=== PATIENT | female | born 1970 | race Caucasian/White ===

== ENCOUNTER 2020-03-03 07:01 | Emergency (ER) | payer OTHER, SELFPAY ==
[2020-03-03 07:07] VITALS: BP 102/43; PULSE 106; RESP 18; TEMP 36.2; O2SAT 99
--- NOTE | 2020-03-03 08:03 | ED.UPPEXIN ---
HPI - Extremity Injury (Upper) General Chief Complaint: Extremity Injury, Upper Stated Complaint: finger swollen Time Seen by Provider: 03/03/20 07:07 History of Present Illness HPI narrative: Patient is a 49-year-old female who presents ER with cuts to her index fingers bilaterally. Yesterday she was using scissors to cut off some zip ties when she snipped the distal tips of each finger. When she woke up this morning the tip of the left finger was more painful and seem to be slightly swollen when compared to the right. Range of motion intact. No numbness or tingling. No drainage. Tetanus shot up-to-date. She had placed the fingers and Band-Aids and use Neosporin last night. Related Data Home Medications Medication Instructions Recorded Confirmed fluoxetine mg 08/10/19 fluoxetine mg 08/10/19 montelukast mg 08/10/19 quetiapine 08/10/19 aspirin 81 mg tablet,delayed 81 mg PO DAILY 09/06/19 release docosanol 10 % topical cream 1 applic TOPICAL ONCE 09/06/19 epinephrine 0.3 mg/0.3 mL 0.3 mg IM ONCE 09/06/19 injection, auto-injector lorazepam 0.5 mg tablet 0.5 mg PO BID PRN tablet 09/06/19 cetirizine 10 mg capsule 10 mg PO DAILY 10/18/19 Allergies Allergy/AdvReac Type Severity Reaction Status Date / Time clove Allergy Severe ANAPHALACTIC Verified 10/18/19 09:36 SHOCK codeine Allergy Severe unknown Verified 10/18/19 09:36 Penicillins Allergy Severe SOB Verified 10/18/19 09:36 poison natividad extract Allergy Severe hives , Verified 10/18/19 09:36 goes in lungs adhesive tape Allergy Mild eats pts Verified 10/18/19 09:36 skin bee venom protein (honey bee) Allergy Mild unknown Verified 10/18/19 09:36 sole Allergy Mild uknown Verified 10/18/19 09:36 papaya Allergy Mild SCRATCHY Verified 10/18/19 09:36 THROAT hay fever Allergy Severe cough , Uncoded 10/18/19 09:36 throat swells [place] Allergy Intermediate itchy Uncoded 10/18/19 09:36 throat Tuna Allergy Mild hives Uncoded 10/18/19 09:36 Review of Systems Constitutional: Constitutional: Denies chills, Denies fever(s) and Denies weakness Musculoskeletal: Musculoskeletal: Denies arthralgias and Denies joint swelling Comments: left 2nd digit pain Integumentary/Breasts: Skin/Breast: Reports erythema Comments: Superficial skin laxity to bilateral index fingers. PMFSH Past Medical History Medical History (Updated 03/03/20 @ 08:09 by Aníbal Cedillo MD) Acute arthritis Anxiety Asthma Bipolar depression CAD (coronary artery disease) Chronic pain COPD (chronic obstructive pulmonary disease) Diabetes Dysmenorrhea Fibromyalgia Folliculitis GERD (gastroesophageal reflux disease) History of herpes simplex infection Hyperlipidemia Hypothyroidism Migraine Suicide SI at age 16 Ulcer Surgical History Surgical History H/O: hysterectomy Tubal ligation status Social History Social History Smoking status: Never smoker Smoking end date: 05/29/13 Alcohol intake: current Exam Narrative: Exam Narrative: GENERAL: Well-appearing, well-nourished, and in no acute distress. HEAD: Normocephalic, atraumatic. EXTREMITIES: Small superficial wax versus abrasions to bilateral index fingers over the distal phalanx palmar aspect. Range of motion and strength intact at each joint. The left second digit appears to have mild redness when compared to the right with mild warmth as well. No tenderness over the flexor tendons on the left side. SKIN: Warm, dry, no rash. NEURO: Alert and oriented x3. PSYCH: Normal mood and affect. Course Course Emergency Course: Will start on Keflex for potential early cellulitis. Vital Signs Vital signs: Vital Signs Temperature 97.2 F L 03/03/20 07:07 Pulse Rate 106 H 03/03/20 07:07 Respiratory Rate 18 03/03/20 07:07 Blood Pressure 102/43 L 03/03/20 07:07 Pulse Oximetry
== END 2020-03-03 08:31 | disposition home or self-care (01) ==
PROVIDERS: Emergency Provider Emergency Medicine; PCP Family Medicine
DX: L03.012 Cellulitis of left finger (principal); Z79.82 Long term (current) use of aspirin; M19.90 Unspecified osteoarthritis, unspecified site; J44.9 Chronic obstructive pulmonary disease, unspecified; I25.10 Atherosclerotic heart disease of native coronary artery without angina pectoris; E11.9 Type 2 diabetes mellitus without complications; M79.7 Fibromyalgia; K21.9 Gastro-esophageal reflux disease without esophagitis; E78.5 Hyperlipidemia, unspecified; E03.9 Hypothyroidism, unspecified; F41.9 Anxiety disorder, unspecified; F31.9 Bipolar disorder, unspecified; W27.2XXA Contact with scissors, initial encounter
CPT/HCPCS: 99283

== ENCOUNTER 2020-05-13 00:45 | Emergency (ER) | payer OTHER, SELFPAY ==
--- NOTE | ~2020-05-13 | CT_ITS ---
EXAMINATION: CT abdomen pelvis w con DATE: 05/13/2020 02:58 INDICATION: Abdominal pain. Diarrhea. TECHNIQUE: Computed tomography (CT) of the abdomen and pelvis was performed with 100 mL Omnipaque 350 intravenous contrast. Automated exposure control and iterative reconstruction technique were employe d. The dose-length product was 1635.61 mGy-cm. COMPARISON: CT abdomen and pelvis 07/26/2015 FINDINGS: The visualized portions of the lung bases demonstrate mild atelectasis. No pleural effusion . The heart size is normal. No pericardial effusion. The liver, gallbladder, spleen, pancreas, adrena l glands, and left kidney are normal. There is an 8 mm cyst in right kidney. There are no dilated loo ps of bowel. There is wall thickening in the descending colon, sigmoid colon, and rectum, consistent with colitis. The appendix is normal. There are no pathologically enlarged lymph nodes. There is no f ree intraperitoneal fluid. There is mild thoracolumbar spondylosis. IMPRESSION: 1. Mild wall thickening of the distal colon, consistent with colitis. Reviewed, dictated and finalized at location A.
[2020-05-13 00:42] VITALS: BP 113/86; PULSE 100; RESP 20; TEMP 37.6; O2SAT 96
--- NOTE | 2020-05-13 01:01 | ED.ABDPAIN ---
HPI - Abdominal Pain General Chief Complaint: Abdominal Pain Stated Complaint: DIARRHEA Time Seen by Provider: 05/13/20 00:47 Source: patient and EMS Mode of arrival: EMS Limitations: no limitations History of Present Illness HPI narrative: Patient is a 49-year-old female who presents for evaluation of abdominal cramping and diarrhea. Patient reports acute onset abdominal cramping overnight, pain is intermittently cramping and sharp in nature throughout her abdomen. Patient states she has had watery diarrhea without blood or mucus. EMS was called and transported the patient to our facility, she is hemodynamically stable throughout transport. Patient denies any recent travel or sick contacts. No recent food indiscretion. Related Data Home Medications Medication Instructions Recorded Confirmed fluoxetine mg 08/10/19 03/28/20 fluoxetine mg 08/10/19 03/28/20 aspirin 81 mg tablet,delayed 81 mg PO DAILY 09/06/19 03/28/20 release docosanol 10 % topical cream 1 applic TOPICAL ONCE 09/06/19 03/28/20 epinephrine 0.3 mg/0.3 mL 0.3 mg IM ONCE 09/06/19 03/28/20 injection, auto-injector lorazepam 0.5 mg tablet 0.5 mg PO BID PRN tablet 09/06/19 03/28/20 cetirizine 10 mg capsule 10 mg PO DAILY 10/18/19 03/28/20 quetiapine 200 mg tablet 200 mg PO DAILY tablet 03/07/20 03/28/20 Allergies Allergy/AdvReac Type Severity Reaction Status Date / Time clove Allergy Severe ANAPHALACTIC Verified 05/13/20 00:49 SHOCK codeine Allergy Severe unknown Verified 05/13/20 00:49 Penicillins Allergy Severe SOB Verified 05/13/20 00:49 poison natividad extract Allergy Severe hives , Verified 05/13/20 00:49 goes in lungs adhesive tape Allergy Mild eats pts Verified 05/13/20 00:49 skin bee venom protein (honey bee) Allergy Mild unknown Verified 05/13/20 00:49 sole Allergy Mild uknown Verified 05/13/20 00:49 papaya Allergy Mild SCRATCHY Verified 05/13/20 00:49 THROAT hay fever Allergy Severe cough , Uncoded 05/13/20 00:49 throat swells [place] Allergy Intermediate itchy Uncoded 05/13/20 00:49 throat Tuna Allergy Mild hives Uncoded 05/13/20 00:49 Review of Systems Review of Systems: Narrative: CONSTITUTIONAL: Denies fever CARDIOVASCULAR: Denies chest pain RESPIRATORY: Denies cough or dyspnea. GASTROINTESTINAL: Reports abdominal pain and diarrhea SKIN: Denies rash MUSCULOSKELETAL: Denies back pain NEUROLOGIC: Denies headache PMFSH Past Medical History Medical History Acute arthritis Anxiety Asthma Bipolar depression CAD (coronary artery disease) Chronic pain COPD (chronic obstructive pulmonary disease) Diabetes Dysmenorrhea Fibromyalgia Folliculitis GERD (gastroesophageal reflux disease) History of herpes simplex infection Hyperlipidemia Hypothyroidism Migraine Suicide SI at age 16 Ulcer Surgical History Surgical History H/O: hysterectomy Tubal ligation status Social History Social History Smoking status: Never smoker Smoking end date: 05/29/13 Alcohol intake: current Exam Narrative: Exam Narrative: GENERAL: Awake, alert, conversant HEAD: Normocephalic, atraumatic. EYES: PERRLA and EOMI. ENT: Nares clear, no rhinorrhea or epistaxis. Mucous membranes moist. NECK: Supple. CHEST: No respiratory distress, breathing even and non labored HEART: Regular rate, sinus rhythm ABDOMEN:Non distended, mildly tender throughout, no rebound or guarding EXTREMITIES: Normal range of motion. No edema. SKIN: Warm, dry, no rash. NEURO:No focal deficits. Alert and oriented x3 Course Vital Signs Vital signs: Vital Signs Temperature 37.6 C 05/13/20 00:42 Pulse Rate 100 05/13/20 00:42 Respiratory Rate 20 05/13/20 00:42 Blood Pressure 113/86 05/13/20 00:42 Pulse Oximetry 96 05/13/20 00:42 Temperature 37.6 C 08
[2020-05-13] MEDS: DICYCLOMINE HCL INJ 20 MG/2 ML VIAL IM (01:16)
[2020-05-13] MEDS: SODIUM CHLORIDE 0.9% IV 1,000 ML 999 ML IV CONT ×2 (01:17→02:23)
[2020-05-13 01:28] LABS: Basophils Absolute Auto 0.1 K/mm3 (0.0-0.1); Basophils Percent Auto 0.7 % (0.2-1.2); Eosinophils Absolute Auto 0.1 K/mm3 (0-0.3); Eosinophils Percent Auto 1.2 % (0-4.4); Hematocrit 46.9 % (37.0-47.0); Hemoglobin 15.4 g/dL (12.0-15.0); Immature Granulocyte Absolute 0.01 K/mm3 (0.00-0.031); Immature Granulocyte Percent A 0.1 % (0-0.5); Lymphocytes Absolute Auto 1.55 K/mm3 (0.9-3.2); Lymphocytes Percent Auto 22.7 % (18.3-44.2); Mean Corpuscular HGB Conc 32.8 g/dl (32-36); Mean Corpuscular Hemoglobin 29.6 pg (26-34); Mean Platelet Volume 11.8 fl (7.4-10.4); Monocytes Absolute Auto 0.6 K/mm3 (0.1-0.6); Monocytes Percent Auto 8.6 % (2.6-8.5); Neutrophils Absolute Auto 4.6 K/mm3 (1.3-6.7); Neutrophils Percent Auto 66.7 % (45.5-73.1); Platelet Count Result 201 k/mm3 (150-375); Red Blood Count 5.21 M/mm3 (4.2-5.4); Red Cell Distribution Width 12.7 % (11.5-14.5); White Blood Count 6.8 K/mm3 (4.5-10.0)
[2020-05-13 02:06] LABS: Alanine Aminotransferase 24 U/L (4-35); Albumin Level 3.8 g/dL (3.5-5.1); Alkaline Phosphatase 93 U/L (38-126); Anion Gap 5 mmol/L (8-16); Aspartate Amino Transferase 26 U/L (14-36); Bilirubin,Total 0.5 mg/dL (0.2-1.3); Blood Urea Nitrogen 20 mg/dL (7-17); Calcium 8.8 mg/dL (8.4-10.2); Carbon Dioxide 25 mmol/L (22-30); Chloride 109 mmol/L (98-107); Estimated CRCL calculation 90 ml/min; Estimated Glomerular Filt Rate > 60; Glucose 100 mg/dL (65-105); Lipase 72 U/L (23-300); Potassium 3.9 mmol/L (3.4-5.0); Sodium 139 mmol/L (137-145)
[2020-05-13 02:40] LABS: Add Urine Microscopic? YES; Appearance Urine Clear (Clear); Bacteria Urine Trace /hpf; Bilirubin Urine 2+ (Negative); Blood Urine Negative (Negative); Color Urine Amber (Yellow); Glucose Urine UA Negative (Negative); Hyaline Casts Urine 20-29 /lpf; Ketones Urine Trace mg/dL (Negative); Leukocyte Esterase Ur Negative LEU/UL (Negative); Mucus Urine Heavy /lpf; Nitrate Urine Negative (Negative); Protein Urine 2+ mg/dL (Negative); Squamous Epithelial Cell Urine Many /hpf (Few)
[2020-05-13 02:50] LABS: Specific Grav Ur 1.036 (1.001-1.035)
[2020-05-13 03:08] VITALS: BP 109/71; PULSE 88; RESP 20; O2SAT 100
[2020-05-13 04:45] VITALS: BP 110/80; PULSE 90; RESP 20; O2SAT 98
== END 2020-05-13 04:47 | disposition home or self-care (01) ==
PROVIDERS: Emergency Provider Emergency Medicine; PCP Family Medicine
DX: K52.9 Noninfective gastroenteritis and colitis, unspecified (principal)
CPT/HCPCS: 36415; 51701; 74177; 80053; 81001; 83690; 85025; 96360; 96361; 96372; 99284; J0500; J7030; Q9967

== ENCOUNTER 2020-05-17 08:44 | Outpatient (CLI) | payer OTHER, SELFPAY ==
[2020-05-17 09:33] LABS: Alanine Aminotransferase 29 U/L (4-35); Albumin Level 4.3 g/dL (3.5-5.1); Alkaline Phosphatase 87 U/L (38-126); Anion Gap 9 mmol/L (8-16); Aspartate Amino Transferase 31 U/L (14-36); Bilirubin,Total 0.4 mg/dL (0.2-1.3); Blood Urea Nitrogen 21 mg/dL (7-17); Calcium 9.3 mg/dL (8.4-10.2); Carbon Dioxide 27 mmol/L (22-30); Chloride 105 mmol/L (98-107); Estimated Glomerular Filt Rate > 60; Glucose 94 mg/dL (65-105); Magnesium 2.3 mg/dL (1.6-2.3); Potassium 3.9 mmol/L (3.4-5.0); Sodium 141 mmol/L (137-145)
== END 2020-05-17 08:45 | disposition home or self-care (01) ==
LOC: ANHLAB 08:46
PROVIDERS: PCP Family Medicine; Visit Provider Internal Medicine Cardiovascular Disease
DX: E78.5 Hyperlipidemia, unspecified (principal)
CPT/HCPCS: 36415; 80053; 83735

== ENCOUNTER 2020-05-21 09:16 | Emergency (ER) | payer OTHER, SELFPAY ==
--- NOTE | ~2020-05-21 | XR_ITS ---
EXAMINATION: XR abdomen/kub 1V DATE: 05/21/2020 10:11 INDICATION: Constipation. TECHNIQUE: A supine view of the abdomen on 2 radiographs was obtained. COMPARISON: Abdomen radiographs 12/30/2015, CT abdomen and pelvis 05/13/2020 FINDINGS: There are no dilated loops of bowel. There is a moderate volume of stool in the colon. Calc ifications in the pelvis are likely phleboliths. IMPRESSION: 1. Nonobstructive bowel gas pattern. Reviewed, dictated and finalized at location B.
[2020-05-21 09:20] VITALS: BP 132/72; PULSE 104; RESP 16; TEMP 35.9; O2SAT 100
--- NOTE | 2020-05-21 09:32 | ED.ABDPAIN ---
HPI - Abdominal Pain General Chief Complaint: Abdominal Pain Stated Complaint: constipated Time Seen by Provider: 05/21/20 09:30 History of Present Illness HPI narrative: She has had constipation for the past 5 days, no bowel movements in that time. Prior to that she was seen for bloody diarrhea nad started on cipro and flagy. Her current symptoms are associated with mild generalized abdominal pain and bloating. She tried miralax and prunes without relief. Related Data Home Medications Medication Instructions Recorded Confirmed fluoxetine mg 08/10/19 05/18/20 fluoxetine mg 08/10/19 05/18/20 aspirin 81 mg tablet,delayed 81 mg PO DAILY 09/06/19 05/18/20 release epinephrine 0.3 mg/0.3 mL 0.3 mg IM ONCE 09/06/19 05/18/20 injection, auto-injector lorazepam 0.5 mg tablet 0.5 mg PO BID PRN tablet 09/06/19 05/18/20 ciprofloxacin HCl [Cipro] 500 mg PO Q12H 05/21/20 quetiapine 200 mg PO HS 05/21/20 Allergies Allergy/AdvReac Type Severity Reaction Status Date / Time clove Allergy Severe ANAPHALACTIC Verified 05/13/20 00:49 SHOCK codeine Allergy Severe unknown Verified 05/13/20 00:49 Penicillins Allergy Severe SOB Verified 05/13/20 00:49 poison natividad extract Allergy Severe hives , Verified 05/13/20 00:49 goes in lungs adhesive tape Allergy Mild eats pts Verified 05/13/20 00:49 skin bee venom protein (honey bee) Allergy Mild unknown Verified 05/13/20 00:49 papaya Allergy Mild SCRATCHY Verified 05/13/20 00:49 THROAT hay fever Allergy Severe cough , Uncoded 05/13/20 00:49 throat swells [place] Allergy Intermediate itchy Uncoded 05/13/20 00:49 throat Tuna Allergy Mild hives Uncoded 05/13/20 00:49 Review of Systems Review of Systems: All systems reviewed & are unremarkable except as noted in HPI and below Constitutional: Constitutional: Denies fever(s) Cardiovascular: Cardiovascular: Denies chest pain Respiratory: Respiratory: Denies dyspnea Gastrointestinal: Gastrointestinal: Reports bloating, Reports constipation and Denies vomiting Genitourinary: Genitourinary: Denies hematuria and Denies dysuria PMFSH Past Medical History Medical History Acute arthritis Anxiety Asthma Bipolar depression CAD (coronary artery disease) Chronic pain Colitis (~04/2020) COPD (chronic obstructive pulmonary disease) Diabetes Dysmenorrhea Fibromyalgia Folliculitis GERD (gastroesophageal reflux disease) History of herpes simplex infection Hyperlipidemia Hypothyroidism Migraine Suicide SI at age 16 Ulcer Surgical History Surgical History H/O: hysterectomy Tubal ligation status Family History Family History Mother Family history of elevated blood lipids, Onset Age: 62 Patient's mother is Sibling Family history of malignant neoplasm of breast in first degree relative Family history of lupus erythematosus Grandparent Family history of bipolar disorder Family history of tremor Family history of heart disease in male family member before age 55 Other Diabetes mellitus Family history of cardiovascular disease Family history of malignant neoplasm of breast Family history of malignant neoplasm of cervix Family history of malignant neoplasm of ovary Social History Social History Smoking status: Never smoker Smoking end date: 05/29/13 Alcohol intake: current Exam Const: General: no acute distress and alert Nutritional Appearance: obese Orientation/consciousness: patient oriented x3 HENMT: Head: normal to inspection Neck: Neck: normal visual inspection and no lymphadenopathy Chest: Chest palpation & inspection: no tenderness Resp: Effort & Inspection: normal respiratory effort Auscultation: clear to auscultati
[2020-05-21 09:44] LABS: Basophils Absolute Auto 0.1 K/mm3 (0.0-0.1); Basophils Percent Auto 1.1 % (0.2-1.2); Eosinophils Absolute Auto 0.1 K/mm3 (0-0.3); Eosinophils Percent Auto 1.3 % (0-4.4); Hematocrit 45.6 % (37.0-47.0); Hemoglobin 15.1 g/dL (12.0-15.0); Immature Granulocyte Absolute 0.01 K/mm3 (0.00-0.031); Immature Granulocyte Percent A 0.2 % (0-0.5); Lymphocytes Absolute Auto 1.87 K/mm3 (0.9-3.2); Lymphocytes Percent Auto 34.6 % (18.3-44.2); Mean Corpuscular HGB Conc 33.1 g/dl (32-36); Mean Corpuscular Hemoglobin 29.7 pg (26-34); Mean Corpuscular Volume 89.6 fl (80-100); Mean Platelet Volume 11.4 fl (7.4-10.4); Monocytes Absolute Auto 0.3 K/mm3 (0.1-0.6); Monocytes Percent Auto 5.7 % (2.6-8.5); Neutrophils Absolute Auto 3.1 K/mm3 (1.3-6.7); Neutrophils Percent Auto 57.1 % (45.5-73.1); Platelet Count Result 224 k/mm3 (150-375); Red Blood Count 5.09 M/mm3 (4.2-5.4); Red Cell Distribution Width 12.9 % (11.5-14.5); White Blood Count 5.4 K/mm3 (4.5-10.0)
[2020-05-21 09:56] LABS: Alanine Aminotransferase 45 U/L (4-35); Albumin Level 4.5 g/dL (3.5-5.1); Alkaline Phosphatase 89 U/L (38-126); Anion Gap 11 mmol/L (8-16); Aspartate Amino Transferase 52 U/L (14-36); Bilirubin,Total 0.5 mg/dL (0.2-1.3); Blood Urea Nitrogen 19 mg/dL (7-17); Calcium 9.2 mg/dL (8.4-10.2); Carbon Dioxide 25 mmol/L (22-30); Chloride 102 mmol/L (98-107); Estimated CRCL calculation 96 ml/min; Estimated Glomerular Filt Rate > 60; Glucose 99 mg/dL (65-105); Lipase 71 U/L (23-300); Potassium 3.9 mmol/L (3.4-5.0); Sodium 138 mmol/L (137-145)
[2020-05-21] MEDS: MAGNESIUM CITRATE 300 ML BTL PO (10:01)
[2020-05-21 11:06] LABS: Add Urine Microscopic? YES; Appearance Urine Clear (Clear); Bacteria Urine Trace /hpf; Bilirubin Urine Negative (Negative); Blood Urine 1+ (Negative); Color Urine Straw (Yellow); Glucose Urine UA Negative (Negative); Ketones Urine Negative (Negative); Leukocyte Esterase Ur Trace LEU/UL (Negative); Nitrate Urine Negative (Negative); Protein Urine Negative (Negative); RBC Urine 0-2 /hpf (0-2); Specific Grav Ur 1.006 (1.001-1.035); Squamous Epithelial Cell Urine Moderate /hpf (Few); Urobilinogen Urine Negative mg/dL (<2.0); WBC Urine 0-3 /hpf
[2020-05-21 15:56] VITALS: BP 105/56; PULSE 73; RESP 16; O2SAT 96
== END 2020-05-21 16:01 | disposition home or self-care (01) ==
PROVIDERS: Emergency Provider Emergency Medicine; PCP Family Medicine
DX: K59.00 Constipation, unspecified (principal); M19.90 Unspecified osteoarthritis, unspecified site; I25.10 Atherosclerotic heart disease of native coronary artery without angina pectoris; J44.9 Chronic obstructive pulmonary disease, unspecified; E11.9 Type 2 diabetes mellitus without complications; M79.7 Fibromyalgia; K21.9 Gastro-esophageal reflux disease without esophagitis; E78.5 Hyperlipidemia, unspecified; E03.9 Hypothyroidism, unspecified; F41.9 Anxiety disorder, unspecified; F31.9 Bipolar disorder, unspecified; Z79.82 Long term (current) use of aspirin
CPT/HCPCS: 36415; 74018; 80053; 81001; 83690; 85025; 99283; A9270

== ENCOUNTER 2020-12-01 19:59 | Emergency (ER) | payer OTHER, SELFPAY ==
--- NOTE | ~2020-12-01 | XR_ITS ---
EXAMINATION: XR foot LT min 3V DATE: 12/01/2020 20:55 INDICATION: Left foot pain, possible foreign body TECHNIQUE: Dorsoplantar, lateral, and 2 oblique views of the left foot were obtained. COMPARISON: 05/11/2015 FINDINGS: There is soft tissue swelling of the foot near the fifth metatarsophalangeal joint. A 2 mm thin linear density projects lateral to the head of the fifth metatarsal. The joint spaces are normal . There is no fracture. Dorsal and plantar calcaneal enthesophytes are noted. IMPRESSION: 1. 2 mm linear density projecting near the head of the fifth metatarsal, possibly foreign body. 2. Soft tissue swelling of the foot near the fifth metatarsophalangeal joint. Reviewed, dictated and finalized at location A. [employer] IMPRESSION: 1. 2 mm linear density projecting near the head of the fifth metatarsal, possib ly foreign body. 2. Soft tissue swelling of the foot near the fifth metatarsophalangeal joint.
[2020-12-01 20:11] VITALS: BP 119/78; PULSE 99; RESP 18; TEMP 36.9; O2SAT 99
--- NOTE | 2020-12-01 20:38 | ED.GENADULT ---
HPI - General Adult General Chief complaint: Wound/Laceration Stated complaint: laceration to left foot Time Seen by Provider: 12/01/20 20:09 History of Present Illness HPI narrative: Patient is a 50-year-old female who presents ER for evaluation of a laceration to the bottom of the left foot. Reports she cut it on her floor while walking 3 days ago. She cleaned it and applied a Steri-Strip and bandage. She has slight increase in her pain today so she thought she come for further evaluation. She has not noticed any redness or drainage. No fevers or chills or sweats. She is able to bear weight on it. Pain improves when she takes her diclofenac or tramadol. Related Data Home Medications Medication Instructions Recorded Confirmed fluoxetine mg 08/10/19 07/10/20 fluoxetine mg 08/10/19 07/10/20 aspirin 81 mg tablet,delayed 81 mg PO DAILY 09/06/19 07/10/20 release epinephrine 0.3 mg/0.3 mL 0.3 mg IM ONCE 09/06/19 07/10/20 injection, auto-injector lorazepam 0.5 mg tablet 0.5 mg PO BID PRN tablet 09/06/19 07/10/20 quetiapine 200 mg PO HS 05/21/20 07/10/20 cetirizine 10 mg tablet 10 mg PO DAILY 07/10/20 07/10/20 Allergies Allergy/AdvReac Type Severity Reaction Status Date / Time clove Allergy Severe ANAPHALACTIC Verified 07/10/20 10:58 SHOCK codeine Allergy Severe unknown Verified 07/10/20 10:58 Penicillins Allergy Severe SOB Verified 07/10/20 10:58 poison natividad extract Allergy Severe hives , Verified 07/10/20 10:58 goes in lungs adhesive tape Allergy Mild eats pts Verified 07/10/20 10:58 skin bee venom protein (honey bee) Allergy Mild unknown Verified 07/10/20 10:58 papaya Allergy Mild SCRATCHY Verified 07/10/20 10:58 THROAT hay fever Allergy Severe cough , Uncoded 07/10/20 10:58 throat swells [place] Allergy Intermediate itchy Uncoded 07/10/20 10:58 throat Tuna Allergy Mild hives Uncoded 07/10/20 10:58 Review of Systems Constitutional: Constitutional: Denies chills, Denies fever(s) and Denies weakness Musculoskeletal: Musculoskeletal: Denies arthralgias, Denies joint swelling and Denies muscle cramps Integumentary/Breasts: Skin/Breast: Denies erythema and Denies rash Comments: Foot lack PMFSH Past Medical History Medical History (Updated 12/01/20 @ 22:29 by Aníbal Cedillo MD) Acute arthritis Anxiety Asthma Bipolar depression CAD (coronary artery disease) Chronic pain Colitis (~04/2020) COPD (chronic obstructive pulmonary disease) Diabetes Dysmenorrhea Fibromyalgia Folliculitis GERD (gastroesophageal reflux disease) History of herpes simplex infection Hyperlipidemia Hypothyroidism Migraine Suicide SI at age 16 Ulcer Surgical History Surgical History H/O: hysterectomy Tubal ligation status Family History Family History Mother Family history of elevated blood lipids, Onset Age: 62 Patient's mother is Sibling Family history of malignant neoplasm of breast in first degree relative Family history of lupus erythematosus Grandparent Family history of bipolar disorder Family history of tremor Family history of heart disease in male family member before age 55 Other Diabetes mellitus Family history of cardiovascular disease Family history of malignant neoplasm of breast Family history of malignant neoplasm of cervix Family history of malignant neoplasm of ovary Social History Social History Smoking status: Never smoker Smoking end date: 05/29/13 Alcohol intake: current Exam Narrative: Exam Narrative: GENERAL: Well-appearing, well-nourished, and in no acute distress. HEAD: Normocephalic, atraumatic. EXTREMITIES: Left lower extremity with normal strength. Normal appearance of foot without swelling or redness or cellulitis. No lymphangitic
[2020-12-01 22:55] VITALS: BP 124/76; PULSE 100; RESP 18; O2SAT 100
== END 2020-12-01 22:57 | disposition home or self-care (01) ==
PROVIDERS: Emergency Provider Emergency Medicine; PCP Family Medicine
DX: S90.852A Superficial foreign body, left foot, initial encounter (principal); M19.90 Unspecified osteoarthritis, unspecified site; F31.9 Bipolar disorder, unspecified; I25.10 Atherosclerotic heart disease of native coronary artery without angina pectoris; J44.9 Chronic obstructive pulmonary disease, unspecified; E11.9 Type 2 diabetes mellitus without complications; M79.7 Fibromyalgia; K21.9 Gastro-esophageal reflux disease without esophagitis; E78.5 Hyperlipidemia, unspecified; E03.9 Hypothyroidism, unspecified; Z79.82 Long term (current) use of aspirin; W45.8XXA Other foreign body or object entering through skin, initial encounter
CPT/HCPCS: 73630; 99283

== ENCOUNTER 2020-12-04 13:36 | Inpatient (IN) | payer OTHER, SELFPAY ==
[2020-12-04] VITALS (7 sets, daily range): BP systolic 105–132; BP diastolic 71–98; PULSE 72–102; RESP 16–20; TEMP 35.7–37; O2SAT 97–100; BMI 36.1
--- NOTE | ~2020-12-04 | MR_ITS ---
EXAMINATION: MR foot LT wo con DATE: 12/05/2020 08:22 INDICATION: Left foot pain. Foreign body with infection. TECHNIQUE: Magnetic resonance imaging (MRI) of the left foot was performed without intravenous contra st. Sequences included sagittal T1-weighted FSE and STIR FSE, long-axis PD-weighted FS FSE and PD-yelena ghted FSE, and short-axis PD-weighted FS FSE and T1-weighted FSE. COMPARISON: Left foot radiographs 12/01/2020, 05/12/2014 FINDINGS: There is mild hallux valgus. No fracture. There is bone marrow edema of head of fifth metat arsal characterized by increased T2-weighted signal intensity and mildly decreased T1-weighted signal intensity. There is mild osteoarthritis of first metatarsophalangeal joint and some of the interphal angeal joints. There is an effusion of fifth metatarsophalangeal joint. Lisfranc ligament is intact. The flexor and extensor tendons are normal. There is edema of the soft tissues in the lateral forefoo t. IMPRESSION: 1. Bone marrow edema in head of fifth metatarsal, consistent with osteomyelitis. 2. Effusion of fifth metatarsophalangeal joint. 3. Edema of the lateral forefoot soft tissues, consistent with cellulitis. Reviewed, dictated and finalized at location A. ENTARY EDUCATION TEACHER IMPRESSION: 1. Bone marrow edema in head of fifth metatarsal, consistent with osteomyelitis . 2. Effusion of fifth metatarsophalangeal joint. 3. Edema of the lateral forefoot soft tissues, consistent with cellulitis.
[2020-12-04 16:12] LABS: Basophils Absolute Auto 0.1 K/mm3 (0.0-0.1); Eosinophils Absolute Auto 0.1 K/mm3 (0-0.3); Eosinophils Percent Auto 1.1 % (0-4.4); Hematocrit 40.5 % (37.0-47.0); Hemoglobin 13.4 g/dL (12.0-15.0); Immature Granulocyte Absolute 0.01 K/mm3 (0.00-0.031); Immature Granulocyte Percent A 0.1 % (0-0.5); Immature Platelet Fraction Pct 4.6 % (0.9-11.2); Lymphocytes Absolute Auto 2.22 K/mm3 (0.9-3.2); Lymphocytes Percent Auto 31.2 % (18.3-44.2); Mean Corpuscular HGB Conc 33.1 g/dl (32-36); Mean Corpuscular Hemoglobin 30.5 pg (26-34); Mean Corpuscular Volume 92.3 fl (80-100); Mean Platelet Volume 11.5 fl (7.4-10.4); Monocytes Absolute Auto 0.5 K/mm3 (0.1-0.6); Monocytes Percent Auto 7.6 % (2.6-8.5); Neutrophils Absolute Auto 4.2 K/mm3 (1.3-6.7); Red Blood Count 4.39 M/mm3 (4.2-5.4); Red Cell Distribution Width 12.7 % (11.5-14.5); White Blood Count 7.1 K/mm3 (4.5-10.0)
--- NOTE | 2020-12-04 16:16 | ED.GENADULT ---
HPI - General Adult General Chief complaint: Extremity Injury, Lower Stated complaint: left foot swelling/redness Time Seen by Provider: 12/04/20 15:36 Source: patient History of Present Illness HPI narrative: Patient is a 50 y/o female complaining of left foot pain starting approximately 3 days ago. She describes her pain as sharp and rates it as 3/10. She has neuropathy and does not have much sensation in her foot. She stepped on something 5 days ago and the wound closed quickly, then she started to have pain 2 days ago. There is no pain radiation. She was seen here 3 days ago, had Xray which showed possible foreign body. She was given Rx for Doxycycline and referred to ortho. She saw Dr. Braden (podiatry) yesterday and was supposed to have an MRI. However, she developed fever of 102 this morning and was directed here to be re-evaluated in ED. Related Data Home Medications Medication Instructions Recorded Confirmed fluoxetine mg 08/10/19 07/10/20 fluoxetine mg 08/10/19 07/10/20 aspirin 81 mg tablet,delayed 81 mg PO DAILY 09/06/19 12/03/20 release epinephrine 0.3 mg/0.3 mL 0.3 mg IM ONCE 09/06/19 07/10/20 injection, auto-injector lorazepam 0.5 mg tablet 0.5 mg PO BID PRN tablet 09/06/19 12/03/20 quetiapine 200 mg PO HS 05/21/20 12/03/20 cetirizine 10 mg tablet 10 mg PO DAILY 07/10/20 12/03/20 Allergies Allergy/AdvReac Type Severity Reaction Status Date / Time clove Allergy Severe ANAPHALACTIC Verified 07/10/20 10:58 SHOCK codeine Allergy Severe unknown Verified 07/10/20 10:58 Penicillins Allergy Severe SOB Verified 07/10/20 10:58 poison natividad extract Allergy Severe hives , Verified 07/10/20 10:58 goes in lungs adhesive tape Allergy Mild eats pts Verified 07/10/20 10:58 skin bee venom protein (honey bee) Allergy Mild unknown Verified 07/10/20 10:58 papaya Allergy Mild SCRATCHY Verified 07/10/20 10:58 THROAT hay fever Allergy Severe cough , Uncoded 07/10/20 10:58 throat swells [place] Allergy Intermediate itchy Uncoded 07/10/20 10:58 throat Tuna Allergy Mild hives Uncoded 07/10/20 10:58 Review of Systems Constitutional: Constitutional: Denies chills, Reports fever(s), Denies headache(s) and Denies weakness Eyes: Eyes: Denies blurry vision ENT: Denies headache(s) and Denies neck pain Cardiovascular: Cardiovascular: Denies chest pain and Denies dyspnea Respiratory: Respiratory: Denies cough and Denies dyspnea Gastrointestinal: Gastrointestinal: Denies abdominal pain, Denies diarrhea, Denies nausea and Denies vomiting Genitourinary: Genitourinary: Denies hematuria and Denies dysuria Musculoskeletal: Musculoskeletal: Reports as per HPI, Denies back pain, Denies neck pain and Reports other (left foot pain) Integumentary/Breasts: Skin/Breast: Reports erythema (left foot) Neurologic: Denies headache(s) and Denies weakness PMFSH Past Medical History Medical History (Updated 12/04/20 @ 17:17 by Gia Mccloud MD) Acute arthritis Anxiety Asthma Bipolar depression CAD (coronary artery disease) Chronic pain Colitis (~04/2020) COPD (chronic obstructive pulmonary disease) Diabetes Dysmenorrhea Fibromyalgia Folliculitis GERD (gastroesophageal reflux disease) History of herpes simplex infection Hyperlipidemia Hypothyroidism Migraine Suicide SI at age 16 Ulcer Surgical History Surgical History H/O: hysterectomy Tubal ligation status Family History Family History Mother Family history of elevated blood lipids, Onset Age: 62 Patient's mother is Sibling Family history of malignant neoplasm of breast in first degree relative Family history of lupus erythematosus Grandparent Family history of bipolar disorder Family history of tremor Family history of heart disease in male family member before age 55 Other Diabetes mellitus Family h
[2020-12-04 16:37] LABS: Lactic Acid Reflex 0.8 mmol/L (0.7-2.1)
[2020-12-04 16:48] LABS: Erythrocyte Sedimentation Rate 16 mm/hr (0-20)
[2020-12-04 16:51] LABS: Anion Gap 5 mmol/L (8-16); Blood Urea Nitrogen 22 mg/dL (7-17); CRP 1.8 mg/dL (<1.0); Calcium 9.4 mg/dL (8.4-10.2); Carbon Dioxide 30 mmol/L (22-30); Chloride 105 mmol/L (98-107); Estimated CRCL calculation 110 ml/min; Estimated Glomerular Filt Rate > 60; Glucose 98 mg/dL (65-105); Potassium 4.1 mmol/L (3.4-5.0); Sodium 140 mmol/L (137-145)
[2020-12-04] MEDS: TETANUS,DIPHTHERIA,AC PERTUSSIS ADULT (0.5 ML) BOOSTRIX IM (17:08)
[2020-12-04] MEDS: levoFLOXacin 500 MG/D5W 100 ML 500 MG/100 ML BAG 100 MG IVPB (17:09)
--- NOTE | 2020-12-04 17:50 | PM.IMHP ---
H&P: HPI History of Present Illness Date/Time: 12/04/20 17:50 Chief Complaint: Left foot injury Narrative: Date of admission: 12/04/2020 Date of service: 12/04/2020 Jaci Felix is a 50 year old female with history of anxiety, bipolar disorder, COPD and asthma, diabetes mellitus, and several other comorbidities who presented to the emergency department on 12/04/2020 with complaints of left foot swelling and redness. She states that last week, on 11/28/2020 she was walking barefoot in her home when she stepped on an unknown item that cut her foot. She did not feel this as she has poor sensation, but noticed a trail of blood on the floor. She is unsure what she stepped on but states that it might have been a rock or something sharp. She had some pain with weight-bearing but was manageable and she was able to get around with heel-toe walking. Over the next couple of days, she developed increased pain in the foot which prompted her to go to the emergency department on 12/01/2020. At that time she had a foot x-ray which showed a 2 mm linear density projecting near the head of the 5th metatarsal, possibly a foreign body, as well as soft tissue swelling of the foot near the 5th MTP. She was discharged on doxycycline and referred to orthopedic surgery. Two days later she went to her PCP as she developed increased redness and swelling. She was started on Keflex at that time and later that day went to a utilities ground worker who recommended she obtain an MRI. Her erythema and edema increased and she developed a fever of 102.0, which prompted her to seek emergency care. Upon presentation to the ED, her vital signs were stable and she was afebrile, no leukocytosis, CBC and BMP unremarkable, ESR 16 and CRP 1.8. She denies nausea or vomiting. She denies lymphangitic streaking up the extremity. Her pain is controlled at this time. Denies purulence or drainage of the wound. She is being admitted to the hospitalist service for observation. Supervising physician for this history and physical is Dr. Harpreet Childs. Review of Systems Review of Systems: Narrative: All systems reviewed with pertinent positives and negatives as per HPI. Additional,she denies shortness of breath, chest pain, cough, wheezing, dizziness, lightheadedness. Her asthma is well controlled. Her mood is stable. She has a history of suicidal ideation many years ago but denies any thoughts of wanting to harm herself or others currently. She complains of chronic pain in her neck. She denies abdominal pain. She has regular bowel movements. Denies urinary symptoms. [facility] Past Medical History Medical History (Updated 12/04/20 @ 18:26 by Kelly Carr PA-C) Acute arthritis Anxiety Asthma Mild persistent Bipolar depression Chronic pain Colitis (~04/2020) COPD (chronic obstructive pulmonary disease) Diabetes mellitus with neuropathy Dysmenorrhea Fibromyalgia Folliculitis GERD (gastroesophageal reflux disease) History of herpes simplex infection Hyperlipidemia Hypothyroidism Migraine Suicide SI at age 16 Surgical History Surgical History (Updated 12/04/20 @ 18:09 by Kelly Carr PA-C) H/O: hysterectomy History of cervical spinal surgery 2006 History of delivery Tubal ligation status Family History Family History (Updated 12/04/20 @ 18:10 by Kelly Carr PA-C) Mother Family history of elevated blood lipids, Onset Age: 62 Brain aneurysm Sibling Family history of malignant neoplasm of breast in first degree relative Family history of lupus erythematosus Father Family history of tremor Son Bipolar 1 disorder Other Diabetes mellitus Family history of cardiovascular disease Family history of malignant neoplasm of breast Family history of malignant neoplasm of cervix Family history of malignant neoplasm of ovary Social History Social History (Updated 12/04/20 @ 18:12 by Kelly Carr PA-C) Social History: Ms. Wiggins
--- NOTE | 2020-12-04 19:29 | ADMGEN ---
This patient, Jaci Felix, was admitted to [facility] Surg Room 310-01. Patient/family oriented to hospital policies and general routines including ID bracelet, bed and alarms, visiting hours, pain management, procedures, bathroom and other care routines, personal items, smoking policy, room service/diet, and visiting hours. Information on how to activate the Rapid Response Team has been discussed. Patient/Family are encouraged to report perceived risks to care and to ask questions if they do not understand what they are told or what they should do.
[2020-12-04] MEDS: ENOXAPARIN 40 MG/0.4 ML SYRINGE SUB-Q (21:14)
[2020-12-04 21:26] LABS: Glucose Point of Care 131 (65-105)
[2020-12-04] MEDS: DICLOFENAC SOD 75 MG TABLET.EC PO (23:02)
[2020-12-04] MEDS: CYCLOBENZAPRINE HCL 10 MG TABLET PO (23:02)
[2020-12-04] MEDS: HYDROcodone/acetaminophen (*CRX) 5-325 MG TABLET 1 TAB PO (23:03)
[2020-12-04] MEDS: GABAPENTIN 100 MG CAPSULE 200 MG PO (23:04)
[2020-12-04] MEDS: LEVOTHYROXINE SODIUM 12.5 MCG TABLET PO (23:04)
[2020-12-04] MEDS: LEVOTHYROXINE SODIUM 25 MCG TABLET PO (23:05)
[2020-12-05 05:31] VITALS: PULSE 88; RESP 20
[2020-12-05] MEDS: ALBUTEROL SULFATE NEB 2.5 MG/3 ML INH INHALATION (05:31)
[2020-12-05 05:53] LABS: Hematocrit 42.9 % (37.0-47.0); Hemoglobin 13.8 g/dL (12.0-15.0); Mean Corpuscular HGB Conc 32.2 g/dl (32-36); Mean Corpuscular Volume 93.3 fl (80-100); Mean Platelet Volume 10.9 fl (7.4-10.4); Platelet Count Result 210 k/mm3 (150-375); Red Cell Distribution Width 12.6 % (11.5-14.5); White Blood Count 6.3 K/mm3 (4.5-10.0)
[2020-12-05 06:00] VITALS: BP 129/84; PULSE 86; RESP 20; TEMP 36.8; O2SAT 100
[2020-12-05 06:15] LABS: Anion Gap 6 mmol/L (8-16); Blood Urea Nitrogen 20 mg/dL (7-17); Calcium 8.5 mg/dL (8.4-10.2); Carbon Dioxide 30 mmol/L (22-30); Chloride 105 mmol/L (98-107); Estimated CRCL calculation 110 ml/min; Estimated Glomerular Filt Rate > 60; Glucose 89 mg/dL (65-105); Potassium 4.1 mmol/L (3.4-5.0); Sodium 141 mmol/L (137-145)
--- NOTE | 2020-12-05 07:51 | PM.CNOR ---
Assessment and Plan Assessment and plan (1) Cellulitis of left foot: Code(s): L03.116 - Cellulitis of left lower limb Status: Acute Assessment and Plan: 50-year-old woman with left foot infection. Her history is somewhat confusing given the time and the number of people she is seen for her left foot over the past week. Patient thought she stepped on something as she noted there was bleeding with weight-bearing in her house which started 1 week ago. Subsequently a radiograph was read as concerning for a foreign body. No foreign bodies visible on the MRI however, and I suspect the small calcification on the radiograph may be an accessory bone or old injury. The patient does have mixed neuropathy but not from diabetes. She does not take diabetic medication. Her last A1c was 5. She does have neuropathy from cervical spine issues and radiculopathy. There is question of osteomyelitis of the 5th metatarsal head on the MRI however she has no physical findings or laboratory findings consistent with osteomyelitis. She is nontender to palpation and has full range of motion of the MTP joint. This may be reactive edema in the met head from her cellulitis. She has responded favorably to intravenous antibiotics overnight. The MRI shows no abscess or foreign body or operative indications. MRI findings and plan discussed with the patient who verbalizes agreement. Recommend IV antibiotics until stable enough to transition to p.o. antibiotics. Follow-up for any signs of worsening. Productive weight-bearing of left foot. May use postop shoe or similar. Thank you for allowing me to participate in her care. History of Present Illness HPI Consult date: 12/05/20 Requesting physician: Maycol Childs MD Chief complaint: left foot infection Narrative: 50-year-old woman I have been asked to see in consultation with history of diabetes and foreign body left foot. Patient noted cut on the plantar surface of the left forefoot 1 week ago. Admitted yesterday for new onset fever and progressive swelling left foot. Review of Systems Constitutional: Constitutional: Denies chills, Reports fever(s), Denies headache(s) and Denies weakness Eyes: Eyes: Denies blurry vision ENT: Denies headache(s) and Denies neck pain Cardiovascular: Cardiovascular: Denies chest pain and Denies dyspnea Respiratory: Respiratory: Denies cough and Denies dyspnea Gastrointestinal: Gastrointestinal: Denies abdominal pain, Denies diarrhea, Denies nausea and Denies vomiting Genitourinary: Genitourinary: Denies hematuria and Denies dysuria Musculoskeletal: Musculoskeletal: Reports as per HPI, Denies back pain, Denies neck pain and Reports other (left foot pain) Integumentary/Breasts: Skin/Breast: Reports erythema (left foot) Neurologic: Denies headache(s), Denies weakness and Reports other ( Numbness in the feet) Psychiatric: Psychiatric: Reports anxiety Endocrine: Endocrine: Reports as per HPI Hematologic/Lymphatic: Hematologic/Lymphatic: Denies easy bleeding Allergic/Immunologic: Allergic/Immunologic: Denies throat swelling PMFSH Past Medical History Medical History Acute arthritis Anxiety Asthma Mild persistent Bipolar depression Chronic pain Colitis (~04/2020) COPD (chronic obstructive pulmonary disease) Diabetes mellitus with neuropathy Dysmenorrhea Fibromyalgia Folliculitis GERD (gastroesophageal reflux disease) History of herpes simplex infection Hyperlipidemia Hypothyroidism Migraine Suicide SI at age 16 Surgical History Surgical History H/O: hysterectomy History of cervical spinal surgery 2006 History of delivery Tubal ligation status Family History Family History Mother Family history of elevated blood lipids, Onset Age: 62 Brain aneu
[2020-12-05 08:53] LABS: Glucose Point of Care 82 (65-105)
[2020-12-05] MEDS: ALBUTEROL SULFATE (*SP) AEROSOL 1 PUFF 2 PUFF INHALATION (09:55)
[2020-12-05 09:58] VITALS: O2SAT 99
[2020-12-05 11:45] LABS: Glucose Point of Care 112 (65-105)
[2020-12-05] MEDS: HYDROcodone/acetaminophen (*CRX) 5-325 MG TABLET 1 TAB PO ×3 (12:01→22:46)
[2020-12-05] MEDS: GABAPENTIN 100 MG CAPSULE 200 MG PO ×2 (12:04→17:12)
[2020-12-05] MEDS: LORATADINE 10 MG TABLET PO (12:56)
[2020-12-05] MEDS: FLUoxetine HCL 20 MG CAPSULE PO (12:56)
[2020-12-05] MEDS: ASPIRIN 81 MG ENTERIC TABLET PO (12:56)
[2020-12-05] MEDS: FLUoxetine HCL 20 MG CAPSULE 40 MG PO (12:56)
[2020-12-05] MEDS: MONTELUKAST SODIUM 10 MG TABLET PO (12:57)
--- NOTE | 2020-12-05 13:21 | PM.IMPN ---
Progress Note: A&P Assessment and Plan (1) Osteomyelitis of left foot: Code(s): M86.9 - Osteomyelitis, unspecified Status: Acute Assessment and Plan: MRI of the left foot demonstrates bone marrow edema of the head of the fifth metatarsal. Orthopedic surgery was consulted with recommendations noted. She has significant tenderness on exam at that area. Given MRI findings, I anticipate that long-term antibiotics will be required if she is not having surgical intervention so infectious disease has been consulted. Await further input. Continue IV vancomycin and levaquin (initiated 12/04/20) (2) Cellulitis of left foot: Code(s): L03.116 - Cellulitis of left lower limb Status: Acute Assessment and Plan: She has erythema and edema of dorsum of left foot overlying 3rd-5th metatarsal area which has improved today per patient reports and lines of demarcation. Area is mildly tender to palpation. ESR 16 and CRP 1.8 on 12/04/20. She has no leukocytosis or fever. MRI findings and plan as above. Continue IV vancomycin and levaquin (initiated 12/04/20) Blood cultures demonstrate NGTD Analgesics available as needed for pain Area has been marked. Continue to monitor clinically for progression (3) Foreign body in left foot with infection: Code(s): S90.852A - Superficial foreign body, left foot, initial encounter; L08.9 - Local infection of the skin and subcutaneous tissue, unspecified Status: Ruled-out Assessment and Plan: She stepped on an unknown object barefoot. She has a closed approximately 2 mm linear laceration. Foot x-ray showed 2 mm linear density projecting near the head of the 5th metatarsal which was felt most likely to be a small calcification due to accessory bone vs old injury. MRI showed no evidence of foreign body. She received a tetanus shot on 12/04/20 Orthopedic surgery has been consulted and input is appreciated (4) Asthma with COPD: Code(s): J44.9 - Chronic obstructive pulmonary disease, unspecified Status: Acute Assessment and Plan: She has mild persistent asthma which is well-controlled and she is not in acute exacerbation at this time. She is maintaining adequate O2 saturations on room air. Continue albuterol which is available p.r.n. (5) Diabetes mellitus with neuropathy: Code(s): E11.40 - Type 2 diabetes mellitus with diabetic neuropathy, unspecified Status: Ruled-out Assessment and Plan: Ruled-out. Hemoglobin A1c was 5.0 on 12/04/20 and she does not take any hypoglycemics prior to admission. Blood sugars are well-controlled. Discontinue ACHS glucose monitoring, sliding scale insulin, and hypoglycemia protocol (6) Hypothyroidism: Code(s): E03.9 - Hypothyroidism, unspecified Status: Acute Assessment and Plan: TSH 3.720 on 12/05/20. Continue levothyroxine (7) Bipolar depression: Code(s): F31.9 - Bipolar disorder, unspecified Status: Acute Assessment and Plan: She follows with psychiatry and mood is well-controlled on her current regimen. Continue seroquel qHS and fluoxetine Subjective Date/time seen: 12/05/20 13:21 Mrs. Felix is a 50 y.o. female with PMH significant for anxiety, bipolar disorder, COPD and asthma, GERD, hyperlipidemia and several other comorbidities who is seen in follow-up for cellulitis and osteomyelitis of the left foot. She reports improvement today and feels that the erythema and swelling are much better today. She also notes pain has improved. Her appetite is good and she reports chronic constipation and coffee generally helps with her bowels. She notes chronic neck pain. She is not having any shortness of breath, chest pain, or cough. She denies nausea, vomiting, and abdominal pain. She denies subjective fever and chills since admission. Review of Systems Review of Systems: All systems reviewed & are unremarkable
[2020-12-05 14:00] VITALS: BP 108/76; PULSE 92; RESP 18; TEMP 36.8; O2SAT 100
[2020-12-05] MEDS: DICLOFENAC SOD 75 MG TABLET.EC PO (17:12)
[2020-12-05] MEDS: ENOXAPARIN 40 MG/0.4 ML SYRINGE SUB-Q (20:43)
[2020-12-05] MEDS: LEVOTHYROXINE SODIUM 25 MCG TABLET PO (20:44)
[2020-12-05] MEDS: LEVOTHYROXINE SODIUM 12.5 MCG TABLET PO (20:44)
[2020-12-05] MEDS: QUEtiapine FUMARATE XR 200 MG TAB.ER.24H PO (20:45)
[2020-12-05 22:00] VITALS: BP 129/71; PULSE 86; RESP 20; TEMP 37.2; O2SAT 93
[2020-12-06 05:41] VITALS: BP 107/51; PULSE 80; RESP 20; TEMP 36.8; O2SAT 94
[2020-12-06 06:49] LABS: Basophils Absolute Auto 0.1 K/mm3 (0.0-0.1); Basophils Percent Auto 0.9 % (0.2-1.2); Eosinophils Absolute Auto 0.1 K/mm3 (0-0.3); Hematocrit 41.2 % (37.0-47.0); Hemoglobin 13.5 g/dL (12.0-15.0); Immature Granulocyte Absolute 0.01 K/mm3 (0.00-0.031); Immature Granulocyte Percent A 0.2 % (0-0.5); Lymphocytes Absolute Auto 1.87 K/mm3 (0.9-3.2); Lymphocytes Percent Auto 34.4 % (18.3-44.2); Mean Corpuscular HGB Conc 32.8 g/dl (32-36); Mean Corpuscular Hemoglobin 30.1 pg (26-34); Mean Platelet Volume 10.2 fl (7.4-10.4); Monocytes Absolute Auto 0.5 K/mm3 (0.1-0.6); Monocytes Percent Auto 8.3 % (2.6-8.5); Neutrophils Percent Auto 54.2 % (45.5-73.1); Platelet Count Result 199 k/mm3 (150-375); Red Blood Count 4.48 M/mm3 (4.2-5.4); Red Cell Distribution Width 12.6 % (11.5-14.5); White Blood Count 5.4 K/mm3 (4.5-10.0)
[2020-12-06 07:05] LABS: Alanine Aminotransferase 21 U/L (4-35); Albumin Level 3.8 g/dL (3.5-5.1); Alkaline Phosphatase 87 U/L (38-126); Anion Gap 8 mmol/L (8-16); Aspartate Amino Transferase 24 U/L (14-36); Bilirubin,Total 0.5 mg/dL (0.2-1.3); Blood Urea Nitrogen 17 mg/dL (7-17); CRP 0.9 mg/dL (<1.0); Calcium 8.9 mg/dL (8.4-10.2); Carbon Dioxide 25 mmol/L (22-30); Chloride 106 mmol/L (98-107); Estimated CRCL calculation 110 ml/min; Estimated Glomerular Filt Rate > 60; Glucose 91 mg/dL (65-105); Potassium 3.9 mmol/L (3.4-5.0); Sodium 139 mmol/L (137-145)
[2020-12-06 07:39] LABS: Vancomycin Trough 16.7 ug/mL (10.0-20.0)
[2020-12-06] MEDS: MONTELUKAST SODIUM 10 MG TABLET PO (07:49)
[2020-12-06] MEDS: DICLOFENAC SOD 75 MG TABLET.EC PO ×2 (07:49→17:09)
[2020-12-06] MEDS: LORATADINE 10 MG TABLET PO (07:50)
[2020-12-06] MEDS: FLUoxetine HCL 20 MG CAPSULE PO (07:50)
[2020-12-06] MEDS: FLUoxetine HCL 20 MG CAPSULE 40 MG PO (07:51)
[2020-12-06] MEDS: ASPIRIN 81 MG ENTERIC TABLET PO (07:52)
[2020-12-06] MEDS: GABAPENTIN 100 MG CAPSULE 200 MG PO ×3 (07:52→17:09)
[2020-12-06] MEDS: HYDROcodone/acetaminophen (*CRX) 5-325 MG TABLET 1 TAB PO ×2 (07:53→17:12)
[2020-12-06] MEDS: CYCLOBENZAPRINE HCL 10 MG TABLET PO ×2 (07:59→17:12)
[2020-12-06 08:42] LABS: Erythrocyte Sedimentation Rate 17 mm/hr (0-20)
[2020-12-06 14:00] VITALS: BP 92/60; PULSE 87; RESP 16; TEMP 36.7; O2SAT 96
--- NOTE | 2020-12-06 14:41 | PM.IMPN ---
Progress Note: A&P Assessment and Plan (1) Cellulitis of left foot: Code(s): L03.116 - Cellulitis of left lower limb Status: Acute Assessment and Plan: She presented with erythema and edema of dorsum of left foot overlying 3rd-5th metatarsal area. ESR 16 and CRP 1.8 on 12/04/20 and CRP normalized today to 0.9 with ESR normal. She has no leukocytosis or fever. Her erythema and swelling have improved significantly. She still has some pain but she is doing much better overall. MRI reviewed and findings felt more consistent with cellulitis as opposed to osteomyelitis after evaluation by infectious disease and orthopedic surgery. Stop IV vancomycin and levaquin (initiated 12/04/20) and start clindamycin per ID recommendations which are appreciated Blood cultures demonstrate NGTD Analgesics available as needed for pain Area has been marked. Continue to monitor clinically for progression (2) Osteomyelitis of left foot: Code(s): M86.9 - Osteomyelitis, unspecified Status: Ruled-out Assessment and Plan: Ruled-out. MRI of the left foot demonstrated bone marrow edema of the head of the fifth metatarsal. Orthopedic surgery was consulted and felt this was more reflective of reactive edema from surrounding cellulitis. Orthopedic surgery recommended conservative treatment with antibiotics and protective weight-bearing of the left foot with no need for surgical intervention. ESR is normal and CRP was mildly elevated at 1.8 yesterday but has normalized to 0.9. Infectious disease was also consulted given MRI findings and feels that her clinical picture is more consistent with cellulitis as opposed to osteomyelitis and recommends oral clindamycin for 5 more days. (3) Foreign body in left foot with infection: Code(s): S90.852A - Superficial foreign body, left foot, initial encounter; L08.9 - Local infection of the skin and subcutaneous tissue, unspecified Status: Ruled-out Assessment and Plan: Ruled-out. She stepped on an unknown object barefoot. She has a closed approximately 2 mm linear laceration. Foot x-ray showed 2 mm linear density projecting near the head of the 5th metatarsal which was felt most likely to be a small calcification due to accessory bone vs old injury as opposed to a foreign body. MRI showed no evidence of foreign body. She received a tetanus shot on 12/04/20. She was seen by orthopedic surgery who advised no operative indication. (4) Asthma with COPD: Code(s): J44.9 - Chronic obstructive pulmonary disease, unspecified Status: Acute Assessment and Plan: She has mild persistent asthma which is well-controlled and she is not in acute exacerbation at this time. She is maintaining adequate O2 saturations on room air. Continue albuterol which is available p.r.n. (5) Diabetes mellitus with neuropathy: Code(s): E11.40 - Type 2 diabetes mellitus with diabetic neuropathy, unspecified Status: Ruled-out Assessment and Plan: Ruled-out. Hemoglobin A1c was 5.0 on 12/04/20 and she does not take any hypoglycemics prior to admission. Blood sugars are well-controlled. ACHS glucose monitoring, sliding scale insulin, and hypoglycemia protocol were discontinued. (6) Hypothyroidism: Code(s): E03.9 - Hypothyroidism, unspecified Status: Acute Assessment and Plan: TSH 3.720 on 12/05/20. Continue levothyroxine (7) Bipolar depression: Code(s): F31.9 - Bipolar disorder, unspecified Status: Acute Assessment and Plan: She follows with psychiatry and mood is well-controlled on her current regimen. Continue seroquel qHS and fluoxetine Subjective Date/time seen: 12/06/20 14:41 Mrs. Felix is a 50 y.o. female with PMH significant for anxiety, bipolar disorder, COPD and asthma, GERD, hyperlipidemia and several other comorbidities who is seen in follow-up for cellulitis and osteomyelitis of the left
--- NOTE | 2020-12-06 14:41 | WPDINFPN2 ---
Progress Note: A&P Assessment and Plan (1) Cellulitis of left foot: Code(s): L03.116 - Cellulitis of left lower limb Status: Acute Assessment and Plan: L foot cellulitis REC Clinda X 5 days, ok home Subjective Date/time seen: 12/06/20 14:41 Objective Data Vital Signs Vital Signs: Vital Signs - 24 hr 12/05/20 22:00 12/06/20 05:41 12/06/20 14:00 Temperature 37.2 C 36.8 C 36.7 C Pulse Rate 86 80 87 Respiratory Rate 20 20 16 Blood Pressure 129/71 107/51 L 92/60 L Pulse Oximetry 93 94 96 Intake/Output Intake/Output: Intake & Output 12/03/20 12/04/20 12/05/20 12/06/20 23:59 23:59 23:59 23:59 Intake Total 250 2065 1790 Output Total 4325 1800 Balance 250 -2260 -10 Meds/Results Medications: Active Medications Generic Name Dose Route Start Last Admin Trade Name Freq PRN Reason Stop Dose Admin Acetaminophen 650 mg 12/04/20 18:21 Acetaminophen 325 Mg Tablet PO Q4H PRN Pain 1-3 Hydrocodone Bitart/Acetaminophen 1 tab 12/05/20 13:21 12/06/20 07:53 Hydrocodone/Acetaminophen (*Crx) 5-325 Mg Tablet PO 1 tab Q6H PRN Administration Pain Rated 8-10 Albuterol 2 puff 12/04/20 21:58 12/05/20 09:55 Albuterol Sulfate (*Sp) Aerosol 1 Puff INHALATION 2 puff QIDRT PRN Administration Shortness Of Breath Albuterol 2.5 mg 12/04/20 23:24 12/05/20 05:31 Albuterol Sulfate Neb 2.5 Mg/3 Ml Inh INHALATION 2.5 mg Q6HRT PRN Administration Shortness Of Breath Aspirin 81 mg 12/05/20 09:00 12/06/20 07:52 Aspirin 81 Mg Enteric Tablet PO 81 mg DAILY SRAVANTHI Administration Budesonide/Formoterol Fumarate 2 puff 12/05/20 08:00 12/06/20 11:17 Budesonide/Form 80-4.5 Mcg (*Sp) INHALATION 2 puff Q12HRT SRAVANTHI Administration Cyclobenzaprine HCl 10 mg 12/04/20 21:58 12/06/20 07:59 Cyclobenzaprine Hcl 10 Mg Tablet PO 10 mg Q8H PRN Administration muscle spasm Diclofenac Sodium 75 mg 12/05/20 08:00 12/06/20 07:49 Diclofenac Sod 75 Mg Tablet.Ec PO 75 mg BIDWM SRAVANTHI Administration Enoxaparin Sodium 40 mg 12/04/20 21:00 12/05/20 20:43 Enoxaparin 40 Mg/0.4 Ml Syringe SUB-Q 40 mg HS SRAVANTHI Administration Fluoxetine HCl 20 mg 12/05/20 09:00 12/06/20 07:50 Fluoxetine Hcl 20 Mg Capsule PO 20 mg DAILY SRAVANTHI Administration Fluoxetine HCl 40 mg 12/05/20 09:00 12/06/20 07:51 Fluoxetine Hcl 20 Mg Capsule PO 40 mg DAILY SRAVANTHI Administration Fluticasone Propionate 2 spray 12/04/20 21:58 Fluticasone Propionate 0.05% Na Spr 16 Gm Btl (*Bkc) NASAL DAILY PRN allergy symptoms Gabapentin 200 mg 12/04/20 22:32 12/06/20 12:29 Gabapentin 100 Mg Capsule PO 200 mg TID SRAVANTHI Administration Glucagon 1 mg 12/04/20 18:30 Glucagon For Inj 1 Mg Vial IM PRN PRN Hypoglycemia Protocol Levofloxacin/Dextrose 750 mg in 150 mls @ 100 mls/hr 12/05/20 16:00 12/05/20 16:54 Levaquin 750 Mg/D5w 150 Ml IVPB Infused Q24H SRAVANTHI Infusion Vancomycin HCl 1,750 mg in 500 mls @ 250 mls/hr 12/05/20 08:00 12/06/20 12:27 Vancomycin 1,750 Mg/D5w 500 Ml IVPB Infused Q12H SRAVANTHI Infusion Levothyroxine Sodium 25 mcg 12/04/20 22:50 12/05/20 20:44 Levothyroxine Sodium 25 Mcg Tablet PO 25 mcg HS SRAVANTHI Administration Levothyroxine Sodium 12.5 mcg 12/04/20 22:50 12/05/20 20:44 Levothyroxine Sodium 12.5 Mcg Tablet PO 12.5 mcg HS SRAVANTHI Administration Loratadine 10 mg 12/05/20 09:00 12/06/20 07:50 Loratadine 10 Mg Tablet PO 10 mg QAM SRAVANTHI Administration Lorazepam 0.5 mg 12/04/20 21:58 Lorazepam (*Crx) 0.5 Mg Tablet PO BID PRN Anxiety Montelukast Sodium 10 mg 12/05/20 09:00 12/06/20 07:49 Montelukast Sodium 10 Mg Tablet PO 10 mg DAILY SRAVANTHI Administration Quetiapine Fumarate 200 mg 12/05/20 21:00 12/05/20 20:45 Quetiapine Fumarate Xr 200 Mg Tab.Er.24h PO 200 mg HS SRAVANTHI Administration Tramadol HCl 50 mg 12/05/20 13:18 T
--- NOTE | 2020-12-06 15:21 | PM.DS ---
DS: Admitting Diagnosis Admitting Diagnosis Admitting Diagnosis: Left foot cellulitis DS: Discharge Diagnosis Discharge Diagnosis (1) Cellulitis of left foot: Code(s): L03.116 - Cellulitis of left lower limb Status: Acute Assessment and Plan: Discharge Summary (Date of service 12/06/20): Mrs. Felix is a 50 y.o. female with PMH significant for anxiety, bipolar disorder, COPD and asthma, neuropathy due to degenerative disc disease, GERD, hyperlipidemia and several other comorbidities who presented to the hospital for the evaluation of left foot pain for 3 days. She reported that she stepped on a unknown foreign object, possibly a rock, on 11/28/2020 when walking barefoot in her home which cut her foot. She did not feel this due to chronic neuropathy but did notice a trail of blood on the floor. She did not feel this as she has poor sensation, but noticed a trail of blood on the floor. She subsequently developed increased pain with ambulation which prompted evaluation in the emergency department 12/01/20. Foot xray during that visit showed 2 mm linear density projecting near the head of the 5th metatarsal, possibly a foreign body, as well as soft tissue swelling of the foot near the 5th MTP. She was discharged on doxycycline and referred to orthopedic surgery. Two days later she went to her PCP as she developed increased redness and swelling. She was started on Keflex at that time and later that day went to a floor service worker spring who recommended she obtain an MRI. Her erythema and edema increased and she developed a fever of 102.0, which prompted her to seek emergency care. Upon presentation to the ED, her vital signs were stable and she was afebrile, no leukocytosis, CBC and BMP unremarkable, ESR 16 and CRP mildly elevated at 1.8. She was treated with IV vancomycin and levaquin and admitted to the hospitalist service with orthopedic surgery consult. MRI was ordered and demonstrated bone marrow edema of the head of the fifth metatarsal. Orthopedic surgery was consulted and felt this was more reflective of reactive edema from surrounding cellulitis. Orthopedic surgery recommended conservative treatment with antibiotics and protective weight-bearing of the left foot with no need for surgical intervention. ESR was normal and CRP was mildly elevated at 1.8 initially but has normalized to 0.9. Infectious disease was also consulted given MRI findings and feels that her clinical picture is more consistent with cellulitis as opposed to osteomyelitis and recommends oral clindamycin for 5 more days. Her pain was much better and swelling and erythema nearly resolved. She still had a bit of tenderness to palpation but overall significantly improved. She no longer required inpatient care. She was advised to wear a post-op shoe for protective weight bearing and advised to follow-up with her PCP, floor service worker spring, and Dr. Bender in 1 week for a hospital follow-up visit. She was advised to monitor the foot very closely for any worsening and call her doctor immediately or proceed to the emergency department immediately for re-evaluation should her symptoms worsen. She was discharged in hemodynamically stable condition on the afternoon of 12/06/20. (2) Foreign body in left foot with infection: Code(s): S90.852A - Superficial foreign body, left foot, initial encounter; L08.9 - Local infection of the skin and subcutaneous tissue, unspecified Status: Ruled-out Assessment and Plan: Ruled-out. She stepped on an unknown object barefoot. She has a closed approximately 2 mm linear laceration. Foot x-ray showed 2 mm linear density projecting near the head of the 5th metatarsal which was felt most likely to be a small calcification due to accessory bone vs old injury as opposed to a foreign body. MRI showed no evidence of foreign body. She received a tetanus shot on 12/04/20. She was seen by orthopedic surgery who advised no operative indication. (3) Asthma with COPD:
[2020-12-06] MEDS: CLINDAMYCIN HCL 150 MG CAP 300 MG PO (17:09)
--- NOTE | 2020-12-06 18:01 | CONS_ITS ---
DATE OF CONSULTATION: 12/06/2020 REASON FOR CONSULTATION: Foot cellulitis. HISTORY OF PRESENT ILLNESS: A 50-year-old female without diabetes. She thinks that she stepped on an object in her kitchen about 6 days before admission and over the next several days developed progressive redness over the foot in that the erythema was involving more and more of the dorsum of the foot. She was seen in the emergency room and a foot x-ray showed a foreign body. This has not been excised. The patient thinks that there was a small cut over the plantar lateral aspect of the distal foot, though this wound has since fully closed up. She denies any previous such injuries, known vascular compromise or previous surgeries to the left lower extremity. ALLERGIES: PENICILLIN CAUSED SHORTNESS OF BREATH. OTHERS NOT PERTINENT. PRESENT MEDICATIONS: List reviewed. No immunosuppressants. PAST MEDICAL HISTORY: BTL, cervical spine surgery, hysterectomy, bipolar disorder, asthma. Others per record. HABITS: Marijuana. No tobacco. Alcohol intake per record. REVIEW OF SYSTEMS: Skin, constitutional, endocrine, musculoskeletal, neurologic, respiratory otherwise negative. FAMILY HISTORY: Not pertinent to her present illness. SOCIAL HISTORY: She is disabled. The son lives locally. PHYSICAL EXAMINATION: GENERAL: Middle-aged female appears her actual age. No distress. VITAL SIGNS: Afebrile. 92/60, 87, 16, 96% on room air. SKIN: No rashes. Warm and dry. EENT: Conjunctivae appear clear. Oral mucosa is well hydrated. NECK: No masses. LUNGS: Clear to auscultation. CARDIAC: Regular rate and rhythm. No murmur or gallop. Pulses are 2+ and equal, 3 in dorsalis pedis, posterior tibial, popliteal. ABDOMEN: Morbidly obese, nontender. No mass. No organomegaly. EXTREMITIES: She has mild erythema over the left distal lateral foot, which appears to extend only to the shaft of the 5th metatarsal, but not involving the areas over the other metatarsals. There are no breaks in the skin. No tenderness. Minimal warmth. No purulence or crepitus elsewhere in the foot as well as the other foot, no palpable nor visual abnormalities. RADIOLOGY: X-ray of the foot showed the foreign body. MRI showed bone marrow edema, head of the 5th metatarsal, effusion of the metatarsal joint and edema of the lateral foot. LABORATORY DATA: Her white blood cell count consistently normal as is remainder of the CBC. Chemistry panel is normal. Hemoglobin A1c is 5.0%, TSH normal. ASSESSMENT: 1. Cellulitis of the foot without osteomyelitis. The MRI reading I think is due to her cellulitis and not due to bone infection. 2. Hypoglycemia, no diabetes present clinically. 3. Bipolar. 4. Penicillin allergy. RECOMMENDATIONS: 1. Stop levofloxacin, vancomycin, and begin clindamycin for 5 additional days. 2. Okay for discharge. 3. Surgical intervention, if any, per Orthopedic Surgery team. Thank you very much for asking me to see her. NENO RUST M.D. TAXICAB STARTER TAXICAB STARTER D I MT: Farhan
== END 2020-12-06 18:26 | disposition home or self-care (01) | DRG 383 ==
LOC: ANHED 17:17 → ANH3MEDSUR 17:28
PROVIDERS: Physician Assistant; Admitting Provider Family Medicine; Emergency Provider Emergency Medicine; PCP Family Medicine; Visit Provider Internal Medicine
DX: L03.116 Cellulitis of left lower limb (principal); S91.312A Laceration without foreign body, left foot, initial encounter; F31.9 Bipolar disorder, unspecified; I25.10 Atherosclerotic heart disease of native coronary artery without angina pectoris; K21.9 Gastro-esophageal reflux disease without esophagitis; M79.7 Fibromyalgia; E03.9 Hypothyroidism, unspecified; E78.5 Hyperlipidemia, unspecified; E11.42 Type 2 diabetes mellitus with diabetic polyneuropathy; J44.9 Chronic obstructive pulmonary disease, unspecified; F41.9 Anxiety disorder, unspecified; M19.90 Unspecified osteoarthritis, unspecified site; W22.8XXA Striking against or struck by other objects, initial encounter; Z90.710 Acquired absence of both cervix and uterus; Z87.891 Personal history of nicotine dependence
CPT/HCPCS: 36415; 73718; 80048; 80053; 80202; 82948; 83036; 83605; 84443; 85025; 85027; 85055; 85652; 86140; 87040; 90471; 90715; 94640; 96365; 96372; 96374; 96375; 96376; 99285; A9270; G0378; G0379; J1650; J1956; J3370

== ENCOUNTER 2020-12-10 08:21 | Observation (INO) | payer OTHER, SELFPAY ==
[2020-12-10] VITALS (8 sets, daily range): BP systolic 111–134; BP diastolic 67–90; PULSE 74–109; RESP 12–20; TEMP 36.3–37.3; O2SAT 96–99; BMI 36.1
--- NOTE | ~2020-12-10 | MR_ITS ---
EXAMINATION: MR foot LT wo/w con DATE: 12/10/2020 16:01 INDICATION: Osteomyelitis at the left fifth metatarsal. Possible abscess. TECHNIQUE: Magnetic resonance imaging (MRI) of the left fore/mid foot was performed without and with 20 mL Multihance intravenous contrast. Sequences included axial, sagittal and coronal T1-weighted FSE and T2-weighted FS FSE, and, axial T1-weighted FS FSE, and postcontrast axial T1-weighted FS FSE . COMPARISON: 12/05/2020 FINDINGS: Again seen is nonspecific reactive edema along with associated marrow enhancement at the head and nec k of the fifth metatarsal. There is no evident linear low signal intensity fracture line. There is al so no evident cortical erosion or geographic loss of T1 fat signal to specifically suggest osteomyeli tis. Synovial enhancement about the fifth metatarsophalangeal joint with thin smooth synovial enhance ment at the periphery of a small effusion along the medial aspect of the head of the metatarsal. Ther e is mild edema and nonmasslike enhancement in the surrounding soft tissues, dorsal to the head of th e fifth metatarsal. No abnormally enhancing masses or peripherally enhancing abscesses. Normal marrow signal throughout the remainder of the left fore and midfoot. Mild osteoarthritis at the first metat arsophalangeal and second and third tarsal metatarsal joints. Intrinsic musculature and flexion exten sor tendons in the visualized fore and midfoot appear normal. IMPRESSION: 1. No significant interval change in nonspecific marrow edema with marrow enhancement at the head of the fifth metatarsal without evident fracture line. No evident cortical erosion on prior radiographs or geographic loss of T1 marrow fat signal to more specifically suggest osteomyelitis. Differential w ould include stress reaction, posttraumatic bone contusion or reactive edema related to an inflammato ry arthritis at the fifth metatarsophalangeal joint which could be either septic or aseptic. Reviewed, dictated and finalized at location B. IMPRESSION: 1. No significant interval change in nonspecific marrow edema with marrow enhan cement at the head of the fifth metatarsal without evident fracture line. No ev ident cortical erosion on prior radiographs or geographic loss of T1 marrow fat signal to more specifically suggest osteomyelitis. Differential would include stress reaction, posttraumatic bone contusion or reactive edema related to an i nflammatory arthritis at the fifth metatarsophalangeal joint which could be eit her septic or aseptic.
--- NOTE | ~2020-12-10 | XR_ITS ---
EXAMINATION: XR foot LT min 3V EXAM DATE: 12/10/2020 10:16 INDICATION: Pain, laceration weeks ago, continued swelling. Linear density adjacent to the 5th metata rsal head on x-ray 12/01/2020. Suspected osteomyelitis on MR 12/05/2020. TECHNIQUE: Left foot dorsoplantar, lateral and oblique projections obtained and reviewed. Comparison is made to prior examination from 12/01/2020. FINDINGS: Left metatarsal bones unremarkable. There are no bony erosions identified. There are no acute fractures or dislocations identified. There is no subcutaneous gas. The soft tissue is unrema rkable. There are no radiopaque foreign bodies. There is mild left 1st MTP primary osteoarthritis. IMPRESSION: No acute osseous findings. Please note Osteomyelitis was suspected on recent MR, which is more sensitive for early osteomyelitis. Reviewed, dictated and finalized at location A.
[2020-12-10] MEDS: SODIUM CHLORIDE 0.9% IV 1,000 ML 999 ML IV CONT (09:44)
[2020-12-10 09:47] LABS: Basophils Absolute Auto 0.1 K/mm3 (0.0-0.1); Basophils Percent Auto 1.1 % (0.2-1.2); Eosinophils Absolute Auto 0.1 K/mm3 (0-0.3); Eosinophils Percent Auto 1.3 % (0-4.4); Hematocrit 40.6 % (37.0-47.0); Hemoglobin 13.4 g/dL (12.0-15.0); Immature Granulocyte Absolute 0.01 K/mm3 (0.00-0.031); Immature Granulocyte Percent A 0.2 % (0-0.5); Lymphocytes Absolute Auto 1.49 K/mm3 (0.9-3.2); Lymphocytes Percent Auto 28.1 % (18.3-44.2); Mean Corpuscular Hemoglobin 29.8 pg (26-34); Mean Corpuscular Volume 90.4 fl (80-100); Monocytes Absolute Auto 0.4 K/mm3 (0.1-0.6); Monocytes Percent Auto 6.8 % (2.6-8.5); Neutrophils Absolute Auto 3.3 K/mm3 (1.3-6.7); Neutrophils Percent Auto 62.5 % (45.5-73.1); Platelet Count Result 240 k/mm3 (150-375); Red Blood Count 4.49 M/mm3 (4.2-5.4); Red Cell Distribution Width 12.3 % (11.5-14.5); White Blood Count 5.3 K/mm3 (4.5-10.0)
[2020-12-10 10:04] LABS: Anion Gap 7 mmol/L (8-16); Blood Urea Nitrogen 22 mg/dL (7-17); Calcium 8.6 mg/dL (8.4-10.2); Carbon Dioxide 28 mmol/L (22-30); Chloride 105 mmol/L (98-107); Estimated CRCL calculation 97 ml/min; Estimated Glomerular Filt Rate > 60; Glucose 99 mg/dL (65-105); Potassium 3.9 mmol/L (3.4-5.0); Sodium 140 mmol/L (137-145)
[2020-12-10 10:22] LABS: CRP 0.6 mg/dL (<1.0)
--- NOTE | 2020-12-10 10:32 | ED.GENADULT ---
HPI - General Adult General Chief complaint: Extremity Injury, Lower <Florentin Vitale PA-C - Last Filed: 12/10/20 12:02> Stated complaint: left foot swelling <Florentin Vitale PA-C - Last Filed: 12/10/20 12:02> Time Seen by Provider: 12/10/20 08:22 <Florentin Vitale PA-C - Last Filed: 12/10/20 12:02> Source: patient and old records reviewed <Florentin Vitale PA-C - Last Filed: 12/10/20 12:02> Mode of arrival: ambulatory <ALBA Baltazar Last Filed: 12/10/20 12:02> Limitations: no limitations <ALBA Baltazar Last Filed: 12/10/20 12:02> History of Present Illness HPI narrative: Patient is a 50-year-old female who presents to emergency department for continued infection in the left foot patient on the 6 presented to the emergency department was found to have possible foreign body cellulitis of the left foot started on antibiotics 2 days later return to the emergency department with continued worsening condition was hospitalized to include infectious disease consult as well as orthopedic surgery. Patient was discharged home on clindamycin and a week ago saw a manager architecture for a follow-up who wanted a repeat MRI to rule out foreign body. Patient has been compliant with her clindamycin 300 mg 3 times daily. Patient on arrival notes that in the last day the redness and swelling are increasing again in the left lateral forefoot at the base of the fifth phalanx. Patient notes that initially she has sustained a wound to the left foot where there is a closed wound on the plantar surface located below the fifth metatarsal head. Patient denies any fever chills nausea vomiting injury or trauma <ALBA Baltazar Last Filed: 12/10/20 12:02> Related Data Home medications: Home Medications Medication Instructions Recorded Confirmed fluoxetine 20 mg PO DAILY 08/10/19 12/04/20 fluoxetine 40 mg PO DAILY 08/10/19 12/04/20 aspirin 81 mg tablet,delayed 81 mg PO DAILY 09/06/19 12/04/20 release epinephrine 0.3 mg/0.3 mL 0.3 mg IM ONCE 09/06/19 12/04/20 injection, auto-injector lorazepam 0.5 mg tablet 0.5 mg PO BID PRN tablet 09/06/19 12/04/20 quetiapine 200 mg PO HS 05/21/20 12/04/20 cetirizine 10 mg tablet 10 mg PO DAILY 07/10/20 12/04/20 acetaminophen 500 mg PO Q6H PRN 12/04/20 12/04/20 budesonide-formoterol [Symbicort] 2 puff INHALATION BID 12/04/20 12/04/20 diclofenac sodium 75 mg PO BID 12/04/20 12/04/20 gabapentin 200 mg PO TID 12/04/20 12/04/20 levothyroxine 37.5 mcg PO HS 12/04/20 12/04/20 montelukast 10 mg PO DAILY 12/04/20 12/04/20 <Florentin Vitale PA-C - Last Filed: 12/10/20 12:02> Allergies/adverse reactions: Allergies Allergy/AdvReac Type Severity Reaction Status Date / Time clove Allergy Severe ANAPHALACTIC Verified 12/10/20 08:33 SHOCK codeine Allergy Severe unknown Verified 12/10/20 08:33 Penicillins Allergy Severe SOB Verified 12/10/20 08:33 poison natividad extract Allergy Severe hives , Verified 12/10/20 08:33 goes in lungs adhesive tape Allergy Mild eats pts Verified 12/10/20 08:33 skin bee venom protein (honey bee) Allergy Mild unknown Verified 12/10/20 08:33 papaya Allergy Mild SCRATCHY Verified 12/10/20 08:33 THROAT hay fever Allergy Severe cough , Uncoded 12/10/20 08:33 throat swells Harvinder Allergy Intermediate itchy Uncoded 12/10/20 08:33 throat Tuna Allergy Mild hives Uncoded 12/10/20 08:33 <Florentin Vitale PA-C - Last Filed: 12/10/20 12:02> Review of Systems Review of Systems: All systems reviewed & are unremarkable except as noted in HPI and below <Florentin Vitale PA-C - Last Filed: 12/10/20 12:02> [facility] Past Medical History Medical History: Medical History Acute arthritis Anxiety Asthma Mild persistent Bipolar depression Chronic pain Colitis (~04/2020) COPD (chronic obstructive pulmonary disease) Diabetes mellitus
--- NOTE | 2020-12-10 12:52 | PM.CNOR ---
Assessment and Plan Assessment and plan (1) Cellulitis of left foot: Code(s): L03.116 - Cellulitis of left lower limb Status: Acute Assessment and Plan: 50-year-old female readmitted to [facility] with recurrent left foot swelling, redness and warmth of the lateral forefoot. Patient had an initial injury after stepping on something in her kitchen on November 28. She has been seen by her primary care physician, a motorcoach operator and emergency room physicians in the past for current complaints. She was admitted to [facility] on December 03 and treated with IV antibiotics at that time. Orthopedic consult was requested and it was determined to proceed with conservative treatment given the lack of correlation of osteomyelitis from MRI with normal white count, normal CRP and normal ESR. She responded very well to 1 day of IV antibiotics. She continued with IV antibiotics and Dr. Webster, Infectious Disease, evaluated patient and determined it was appropriate for transition to oral antibiotics. Patient was discharged home from [facility] on December 06 on 5 days of clindamycin. She reports a 1 day history of increased redness, warmth and swelling as well as pain. She has been taking her oral antibiotics as directed. On exam, marked tenderness over the lateral aspect of the 5th metatarsal head. Old healed puncture wound on the plantar aspect of the 5th metatarsal head noted. Previous MRI of the left foot during her last admission revealed questionable osteomyelitis of the 5th metatarsal head. Recommended Patient be admitted at this time with repeat MRI of the left foot to further evaluate progressing osteomyelitis. Resume IV antibiotics as previously directed. Infectious disease consult recommended. Will determine further need for surgical intervention pending MRI results. Patient may resume diet at this time. NPO at midnight. Recommend protected weight-bearing of the left foot with a postop shoe. Patient does have postop shoe at bedside. Elevate LLE on pillows. Thank you for allowing us to participate in her care. (2) Osteomyelitis of left foot: Qualifiers: Osteomyelitis type: other Qualified Code(s): M86.8X7 - Other osteomyelitis, ankle and foot Code(s): M86.9 - Osteomyelitis, unspecified Status: Suspected (3) Infection of left foot: Code(s): L08.9 - Local infection of the skin and subcutaneous tissue, unspecified Status: Acute History of Present Illness HPI Consult date: 12/10/20 Requesting physician: Florentin Vitale PA-C Consult reason: other (Left lateral foot swelling/possible abscess ) Chief complaint: left foot swelling Narrative: 50-year-old female evaluated in [facility] Emergency Room with complaints of increasing left lateral redness, warmth and swelling. She was discharged from [facility] on December 06 on oral antibiotics for 5 days. She was recently admitted on December 04 with concern for left foot osteomyelitis versus foreign body. She reports having initially stepped on something in her kitchen on November 28 which resulted in blood on the forefoot. She was seen by her primary care physician and eventually admitted [facility] for IV antibiotics. Orthopedic consult was requested at that time and was determined to continue conservative treatment as she had a normal white count, normal CRP and normal ESR. No obvious abscess or ulceration was noted at that time and she improved greatly after 1 day of IV antibiotics. Infectious Disease, Dr. Webster, evaluated patient at that time and she was transitioned to oral antibiotics and discharged on 12/06/2020 with 5 days of clindamycin. Patient reports an increase in redness, warmth and swelling over the last 1 day which prompted her arrival to the emergency room. Orthopedic consult requested by emergency room physicians. Review of Systems Constitutional: Constitutional: Reports no additional constitu
--- NOTE | 2020-12-10 13:55 | PC.NURSE ---
This patient, Jaci Rivera, was admitted to [facility] Surg Room 319-01. Patient/family oriented to hospital policies and general routines including ID bracelet, bed and alarms, visiting hours, pain management, procedures, bathroom and other care routines, personal items, smoking policy, room service/diet, and visiting hours. Information on how to activate the Rapid Response Team has been discussed. Patient/Family are encouraged to report perceived risks to care and to ask questions if they do not understand what they are told or what they should do.
--- NOTE | 2020-12-10 17:23 | PM.IMHP ---
H&P: HPI History of Present Illness Date/Time: 12/10/20 17:23 who has a history of cellulitis to the left foot. The patient was discharged from here on 12/06/2020. The patient reportedly stepped on an unknown foreign object possibly a rock on 11/28/2020 when walking barefoot in her home and cut her foot. She currently does not have any open areas. She does have chronic neuropathy to her hands and her feet. She noticed that there was a trilogy blood on the floor this is how she decided that she had cut her foot. She has poor sensation. The patient had increased pain with ambulation and was seen in the emergency room on 12/01/2020. Her foot x-ray during the visit showed 2 mm linear density projecting near the head of the 5th metatarsal, possibly of foreign body or as well as soft tissue swelling of the foot near the 5th MTP. The patient was discharged on doxycycline and refer to Orthopedic surgery. Two days later she went to her PCP and she developed increased redness and swelling. She started on Keflex at that time and went to the assistant professor of geography who recommended she obtain an MRI. Her urine edema edema increased she developed a fever of 102. The patient was discharged with her home medications and clindamycin. She has had 5 days of oral clindamycin. The patient stated that her foot was clearing up while she was in the hospital. The patient states that she was compliant with her medications. There is no open wound noted. The wound is closed on the plantar surface located below the 5th metatarsal head. The patient has a trace pink streak to the left small toe. Orthopedic has been consulted. It was noted that osteomyelitis is suspected of the left foot. Patient was started on IV fluids, Rocephin, Zofran and Levaquin. That showed nose significant interval change in nonspecific marrow edema with marrow enhancement of the head of the 5th metatarsal without evidence fracture line. No evident cortical erosion on prior radiographs or geographic loss of T1 fat signal to more specifically suggest osteomyelitis. Patient is being admitted to observation status on the date of service of 12/10/2020. Chief Complaint: cellulitis Review of Systems Review of Systems: All systems reviewed & are unremarkable except as noted in HPI and below Constitutional: Constitutional: Reports as per HPI and Reports no additional constitutional complaints Eyes: Eyes: Reports as per HPI and Reports no additional eye complaints ENT: Reports system reviewed and no additional complaints, except as documented and Reports Normal hearing present Cardiovascular: Cardiovascular: Reports no additional cardiovascular complaints Respiratory: Respiratory: Reports no additional respiratory complaints and Reports no additional respiratory complaints Gastrointestinal: Gastrointestinal: Reports as per HPI and Reports no additional gastrointestinal complaints Musculoskeletal: Musculoskeletal: Reports no additional musculoskeletal complaints Integumentary/Breasts: Skin/Breast: Reports system reviewed and no additional complaints, except as docu and Reports as per HPI Neurologic: Reports system reviewed and no additional complaints, except as documented, Reports as per HPI and Reports Normal hearing present Psychiatric: Psychiatric: Reports no additional psychiatric complaints and Reports as per HPI Endocrine: Endocrine: Reports no additional endocrine complaints Hematologic/Lymphatic: Hematologic/Lymphatic: Reports no additional hematologic/lymphatic complaints Allergic/Immunologic: Allergic/Immunologic: Reports no additional allergic/immunologic complaints [facility] Past Medical History Medical History Acute arthritis Anxiety Asthma Mild persistent Bipolar depression Chronic pain Colitis (~04/2020) COPD (chronic obstructive pulmonary disease) Diabetes mellitus with neuropathy Dysmenorrhea Fibromyalgia Folliculitis GERD (gastr
[2020-12-10] MEDS: traMADol HCL (*CRX) 50 MG TABLET 100 MG PO (22:10)
[2020-12-10] MEDS: QUEtiapine FUMARATE XR 200 MG TAB.ER.24H PO (22:10)
[2020-12-10] MEDS: FAMOTIDINE 20 MG/2 ML VIAL IV PUSH (22:11)
[2020-12-10] MEDS: LEVOTHYROXINE SODIUM 12.5 MCG TABLET PO (22:11)
[2020-12-10] MEDS: LEVOTHYROXINE SODIUM 25 MCG TABLET PO (22:11)
[2020-12-10] MEDS: CYCLOBENZAPRINE HCL 10 MG TABLET PO (22:20)
[2020-12-11 06:00] VITALS: BP 126/77; PULSE 61; RESP 16; TEMP 36.9; O2SAT 98
[2020-12-11 06:23] LABS: Basophils Absolute Auto 0.1 K/mm3 (0.0-0.1); Basophils Percent Auto 0.8 % (0.2-1.2); Eosinophils Absolute Auto 0.1 K/mm3 (0-0.3); Eosinophils Percent Auto 1.8 % (0-4.4); Hematocrit 38.9 % (37.0-47.0); Hemoglobin 12.5 g/dL (12.0-15.0); Immature Granulocyte Absolute 0.01 K/mm3 (0.00-0.031); Immature Granulocyte Percent A 0.2 % (0-0.5); Lymphocytes Absolute Auto 2.26 K/mm3 (0.9-3.2); Lymphocytes Percent Auto 37.9 % (18.3-44.2); Mean Corpuscular HGB Conc 32.1 g/dl (32-36); Mean Corpuscular Hemoglobin 29.3 pg (26-34); Mean Corpuscular Volume 91.1 fl (80-100); Mean Platelet Volume 10.2 fl (7.4-10.4); Monocytes Absolute Auto 0.4 K/mm3 (0.1-0.6); Neutrophils Absolute Auto 3.2 K/mm3 (1.3-6.7); Neutrophils Percent Auto 53.3 % (45.5-73.1); Platelet Count Result 223 k/mm3 (150-375); Red Blood Count 4.27 M/mm3 (4.2-5.4); Red Cell Distribution Width 12.4 % (11.5-14.5)
[2020-12-11 06:32] LABS: Magnesium 1.9 mg/dL (1.6-2.3)
[2020-12-11 08:23] VITALS: PULSE 72; RESP 18; O2SAT 98
[2020-12-11] MEDS: DICLOFENAC SOD 75 MG TABLET.EC PO ×2 (10:15→17:21)
[2020-12-11] MEDS: GABAPENTIN 100 MG CAPSULE 200 MG PO ×3 (10:15→17:21)
[2020-12-11] MEDS: FAMOTIDINE 20 MG/2 ML VIAL IV PUSH ×2 (10:15→21:24)
[2020-12-11] MEDS: ASPIRIN 81 MG ENTERIC TABLET PO (10:15)
[2020-12-11] MEDS: MONTELUKAST SODIUM 10 MG TABLET PO (10:16)
[2020-12-11] MEDS: LORATADINE 10 MG TABLET PO (10:16)
[2020-12-11] MEDS: traMADol HCL (*CRX) 50 MG TABLET 100 MG PO ×2 (10:17→21:23)
--- NOTE | 2020-12-11 11:37 | PM.PNORT ---
Progress Note: A&P Assessment and Plan (1) Cellulitis of foot, left: Code(s): L03.116 - Cellulitis of left lower limb Status: Acute Assessment and Plan: MRI reviewed with the patient. Signal change noted within the 5th metatarsal head however no other signs of abscess or ongoing infection. 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 Also has questionable history of inflammatory arthritis in her family. Once again, at this time I do not see any surgical indications for the left foot. She does seem to respond very well to intravenous antibiotics. We will see what Dr. Webster, Infectious Disease has to add to possible etiology and treatment. In the interim continue with IV antibiotics. Plan fracture boot for protected weight-bearing of the foot. Subjective Subjective Date/Time Seen: 12/11/20 11:37 Patient seen and examined. Mild complaints of pain lateral aspect of the 5th metatarsal head left foot. No fever or chills. No other complaints. Exam Const: General: comfortable and no acute distress HENMT: Mouth: Yes moist mucous membranes Eyes: General: appearance normal, both eyes and all related structures Sclera: sclerae normal Pupils: Equal, round and reactive pupils present Neck: Neck: supple and no JVD Resp: Effort & Inspection: normal respiratory effort Cardio: Jugular venous distension: no JVD Rate: regular rate Rhythm: regular rhythm Peripheral pulses: Peripheral pulses 2+ throughout GI: Inspection: non-distended GI Palp: Yes Soft to palpation and No Tenderness to palpation present (GI) Skin: General skin exam: erythema ( left lateral forefoot) Wounds: wounds noted ( Small healed laceration on the plantar aspect of the 5th metatarsal head) Neuro: General: gait normal Cognition (Neuro): normal cognition Speech: normal speech Extrem: Right lower extremity: foot Details: normal capillary refill and toes with normal ROM; normal to inspection, no tenderness, ROM of toes normal and no unusual warmth Left lower extremity: foot Details: normal capillary refill, tenderness Location: of the lateral foot Location: distally and other ( lateral aspect of the 5th metatarsal head) and of the base of the 5th metatarsal, abnormal ROM of toe Details: pain with active ROM Location: of the 5th digit; not of the great toe, not of the 2nd digit, not of the 3rd digit and not of the 4th digit and pain with passive ROM of the 5th digit; not of the great toe, not of the 2nd digit, not of the 3rd digit and not of the 4th digit, warmth and other ( erythema); no ecchymosis Other: erythema much improved. Minimal erythema lateral 5th metatarsal head and dorsum of lateral forefoot. Small callus on the plantar aspect 5th metatarsal head without surrounding swelling, erythema or drainage. Able to move toes. Passive motion of 5th MTP joint without pain. Good capillary refill in toes. Good active ankle dorsiflexion and plantar flexion without pain. Eversion of the foot with 5/5 strength and no pain. Psych: Mental Status: mental status grossly normal Affect: normal affect Objective Data Vital Signs Vital Signs: Vital Signs - 24 hr 12/10/20 12:49 12/10/20 13:47 12/10/20 14:00 Temperature 98.8 F Pulse Rate 86 84 85 Respiratory Rate 15 15 20 Blood Pressure 131/76 120/77 121/90 Pulse Oximetry 97 97 99 12/10/20 21:54 12/11/20 06:00 12/11/20 08:23 Temperature 99.2 F 98.4 F Pulse Rate 78 61 72 Respiratory Rate 16 16 18 Blood Pressure 120/67 126/77 Pulse Oximetry 97 98 98 Intake/Output Intake/Output: Intake & Output 12/08/20 12/09/20 12/10/20 12/11/20 22:59 23:59 23:59 23:59 Intake Total 2540 1100 Output Total 475 1900 Balance 2064 -800 Meds/Results Medications: Active Medications Generic Name Dose Route Start Last Admin Trade Name Freq PRN Reason Stop Dose Admin Acetaminophe
--- NOTE | 2020-12-11 13:46 | WPDINFPN2 ---
Progress Note: A&P Assessment and Plan (1) Cellulitis of foot, left: Code(s): L03.116 - Cellulitis of left lower limb Status: Acute Assessment and Plan: relapsed cellulitis L foot, no + micro REC Vanc and levofloxacin through AM 12/24, discharge ok once set up Subjective Date/time seen: 12/11/20 13:46 Objective Data Vital Signs Vital Signs: Vital Signs - 24 hr 12/10/20 13:47 12/10/20 14:00 12/10/20 21:54 Temperature 37.1 C 37.3 C Pulse Rate 84 85 78 Respiratory Rate 15 20 16 Blood Pressure 120/77 121/90 120/67 Pulse Oximetry 97 99 97 12/11/20 06:00 12/11/20 08:23 Temperature 36.9 C Pulse Rate 61 72 Respiratory Rate 16 18 Blood Pressure 126/77 Pulse Oximetry 98 98 Intake/Output Intake/Output: Intake & Output 12/08/20 12/09/20 12/10/20 12/11/20 22:59 23:59 23:59 23:59 Intake Total 2540 2200 Output Total 475 1900 Balance 2065 300 Meds/Results Medications: Active Medications Generic Name Dose Route Start Last Admin Trade Name Freq PRN Reason Stop Dose Admin Acetaminophen 500 mg 12/10/20 17:47 Acetaminophen 500 Mg Tablet PO Q6H PRN Fever Or Pain rated 1-3 Albuterol 2.5 mg 12/10/20 17:47 Albuterol Sulfate Neb 2.5 Mg/3 Ml Inh INHALATION Q6H PRN Shortness Of Breath Albuterol 2 puff 12/10/20 17:50 Albuterol Sulfate (*Sp) Aerosol 1 Puff INHALATION QID PRN SHORTNESS OF BREATH/WHEEZING Aspirin 81 mg 12/11/20 09:00 12/11/20 10:15 Aspirin 81 Mg Enteric Tablet PO 81 mg DAILY SRAVANTHI Administration Budesonide/Formoterol Fumarate 2 puff 12/11/20 08:00 12/11/20 08:21 Budesonide/Form 80-4.5 Mcg (*Sp) INHALATION 2 puff Q12HRT SRAVANTHI Administration Cyclobenzaprine HCl 10 mg 12/10/20 17:47 12/10/20 22:20 Cyclobenzaprine Hcl 10 Mg Tablet PO 10 mg Q8H PRN Administration muscle spasm Dextrose 12.5 gm 12/10/20 12:09 Dextrose 50% 25 Gm/50 Ml Syringe IV PUSH PRN PRN Hypoglycemia Protocol Diclofenac Sodium 75 mg 12/10/20 18:00 12/11/20 10:15 Diclofenac Sod 75 Mg Tablet.Ec PO 75 mg BID SRAVANTHI Administration Famotidine 20 mg 12/10/20 21:00 12/11/20 10:15 Famotidine 20 Mg/2 Ml Vial IV PUSH 20 mg Q12HR SRAVANTHI Administration Fluoxetine HCl 20 mg 12/11/20 09:00 Fluoxetine Hcl 20 Mg Capsule PO DAILY SRAVANTHI Fluoxetine HCl 40 mg 12/11/20 09:00 Fluoxetine Hcl 20 Mg Capsule PO DAILY SRAVANTHI Fluticasone Propionate 2 spray 12/10/20 17:47 Fluticasone Propionate 0.05% Na Spr 16 Gm Btl (*Bkc) NASAL DAILY PRN allergy symptoms Gabapentin 200 mg 12/10/20 18:00 12/11/20 12:29 Gabapentin 100 Mg Capsule PO 200 mg TID SRAVANTHI Administration Vancomycin HCl 1,750 mg in 500 mls @ 250 mls/hr 12/10/20 16:00 12/11/20 07:06 Vancomycin 1,750 Mg/D5w 500 Ml IVPB 12/24/20 11:59 Infused Q12H SRAVANTHI Infusion Levothyroxine Sodium 25 mcg 12/10/20 21:00 12/10/20 22:11 Levothyroxine Sodium 25 Mcg Tablet PO 25 mcg HS SRAVANTHI Administration Levothyroxine Sodium 12.5 mcg 12/10/20 21:00 12/10/20 22:11 Levothyroxine Sodium 12.5 Mcg Tablet PO 12.5 mcg HS SRAVANTHI Administration Loratadine 10 mg 12/11/20 09:00 12/11/20 10:16 Loratadine 10 Mg Tablet PO 10 mg DAILY SRAVANTHI Administration Lorazepam 0.5 mg 12/10/20 17:47 Lorazepam (*Crx) 0.5 Mg Tablet PO BID PRN Anxiety Montelukast Sodium 10 mg 12/11/20 09:00 12/11/20 10:16 Montelukast Sodium 10 Mg Tablet PO 10 mg DAILY SRAVANTHI Administration Quetiapine Fumarate 200 mg 12/10/20 21:00 12/10/20 22:10 Quetiapine Fumarate Xr 200 Mg Tab.Er.24h PO 200 mg HS SRAVANTHI Administration Tramadol HCl 100 mg 12/10/20 21:00 12/11/20 10:17 Tramadol Hcl (*Crx) 50 Mg Tablet PO 100 mg Q12HR SRAVANTHI Administration Tramadol HCl 50 mg 12/11/20 15:00 Tramadol Hcl (*Crx) 50 Mg Tablet PO DAILY@1500 SRAVANTHI Radiology Results: ITS Impressions Foot X-Ray 12/10/20
[2020-12-11 14:00] VITALS: BP 132/84; PULSE 85; RESP 16; TEMP 36.9; O2SAT 98
--- NOTE | 2020-12-11 14:39 | PM.IMPN ---
Progress Note: A&P Assessment and Plan (1) Cellulitis of foot, left: Code(s): L03.116 - Cellulitis of left lower limb Status: Acute Assessment and Plan: MRI of the patient's foot due to increased cellulitis and symptoms showed no significant interval change. Dr. Bender Ortho Surgery was consulted and at this point in time does not feel the patient requires any form surgery. Dr. Webster Infectious Disease evaluated the patient and recommended her being on oral Levaquin 500 mg daily until 12/24/2020, and IV vancomycin q.12 hours, with troughs checked once a week until 12/24/2020. Care coordination have been consulted for IV antibiotics at discharge and for her to hopefully be discharged home once this is completed. At this point in time, blood cultures were not recheck on arrival Will continue IV antibiotics pending care coordination setting up antibiotics at discharge Continue pain control and monitoring wound (2) Asthma with COPD: Code(s): J44.9 - Chronic obstructive pulmonary disease, unspecified Status: Acute Assessment and Plan: Continue with her home inhalers. Albuterol inhaler 4 times a day and neb treatments p.r.n.. She also takes Symbicort. (3) Bipolar depression: Code(s): F31.9 - Bipolar disorder, unspecified Status: Acute Assessment and Plan: Continue with Prozac and Seroquel (4) Hypothyroidism: Code(s): E03.9 - Hypothyroidism, unspecified Status: Acute Assessment and Plan: Continue with levothyroxine. TSH normal. (5) Neuropathy: Code(s): G62.9 - Polyneuropathy, unspecified Status: Chronic Assessment and Plan: Continue with gabapentin. Time Spent With Patient Time with patient: 25 - 35 minutes Subjective Date/time seen: 12/11/20 14:39 Interval history: Date of service 12/11/2020: Patient reports feeling better today with improvement of foot swelling, erythema and pain. She denies any fevers, chills, chest pain, shortness of breath, diaphoresis, nausea, vomiting, abdominal pain, constipation, calf pain or any other symptoms at this time. Review of Systems Review of Systems: All systems reviewed & are unremarkable except as noted in HPI and below Exam Narrative: Exam Narrative: General: 50-year-old woman sitting up in bed on her laptop. Appears comfortable. In no acute distress. Skin: No jaundice or cyanosis. Good skin turgor. Neck: Full range of motion. Supple. Respiratory: Lungs are clear to auscultation bilaterally. No bony chest wall tenderness. Cardiovascular: The heart has a regular rate and rhythm without murmur. Lower extremities: Some erythema noted to left lateral 5th metatarsal and at the base of her toes, 2 through 5. No noted edema. No lower extremity edema. Distal pulses are easily palpated. No calf tenderness to palpation. Gastrointestinal: The abdomen is soft, nontender and nondistended with active bowel sounds. Psychiatric: Lucid and oriented. Memory intact. Neurologic: No focal deficits. Speech is clear. No facial drooping. Objective Data Vital Signs Vital Signs: Vital Signs - 24 hr 12/10/20 21:54 12/11/20 06:00 12/11/20 08:23 Temperature 99.2 F 98.4 F Pulse Rate 78 61 72 Respiratory Rate 16 16 18 Blood Pressure 120/67 126/77 Pulse Oximetry 97 98 98 Intake/Output Intake/Output: Intake & Output 12/08/20 12/09/20 12/10/20 12/11/20 22:59 23:59 23:59 23:59 Intake Total 2540 2350 Output Total 475 1900 Balance 2065 450 Meds/Results Medications: Active Medications Generic Name Dose Route Start Last Admin Trade Name Freq PRN Reason Stop Dose Admin Acetaminophen 500 mg 12/10/20 17:47 Acetaminophen 500 Mg Table
[2020-12-11] MEDS: FLUoxetine HCL 20 MG CAPSULE 40 MG PO (15:26)
[2020-12-11] MEDS: FLUoxetine HCL 20 MG CAPSULE PO (15:26)
[2020-12-11] MEDS: traMADol HCL (*CRX) 50 MG TABLET PO (15:27)
--- NOTE | 2020-12-11 18:51 | CONS_ITS ---
DATE OF CONSULTATION: 12/11/2020 REASON FOR CONSULTATION: Cellulitis, left foot. HISTORY OF PRESENT ILLNESS: A 50-year-old female without diabetes, who was admitted to the hospital last week with cellulitis. MRI at that time revealed no periostitis, nor osteomyelitis. She was discharged on clindamycin and was improving until 1 day before admission when she developed recurrent edema and redness of the left first toe. She presented back to the emergency room yesterday and was admitted. She has been given vancomycin, levofloxacin. After her 1st dose yesterday, she has noted marked improvement in her presenting symptoms. She has no fever, chills, or sweats. She was adherent with the clindamycin. No diarrhea and has not required any surgical intervention nor is any in the offing. PAST MEDICAL HISTORY: As detailed in her chart. No updates reviewed today. As listed. PRESENT MEDICATIONS: List reviewed. No immunosuppressants. HABITS: Social drinker and smoker. Also marijuana. ALLERGIES: PENICILLIN CAUSED SHORTNESS OF BREATH, OTHERS NOT PERTINENT. REVIEW OF SYSTEMS: Musculoskeletal, skin, constitutional, GI, respiratory otherwise negative. FAMILY HISTORY: Not pertinent to present illness. SOCIAL HISTORY: She is disabled and lives locally. PHYSICAL EXAMINATION: GENERAL: This is a female, who appears her actual age. No acute distress, afebrile since arrival. VITAL SIGNS: 72, 18, 126/77, 98% on room air. SKIN: No generalized rash. EENT: The conjunctivae are normal. NECK: No masses, thyromegaly, meningismus. LUNGS: Clear to auscultation. CARDIAC: Regular rate and rhythm. No murmur or gallop. Pulses are 2+. ABDOMEN: Morbidly obese, nontender. No masses. EXTREMITIES: On exam today, she has no erythema, no edema, no tenderness, no warmth. Range of motion of the toe is excellent. LABORATORY DATA: Previous blood cultures, no growth. White count is consistently normal including today. Remainder CBC is normal. Chemistry panel is normal. RADIOLOGY: Repeat MRI compared to previous. No change with marrow and edema and enhancement of the 5th metatarsal. ASSESSMENT: 1. Cellulitis of the foot, resolved after relapsed symptomatic findings while on clindamycin. She may have drug-resistant gram-positive organisms from the skin. There is no osteomyelitis nor other deep space infection. 2. Penicillin allergy with dyspnea, I would avoid cephalosporins. RECOMMENDATIONS: Continue vancomycin, levofloxacin, change the latter to oral, and continue therapy for 14 days total. Okay with me for discharge planning. Thank you very much for asking me see her. NENO URST M.D. FRENCH TEACHER FRENCH TEACHER D I MT: Farhan
[2020-12-11] MEDS: CYCLOBENZAPRINE HCL 10 MG TABLET PO (21:23)
[2020-12-11] MEDS: LEVOTHYROXINE SODIUM 12.5 MCG TABLET PO (21:23)
[2020-12-11] MEDS: LEVOTHYROXINE SODIUM 25 MCG TABLET PO (21:24)
[2020-12-11] MEDS: QUEtiapine FUMARATE XR 200 MG TAB.ER.24H PO (21:24)
[2020-12-11 21:34] VITALS: BP 133/90; PULSE 84; RESP 18; TEMP 36.6; O2SAT 99
[2020-12-12 05:59] VITALS: BP 103/64; PULSE 70; RESP 16; TEMP 37.1; O2SAT 99
[2020-12-12 08:00] VITALS: PULSE 70; RESP 16; O2SAT 99
--- NOTE | 2020-12-12 08:20 | PM.PNORT ---
Progress Note: A&P Assessment and Plan (1) Cellulitis of foot, left: Code(s): L03.116 - Cellulitis of left lower limb Status: Acute Assessment and Plan: appreciate Infectious Disease consultation. No surgical indication at this time. Plan fracture boot for protected weight-bearing of the foot. Follow-up orthopedic office in 1 to 2 weeks. Subjective Subjective Date/Time Seen: 12/12/20 08:20 No interim complaints. Denies fever or chills. No problems with eating or voiding. Exam Const: General: comfortable and no acute distress HENMT: Mouth: Yes moist mucous membranes Eyes: General: appearance normal, both eyes and all related structures Sclera: sclerae normal Pupils: Equal, round and reactive pupils present Neck: Neck: supple and no JVD Resp: Effort & Inspection: normal respiratory effort Cardio: Jugular venous distension: no JVD Rate: regular rate Rhythm: regular rhythm Peripheral pulses: Peripheral pulses 2+ throughout GI: Inspection: non-distended GI Palp: Yes Soft to palpation and No Tenderness to palpation present (GI) Skin: General skin exam: erythema ( left lateral forefoot) Wounds: wounds noted ( Small healed laceration on the plantar aspect of the 5th metatarsal head) Neuro: General: gait normal Cognition (Neuro): normal cognition Speech: normal speech Extrem: Right lower extremity: foot Details: normal capillary refill and toes with normal ROM; normal to inspection, no tenderness, ROM of toes normal and no unusual warmth Left lower extremity: foot Details: normal capillary refill, tenderness Location: of the lateral foot Location: distally and other ( lateral aspect of the 5th metatarsal head) and of the base of the 5th metatarsal, abnormal ROM of toe Details: pain with active ROM Location: of the 5th digit; not of the great toe, not of the 2nd digit, not of the 3rd digit and not of the 4th digit and pain with passive ROM of the 5th digit; not of the great toe, not of the 2nd digit, not of the 3rd digit and not of the 4th digit, warmth and other ( erythema); no ecchymosis Other: Left foot erythema improved. Small callus on the plantar aspect 5th metatarsal head without surrounding swelling, erythema or drainage. Able to move toes. Passive motion of 5th MTP joint without pain. Good capillary refill in toes. Good active ankle dorsiflexion and plantar flexion without pain. Eversion of the foot with 5/5 strength and no pain. Psych: Mental Status: mental status grossly normal Affect: normal affect Objective Data Vital Signs Vital Signs: Vital Signs - 24 hr 12/11/20 08:23 12/11/20 14:00 12/11/20 21:34 Temperature 98.4 F 97.9 F Pulse Rate 72 85 84 Respiratory Rate 18 16 18 Blood Pressure 132/84 133/90 Pulse Oximetry 98 98 99 12/12/20 05:59 Temperature 98.7 F Pulse Rate 70 Respiratory Rate 16 Blood Pressure 103/64 Pulse Oximetry 99 Intake/Output Intake/Output: Intake & Output 12/09/20 12/10/20 12/11/20 12/12/20 23:59 23:59 23:59 23:59 Intake Total 2540 3660 1300 Output Total 475 3500 2650 Balance 2065 160 -1350 Meds/Results Medications: Active Medications Generic Name Dose Route Start Last Admin Trade Name Freq PRN Reason Stop Dose Admin Acetaminophen 500 mg 12/10/20 17:47 Acetaminophen 500 Mg Tablet PO Q6H PRN Fever Or Pain rated 1-3 Albuterol 2.5 mg 12/10/20 17:47 Albuterol Sulfate Neb 2.5 Mg/3 Ml Inh INHALATION Q6H PRN Shortness Of Breath Albuterol 2 puff 12/10/20 17:50 Albuterol Sulfate (*Sp) Aerosol 1 Puff INHALATION QID PRN SHORTNESS OF BREATH/WHEEZING Aspirin 81 mg 12/11/20 09:00 12/11/20 10:15 Aspirin 81 Mg Enteric Tablet PO 81 mg DAILY SRAVANTHI Administration Budesonide/Formoterol Fumarate 2 puff 12/11/20 08:00 12/11/20 21:25 Budesonide/Form 80-4.5 Mcg (*Sp) INHALATION 2 puff Q12HRT SRAVANTHI Administration Cyclobenzaprine HCl 10 mg 12/10/20 17:47 12/11/20 21:23 C
[2020-12-12] MEDS: LORATADINE 10 MG TABLET PO (09:22)
[2020-12-12] MEDS: DICLOFENAC SOD 75 MG TABLET.EC PO ×2 (09:22→17:44)
[2020-12-12] MEDS: GABAPENTIN 100 MG CAPSULE 200 MG PO ×3 (09:22→17:54)
[2020-12-12] MEDS: FLUoxetine HCL 20 MG CAPSULE 40 MG PO (09:23)
[2020-12-12] MEDS: ASPIRIN 81 MG ENTERIC TABLET PO (09:23)
[2020-12-12] MEDS: FLUoxetine HCL 20 MG CAPSULE PO (09:23)
[2020-12-12] MEDS: FAMOTIDINE 20 MG/2 ML VIAL IV PUSH (09:24)
[2020-12-12] MEDS: MONTELUKAST SODIUM 10 MG TABLET PO (09:25)
[2020-12-12] MEDS: traMADol HCL (*CRX) 50 MG TABLET 100 MG PO (09:25)
[2020-12-12] MEDS: LIDOCAINE HCL 1% PF INJ 5 ML VIAL INFILTRATE (13:45)
[2020-12-12 14:00] VITALS: BP 123/78; PULSE 85; RESP 16; TEMP 36.3; O2SAT 97
[2020-12-12] MEDS: traMADol HCL (*CRX) 50 MG TABLET PO (15:06)
--- NOTE | 2020-12-12 16:27 | PM.DS ---
DS: Admitting Diagnosis Admitting Diagnosis Admitting Diagnosis: Foot redness, swelling, pain DS: Discharge Diagnosis Discharge Diagnosis (1) Cellulitis of foot, left: Code(s): L03.116 - Cellulitis of left lower limb Status: Acute Assessment and Plan: MRI of the patient's foot due to increased cellulitis and symptoms showed no significant interval change. Dr. Bender Ortho Surgery was consulted and at this point in time does not feel the patient requires any form surgery. Dr. Webster Infectious Disease evaluated the patient and recommended her being on oral Levaquin 500 mg daily until 12/24/2020, and IV vancomycin q.12 hours, with troughs checked once a week until 12/24/2020. Care coordination have been consulted for IV antibiotics at discharge and for her to hopefully be discharged home once this is completed. At this point in time, blood cultures from prior hospitalization were negative. No repeat blood cultures were obtained. She will continue antibiotics until 12/24/2020. Check vancomycin trough once a week. Continue her on this Vanc 1750 mg/ml Q12hrs. PICC line in place. Patient has been set up with giving herself IV antibiotics home. Patient understands and agrees the plan all questions answered. Given return emergency room warnings. (2) Asthma with COPD: Code(s): J44.9 - Chronic obstructive pulmonary disease, unspecified Status: Acute Assessment and Plan: Continue with her home inhalers. (3) Bipolar depression: Code(s): F31.9 - Bipolar disorder, unspecified Status: Acute Assessment and Plan: Continue with Prozac and Seroquel (4) Hypothyroidism: Code(s): E03.9 - Hypothyroidism, unspecified Status: Acute Assessment and Plan: Continue with levothyroxine. TSH normal. (5) Neuropathy: Code(s): G62.9 - Polyneuropathy, unspecified Status: Chronic Assessment and Plan: Continue with gabapentin. DS: Summary Hospital Course Reason for hospitalization: Patient is a 50-year-old woman with a history of COPD, diabetes with neuropathy, fibromyalgia, who presented to the emergency room with increased swelling, redness to her left foot. Patient was just discharged from our facility on 12/06/2020 after reportedly stepping on a foreign object on 11/28/2020 when walking barefoot in her home. X-ray foot at that time showed 2 mm linear density projecting near the head of the 5th metatarsal and possible foreign body vs soft tissue swelling. Ortho evaluated the patient marrow edema in head of 5th metatarsal, consistent with osteomyelitis and edema of the lateral forefoot soft tissues consistent with cellulitis. Infectious Disease evaluated the patient and recommended her starting oral clindamycin for 5 days. She began developing with worsening redness, pain and swelling and came back into the hospital for further evaluation. Initial labs showed she was afebrile, tachycardic at 1:09 a.m., normal blood pressure 134/85. Normal oxygenation respiratory rate on room air. Initial labs showed normal CBC with differential and normal BMP. She was started on IV antibiotics with IV vancomycin and Levaquin. Orthopedic surgery evaluated the patient and repeated an MRI showing No significant interval change in nonspecific marrow edema with marrow enhancement at the head of the fifth metatarsal without evident fracture line. No evident cortical erosion on prior radiographs or geographic loss of T1 marrow fat signal to more specifically suggest osteomyelitis. Differential would include stress reaction, posttraumatic bone contusion or reactive edema related to an inflammatory arthritis at the fifth metatarsophalangeal joint which could be
== END 2020-12-12 20:04 | disposition home or self-care (01) ==
LOC: ANHED 12:13 → ANH3MEDSUR 13:02
PROVIDERS: Emergency Medicine Emergency Medical Services; Nurse Practitioner; Admitting Provider Family Medicine; Emergency Provider Emergency Medicine; PCP Family Medicine; Visit Provider Internal Medicine
DX: L03.116 Cellulitis of left lower limb (principal); L08.9 Local infection of the skin and subcutaneous tissue, unspecified; G62.9 Polyneuropathy, unspecified; E66.01 Morbid (severe) obesity due to excess calories; E78.5 Hyperlipidemia, unspecified; E03.9 Hypothyroidism, unspecified; F17.210 Nicotine dependence, cigarettes, uncomplicated; F12.90 Cannabis use, unspecified, uncomplicated; F31.9 Bipolar disorder, unspecified; J44.9 Chronic obstructive pulmonary disease, unspecified; Z68.36 Body mass index [BMI] 36.0-36.9, adult
CPT/HCPCS: 36415; 36569; 73630; 73720; 80048; 80202; 83735; 84443; 85025; 86140; 94640; 96361; 96365; 96366; 96367; 96375; 96376; 99285; A9270; A9577; C1751; G0378; G0379; J0696; J1956; J3370; J7030

== ENCOUNTER 2020-12-16 11:18 | Emergency (ER) | payer OTHER, SELFPAY ==
--- NOTE | 2020-12-16 11:33 | ED.GENADULT ---
HPI - General Adult General Chief complaint: Skin/Abscess/Foreign Body Stated complaint: rash/rebandaged Time Seen by Provider: 12/16/20 11:33 Source: patient and RN notes reviewed Mode of arrival: ambulatory Limitations: no limitations History of Present Illness HPI narrative: 50-year-old female presents with complaints of wound to left arm under PICC line dressing with tenderness and erythema for 1 day. Jaci reports PICC line was inserted on December 12, 2020, dressing changed on December 14, 2020, she believes the material used for dressing change caused irritation to skin, noted increasing symptoms today. Denies swelling to area. Denies drainage. No streaking. No care until today for wound. Denies fever or chills. Denies nausea, vomiting, and abdominal pain. Tolerating po intake well. LMP hysterectomy. Remains active. The patient reports she have not been diagnosed with COVID-19. The patient reports she is not waiting for the results of a COVID-19 lab test. The patient reports she do not have weakness or fatigue. The patient reports she do not have a new or worsening cough or shortness of breath. Denies chest pain. The patient reports she do not have any rhinorrhea, congestion, sore throat, loss of taste or smell, and diarrhea. Denies recent traveling. Denies concerns for COVID-19 or exposures been home with limited outdoor exposure except for essential household needs and return home. At this time, patient is not suspected of having COVID-19. Some parts of this dictation were generated by voice recognition software and may contain typographical and/or grammatical inaccuracies. Related Data Home Medications Medication Instructions Recorded Confirmed fluoxetine 40 mg PO DAILY 08/10/19 12/19/20 aspirin 81 mg tablet,delayed 81 mg PO DAILY 09/06/19 12/19/20 release lorazepam 0.5 mg tablet 0.5 mg PO BID PRN tablet 09/06/19 12/19/20 quetiapine 200 mg PO HS 05/21/20 12/19/20 cetirizine 10 mg tablet 10 mg PO DAILY 07/10/20 12/19/20 acetaminophen 500 mg PO Q6H PRN 12/04/20 12/19/20 budesonide-formoterol [Symbicort] 2 puff INHALATION BID 12/04/20 12/19/20 diclofenac sodium 75 mg PO BID 12/04/20 12/19/20 levothyroxine 37.5 mcg PO HS 12/04/20 12/19/20 montelukast 10 mg PO DAILY 12/04/20 12/19/20 albuterol sulfate 2.5 mg INHALATION Q6H PRN 12/10/20 12/19/20 tramadol 50 mg PO Q4-6H 12/10/20 12/19/20 Allergies Allergy/AdvReac Type Severity Reaction Status Date / Time clove Allergy Severe ANAPHALACTIC Verified 12/19/20 10:55 SHOCK codeine Allergy Severe unknown Verified 12/19/20 10:55 Penicillins Allergy Severe SOB Verified 12/19/20 10:55 poison natividad extract Allergy Severe hives , Verified 12/19/20 10:55 goes in lungs adhesive tape Allergy Mild eats pts Verified 12/19/20 10:55 skin bee venom protein (honey bee) Allergy Mild unknown Verified 12/19/20 10:55 papaya Allergy Mild SCRATCHY Verified 12/19/20 10:55 THROAT cinnamon Allergy Swelling Verified 12/19/20 10:55 of Lip/Tongue/Throat hay fever Allergy Severe cough , Uncoded 12/19/20 10:55 throat swells Harvinder Allergy Intermediate itchy Uncoded 12/19/20 10:55 throat Tuna Allergy Mild hives Uncoded 12/19/20 10:55 Review of Systems Review of Systems: Narrative: CONSTITUTIONAL: Denies fever, chills, sweats. EYES: Denies visual changes, redness, discharge. ENT: Denies rhinorrhea, congestion, sore throat, otalgia. CARDIOVASCULAR: Denies chest pain, palpitations, edema. RESPIRATORY: Denies dyspnea, wheezing, cough GASTROINTESTINAL: Denies abdominal pain, nausea, vomiting, diarrhea. SKIN: Complains of wound to left arm under PICC line dressing with tenderness and erythema. Denies drainage. MUSCULOSKELETAL: Denies acute back pain, joint pain, or myalgia. NEUROLOGIC: Denies numbness or focal weakness. PSYCHIATRIC: Denies anxiety or depression. All other systems reviewed are negative, except as documented in HPI and below.
[2020-12-16 11:38] VITALS: BP 147/94; PULSE 108; RESP 16; TEMP 36.1; O2SAT 99
--- NOTE | 2020-12-16 12:27 | PC.NURSE ---
Patient has a pic line in arm. on the proximal end of the dressing she has notes rash and blisters under the dressing. We do not have PIC line dressing kits in this facility to enable me to change the dressing following policy. Inoculator Harish Nye contacted at [phone] and recommends I call Brea Sparks at [facility]. At [phone] flight radio operator at [facility] was contacted to page Brea.
--- NOTE | 2020-12-16 12:40 | PC.NURSE ---
Spoke with house mover Tim who will try to contact Brea. I continue to update patient about delays.
--- NOTE | 2020-12-16 13:17 | PC.NURSE ---
At 1245 I spoke with Brea Sparks Infusion nurse at [facility]. She instructed me not to change the PIC line dressing. To leave it in place and to instruct the patient not to put any guaze or sanitary pads under the dressing as she had been doing in the past. Brea will meet the patient at the hospital tomorrow am at 1030. Patient aware of this and in agreeable
== END 2020-12-16 12:51 | disposition home or self-care (01) ==
PROVIDERS: Emergency Provider Nurse Practitioner Family; PCP Family Medicine
DX: T81.9XXA Unspecified complication of procedure, initial encounter (principal); L53.9 Erythematous condition, unspecified; M19.90 Unspecified osteoarthritis, unspecified site; J45.909 Unspecified asthma, uncomplicated; F41.9 Anxiety disorder, unspecified; F31.9 Bipolar disorder, unspecified; J44.9 Chronic obstructive pulmonary disease, unspecified; E11.42 Type 2 diabetes mellitus with diabetic polyneuropathy; M79.7 Fibromyalgia; K21.9 Gastro-esophageal reflux disease without esophagitis; E03.9 Hypothyroidism, unspecified; E78.5 Hyperlipidemia, unspecified; M86.9 Osteomyelitis, unspecified; Z87.891 Personal history of nicotine dependence
CPT/HCPCS: 99211; G0463

== ENCOUNTER 2020-12-17 10:46 | Outpatient (RCR) | payer OTHER, SELFPAY ==
[2020-12-14 12:31] LABS: Vancomycin Trough 39.5 ug/mL (10.0-20.0)
== END 2021-03-14 23:59 | disposition home or self-care (01) ==
LOC: ANHVASCINF 10:46
PROVIDERS: PCP Family Medicine; Visit Provider Physician Assistant
DX: Z45.2 Encounter for adjustment and management of vascular access device (principal); L03.116 Cellulitis of left lower limb
CPT/HCPCS: 36415; 36592; 80202; 99211; G0463

== ENCOUNTER 2020-12-20 18:19 | Inpatient (IN) | payer OTHER, SELFPAY ==
--- NOTE | ~2020-12-20 | XR_ITS ---
EXAMINATION: XR chest 2V EXAM DATE: 12/20/2020 19:49 INDICATION: Fatigue, dizziness. TECHNIQUE: Frontal and lateral projections of the chest obtained and reviewed. Comparison is made to prior examination from 11/25/2018. FINDINGS: There is a left-sided PICC line, tip at the cavoatrial junction, expected position. Lower cervical interbody device. The lungs are clear. There are no pleural effusions. The cardiomediastin al silhouette is within normal limits. There is no pneumothorax suspected. The bones and soft tissu es are unremarkable. IMPRESSION: No acute cardiopulmonary findings. Reviewed, dictated and finalized at location A.
--- NOTE | ~2020-12-20 | US_ITS ---
EXAMINATION: US renal BI DATE: 12/23/2020 10:56 INDICATION: Acute kidney injury TECHNIQUE: Multiple grayscale and Doppler ultrasound images of the kidneys were obtained. COMPARISON: CT, 05/13/2020 FINDINGS: The right kidney measures 11.7 x 5.8 x 4.6 cm and contains a 7 mm cyst. The left kidney julián sures 11.8 x 4.1 x 5.9 cm. The kidneys demonstrate normal parenchymal echogenicity. There is no hydro nephrosis. The bladder is normal. IMPRESSION: 1. Normal kidneys without hydronephrosis. Reviewed, dictated and finalized at location A.
[2020-12-20 18:27] VITALS: BP 113/58; PULSE 93; RESP 18; TEMP 36.9; O2SAT 96
[2020-12-20 18:45] LABS: Basophils Percent Auto 0.5 % (0.2-1.2); Eosinophils Absolute Auto 0.1 K/mm3 (0-0.3); Eosinophils Percent Auto 1.8 % (0-4.4); Hematocrit 37.7 % (37.0-47.0); Hemoglobin 12.4 g/dL (12.0-15.0); Immature Granulocyte Absolute 0.02 K/mm3 (0.00-0.031); Immature Granulocyte Percent A 0.3 % (0-0.5); Lymphocytes Absolute Auto 1.34 K/mm3 (0.9-3.2); Lymphocytes Percent Auto 18.2 % (18.3-44.2); Mean Corpuscular HGB Conc 32.9 g/dl (32-36); Mean Corpuscular Hemoglobin 30.1 pg (26-34); Mean Corpuscular Volume 91.5 fl (80-100); Mean Platelet Volume 10.2 fl (7.4-10.4); Monocytes Absolute Auto 0.7 K/mm3 (0.1-0.6); Monocytes Percent Auto 9.1 % (2.6-8.5); Neutrophils Absolute Auto 5.2 K/mm3 (1.3-6.7); Neutrophils Percent Auto 70.1 % (45.5-73.1); Platelet Count Result 196 k/mm3 (150-375); Red Blood Count 4.12 M/mm3 (4.2-5.4); Red Cell Distribution Width 12.6 % (11.5-14.5); White Blood Count 7.4 K/mm3 (4.5-10.0)
[2020-12-20 18:58] LABS: Alanine Aminotransferase 21 U/L (4-35); Albumin Level 3.7 g/dL (3.5-5.1); Alkaline Phosphatase 81 U/L (38-126); Anion Gap 6 mmol/L (8-16); Aspartate Amino Transferase 29 U/L (14-36); Bilirubin,Total 0.8 mg/dL (0.2-1.3); Blood Urea Nitrogen 23 mg/dL (7-17); Calcium 8.5 mg/dL (8.4-10.2); Carbon Dioxide 28 mmol/L (22-30); Chloride 105 mmol/L (98-107); Estimated CRCL calculation 39 ml/min; Estimated Glomerular Filt Rate 25; Glucose 109 mg/dL (65-105); Sodium 139 mmol/L (137-145)
[2020-12-20 19:22] LABS: Vancomycin Random 48.7 ug/mL (10-20)
--- NOTE | 2020-12-20 19:37 | ECG_ITS ---
Measurements Intervals Moran Rate: 82 P: 44 ME: 160 QRS: 48 QRSD: 102 T: 54 QT: 383 QTc: 447 Interpretive Statements SINUS RHYTHM DELAYED PRECORDIAL R/S TRANSITION LOW QRS VOLTAGE IN PRECORDIAL LEADS BORDERLINE ECG Electronically Signed On 12-21-2020 6:36:17 CDT by Mauro Sotelo D.O.
--- NOTE | 2020-12-20 19:39 | ED.GENADULT ---
HPI - General Adult General Chief complaint: Dizziness Stated complaint: Dizzy, tired, ringing in my ear, Time Seen by Provider: 12/20/20 19:27 Source: patient, RN notes reviewed and old records reviewed History of Present Illness HPI narrative: 50-year-old female presents to emergency department for elevated vancomycin levels. Patient is on IV antibiotics for a foot infection. She states she started the IV antibiotics through a PICC line on December 01. She had vancomycin levels checked yesterday, and was told to come to the emergency department today due to elevated levels. She also reports feeling tired for the past 3 days. No chest pain or shortness of breath. No abdominal pain. No nausea or vomiting. No fever or chills. Related Data Home Medications Medication Instructions Recorded Confirmed fluoxetine 40 mg PO DAILY 08/10/19 12/19/20 aspirin 81 mg tablet,delayed 81 mg PO DAILY 09/06/19 12/19/20 release lorazepam 0.5 mg tablet 0.5 mg PO BID PRN tablet 09/06/19 12/19/20 quetiapine 200 mg PO HS 05/21/20 12/19/20 cetirizine 10 mg tablet 10 mg PO DAILY 07/10/20 12/19/20 acetaminophen 500 mg PO Q6H PRN 12/04/20 12/19/20 budesonide-formoterol [Symbicort] 2 puff INHALATION BID 12/04/20 12/19/20 diclofenac sodium 75 mg PO BID 12/04/20 12/19/20 levothyroxine 37.5 mcg PO HS 12/04/20 12/19/20 montelukast 10 mg PO DAILY 12/04/20 12/19/20 albuterol sulfate 2.5 mg INHALATION Q6H PRN 12/10/20 12/19/20 tramadol 50 mg PO Q4-6H 12/10/20 12/19/20 Allergies Allergy/AdvReac Type Severity Reaction Status Date / Time clove Allergy Severe ANAPHALACTIC Verified 12/19/20 10:55 SHOCK codeine Allergy Severe unknown Verified 12/19/20 10:55 Penicillins Allergy Severe SOB Verified 12/19/20 10:55 poison natividad extract Allergy Severe hives , Verified 12/19/20 10:55 goes in lungs adhesive tape Allergy Mild eats pts Verified 12/19/20 10:55 skin bee venom protein (honey bee) Allergy Mild unknown Verified 12/19/20 10:55 papaya Allergy Mild SCRATCHY Verified 12/19/20 10:55 THROAT cinnamon Allergy Swelling Verified 12/19/20 10:55 of Lip/Tongue/Throat hay fever Allergy Severe cough , Uncoded 12/19/20 10:55 throat swells Harvinder Allergy Intermediate itchy Uncoded 12/19/20 10:55 throat Tuna Allergy Mild hives Uncoded 12/19/20 10:55 Review of Systems Review of Systems: Narrative: CONSTITUTIONAL: Denies fever, chills, or sweats. EYES: Denies visual changes, redness, or discharge. ENT: Denies rhinorrhea, congestion, sore throat, or otalgia. CARDIOVASCULAR: Denies chest pain, palpitations, or edema. RESPIRATORY: Denies cough or dyspnea. GASTROINTESTINAL: Denies abdominal pain, nausea, vomiting, or diarrhea. GENITOURINARY: Denies dysuria or hematuria. SKIN: Denies rash or itching. MUSCULOSKELETAL: Denies back pain, joint pain, or myalgia. NEUROLOGIC: Denies headache, numbness, dizziness, or weakness. PSYCHIATRIC: Denies anxiety or depression. All systems reviewed & are unremarkable except as noted in HPI and below (ROS) PMFSH Past Medical History Medical History Abdominal pain Acute arthritis Anxiety Arthritis Asthma Mild persistent Bipolar depression Cellulitis of foot, left Chest tightness Chills Chronic pain Colitis (~04/2020) Congestion of nasal sinus COPD (chronic obstructive pulmonary disease) Coughing Depression Diabetes mellitus with neuropathy Diarrhea Dizziness Dysmenorrhea Fever Fibromyalgia Folliculitis GERD (gastroesophageal reflux disease) Hearing loss High cholesterol History of herpes simplex infection Hyperlipidemia Hypothyroidism Intertrigo Light headedness Memory loss Migraine Neuropathy SG (obstructive sleep apnea) Osteomyelitis of left foot currently being treated at home with IV antibiotic 11/2020 Suicide SI at age 16 Wears glasses Weight gain Wheezing Withdrawal syndrome Surgical History Surgical Hi
[2020-12-20] MEDS: SODIUM CHLORIDE 0.9% IV 1,000 ML 999 ML IV CONT (19:59)
[2020-12-20 20:41] LABS: Magnesium 2.1 mg/dL (1.6-2.3)
[2020-12-20 21:32] LABS: Add Urine Microscopic? YES; Appearance Urine Cloudy (Clear); Bacteria Urine Trace /hpf; Bilirubin Urine Negative (Negative); Blood Urine Negative (Negative); Color Urine Yellow (Yellow); Glucose Urine UA Negative (Negative); Ketones Urine Negative (Negative); Leukocyte Esterase Ur 3+ LEU/UL (Negative); Mucus Urine Rare /lpf; Nitrate Urine Negative (Negative); Protein Urine 1+ mg/dL (Negative); Specific Grav Ur 1.015 (1.001-1.035); Squamous Epithelial Cell Urine Many /hpf (Few); Urobilinogen Urine Negative mg/dL (<2.0); WBC Urine 51-75 /hpf
[2020-12-20 21:54] VITALS: BP 126/90; PULSE 80; RESP 18; O2SAT 99
[2020-12-20 22:31] VITALS: BP 118/81; PULSE 84; RESP 18; O2SAT 99
[2020-12-21] VITALS: BP 118/67; PULSE 79; RESP 18; TEMP 36.1; O2SAT 96; BMI 39.0
[2020-12-21 00:11] VITALS: BMI 38.7
--- NOTE | 2020-12-21 00:18 | ADMGEN ---
This patient, Jaci Rivera, was admitted to 3 [facility] Surg Room 327-01. Patient/family oriented to hospital policies and general routines including ID bracelet, bed and alarms, visiting hours, pain management, procedures, bathroom and other care routines, personal items, smoking policy, room service/diet, and visiting hours. Information on how to activate the Rapid Response Team has been discussed. Patient/Family are encouraged to report perceived risks to care and to ask questions if they do not understand what they are told or what they should do.
[2020-12-21 00:53] VITALS: BP 118/67; PULSE 79; TEMP 36.1; O2SAT 96
[2020-12-21] MEDS: SODIUM CHLORIDE 0.9% IV 1,000 ML 125 ML IV CONT ×3 (01:25→20:28)
--- NOTE | 2020-12-21 02:59 | PM.IMHP ---
H&P: HPI History of Present Illness Date/Time: 12/21/20 02:59 Chief Complaint: High vancomycin trough Narrative: 50-year-old female with past medical history of peripheral neuropathy, bipolar disorder, COPD, and recent diagnosis of left 5th metatarsal osteomyelitis who presented to the ER due to a high vanc trough. The patient had been hospitalized 12/04/2020-12/06/2020 due to cellulitis for foot. She had an MRI of her left foot at that time and orthopedic surgery was consulted. Orthopedic surgeon felt that the patient's clinical picture is more consistent with cellulitis as opposed to osteomyelitis. Patient was discharged home on clindamycin for a total of 7 days. On 12/10/2020 through 12/12/2020 at which time infectious disease with consulted. The patient was started on Levaquin 500 mg daily through 12/25/2019 and IV vancomycin q.12 hours through 12/24/2020. The patient had a PICC line placed in her left upper arm and was discharged on vancomycin 1.75 g Q 12 hours. She received a routine vancomycin trough draw on the morning of the . She continued to get her IV vancomycin therapy throughout the and on the morning of the . Her vancomycin trough came back critical after she had received her morning dose of vancomycin. Her vanc trough from the was 30. Her repeat vancomycin trough when she came to the ER was 48.7. The patient had noticed that she had been feeling tired and fatigued for the last 3 days. She had also noticed ringing in her ears and feeling slightly lightheaded. She denies any nausea or vomiting. She has not had any fevers or chills. She denies any chest pain or shortness of breath. She reports that her foot is reaming machine tender if she walks without the postop a boot. The erythema and swelling in her foot has improved significantly. Hearing loss. She reports that she has peripheral neuropathy due to cervical spine surgery. She adamantly denies ever having history of diabetes or prediabetes. Her hemoglobin A1c is never been above 5.5. She reports that she has borderline hyperlipidemia but does not tolerate statin therapy as it causes muscle aches in her legs. Her UA did demonstrate 3+ leukocyte esterase and 51-75 WBCs but she denies any urinary symptoms. Her urine specimen was poor sample with many squamous cells. Review of Systems Review of Systems: Narrative: 12 systems were reviewed with pertinent positives and negatives per HPI. Except as documented in the HPI, all other systems were reviewed and are negative. [facility] Past Medical History Medical History (Updated 12/21/20 @ 07:25 by Suzi Goodwin DO) Anxiety Arthritis Asthma Mild persistent Bipolar depression Chronic pain Colitis (~04/2020) Congestion of nasal sinus COPD (chronic obstructive pulmonary disease) Depression Fibromyalgia GERD (gastroesophageal reflux disease) Herpes zoster The patient reports that she has had up to 20 herpes zoster outbreaks on her left arm Hyperlipidemia With total cholesterol level ranging between 234 and 173 in 2019 Hypertriglyceridemia Levels ranging between 140 and 207 in 2019 Hypothyroidism Migraine Neuropathy Obesity (BMI 30-39.9) SG (obstructive sleep apnea) Osteomyelitis of left foot currently being treated at home with IV antibiotic 11/2020 Peripheral neuropathy Due to cervical disc disease Suicide SI at age 16 Wears glasses Surgical History Surgical History (Updated 12/21/20 @ 07:05 by Suzi Goodwin DO) H/O: hysterectomy History of cervical spinal surgery Cervical disc replacement 2005 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
[2020-12-21 06:00] VITALS: BP 114/73; PULSE 77; RESP 16; TEMP 36.4; O2SAT 95
[2020-12-21] MEDS: FLUoxetine HCL 20 MG CAPSULE 60 MG PO (08:02)
[2020-12-21] MEDS: GABAPENTIN 100 MG CAPSULE 200 MG BY MOUTH ×3 (08:02→17:22)
[2020-12-21] MEDS: LORATADINE 10 MG TABLET PO (08:02)
[2020-12-21] MEDS: ASPIRIN 81 MG ENTERIC TABLET PO (08:02)
[2020-12-21] MEDS: MONTELUKAST SODIUM 10 MG TABLET PO (08:03)
[2020-12-21] MEDS: traMADol HCL (*CRX) 50 MG TABLET 100 MG PO ×2 (08:03→20:30)
[2020-12-21] MEDS: CYCLOBENZAPRINE HCL 10 MG TABLET PO ×2 (08:06→16:33)
[2020-12-21] MEDS: ENOXAPARIN 40 MG/0.4 ML SYRINGE SUB-Q (08:44)
[2020-12-21 08:51] LABS: Anion Gap 5 mmol/L (8-16); Blood Urea Nitrogen 21 mg/dL (7-17); Calcium 7.9 mg/dL (8.4-10.2); Carbon Dioxide 28 mmol/L (22-30); Chloride 108 mmol/L (98-107); Estimated CRCL calculation 40 ml/min; Estimated Glomerular Filt Rate 25; Glucose 87 mg/dL (65-105); Potassium 3.9 mmol/L (3.4-5.0); Sodium 141 mmol/L (137-145)
[2020-12-21] MEDS: ALTEPLASE 2 MG VIAL (CATHFLO) IV PUSH ×2 (10:03→10:04)
[2020-12-21] MEDS: traMADol HCL (*CRX) 50 MG TABLET PO (12:19)
[2020-12-21] MEDS: CENTRAL LINE FLUSH 10 ML IV PUSH ×2 (12:19→20:31)
--- NOTE | 2020-12-21 13:31 | PM.IMPN ---
Progress Note: A&P Assessment and Plan (1) Vancomycin-induced nephrotoxicity: Code(s): N14.1 - Nephropathy induced by other drugs, medicaments and biological substances; T36.8X5A - Adverse effect of other systemic antibiotics, initial encounter Status: Acute Assessment and Plan: Baseline Cr is 0.6-0.8. Cr on admission was 2.1 and remains 2.1 today. Urine output is adequate. Vancomycin level elevated. Eosinophils normal. Vancomycin discontinued Continue IV fluids Follow renal function and will consult nephrology if renal function does not improve (2) FORREST (acute kidney injury): Code(s): N17.9 - Acute kidney failure, unspecified Status: Acute Assessment and Plan: Secondary to vancomycin-induced nephrotoxicity. Plan as above. (3) Infection of left foot: Code(s): L08.9 - Local infection of the skin and subcutaneous tissue, unspecified Status: Acute Assessment and Plan: She stepped on a foreign object 11/28/20 when walking barefoot and cut her foot resulting in cellulitis at the area of the head of the left 5th metatarsal head. MRI from both 12/05 and 12/10 showed nonspecific marrow edema with marrow enhancement at the head of the fifth metatarsal. She has seen podiatry, orthopedic surgery, and infectious disease for the left foot infection. She was initially treated with clindamycin as this was not felt to be osteomyelitis. She subsequently came back with increased swelling and pain and was treated with IV vancomycin given possible drug-resistant gram-positive organisms. She notes overall improvement in her left foot and notes only mild pain at this time. Stop vancomycin due to toxicity Continue renally dosed levaquin through 12/24 Infectious disease consulted for further input regarding whether or not further IV antibiotics are needed, input is appreciated She needs to follow-up with podiatry as planned at discharge (4) Asthma: Code(s): J45.909 - Unspecified asthma, uncomplicated Status: Acute Assessment and Plan: Stable with no acute respiratory issues. Continue albuterol PRN Continue symbicort Continue montelukast (5) Hypothyroidism: Code(s): E03.9 - Hypothyroidism, unspecified Status: Acute Assessment and Plan: TSH 12/20/20 is 1.51. Continue levothyroxine (6) Bipolar depression: Code(s): F31.9 - Bipolar disorder, unspecified Status: Acute Assessment and Plan: Mood is stable. Continue fluoxetine and quetiapine Continue lorazepam as needed (7) Chronic pain: Code(s): G89.29 - Other chronic pain Status: Acute Assessment and Plan: Well-controlled at this time. Continue prior to admission regimen of acetaminophen, cyclobenzaprine, gabapentin, and tramadol Diclofenac held to reduce risk of nephrotoxicity Add lidocaine patch as needed Subjective Date/time seen: 12/21/20 13:31 Mrs. Felix is a 50 y.o. female with PMH significant for anxiety, bipolar disorder, asthma, GERD, hyperlipidemia and several other comorbidities who is seen in follow-up for vancomycin-induced nephrotoxicity. She is doing okay today. Tinnitus has resolved. She has no hearing change or loss. She notes fatigue and occasional dizziness. She is otherwise doing well. She denies chest pain and dyspnea. She denies nausea, vomiting, and abdominal pain. Her appetite is good and she is eating well. She has no other concerns. Review of Systems Review of Systems: All systems reviewed & are unremarkable except as noted in HPI and below Exam Narrative: Exam Narrative: General: Very pleasant, well-developed, and well-nourished 50 y.o. female lying semi-recumbent in bed eating lunch in no acute distress. HEENMT: Normocephalic and atraumatic. Sclerae anicteric. EOMI. Oral mucosa moist. Neck: Supple. Cardiac: Regular rate and rhythm. S1 and S2 normal. Lungs: Lungs are clear to ausculta
[2020-12-21 14:00] VITALS: BP 118/65; PULSE 98; RESP 16; TEMP 36.3; O2SAT 99
--- NOTE | 2020-12-21 14:47 | WPDINFPN2 ---
Progress Note: A&P Assessment and Plan (1) Cellulitis of left foot: Code(s): L03.116 - Cellulitis of left lower limb Status: Acute Assessment and Plan: 1. Cellulitis of L foot, resolved on exam 2. Renal insufficiency from Vanc REC No further Vanc. Complete levofloxacin 12/24, agree with dosing. Call if other Qs Subjective Date/time seen: 12/21/20 14:47 Objective Data Vital Signs Vital Signs: Vital Signs - 24 hr 12/20/20 18:27 12/20/20 21:54 12/20/20 22:31 Temperature 36.9 C Pulse Rate 93 80 84 Respiratory Rate 18 18 18 Blood Pressure 113/58 L 126/90 118/81 Pulse Oximetry 96 99 99 12/21/20 00:00 12/21/20 00:53 12/21/20 06:00 Temperature 36.1 C L 36.1 C L 36.4 C L Pulse Rate 79 79 77 Respiratory Rate 18 16 Blood Pressure 118/67 118/67 114/73 Pulse Oximetry 96 96 95 Intake/Output Intake/Output: Intake & Output 12/18/20 12/19/20 12/20/20 12/21/20 23:59 23:59 23:59 23:59 Intake Total 1000 1780 Output Total 600 Balance 1000 1180 Meds/Results Medications: Active Medications Generic Name Dose Route Start Last Admin Trade Name Freq PRN Reason Stop Dose Admin Acetaminophen 500 mg 12/21/20 02:56 Acetaminophen 500 Mg Tablet PO Q6H PRN Fever Or Pain Albuterol 2.5 mg 12/21/20 02:00 Albuterol Sulfate Neb 2.5 Mg/3 Ml Inh INHALATION Q6HRT PRN Shortness Of Breath Alteplase, Recombinant 2 mg 12/21/20 08:51 12/21/20 10:03 Alteplase 2 Mg Vial (Cathflo) IV PUSH 2 mg ONCE PRN Administration Line Occlusion Alteplase, Recombinant 2 mg 12/21/20 08:52 12/21/20 10:04 Alteplase 2 Mg Vial (Cathflo) IV PUSH 2 mg ONCE PRN Administration Line Occlusion Aspirin 81 mg 12/21/20 09:00 12/21/20 08:02 Aspirin 81 Mg Enteric Tablet PO 81 mg DAILY SRAVANTHI Administration Budesonide/Formoterol Fumarate 2 puff 12/21/20 08:00 12/21/20 07:48 Budesonide/Form 80-4.5 Mcg (*Sp) INHALATION 2 puff Q12HRT SRAVANTHI Administration Cyclobenzaprine HCl 10 mg 12/21/20 02:56 12/21/20 08:06 Cyclobenzaprine Hcl 10 Mg Tablet PO 10 mg Q8H PRN Administration muscle spasm Fluoxetine HCl 60 mg 12/21/20 09:00 12/21/20 08:02 Fluoxetine Hcl 20 Mg Capsule PO 60 mg DAILY SRAVANTHI Administration Fluticasone Propionate 2 spray 12/21/20 02:56 Fluticasone Propionate 0.05% Na Spr 16 Gm Btl (*Bkc) NASAL DAILY PRN allergy symptoms Gabapentin 200 mg 12/21/20 09:00 12/21/20 12:19 Gabapentin 100 Mg Capsule BY MOUTH 200 mg TID SRAVANTHI Administration Heparin Sodium (Porcine) 5,000 units 12/21/20 21:00 Heparin Sodium 5,000 Units/Ml Vial SUB-Q Q12HR SRAVANTHI Sodium Chloride 1,000 mls @ 125 mls/hr 12/20/20 22:10 12/21/20 12:27 Normal Saline Iv IV CONT 125 mls/hr .Q8H SRAVANTHI Administration Levofloxacin 250 mg 12/21/20 09:00 12/21/20 08:44 Levofloxacin Tab 250 Mg Tablet PO 12/24/20 09:00 250 mg DAILY SRAVANTHI Administration Levothyroxine Sodium 37.5 mcg 12/21/20 21:00 Levothyroxine Sodium 12.5 Mcg Tablet PO HS [facility] Lidocaine 1 patch 12/22/20 09:00 Lidocaine 5% Patch TRANSDERM DAILY SRAVANTHI Loratadine 10 mg 12/21/20 09:00 12/21/20 08:02 Loratadine 10 Mg Tablet PO 01/20/21 09:01 10 mg DAILY SRAVANTHI Administration Lorazepam 0.5 mg 12/21/20 02:56 Lorazepam (*Crx) 0.5 Mg Tablet PO BID PRN Anxiety Montelukast Sodium 10 mg 12/21/20 09:00 12/21/20 08:03 Montelukast Sodium 10 Mg Tablet PO 10 mg DAILY SRAVANTHI Administration Quetiapine Fumarate 200 mg 12/21/20 21:00 Quetiapine Fumarate Xr 200 Mg Tab.Er.24h PO HS [facility] Sodium Chloride 10 ml 12/21/20 03:00 Saline Lock Flush IV PUSH .COMPLEX SRAVANTHI Sodium Chloride 10 ml 12/21/20 14:00 12/21/20 12:19 Central Line Flush IV PUSH 10 ml Q8HR SRAVANTHI Administration Sodium Chloride 10 ml 12/21/20 08:37 Central Line Flush IV PUSH PRN PRN with TPN bag changes Sodium Chl
[2020-12-21] MEDS: LORazepam (*CRX) 0.5 MG TABLET PO (16:33)
[2020-12-21] MEDS: HEPARIN SODIUM 5,000 UNITS/ML VIAL 5000 UNITS SUB-Q (20:29)
[2020-12-21] MEDS: QUEtiapine FUMARATE XR 200 MG TAB.ER.24H PO (20:30)
[2020-12-21] MEDS: LEVOTHYROXINE SODIUM 12.5 MCG TABLET 37.5 MCG PO (20:30)
[2020-12-21 22:00] VITALS: BP 132/64; PULSE 87; RESP 16; TEMP 36.2; O2SAT 97
[2020-12-22] MEDS: SODIUM CHLORIDE 0.9% IV 1,000 ML 125 ML IV CONT ×2 (05:10→12:22)
[2020-12-22] MEDS: CENTRAL LINE FLUSH 10 ML IV PUSH ×3 (05:10→20:11)
[2020-12-22 05:35] LABS: Anion Gap 2 mmol/L (8-16); Blood Urea Nitrogen 16 mg/dL (7-17); Calcium 7.2 mg/dL (8.4-10.2); Carbon Dioxide 26 mmol/L (22-30); Chloride 114 mmol/L (98-107); Estimated CRCL calculation 44 ml/min; Estimated Glomerular Filt Rate 28; Glucose 80 mg/dL (65-105); Potassium 3.4 mmol/L (3.4-5.0); Sodium 142 mmol/L (137-145)
[2020-12-22 06:00] VITALS: BP 129/69; PULSE 81; RESP 16; TEMP 36.3; O2SAT 92
[2020-12-22] MEDS: CYCLOBENZAPRINE HCL 10 MG TABLET PO ×2 (06:06→20:15)
[2020-12-22] MEDS: FLUoxetine HCL 20 MG CAPSULE 60 MG PO (09:01)
[2020-12-22] MEDS: LIDOCAINE 5% PATCH 1 PATCH TRANSDERM (09:01)
[2020-12-22] MEDS: GABAPENTIN 100 MG CAPSULE 200 MG BY MOUTH ×3 (09:02→16:02)
[2020-12-22] MEDS: ASPIRIN 81 MG ENTERIC TABLET PO (09:02)
[2020-12-22] MEDS: LORATADINE 10 MG TABLET PO (09:02)
[2020-12-22] MEDS: MONTELUKAST SODIUM 10 MG TABLET PO (09:02)
[2020-12-22] MEDS: traMADol HCL (*CRX) 50 MG TABLET 100 MG PO ×2 (09:03→20:10)
[2020-12-22] MEDS: HEPARIN SODIUM 5,000 UNITS/ML VIAL 5000 UNITS SUB-Q ×2 (09:03→20:11)
[2020-12-22] MEDS: traMADol HCL (*CRX) 50 MG TABLET PO (13:00)
[2020-12-22 14:00] VITALS: BP 128/77; PULSE 74; RESP 16; TEMP 36.6; O2SAT 93
--- NOTE | 2020-12-22 14:28 | PM.IMPN ---
Progress Note: A&P Assessment and Plan (1) Vancomycin-induced nephrotoxicity: Code(s): N14.1 - Nephropathy induced by other drugs, medicaments and biological substances; T36.8X5A - Adverse effect of other systemic antibiotics, initial encounter Status: Acute Assessment and Plan: Baseline Cr is 0.6-0.8. Cr on admission was 2.1. Urine output is adequate. Vancomycin level elevated. Eosinophils normal. Cr has improved to 1.9 today. Vancomycin discontinued Continue IV fluids, decrease rate to 100cc/hr Follow renal function and will consult nephrology if renal function does not improve (2) FORREST (acute kidney injury): Code(s): N17.9 - Acute kidney failure, unspecified Status: Acute Assessment and Plan: Secondary to vancomycin-induced nephrotoxicity. Plan as above. (3) Infection of left foot: Code(s): L08.9 - Local infection of the skin and subcutaneous tissue, unspecified Status: Acute Assessment and Plan: She stepped on a foreign object 11/28/20 when walking barefoot and cut her foot resulting in cellulitis at the area of the head of the left 5th metatarsal head. MRI from both 12/05 and 12/10 showed nonspecific marrow edema with marrow enhancement at the head of the fifth metatarsal. She has seen podiatry, orthopedic surgery, and infectious disease for the left foot infection. She was initially treated with clindamycin as this was not felt to be osteomyelitis. She subsequently came back with increased swelling and pain and was treated with IV vancomycin given possible drug-resistant gram-positive organisms. She notes overall improvement in her left foot and notes only mild pain at this time. Vancomycin discontinued due to toxicity Continue renally dosed levaquin through 12/24 Infectious disease consulted for further input regarding whether or not further IV antibiotics are needed and advises no further IV antibiotics and to continue levaquin through 12/24 She needs to follow-up with podiatry as planned at discharge (4) Asthma: Code(s): J45.909 - Unspecified asthma, uncomplicated Status: Acute Assessment and Plan: Stable with no acute respiratory issues. Continue albuterol PRN Continue symbicort Continue montelukast (5) Hypothyroidism: Code(s): E03.9 - Hypothyroidism, unspecified Status: Acute Assessment and Plan: TSH 12/20/20 is 1.51. Continue levothyroxine (6) Bipolar depression: Code(s): F31.9 - Bipolar disorder, unspecified Status: Acute Assessment and Plan: Mood is stable. Continue fluoxetine and quetiapine Continue lorazepam as needed (7) Chronic pain: Code(s): G89.29 - Other chronic pain Status: Acute Assessment and Plan: Well-controlled at this time. Continue prior to admission regimen of acetaminophen, cyclobenzaprine, gabapentin, and tramadol Diclofenac held to reduce risk of nephrotoxicity Lidocaine patch added as needed (8) Nausea: Code(s): R11.0 - Nausea Status: Acute Assessment and Plan: She notes mild nausea 1 hr after eating today. Add promethazine as needed Subjective Date/time seen: 12/22/20 14:28 Mrs. Felix is a 50 y.o. female with PMH significant for anxiety, bipolar disorder, asthma, GERD, hyperlipidemia and several other comorbidities who is seen in follow-up for vancomycin-induced nephrotoxicity. She is doing okay today. She has a bit of nausea which started 1 hour after she ate and she feels tired today. She has no abdominal pain or vomiting. She is passing gas and bowels are regular. She has no fever or chills. She has no chest pain or dyspnea. She reports no significant pain. She denies headache. She notes some dizziness but notes she did not have any significant lightheadedness or dizziness with standing. She denies palpitations. Review of Systems Review of Systems: All systems reviewed & a
[2020-12-22] MEDS: ACYCLOVIR 400 MG TABLET PO (16:02)
[2020-12-22] MEDS: LEVOTHYROXINE SODIUM 12.5 MCG TABLET 37.5 MCG PO (20:10)
[2020-12-22] MEDS: QUEtiapine FUMARATE XR 200 MG TAB.ER.24H PO (20:10)
[2020-12-22 21:55] VITALS: BP 151/83; PULSE 76; RESP 18; TEMP 37.2; O2SAT 97
[2020-12-23 05:44] VITALS: BP 140/84; PULSE 73; RESP 18; TEMP 37.1; O2SAT 93
[2020-12-23] MEDS: SODIUM CHLORIDE 0.9% IV 1,000 ML 125 ML IV CONT ×2 (05:49→18:57)
[2020-12-23 06:05] LABS: Anion Gap 5 mmol/L (8-16); Blood Urea Nitrogen 17 mg/dL (7-17); Calcium 8.5 mg/dL (8.4-10.2); Carbon Dioxide 30 mmol/L (22-30); Chloride 107 mmol/L (98-107); Estimated CRCL calculation 44 ml/min; Estimated Glomerular Filt Rate 28; Glucose 84 mg/dL (65-105); Magnesium 1.9 mg/dL (1.6-2.3); Sodium 142 mmol/L (137-145)
[2020-12-23] MEDS: CENTRAL LINE FLUSH 10 ML IV PUSH ×3 (06:22→23:24)
[2020-12-23] MEDS: ACYCLOVIR 400 MG TABLET PO ×3 (08:59→17:36)
[2020-12-23] MEDS: traMADol HCL (*CRX) 50 MG TABLET 100 MG PO ×2 (08:59→21:40)
[2020-12-23] MEDS: MONTELUKAST SODIUM 10 MG TABLET PO (08:59)
[2020-12-23] MEDS: FLUoxetine HCL 20 MG CAPSULE 60 MG PO (08:59)
[2020-12-23] MEDS: HEPARIN SODIUM 5,000 UNITS/ML VIAL 5000 UNITS SUB-Q ×2 (08:59→21:37)
[2020-12-23] MEDS: ASPIRIN 81 MG ENTERIC TABLET PO (08:59)
[2020-12-23] MEDS: GABAPENTIN 100 MG CAPSULE 200 MG BY MOUTH ×3 (08:59→17:36)
[2020-12-23] MEDS: LIDOCAINE 5% PATCH 1 PATCH TRANSDERM (08:59)
[2020-12-23] MEDS: CYCLOBENZAPRINE HCL 10 MG TABLET PO ×2 (09:00→17:36)
[2020-12-23] MEDS: LORATADINE 10 MG TABLET PO (09:05)
[2020-12-23] MEDS: FLUTICASONE PROPIONATE 0.05% NA SPR 16 GM BTL (*BKC) 2 SPRAY NASAL (09:06)
--- NOTE | 2020-12-23 12:56 | PM.CNNEP ---
Assessment and Plan Assessment and plan (1) FORREST (acute kidney injury): Code(s): N17.9 - Acute kidney failure, unspecified Status: Acute Assessment and Plan: presumed to due to vancomycin toxicity slow improvement noted (has not worsened) non-oliguric no critical electrolytes and volume status stable check urine electrolytes and renal ultrasound urinalysis with protein and WBC, urine eosinophils negative -- recheck UA may take a while to recovery given how high vancomycin level was on admission should we consider a trial of steroids??? -- would probably need to clarify if Infectious Disease okay with this given #2 (2) Infection of left foot: Code(s): L08.9 - Local infection of the skin and subcutaneous tissue, unspecified Status: Acute Assessment and Plan: clinical improvement noted on antibiotics as outlined Infectious Disease following (3) Chronic pain: Code(s): G89.29 - Other chronic pain Status: Acute Assessment and Plan: agree with holding NSAID therapy at this time given # 1 on other medications to keep this stable Will continue to follow. History of Present Illness Reason for Consult Consult date: 12/23/20 Reason for consult: acute renal failure Chief Complaint Chief complaint: forrest History of Present Illness Narrative: The patient is a 50-year-old female with past medical history as outlined below who presented to the [facility] ER due to elevate vancomycin levels. The patient has been hospital hospitalized on two separate occasions here at [facility] with regard to her left foot wound/infection. She was initially being treated with clindamycin but then returned back to the hospital as the wound had failed to improved. At that time, Infectious Disease was consulted and she was started on a combination of Levaquin and vancomycin with a PICC line placement for continued IV vancomycin on discharge. Apparently, on a routine vancomycin trough draw, her level was quite elevated and she was informed to come to the ER for further evaluation. Workup and evaluation emergency room demonstrated the patient to be hemodynamically stable and in no acute distress and a repeat vancomycin level was drawn which demonstrated value of 48.7. Routine blood test also demonstrated elevated BUN and creatinine in comparison to her normal kidney function on by labs done during her last hospital stay. Her only other complaint was that of feeling weak and tired with concern that her renal dysfunction may be the cause of this issue. Given laboratory abnormalities as mentioned, she was admitted the hospital for further evaluation and therapy. Since her admission, her kidney function has improved slightly but still not back to baseline. Obviously, her IV vancomycin has been discontinued and she has been maintained on Levaquin therapy as her left foot wound infection clinically appears to be doing quite well if not resolving. Renal consultation was requested due to her acute kidney injury/acute renal failure. The presumption is that her kidney dysfunction is secondary to vancomycin toxicity. As she has no other significant risk factors for kidney disease as well as the fact that earlier this month her kidney function was well within normal limits, this is a very strong possibility. The only recent medications changes are with regard to her antibiotics as well. Furthermore, her urine sediment does not appear nephritic and is more consistent with generalized inflammation. In spite of IV fluid resuscitation, her creatinine has only come down to 1.9 mg/dL from an admission value of 2.1 mg/dL. Nonetheless, she has no critical electrolyte abnormalities, acid-base disorders, evidence of volume overload or uremia. Currently, at the time my visit, she does not appear to be in acute distress. Review of Systems Review of Systems: Narrative: As per HPI. PMFSH P
--- NOTE | 2020-12-23 13:35 | PM.IMPN ---
Progress Note: A&P Assessment and Plan (1) Vancomycin-induced nephrotoxicity: Code(s): N14.1 - Nephropathy induced by other drugs, medicaments and biological substances; T36.8X5A - Adverse effect of other systemic antibiotics, initial encounter Status: Acute Assessment and Plan: Baseline Cr is 0.6-0.8. Cr on admission was 2.1. Urine output is adequate. Vancomycin level elevated. Eosinophils normal. Cr remains 1.9 today. Vancomycin discontinued Continue IV fluids at 75 cc/hr Nephrology consulted, appreciate input. Renal function is very slowly improving and she may require nephrology follow-up after discharge. (2) FORREST (acute kidney injury): Code(s): N17.9 - Acute kidney failure, unspecified Status: Acute Assessment and Plan: Secondary to vancomycin-induced nephrotoxicity. Plan as above. 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 She generally takes acyclovir for this. Acyclovir initiated 12/22/20 for 5 days Continue to monitor (4) Infection of left foot: Code(s): L08.9 - Local infection of the skin and subcutaneous tissue, unspecified Status: Acute Assessment and Plan: She stepped on a foreign object 11/28/20 when walking barefoot and cut her foot resulting in cellulitis at the area of the head of the left 5th metatarsal head. MRI from both 12/05 and 12/10 showed nonspecific marrow edema with marrow enhancement at the head of the fifth metatarsal. She has seen podiatry, orthopedic surgery, and infectious disease for the left foot infection. She was initially treated with clindamycin as this was not felt to be osteomyelitis. She subsequently came back with increased swelling and pain and was treated with IV vancomycin given possible drug-resistant gram-positive organisms. She notes significant improvement overall. Vancomycin discontinued due to toxicity Continue renally dosed levaquin through 12/24 Infectious disease consulted for further input regarding whether or not further IV antibiotics are needed and advises no further IV antibiotics and to continue levaquin through 12/24 She needs to follow-up with podiatry as planned at discharge (5) Asthma: Code(s): J45.909 - Unspecified asthma, uncomplicated Status: Acute Assessment and Plan: Stable with no acute respiratory issues. Continue albuterol PRN Continue symbicort Continue montelukast (6) Hypothyroidism: Code(s): E03.9 - Hypothyroidism, unspecified Status: Acute Assessment and Plan: TSH 12/20/20 is 1.51. Continue levothyroxine (7) Bipolar depression: Code(s): F31.9 - Bipolar disorder, unspecified Status: Acute Assessment and Plan: Mood is stable. Continue fluoxetine and quetiapine Continue lorazepam as needed (8) Chronic pain: Code(s): G89.29 - Other chronic pain Status: Acute Assessment and Plan: Well-controlled at this time. Continue prior to admission regimen of acetaminophen, cyclobenzaprine, gabapentin, and tramadol Diclofenac held to reduce risk of nephrotoxicity Lidocaine patch added as needed (9) Nausea: Code(s): R11.0 - Nausea Status: Resolved Assessment and Plan: Resolved. Subjective Date/time seen: 12/23/20 13:35 Mrs. Felix is a 50 y.o. female with PMH significant for anxiety, bipolar disorder, asthma, GERD, hyperlipidemia and several other comorbidities who is seen in follow-up for vancomycin-induced nephrotoxicity. She is doing well. She noticed a cold sore developing yesterday afternoon so we started acyclovir which she takes intermittently at home for herpes labialis. She notes improvement with acyclovir. Appe
[2020-12-23] MEDS: traMADol HCL (*CRX) 50 MG TABLET PO (13:59)
[2020-12-23 14:00] VITALS: BP 132/69; PULSE 83; RESP 16; TEMP 36.2; O2SAT 96
[2020-12-23 14:18] LABS: Creatinine Urine 15.8 mg/dL; Total Protein Urine Random 14 mg/dL; Ur Ttl Prot Creatinine Ratio 0.89 mg/mg (0-0.20); Urea Random Urine 75 MG/DL
[2020-12-23 14:20] LABS: Sodium Urine Random 90 meq/L
[2020-12-23] MEDS: LEVOTHYROXINE SODIUM 12.5 MCG TABLET 37.5 MCG PO (21:38)
[2020-12-23] MEDS: QUEtiapine FUMARATE XR 200 MG TAB.ER.24H PO (21:39)
[2020-12-23 22:00] VITALS: BP 148/89; PULSE 71; RESP 18; TEMP 37.3; O2SAT 97
[2020-12-24 06:00] VITALS: BP 144/83; PULSE 92; RESP 18; TEMP 37.3; O2SAT 97
[2020-12-24 06:23] LABS: Albumin Level 4.1 g/dL (3.5-5.1); Anion Gap 8 mmol/L (8-16); Blood Urea Nitrogen 20 mg/dL (7-17); Calcium 9.2 mg/dL (8.4-10.2); Carbon Dioxide 29 mmol/L (22-30); Chloride 104 mmol/L (98-107); Estimated CRCL calculation 47 ml/min; Estimated Glomerular Filt Rate 30; Glucose 89 mg/dL (65-105); Magnesium 1.8 mg/dL (1.6-2.3); Potassium 3.8 mmol/L (3.4-5.0); Sodium 141 mmol/L (137-145)
[2020-12-24 06:30] LABS: Complement C3 134 mg/dL (88-165)
--- NOTE | 2020-12-24 06:52 | CONS_ITS ---
DATE OF CONSULTATION: 12/21/2020 REASON FOR CONSULTATION: Cellulitis of the left foot. HISTORY OF PRESENT ILLNESS: A 50-year-old female, who was here in the hospital approximately 2 weeks ago with pain in the left foot. There had been a concern over foreign body, but never proven. She had been given clindamycin prior to admission without relief. Here, she was changed to vancomycin, levofloxacin with clinical improvement within the first dose. This is continued and she is discharged on December 12 with plans to continue IV therapy through December 24. Earlier this week, she had a vancomycin peak level done, which was in the upper 30s range. I asked for a proper trough to be done and this is done on the morning of admission. She was also high and her IV company instructed the patient apparently to call me directly. I never received a message until after 11:00 a.m. this morning. The patient had some degree in finding proper words when speaking with her son, also fatigue and she presented to the hospital. Vancomycin is on hold. Levofloxacin continues. She does have discomfort in the lateral aspect of the foot when she appears awake, but no symptoms over the medial foot. CURRENT MEDICATION: List reviewed. No immunosuppressants. HABITS: Quit smoking, largely daily marijuana. PRESENT MEDICATIONS: No immunosuppressants. PAST MEDICAL HISTORY: Cervical spine surgery, BTL, hysterectomy. No diabetes, peripheral neuropathy, bipolar, and our remainder as per record and reviewed. SOCIAL HISTORY: She is single, disabled, lives locally. REVIEW OF SYSTEMS: Endocrine, skin, musculoskeletal, constitutional, GI otherwise negative. FAMILY HISTORY: Not pertinent to present illness. PHYSICAL EXAMINATION: GENERAL: Middle-age female, who appears younger than her actual age. No acute distress. VITAL SIGNS: Afebrile, 114/73, 77, 16, 95% room air. SKIN: Warm and dry. EENT: The conjunctivae are normal. Oropharynx, oral mucosa normal. LUNGS: Clear to auscultation and percussion. CARDIAC: Regular rate and rhythm. No murmur, gallop, or rub. ABDOMEN: Soft, nontender. EXTREMITIES: She has a callus over the lateral 5th metatarsal head area. No erythema, tenderness, warmth or sinus tracts medially as well as elsewhere in the foot. No erythema, tenderness, breaks in the skin. LABORATORY DATA: Previous blood cultures, no growth. White count 7.4, hemoglobin 12.4, platelets 196, BUN 23, creatinine 2.1 similar findings today. Liver function tests normal. Urinalysis 1+ protein, 3+ leukocyte esterase, many squamous cells are vancomycin level random on admission 30, now 49 without further vancomycin. ASSESSMENT: 1. Cellulitis of the left foot, resolved by exam and symptomatically marked improvement. 2. Renal insufficiency. Suspect vancomycin side effect. 3. Peripheral neuropathy without diabetes. RECOMMENDATIONS: 1. No further vancomycin. 2. Continue levofloxacin, adjusted for renal insufficiency, through December 24. 3. Okay with me for discharge once renal function improves. Thank you very much for asking me to see her. NENO RUST M.D. WELLNESS SPA MANAGER WELLNESS SPA MANAGER D I MT: Farhan
[2020-12-24 07:05] LABS: Vancomycin Random 6.2 ug/mL (10-20)
[2020-12-24] MEDS: SODIUM CHLORIDE 0.9% IV 1,000 ML 125 ML IV CONT (07:25)
[2020-12-24] MEDS: ACYCLOVIR 400 MG TABLET PO ×3 (08:11→17:04)
[2020-12-24] MEDS: GABAPENTIN 100 MG CAPSULE 200 MG BY MOUTH ×3 (08:12→17:04)
[2020-12-24] MEDS: FLUoxetine HCL 20 MG CAPSULE 60 MG PO (08:12)
[2020-12-24] MEDS: ASPIRIN 81 MG ENTERIC TABLET PO (08:12)
[2020-12-24] MEDS: LIDOCAINE 5% PATCH 1 PATCH TRANSDERM (08:13)
[2020-12-24] MEDS: MONTELUKAST SODIUM 10 MG TABLET PO (08:14)
[2020-12-24] MEDS: CYCLOBENZAPRINE HCL 10 MG TABLET PO ×2 (08:14→17:03)
[2020-12-24] MEDS: LORATADINE 10 MG TABLET PO (08:14)
[2020-12-24] MEDS: traMADol HCL (*CRX) 50 MG TABLET 100 MG PO ×2 (08:14→21:54)
[2020-12-24] MEDS: HEPARIN SODIUM 5,000 UNITS/ML VIAL 5000 UNITS SUB-Q ×2 (08:19→21:54)
[2020-12-24 10:31] VITALS: O2SAT 92
--- NOTE | 2020-12-24 11:49 | PM.IMPN ---
Progress Note: A&P Assessment and Plan (1) Vancomycin-induced nephrotoxicity: Code(s): N14.1 - Nephropathy induced by other drugs, medicaments and biological substances; T36.8X5A - Adverse effect of other systemic antibiotics, initial encounter Status: Acute Assessment and Plan: Baseline Cr is 0.6-0.8. Cr on admission was 2.1. Urine output is adequate. Vancomycin level elevated at 48.7 on 12/20 but is now low at 6.2 on labs from today. Eosinophils normal. Cr has improved to 1.8 today with evidence of slow improvement. Renal US demonstrated right 7mm cyst with no other abnormalities. C3 and C4 normal. Vancomycin discontinued IV fluids discontinued. She is tolerating oral intake well. Nephrology consulted, appreciate input. Renal function is very slowly improving and she will require nephrology follow-up after discharge. Nephrology considering steroid trial. Will await further recommendations. She will need close outpatient follow-up at discharge. If renal function continues to improve, discharge is anticipated for tomorrow. (2) FORREST (acute kidney injury): Code(s): N17.9 - Acute kidney failure, unspecified Status: Acute Assessment and Plan: Secondary to vancomycin-induced nephrotoxicity. Plan as above. 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 She generally takes acyclovir for this. Acyclovir initiated 12/22/20 for 5 days Continue to monitor (4) Infection of left foot: Code(s): L08.9 - Local infection of the skin and subcutaneous tissue, unspecified Status: Acute Assessment and Plan: She stepped on a foreign object 11/28/20 when walking barefoot and cut her foot resulting in cellulitis at the area of the head of the left 5th metatarsal head. MRI from both 12/05 and 12/10 showed nonspecific marrow edema with marrow enhancement at the head of the fifth metatarsal. She has seen podiatry, orthopedic surgery, and infectious disease for the left foot infection. She was initially treated with clindamycin as this was felt to be cellulitis as opposed to osteomyelitis. She subsequently came back with increased swelling and pain and was treated with IV vancomycin given possible drug-resistant gram-positive organisms. She notes significant improvement overall. Cellulitis has resolved. Vancomycin discontinued due to toxicity Continue renally dosed levaquin through 12/24 Infectious disease consulted for further input regarding whether or not further IV antibiotics are needed and advises no further IV antibiotics and to continue levaquin through 12/24 Infectious disease following. She needs to follow-up with podiatry as planned at discharge and will need to monitor very closely for any worsening. (5) Asthma: Code(s): J45.909 - Unspecified asthma, uncomplicated Status: Acute Assessment and Plan: Stable with no acute respiratory issues. Continue albuterol PRN Continue symbicort Continue montelukast (6) Hypothyroidism: Code(s): E03.9 - Hypothyroidism, unspecified Status: Acute Assessment and Plan: TSH 12/20/20 is 1.51. Continue levothyroxine (7) Bipolar depression: Code(s): F31.9 - Bipolar disorder, unspecified Status: Acute Assessment and Plan: Mood is stable. Continue fluoxetine and quetiapine Continue lorazepam as needed (8) Chronic pain: Code(s): G89.29 - Other chronic pain Status: Acute Assessment and Plan: Well-controlled at this time. Continue prior to admission regimen of acetaminophen, cyclobenzaprine, gabapentin, and tramadol Diclofenac held to reduce risk of nephrotoxicity Lidocaine patch added as needed (9) Nausea:
[2020-12-24] MEDS: traMADol HCL (*CRX) 50 MG TABLET PO (12:07)
[2020-12-24] MEDS: CENTRAL LINE FLUSH 10 ML IV PUSH ×3 (12:09→21:56)
[2020-12-24 14:00] VITALS: BP 111/66; PULSE 94; RESP 16; TEMP 36.6; O2SAT 97
--- NOTE | 2020-12-24 14:14 | PM.PNNEP ---
Progress Note: A&P Assessment and Plan (1) FORREST (acute kidney injury): Code(s): N17.9 - Acute kidney failure, unspecified Status: Acute Assessment and Plan: presumed to due to vancomycin toxicity slow improvement noted (has not worsened) non-oliguric no critical electrolytes and volume status stable renal ultrasound urinalysis with protein and WBC, urine eosinophils negative -- recheck UA may take a while to recovery given how high vancomycin level was on admission could consider trial of steroids but creatinine improving with supportive therapy -- would follow trend of labs for now (2) Infection of left foot: Code(s): L08.9 - Local infection of the skin and subcutaneous tissue, unspecified Status: Acute Assessment and Plan: clinical improvement noted on antibiotics as outlined Infectious Disease following (3) Chronic pain: Code(s): G89.29 - Other chronic pain Status: Acute Assessment and Plan: agree with holding NSAID therapy at this time given # 1 on other medications to keep this stable Will continue to follow - would not be opposed to discharge tomorrow if creatinine stable if not better. Subjective Date/time seen: 12/24/20 14:14 Overall, she appears to be doing quite well; no apparent distress voiced at the time of my visit; no events/issues overnight or earlier this AM; eating and drinking well; making good urine output since admission. Exam Narrative: Exam Narrative: General: WD/WN female in NAD Heart: normal S1 and S2; no rub Lungs: clear to auscultation Abdomen: soft, nontender, nondistended, positive bowel sounds Extremities: no cyanosis or clubbing; no edema Skin: warm and dry Objective Data Vital Signs Vital Signs: Vital Signs Temp Pulse Resp BP Pulse Ox 12/24/20 14:00 36.6 C 94 16 111/66 97 12/24/20 10:31 92 12/24/20 06:00 37.3 C 92 18 144/83 H 97 12/23/20 22:00 37.3 C 71 18 148/89 H 97 Intake/Output Intake/Output: Intake & Output 12/21/20 12/22/20 12/23/20 12/24/20 23:59 23:59 23:59 23:59 Intake Total 4360 6080 3880 2220 Output Total 4900 2300 1800 2000 Balance -540 3780 2080 220 Meds/Results Medications: Active Medications Generic Name Dose Route Start Last Admin Trade Name Freq PRN Reason Stop Dose Admin Acetaminophen 500 mg 12/21/20 02:56 Acetaminophen 500 Mg Tablet PO Q6H PRN Fever Or Pain Acyclovir 400 mg 12/22/20 15:40 12/24/20 12:07 Acyclovir 400 Mg Tablet PO 12/27/20 15:41 400 mg TID SRAVANTHI Administration Albuterol 2.5 mg 12/21/20 02:00 Albuterol Sulfate Neb 2.5 Mg/3 Ml Inh INHALATION Q6HRT PRN Shortness Of Breath Alteplase, Recombinant 2 mg 12/21/20 08:51 12/21/20 10:03 Alteplase 2 Mg Vial (Cathflo) IV PUSH 2 mg ONCE PRN Administration Line Occlusion Alteplase, Recombinant 2 mg 12/21/20 08:52 12/21/20 10:04 Alteplase 2 Mg Vial (Cathflo) IV PUSH 2 mg ONCE PRN Administration Line Occlusion Aspirin 81 mg 12/21/20 09:00 12/24/20 08:12 Aspirin 81 Mg Enteric Tablet PO 81 mg DAILY SRAVANTHI Administration Budesonide/Formoterol Fumarate 2 puff 12/21/20 08:00 12/24/20 08:00 Budesonide/Form 80-4.5 Mcg (*Sp) INHALATION 2 puff Q12HRT SRAVANTHI Administration Cyclobenzaprine HCl 10 mg 12/21/20 02:56 12/24/20 08:14 Cyclobenzaprine Hcl 10 Mg Tablet PO 10 mg Q8H PRN Administration muscle spasm Fluoxetine HCl 60 mg 12/21/20 09:00 12/24/20 08:12 Fluoxetine Hcl 20 Mg Capsule PO 60 mg DAILY SRAVANTHI Administration Fluticasone Propionate 2 spray 12/21/20 02:56 12/23/20 09:06 Fluticasone Propionate 0.05% Na Spr 16 Gm Btl (*Bkc) NASAL 2 spray DAILY PRN Administration allergy symptoms Gabapentin 200 mg 12/21/20 09:00 12/24/20 12:07 Gabapentin 100 Mg Capsule BY MOUTH 200 mg TID SRAVANTHI Administration Heparin Sodium (Porcine) 5,000 units 12/21/20 21:00
[2020-12-24] MEDS: QUEtiapine FUMARATE XR 200 MG TAB.ER.24H PO (21:55)
[2020-12-24] MEDS: LEVOTHYROXINE SODIUM 12.5 MCG TABLET 37.5 MCG PO (21:55)
[2020-12-24 22:00] VITALS: BP 145/69; PULSE 85; RESP 18; TEMP 37.1; O2SAT 98
[2020-12-25 06:00] VITALS: BP 126/71; PULSE 77; RESP 18; TEMP 37.3; O2SAT 94
[2020-12-25 06:08] LABS: Hematocrit 36.5 % (37.0-47.0); Mean Corpuscular HGB Conc 32.9 g/dl (32-36); Mean Corpuscular Hemoglobin 29.3 pg (26-34); Mean Corpuscular Volume 89.2 fl (80-100); Mean Platelet Volume 10.5 fl (7.4-10.4); Platelet Count Result 237 k/mm3 (150-375); Red Blood Count 4.09 M/mm3 (4.2-5.4); White Blood Count 6.2 K/mm3 (4.5-10.0)
[2020-12-25 06:20] LABS: Albumin Level 3.9 g/dL (3.5-5.1); Anion Gap 8 mmol/L (8-16); Blood Urea Nitrogen 25 mg/dL (7-17); CRP 1.7 mg/dL (<1.0); Carbon Dioxide 30 mmol/L (22-30); Chloride 103 mmol/L (98-107); Estimated CRCL calculation 49 ml/min; Estimated Glomerular Filt Rate 32; Glucose 92 mg/dL (65-105); Phosphorus 5.2 mg/dL (2.5-4.5); Potassium 3.6 mmol/L (3.4-5.0); Sodium 141 mmol/L (137-145)
[2020-12-25] MEDS: CENTRAL LINE FLUSH 10 ML IV PUSH ×2 (06:20→13:27)
[2020-12-25] MEDS: MONTELUKAST SODIUM 10 MG TABLET PO (09:01)
[2020-12-25] MEDS: ASPIRIN 81 MG ENTERIC TABLET PO (09:01)
[2020-12-25] MEDS: GABAPENTIN 100 MG CAPSULE 200 MG BY MOUTH ×3 (09:01→17:05)
[2020-12-25] MEDS: FLUoxetine HCL 20 MG CAPSULE 60 MG PO (09:01)
[2020-12-25] MEDS: ACYCLOVIR 400 MG TABLET PO ×3 (09:01→17:05)
[2020-12-25] MEDS: LORATADINE 10 MG TABLET PO (09:02)
[2020-12-25] MEDS: LIDOCAINE 5% PATCH 1 PATCH TRANSDERM (09:03)
[2020-12-25] MEDS: traMADol HCL (*CRX) 50 MG TABLET 100 MG PO (09:10)
[2020-12-25] MEDS: CYCLOBENZAPRINE HCL 10 MG TABLET PO (09:10)
[2020-12-25] MEDS: HEPARIN SODIUM 5,000 UNITS/ML VIAL 5000 UNITS SUB-Q (09:10)
--- NOTE | 2020-12-25 11:34 | PM.PNNEP ---
Progress Note: A&P Assessment and Plan (1) FORREST (acute kidney injury): Code(s): N17.9 - Acute kidney failure, unspecified Status: Acute Assessment and Plan: presumed to be due to vancomycin toxicity slow improvement noted (has not worsened) non-oliguric no critical electrolytes and volume status stable renal ultrasound noted urinalysis with protein and WBC, urine eosinophils negative may take a while to recovery given how high vancomycin level was on admission could consider trial of steroids but creatinine improving with supportive therapy -- would follow trend of labs for now (2) Infection of left foot: Code(s): L08.9 - Local infection of the skin and subcutaneous tissue, unspecified Status: Acute Assessment and Plan: clinical improvement noted completed antibiotic course Infectious Disease following (3) Chronic pain: Code(s): G89.29 - Other chronic pain Status: Acute Assessment and Plan: agree with holding NSAID therapy at this time given # 1 on other medications to keep this stable Will continue to follow - would not be opposed to discharge if otherwise medically stable; will need repeat labs in about a week to ensure creatinine improving if not back to baseline. Subjective Date/time seen: 12/25/20 11:34 Appears to be doing quite well; excellent urine output in the last 24 - 48 hours; no other acute issues or complaints voiced; kidney function continues to slowly improve. Exam Narrative: Exam Narrative: General: WD/WN female in NAD Heart: normal S1 and S2; no rub Lungs: clear to auscultation Abdomen: soft, nontender, nondistended, positive bowel sounds Extremities: no cyanosis or clubbing; no edema Skin: warm and intact Objective Data Vital Signs Vital Signs: Vital Signs - 24 hr 12/24/20 14:00 12/24/20 22:00 12/25/20 06:00 Temperature 36.6 C 37.1 C 37.3 C Pulse Rate 94 85 77 Respiratory Rate 16 18 18 Blood Pressure 111/66 145/69 H 126/71 Pulse Oximetry 97 98 94 Intake/Output Intake/Output: Intake & Output 12/22/20 12/23/20 12/24/20 12/25/20 23:59 23:59 23:59 23:59 Intake Total 6080 3880 3320 660 Output Total 2300 1800 4500 3400 Balance 3780 1370 1184 -3706 Meds/Results Medications: Active Medications Generic Name Dose Route Start Last Admin Trade Name Freq PRN Reason Stop Dose Admin Acetaminophen 500 mg 12/21/20 02:56 Acetaminophen 500 Mg Tablet PO Q6H PRN Fever Or Pain Acyclovir 400 mg 12/22/20 15:40 12/25/20 09:01 Acyclovir 400 Mg Tablet PO 12/27/20 15:41 400 mg TID SRAVANTHI Administration Albuterol 2.5 mg 12/21/20 02:00 Albuterol Sulfate Neb 2.5 Mg/3 Ml Inh INHALATION Q6HRT PRN Shortness Of Breath Alteplase, Recombinant 2 mg 12/21/20 08:51 12/21/20 10:03 Alteplase 2 Mg Vial (Cathflo) IV PUSH 2 mg ONCE PRN Administration Line Occlusion Alteplase, Recombinant 2 mg 12/21/20 08:52 12/21/20 10:04 Alteplase 2 Mg Vial (Cathflo) IV PUSH 2 mg ONCE PRN Administration Line Occlusion Aspirin 81 mg 12/21/20 09:00 12/25/20 09:01 Aspirin 81 Mg Enteric Tablet PO 81 mg DAILY SRAVANTHI Administration Budesonide/Formoterol Fumarate 2 puff 12/21/20 08:00 12/24/20 21:55 Budesonide/Form 80-4.5 Mcg (*Sp) INHALATION 2 puff Q12HRT SRAVANTHI Administration Cyclobenzaprine HCl 10 mg 12/21/20 02:56 12/25/20 09:10 Cyclobenzaprine Hcl 10 Mg Tablet PO 10 mg Q8H PRN Administration muscle spasm Fluoxetine HCl 60 mg 12/21/20 09:00 12/25/20 09:01 Fluoxetine Hcl 20 Mg Capsule PO 60 mg DAILY SRAVANTHI Administration Fluticasone Propionate 2 spray 12/21/20 02:56 12/23/20 09:06 Fluticasone Propionate 0.05% Na Spr 16 Gm Btl (*Bkc) NASAL 2 spray DAILY PRN Administration allergy symptoms Gabapentin 200 mg 12/21/20 09:00 12/25/20 09:01 Gabapentin 100 Mg Capsule BY MOUTH 200 mg TID SRAVANTHI Administration Heparin Sod
[2020-12-25 13:07] LABS: Myoglobin, Urine <27 mcg/L (<28)
[2020-12-25] MEDS: traMADol HCL (*CRX) 50 MG TABLET PO (13:26)
[2020-12-25 14:00] VITALS: BP 113/71; PULSE 84; RESP 18; TEMP 37.6; O2SAT 96
--- NOTE | 2020-12-25 14:31 | PM.IMPN ---
Progress Note: A&P Assessment and Plan (1) Vancomycin-induced nephrotoxicity: Code(s): N14.1 - Nephropathy induced by other drugs, medicaments and biological substances; T36.8X5A - Adverse effect of other systemic antibiotics, initial encounter Status: Acute Assessment and Plan: Baseline Cr is 0.6-0.8. Cr on admission was 2.1. Urine output is adequate. Vancomycin level elevated at 48.7 on 12/20. Declined to 6.2 on 12/24. Eosinophils normal. Cr has improved to 1.7 today with evidence of slow improvement. Renal US demonstrated right 7mm cyst with no other abnormalities. C3 and C4 normal. Vancomycin discontinued per Infectious Disease recommendations Nephrology consulted, appreciate input. Renal function is very slowly improving and she will require nephrology follow-up after discharge. Nephrology considering steroid trial, however at this time renal function is demonstrating improvement. Will await further recommendations. (2) FORREST (acute kidney injury): Code(s): N17.9 - Acute kidney failure, unspecified Status: Acute Assessment and Plan: Secondary to vancomycin-induced nephrotoxicity. Plan as above. (3) Infection of left foot: Code(s): L08.9 - Local infection of the skin and subcutaneous tissue, unspecified Status: Acute Assessment and Plan: She stepped on a foreign object 11/28/20 when walking barefoot and cut her foot resulting in cellulitis at the area of the left 5th metatarsal head. MRI from both 12/05 and 12/10 showed nonspecific marrow edema with marrow enhancement at the head of the fifth metatarsal. She has seen podiatry, orthopedic surgery, and infectious disease for the left foot infection. She was initially treated with clindamycin as this was felt to be cellulitis as opposed to osteomyelitis. She subsequently came back with increased swelling and pain and was treated with IV vancomycin given possible drug-resistant gram-positive organisms. She notes significant improvement overall. Cellulitis has resolved. Vancomycin discontinued due to toxicity Completed 14 days Levaquin on 12/24 Infectious disease consulted for further input. No need for further antibiotic therapy at this time. She needs to follow-up with podiatry as planned at discharge and will need to monitor very closely for any worsening. (4) Herpes labialis: Code(s): B00.1 - Herpesviral vesicular dermatitis Status: Acute Assessment and Plan: She has a hx of herpes labialis at the perioral area and noticed a recurrent lesion just at the [place]ern[place] border the left upper lip on 12/22. She generally takes acyclovir for this. Lesion has improved. Acyclovir initiated 12/22/20 for 5 days. (5) Asthma: Code(s): J45.909 - Unspecified asthma, uncomplicated Status: Acute Assessment and Plan: Stable with no acute respiratory issues. Continue albuterol PRN Continue symbicort and montelukast (6) Hypothyroidism: Code(s): E03.9 - Hypothyroidism, unspecified Status: Acute Assessment and Plan: TSH 12/20/20 is 1.51. Continue levothyroxine (7) Bipolar depression: Code(s): F31.9 - Bipolar disorder, unspecified Status: Acute Assessment and Plan: Mood is stable. Continue fluoxetine and quetiapine Lorazepam as needed (8) Chronic pain: Code(s): G89.29 - Other chronic pain Status: Acute Assessment and Plan: Neck and back. Well-controlled at this time. Continue prior to admission regimen of acetaminophen, cyclobenzaprine, gabapentin, and tramadol Diclofenac held to reduce risk of nephrotoxicity Lidocaine patch added as needed Subjective Date/time seen: 12/25/20 14:31 Interval history: Date of service: 12/25/2020 Jaci Rivera is a 50-year-old female with a history of anxiety, bipolar disorder, asthma, GERD, hyperlipidemia and several other comorbidities with recent hospita
--- NOTE | 2020-12-25 16:10 | PM.DS ---
DS: Admitting Diagnosis Admitting Diagnosis Admitting Diagnosis: Vancomycin induced nephrotoxicity DS: Discharge Diagnosis Discharge Diagnosis (1) Vancomycin-induced nephrotoxicity: Code(s): N14.1 - Nephropathy induced by other drugs, medicaments and biological substances; T36.8X5A - Adverse effect of other systemic antibiotics, initial encounter Status: Acute Assessment and Plan: Baseline Cr is 0.6-0.8. Cr on admission was 2.1. Urine output is adequate. Vancomycin level elevated at 48.7 on 12/20. Declined to 6.2 on 12/24. Eosinophils normal. Cr slowly improved down to 1.7 at time of discharge with evidence of slow, continued improvement. Renal US demonstrated right 7mm cyst with no other abnormalities. C3 and C4 normal. Vancomycin was discontinued per ID recommendations. She was seen in consultation by Nephrology. She will repeat BMP in 1 week to monitor kidney function and follow-up with PCP. (2) FORREST (acute kidney injury): Code(s): N17.9 - Acute kidney failure, unspecified Status: Acute Assessment and Plan: Secondary to vancomycin-induced nephrotoxicity. Improved. (3) Infection of left foot: Code(s): L08.9 - Local infection of the skin and subcutaneous tissue, unspecified Status: Acute Assessment and Plan: She stepped on a foreign object 11/28/20 when walking barefoot and cut her foot resulting in cellulitis at the area of the left 5th metatarsal head. MRI from both 12/05 and 12/10 showed nonspecific marrow edema with marrow enhancement at the head of the fifth metatarsal. She has seen podiatry, orthopedic surgery, and infectious disease for the left foot infection. She was initially treated with clindamycin as this was felt to be cellulitis as opposed to osteomyelitis. She subsequently came back with increased swelling and pain and was treated with IV vancomycin given possible drug-resistant gram-positive organisms. She noted significant improvement overall and cellulitis was resolved. She completed 14 days of Levaquin on 12/24. Vancomycin was discontinued due to toxicity as above. She was seen in consultation by Infectious Disease and there was no need for further antibiotic therapy. She will need to follow-up with podiatry upon discharge. (4) Herpes labialis: Code(s): B00.1 - Herpesviral vesicular dermatitis Status: Acute Assessment and Plan: She has a hx of herpes labialis at the perioral area and noticed a recurrent lesion just at the [place]ern[place] border the left upper lip on 12/22. She generally takes acyclovir for this. She had improvement with acyclovir, which she will continue as an outpatient to complete 5 days of therapy. (5) Asthma: Code(s): J45.909 - Unspecified asthma, uncomplicated Status: Acute Assessment and Plan: Stable with no acute respiratory issues. Continue albuterol, Symbicort, and montelukast. (6) Hypothyroidism: Code(s): E03.9 - Hypothyroidism, unspecified Status: Acute Assessment and Plan: TSH 12/20/20 is 1.51. Continue levothyroxine (7) Bipolar depression: Code(s): F31.9 - Bipolar disorder, unspecified Status: Acute Assessment and Plan: Mood remained stable. Continue fluoxetine and quetiapine and lorazepam as needed (8) Chronic pain: Code(s): G89.29 - Other chronic pain Status: Acute Assessment and Plan: Neck and back. Well-controlled at this time. Continue home regimen of acetaminophen, cyclobenzaprine, gabapentin, and tramadol. Diclofenac held due to risk of nephrotoxicity. Continue to hold until repeat labs in 1 week. DS: Summary Hospital Course Reason for hospitalization: Vancomycin induced nephrotoxicity Hospital Course: Date of admission: 12/20/2020 Date of discharge: 12/25/2020 Jaci Rivera is a 50-year-old female with a history of anxiety, bipolar disorder, asthma, GERD, hyperlipidemia and several other comor
[2020-12-25 17:26] VITALS: TEMP 37.2
== END 2020-12-25 19:30 | disposition home or self-care (01) | DRG 462 ==
LOC: ANHED 22:09 → ANH3MEDSUR 23:15
PROVIDERS: Emergency Medicine; Internal Medicine Nephrology; Physician Assistant; Admitting Provider Internal Medicine; Emergency Provider Emergency Medicine; PCP Family Medicine; Visit Provider Physician Assistant
DX: N14.1 Nephropathy induced by other drugs, medicaments and biological substances (principal); N17.9 Acute kidney failure, unspecified; T36.8X5A Adverse effect of other systemic antibiotics, initial encounter; L03.116 Cellulitis of left lower limb; M86.8X7 Other osteomyelitis, ankle and foot; B00.1 Herpesviral vesicular dermatitis; J45.909 Unspecified asthma, uncomplicated; G62.9 Polyneuropathy, unspecified; G89.29 Other chronic pain; E78.5 Hyperlipidemia, unspecified; E03.9 Hypothyroidism, unspecified; G47.33 Obstructive sleep apnea (adult) (pediatric); K21.9 Gastro-esophageal reflux disease without esophagitis; M79.7 Fibromyalgia; F31.9 Bipolar disorder, unspecified; F41.9 Anxiety disorder, unspecified; Z79.82 Long term (current) use of aspirin; Z79.899 Other long term (current) drug therapy; Z87.891 Personal history of nicotine dependence
CPT/HCPCS: 36415; 71046; 76775; 80048; 80053; 80069; 80202; 81001; 81050; 82570; 83735; 83874; 84156; 84300; 84443; 84540; 85025; 85027; 86140; 86160; 87086; 93005; 94640; 96360; 96361; 96372; 96374; 99285; A9270; G0378; G0379; J1644; J1650; J2997; J7030

== ENCOUNTER 2021-01-01 08:05 | Outpatient (RCR) | payer OTHER, SELFPAY ==
[2020-12-19 08:36] LABS: Vancomycin Trough 30.2 ug/mL (10.0-20.0)
[2021-01-01 09:15] LABS: Vancomycin Trough < 5.0 ug/mL (10.0-20.0)
== END 2021-03-19 23:59 | disposition home or self-care (01) ==
LOC: ANHLAB 08:05
PROVIDERS: Physician Assistant; PCP Family Medicine; Visit Provider Internal Medicine Infectious Disease
DX: M86.9 Osteomyelitis, unspecified (principal)
CPT/HCPCS: 36415; 80202

== ENCOUNTER 2021-01-01 08:12 | Outpatient (CLI) | payer OTHER, SELFPAY ==
[2021-01-01 08:58] LABS: Anion Gap 7 mmol/L (8-16); Blood Urea Nitrogen 19 mg/dL (7-17); Calcium 8.9 mg/dL (8.4-10.2); Carbon Dioxide 30 mmol/L (22-30); Chloride 105 mmol/L (98-107); Cholesterol 225 mg/dL (0-200); Estimated Glomerular Filt Rate 48; Glucose 94 mg/dL (65-105); HDL Direct 43 mg/dL; Potassium 3.9 mmol/L (3.4-5.0); Sodium 142 mmol/L (137-145); Triglycerides 121 mg/dL (<150)
[2021-01-01 09:09] LABS: LDL Cholesterol Direct 144 mg/dL
== END 2021-01-01 08:13 | disposition home or self-care (01) ==
PROVIDERS: PCP Family Medicine; Referring Provider Physician Assistant; Visit Provider Internal Medicine Cardiovascular Disease
DX: E78.5 Hyperlipidemia, unspecified (principal); N14.1 Nephropathy induced by other drugs, medicaments and biological substances
CPT/HCPCS: 36415; 80048; 80061; 80202

== ENCOUNTER 2021-01-22 08:18 | Outpatient (CLI) | payer OTHER, SELFPAY ==
[2021-01-22 08:50] LABS: Anion Gap 6 mmol/L (8-16); Blood Urea Nitrogen 24 mg/dL (7-17); Carbon Dioxide 30 mmol/L (22-30); Chloride 106 mmol/L (98-107); Estimated Glomerular Filt Rate > 60; Glucose 98 mg/dL (65-105); Sodium 142 mmol/L (137-145)
== END 2021-01-22 08:19 | disposition home or self-care (01) ==
LOC: ANHLAB 08:19
PROVIDERS: PCP Family Medicine; Visit Provider Nurse Practitioner Family
DX: N14.1 Nephropathy induced by other drugs, medicaments and biological substances (principal); T36.8X5A Adverse effect of other systemic antibiotics, initial encounter
CPT/HCPCS: 36415; 80048

== ENCOUNTER 2021-01-29 14:33 | Emergency (ER) | payer OTHER, SELFPAY ==
[2021-01-29 14:44] VITALS: BP 142/76; PULSE 107; RESP 18; TEMP 36.1; O2SAT 99
--- NOTE | 2021-01-29 16:45 | ED.GENADULT ---
HPI - General Adult General Chief complaint: Unspecified Stated complaint: lip swelling Time Seen by Provider: 01/29/21 14:46 History of Present Illness HPI narrative: Patient is a 50-year-old female who presents ER with tingling of her lips and cheek. Symptoms began early this morning. She reports her left cheek has a tingling sensation and goes down into her lips and over to the right side of her lip. It does not involve the cheek on that side. No rashes. She reports that the tingling increases when she purses her lips together. No difficulty breathing or swallowing. No swelling of the face. She has not started any new medications. Has not had similar symptoms previously. No alleviating factors. Related Data Home Medications Medication Instructions Recorded Confirmed fluoxetine 60 mg PO DAILY 08/10/19 01/16/21 aspirin 81 mg tablet,delayed 81 mg PO DAILY 09/06/19 01/16/21 release lorazepam 0.5 mg tablet 0.5 mg PO BID PRN tablet 09/06/19 01/16/21 quetiapine 200 mg PO HS 05/21/20 01/16/21 cetirizine 10 mg tablet 10 mg PO DAILY 07/10/20 01/16/21 acetaminophen 500 mg PO Q6H PRN 12/04/20 01/16/21 budesonide-formoterol [Symbicort] 2 puff INHALATION BID 12/04/20 01/16/21 albuterol sulfate 2.5 mg INHALATION Q6H PRN 12/10/20 01/16/21 Allergies Allergy/AdvReac Type Severity Reaction Status Date / Time clove Allergy Severe ANAPHALACTIC Verified 01/29/21 14:49 SHOCK codeine Allergy Severe unknown Verified 01/29/21 14:49 Penicillins Allergy Severe SOB Verified 01/29/21 14:49 poison natividad extract Allergy Severe hives , Verified 01/29/21 14:49 goes in lungs adhesive tape Allergy Mild eats pts Verified 01/29/21 14:49 skin bee venom protein (honey bee) Allergy Mild unknown Verified 01/29/21 14:49 papaya Allergy Mild SCRATCHY Verified 01/29/21 14:49 THROAT cinnamon Allergy Swelling Verified 01/29/21 14:49 of Lip/Tongue/Throat hay fever Allergy Severe cough , Uncoded 01/16/21 08:39 throat swells [place] Allergy Intermediate itchy Uncoded 01/16/21 08:39 throat Tuna Allergy Mild hives Uncoded 01/16/21 08:39 Review of Systems Review of Systems: All systems reviewed & are unremarkable except as noted in HPI and below Constitutional: Constitutional: Denies chills and Denies fever(s) ENT: Denies facial pain and Denies lip swelling Integumentary/Breasts: Skin/Breast: Denies rash Neurologic: Denies Abnormal speech present, Denies focal weakness, Denies numbness and Reports paresthesias [facility] Past Medical History Medical History Anxiety Arthritis Asthma Mild persistent Bipolar depression Chronic pain Colitis (~04/2020) Congestion of nasal sinus COPD (chronic obstructive pulmonary disease) Depression Fibromyalgia GERD (gastroesophageal reflux disease) Herpes zoster The patient reports that she has had up to 20 herpes zoster outbreaks on her left arm Hyperlipidemia With total cholesterol level ranging between 234 and 173 in 2019 Hypertriglyceridemia Levels ranging between 140 and 207 in 2019 Hypothyroidism Migraine Neuropathy Obesity (BMI 30-39.9) SG (obstructive sleep apnea) Osteomyelitis of left foot currently being treated at home with IV antibiotic 11/2020 Peripheral neuropathy Due to cervical disc disease Suicide SI at age 16 Wears glasses Surgical History Surgical History H/O: hysterectomy History of cervical spinal surgery Cervical disc replacement 2005 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
[2021-01-29 16:47] LABS: Anion Gap 11 mmol/L (8-16); Blood Urea Nitrogen 22 mg/dL (7-17); Calcium 9.6 mg/dL (8.4-10.2); Carbon Dioxide 18 mmol/L (22-30); Chloride 108 mmol/L (98-107); Estimated CRCL calculation 110 ml/min; Estimated Glomerular Filt Rate > 60; Glucose 105 mg/dL (65-105); Potassium 4.5 mmol/L (3.4-5.0); Sodium 137 mmol/L (137-145)
[2021-01-29 17:27] VITALS: BP 138/95; PULSE 82; RESP 16; O2SAT 98
== END 2021-01-29 17:28 | disposition home or self-care (01) ==
PROVIDERS: Emergency Provider Emergency Medicine; PCP Family Medicine
DX: R20.2 Paresthesia of skin (principal); Z87.891 Personal history of nicotine dependence; F41.9 Anxiety disorder, unspecified; M19.90 Unspecified osteoarthritis, unspecified site; J45.909 Unspecified asthma, uncomplicated; F31.9 Bipolar disorder, unspecified; G89.29 Other chronic pain; K21.9 Gastro-esophageal reflux disease without esophagitis; E78.5 Hyperlipidemia, unspecified; E03.9 Hypothyroidism, unspecified; G47.30 Sleep apnea, unspecified
CPT/HCPCS: 36415; 80048; 83735; 84443; 99283

== ENCOUNTER 2021-03-26 06:20 | Outpatient (CLI) | payer OTHER, SELFPAY ==
[2021-03-26 14:38] LABS: Hepatitis B Surface Antigen Negative (Negative)
[2021-03-26 14:39] LABS: HAV RESULT Negative (Negative); Hepatitis B Core IgM Result Negative (Negative)
[2021-03-26 14:51] LABS: Hepatitis C Virus Antibody Negative (Negative)
[2021-03-27 08:34] LABS: Rapid Plasma Reagin Non-Reactive (NonReactive)
[2021-03-27 11:26] LABS: Free T4 Free Thyroxine 0.86 ng/mL (0.78-2.19)
[2021-03-29 23:37] LABS: HIV DNA PCR (Qual) Not Detected (Not Detected)
== END 2021-03-26 13:35 ==
PROVIDERS: PCP Family Medicine; Visit Provider Nurse Practitioner Family
DX: E03.9 Hypothyroidism, unspecified (principal); Z11.3 Encounter for screening for infections with a predominantly sexual mode of transmission; Z20.2 Contact with and (suspected) exposure to infections with a predominantly sexual mode of transmission
CPT/HCPCS: 36415; 80074; 84439; 86592; 87491; 87535; 87591

== ENCOUNTER → 2021-04-12 01:54 | Outpatient (CLI) | payer OTHER, SELFPAY ==
[2021-04-12 19:10] LABS: SARS-CoV-2 RNA PCR Negative
== END ==
PROVIDERS: PCP Family Medicine; Visit Provider Surgery
DX: Z01.812 Encounter for preprocedural laboratory examination (principal); Z20.822 Contact with and (suspected) exposure to COVID-19
CPT/HCPCS: C9803; U0003; U0005

== ENCOUNTER 2021-04-15 02:35 | Day surgery (SDC) | payer OTHER, SELFPAY ==
[2021-04-10 10:05] VITALS: BMI 39.0
--- NOTE | 2021-04-15 07:30 | WPDANESEPPF ---
Anes - Initial Pre Proc Eval Procedure: Operation Date: 04/15/21 10:00 Proposed Procedures p Excision Large Epidermal Cyst Right Upper Back - Jarrett Gomez MD Date/Time: 04/15/21 07:30 Surgeon: Jarrett Gomez MD Pre Op Diagnosis: 5x3.8 large epidermal cyst of back Patient Data Age: 50 Gender: F Height: 1.75 m Weight: 120 kg Allergies Allergy/AdvReac Type Severity Reaction Status Date / Time bee venom protein (honey bee) Allergy Severe Anaphylaxis Verified 04/15/21 08:25 cinnamon Allergy Severe Swelling Verified 04/15/21 08:25 of Lip/Tongue/Throat clove Allergy Severe ANAPHALACTIC Verified 04/10/21 10:02 SHOCK codeine Allergy Severe unknown Verified 04/10/21 10:02 Penicillins Allergy Severe Anaphylaxis Verified 04/10/21 10:02 poison natividad extract Allergy Severe hives , Verified 04/10/21 10:02 goes in lungs adhesive tape Allergy Intermediate eats pts Verified 04/15/21 08:25 skin papaya Allergy Mild SCRATCHY Verified 04/10/21 10:02 THROAT hay fever Allergy Severe cough , Uncoded 04/10/21 10:02 throat swells [place] Allergy Intermediate itchy Uncoded 04/10/21 10:02 throat Tuna Allergy Intermediate hives Uncoded 04/15/21 08:25 Home Medications Medication Instructions Recorded Confirmed Type fluoxetine 60 mg PO DAILY 08/10/19 04/15/21 History aspirin 81 mg tablet,delayed 81 mg PO DAILY 09/06/19 04/15/21 History release lorazepam 0.5 mg tablet 0.5 mg PO BID PRN tablet 09/06/19 04/15/21 History quetiapine 200 mg PO HS 05/21/20 04/15/21 History cetirizine 10 mg tablet 10 mg PO DAILY 07/10/20 04/15/21 History budesonide-formoterol [Symbicort] 2 puff INHALATION BID 12/04/20 04/15/21 History albuterol sulfate 2.5 mg INHALATION Q6H PRN 12/10/20 04/15/21 History gabapentin 100 mg capsule See Rx Instructions .ROUTE 12/12/20 04/15/21 Rx .COMPLEX #180 capsule levothyroxine 25 mcg tablet See Rx Instructions .ROUTE 01/07/21 04/15/21 Rx .COMPLEX #45 tablet montelukast 10 mg tablet See Rx Instructions .ROUTE 01/07/21 04/15/21 Rx .COMPLEX #30 tablet tramadol 50 mg tablet See Rx Instructions PO .COMPLEX 03/01/21 04/15/21 Rx #150 tablet cyclobenzaprine 10 mg tablet 10 mg PO Q8H #90 tablet 03/11/21 04/15/21 Rx nystatin 100,000 unit/gram topical See Rx Instructions .ROUTE 03/15/21 04/15/21 Rx cream .COMPLEX #30 g oxybutynin chloride 5 mg 5 mg PO DAILY #90 tablet 03/22/21 04/15/21 Rx tablet,extended release 24 hr epinephrine 0.3 mg/0.3 mL 0.3 mg IM ONCE PRN #2 ea 04/02/21 04/15/21 Rx injection, auto-injector fluticasone propionate 50 2 spray NASAL DAILY PRN #54.6 ml 04/02/21 04/15/21 Rx mcg/actuation nasal spray,suspension albuterol sulfate 90 mcg/actuation See Rx Instructions .ROUTE 04/09/21 04/15/21 Rx aerosol inhaler .COMPLEX #18 inhaler triamcinolone acetonide 0.1 % 1 applic TOPICAL DAILY PRN #30 gm 04/09/21 04/15/21 Rx topical cream ascorbic acid (vitamin C) [Natural 500 mg PO BID 04/10/21 04/15/21 History Vitamin C-Magi Hips] calcium carbonate-vitamin D3 1 tablet PO DAILY 04/10/21 04/15/21 History [calcium-vitamin D3] glucos sul [id number] 1 cap PO DAILY 04/10/21 04/15/21 History [Glucosamine Chondroitin] [id number] 1 cap PO DAILY 04/10/21 04/15/21 History [MegaRed [place]-3 Krill Oil] lysine [L-Lysine Complex] 1,000 mg PO DAILY 04/10/21 04/15/21 History multivitamin [Daily Multivitamin] 1 tablet PO DAILY 04/10/21 04/15/21 History vitamin B complex [Super B Complex] 1 cap PO DAILY 04/10/21 04/15/21 History diclofenac sodium 75 mg PO TID 04/15/21 04/15/21 History Patient hx anesthesia problems: none Family hx anesthesia problems: none [facility] Past Medical History Medical History (Updated 04/08/21 @ 11:30 by Karyna Talamantes) Anxiety Arthritis Asthma Mild persistent Cummings's palsy (~01/2021) Bipolar depression Chronic pain Colitis (~04/2020) Congestion of nasal sinus COPD (supervisor blood
[2021-04-15 08:38] VITALS: BP 107/70; PULSE 88; RESP 16; TEMP 36.3; O2SAT 98
[2021-04-15] MEDS: LACTATED RINGERS 1,000 ML 30 ML IV CONT (09:08)
--- NOTE | 2021-04-15 09:17 | WPDHPUPDATE1 ---
History and Physical Update Update Date/Time: 04/15/21 09:17 History and Physical has been reviewed, including an updated exam of the patient. There are NO changes in the patient's condition. Risks, benefits, and alternatives have been discussed and questions answered. Patient agrees to proceed with procedure.
[2021-04-15] MEDS: ceFAZolin 2 GM/D5W 50 ML 2 GM/50 ML BAG IVPB (09:34)
[2021-04-15] MEDS: BUPIVACAINE/EPINEPHRINE 0.5% 30 ML VIAL INFILTRATE (09:54)
[2021-04-15 10:41] VITALS: BP 88/45; PULSE 81; RESP 14; O2SAT 93
--- NOTE | 2021-04-15 10:56 | W.PM.PROC2 ---
Procedure Note - Detailed Date of Procedure 04/15/21 Pre-op Diagnosis 5 x 3.8 cm (large) epidermal cyst of back (Right posterior shoulder). Post-op Diagnosis same Procedure Performed Excision of skin lesion Right posterior shoulder ( suspected large epidermal cyst). Surgeon Jarrett Gomez MD Geoscience Professor Jalil OREILLY. OR wire drawing machine operator Anesthesia local ( 0.5% Marcaine with epinephrine) and other ( G IV S) Indications patient has enlarging epidermal cyst on her right posterior shoulder right where her bra strap comes across. This is periodically getting irritated and infected. Findings Large epidermal cyst to cyst extending into the subcu tissues and in 1 area down to fascia. No drainage during excision. Description of Procedure The patient was placed in the left lateral decubitus position. After a surgical time out confirming patient and procedure the patient was prepped and draped in the usual sterile fashion. Local anesthetic was administered subcutaneously. The lesion measured 5.0 by 3.8 cm and the planned ellipse for Excision measured 7.0 X 4.3 X 2.5 cm. An elliptical incision was made around the lesion taking a thin margin circumferentially. I dissected down to the deep subcutaneous tissues and then completely excised the lesion. Bovie cautery with needle-tip was used for the most of the excision. Hemostasis was achieved using Bovie cautery. I placed local anesthetic under the lesion also. In 1 area the lesion did extend right down to fascial overlying some of her shoulder musculature. At no time during the excision did we have any leakage from the cyst that I could tell. Upon removal the cyst on the back table measured 6.8 cm in length x 4.3 cm in width x 2.5 cm in depth. Bleeding was controlled with electrocautery. The wound was closed in three layers. An un-dyed 2-0 vicryl deep subcutaneous followed by deep dermal sutures and then a 4-0 undyed Vicryl running subcuticular closure was completed on the skin. Surgical glue applied as dressing. Patient tolerated this well. Implants none Estimated Blood Loss 5 Drains No Packing No Pathology yes ( skin ellipse containing the suspected epidermal cyst (6.8 x 4.3 x 2.5 cm)) Complications No immediate complications Condition stable Disposition same day
[2021-04-15 11:11] VITALS: BP 100/43; PULSE 82; RESP 14
[2021-04-15 11:40] VITALS: BP 109/80; PULSE 75; RESP 14
== END 2021-04-15 11:50 | disposition home or self-care (01) ==
PROVIDERS: PCP Family Medicine; Visit Provider Surgery
PROC: (CPT 11406; principal; 2021-04-15 10:00)
DX: L72.0 Epidermal cyst (principal); J44.9 Chronic obstructive pulmonary disease, unspecified; E66.9 Obesity, unspecified; Z68.38 Body mass index [BMI] 38.0-38.9, adult
CPT/HCPCS: 11406; 12032; 88305; J0690; J2250; J2704; J3010; J7120

== ENCOUNTER 2021-04-22 10:40 | Outpatient (CLI) | payer OTHER, SELFPAY | END 2021-04-22 10:41 | disposition home or self-care (01) | LOC: ANHAUDASC 10:41 | PROVIDERS: PCP Family Medicine; Visit Provider Nurse Practitioner Family | DX: H90.3 Sensorineural hearing loss, bilateral (principal) | CPT/HCPCS: 92557; 92567 ==

== ENCOUNTER 2021-04-26 00:09 | Emergency (ER) | payer OTHER, SELFPAY ==
[2021-04-26 00:13] VITALS: BP 114/72; PULSE 113; RESP 18; TEMP 36.8; O2SAT 98
--- NOTE | 2021-04-26 01:26 | ED.NAVMDI ---
HPI - Nausea/Vomiting/Diarrhea General Chief complaint: Nausea/Vomiting/Diarrhea Stated complaint: diarrhea Time Seen by Provider: 04/26/21 01:03 History of Present Illness HPI Narrative: 50 yo female presents to the ED c/o diarrhea. She has had multiple loose stools since late last night. Stools are watery and light in color. Associated with abdominal cramping and subjective fever. No nausea, vomiting, cough, congestion, SOB, CP. She has not had the COVID vaccine. Related Data Home Medications Medication Instructions Recorded Confirmed fluoxetine 60 mg PO DAILY 08/10/19 05/05/21 aspirin 81 mg tablet,delayed 81 mg PO DAILY 09/06/19 05/05/21 release lorazepam 0.5 mg tablet 0.5 mg PO BID PRN tablet 09/06/19 05/05/21 quetiapine 200 mg PO HS 05/21/20 05/05/21 cetirizine 10 mg tablet 10 mg PO DAILY 07/10/20 05/05/21 albuterol sulfate 2.5 mg INHALATION Q6H PRN 12/10/20 05/05/21 Glucosamine Chondroitin 1 cap PO DAILY 04/10/21 05/05/21 MegaRed [place]-3 Krill Oil 1 cap PO DAILY 04/10/21 05/05/21 ascorbic acid (vitamin C) 500 mg PO BID 04/10/21 05/05/21 calcium carbonate-vitamin D3 1 tablet PO DAILY 04/10/21 05/05/21 lysine 1,000 mg PO DAILY 04/10/21 05/05/21 multivitamin 1 tablet PO DAILY 04/10/21 05/05/21 vitamin B complex 1 cap PO DAILY 04/10/21 05/05/21 diclofenac sodium 75 mg PO TID 04/15/21 05/05/21 Allergies Allergy/AdvReac Type Severity Reaction Status Date / Time bee venom protein (honey bee) Allergy Severe Anaphylaxis Verified 05/01/21 09:22 cinnamon Allergy Severe Swelling Verified 05/01/21 09:22 of Lip/Tongue/Throat clove Allergy Severe ANAPHALACTIC Verified 05/01/21 09:22 SHOCK codeine Allergy Severe unknown Verified 05/01/21 09:22 Penicillins Allergy Severe Anaphylaxis Verified 05/01/21 09:22 poison natividad extract Allergy Severe hives , Verified 05/01/21 09:22 goes in lungs adhesive tape Allergy Intermediate eats pts Verified 05/01/21 09:22 skin papaya Allergy Mild SCRATCHY Verified 05/01/21 09:22 THROAT hay fever Allergy Severe cough , Uncoded 05/01/21 09:22 throat swells [place] Allergy Intermediate itchy Uncoded 05/01/21 09:22 throat Tuna Allergy Intermediate hives Uncoded 05/01/21 09:22 Review of Systems Review of Systems: All systems reviewed & are unremarkable except as noted in HPI and below Neurologic: Denies confusion, Reports dizziness and Denies weakness PMFSH Past Medical History Medical History Anxiety Arthritis Asthma Mild persistent Cummings's palsy (~01/2021) Bipolar depression Chronic pain Colitis (~04/2020) Congestion of nasal sinus COPD (chronic obstructive pulmonary disease) Depression Fibromyalgia GERD (gastroesophageal reflux disease) Herpes zoster The patient reports that she has had up to 20 herpes zoster outbreaks on her left arm Hyperlipidemia With total cholesterol level ranging between 234 and 173 in 2018 Hypertriglyceridemia Levels ranging between 140 and 207 in 2019 Hypothyroidism Migraine Neuropathy Obesity (BMI 30-39.9) SG (obstructive sleep apnea) Osteomyelitis of left foot currently being treated at home with IV antibiotic 11/2020 Peripheral neuropathy Due to cervical disc disease Suicide SI at age 16 Thyroid condition Wears glasses Surgical History Surgical History H/O: hysterectomy History of cervical spinal surgery Cervical disc replacement 2005 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
[2021-04-26 02:01] VITALS: BP 109/73; PULSE 96; RESP 16; O2SAT 97
[2021-04-26 02:19] LABS: Basophils Absolute Auto 0.1 K/mm3 (0.0-0.1); Basophils Percent Auto 0.4 % (0.2-1.2); Eosinophils Percent Auto 0.2 % (0-4.4); Hemoglobin 14.2 g/dL (12.0-15.0); Immature Granulocyte Absolute 0.06 K/mm3 (0.00-0.031); Immature Granulocyte Percent A 0.5 % (0-0.5); Lymphocytes Absolute Auto 0.72 K/mm3 (0.9-3.2); Lymphocytes Percent Auto 5.7 % (18.3-44.2); Mean Corpuscular HGB Conc 32.3 g/dl (32-36); Mean Corpuscular Hemoglobin 28.9 pg (26-34); Mean Corpuscular Volume 89.6 fl (80-100); Mean Platelet Volume 10.9 fl (7.4-10.4); Monocytes Absolute Auto 0.5 K/mm3 (0.1-0.6); Neutrophils Absolute Auto 11.3 K/mm3 (1.3-6.7); Neutrophils Percent Auto 89.2 % (45.5-73.1); Platelet Count Result 201 k/mm3 (150-375); Red Blood Count 4.91 M/mm3 (4.2-5.4); Red Cell Distribution Width 12.7 % (11.5-14.5); White Blood Count 12.7 K/mm3 (4.5-10.0)
[2021-04-26 02:36] LABS: Alanine Aminotransferase 31 U/L (4-35); Albumin Level 4.3 g/dL (3.5-5.1); Alkaline Phosphatase 77 U/L (38-126); Anion Gap 13 mmol/L (8-16); Aspartate Amino Transferase 36 U/L (14-36); Bilirubin,Total 0.6 mg/dL (0.2-1.3); Blood Urea Nitrogen 23 mg/dL (7-17); Calcium 9.7 mg/dL (8.4-10.2); Carbon Dioxide 20 mmol/L (22-30); Chloride 106 mmol/L (98-107); Estimated CRCL calculation 115 ml/min; Estimated Glomerular Filt Rate > 60; Glucose 113 mg/dL (65-110); Lipase 91 U/L (23-300); Potassium 4.1 mmol/L (3.4-5.0); Sodium 139 mmol/L (137-145)
[2021-04-26] MEDS: SODIUM CHLORIDE 0.9% IV 1,000 ML 999 ML IV CONT (02:44)
[2021-04-26 02:46] LABS: Add Urine Microscopic? YES; Appearance Urine Clear (Clear); Bilirubin Urine Negative (Negative); Blood Urine Negative (Negative); Color Urine Yellow (Yellow); Glucose Urine UA Negative (Negative); Ketones Urine Negative (Negative); Leukocyte Esterase Ur 1+ LEU/UL (Negative); Mucus Urine Few /lpf; Nitrate Urine Negative (Negative); Protein Urine 1+ mg/dL (Negative); RBC Urine 0-2 /hpf (0-2); Squamous Epithelial Cell Urine Many /hpf (Few); Urobilinogen Urine Negative mg/dL (<2.0)
--- NOTE | 2021-04-26 02:48 | PC.NURSE ---
Urine was sent around 0215 in appropriate tubes. Lab states it was not received via tube system at 0249
[2021-04-26 03:33] LABS: Specific Grav Ur 1.031 (1.001-1.035)
[2021-04-26 04:09] VITALS: BP 98/60; PULSE 90; RESP 16; O2SAT 96
--- NOTE | 2021-04-26 04:09 | PC.NURSE ---
2nd urine sample sent to lab at this time.
[2021-04-26] MEDS: metroNIDAZOLE 250 MG TABLET 500 MG PO (04:42)
[2021-04-26 04:46] VITALS: BP 99/58; PULSE 92; RESP 18; O2SAT 96
== END 2021-04-26 04:48 | disposition home or self-care (01) ==
PROVIDERS: Emergency Provider Emergency Medicine; PCP Family Medicine
DX: R19.7 Diarrhea, unspecified (principal); J44.9 Chronic obstructive pulmonary disease, unspecified; J45.30 Mild persistent asthma, uncomplicated; E78.5 Hyperlipidemia, unspecified; E78.1 Pure hyperglyceridemia; E03.9 Hypothyroidism, unspecified; G62.9 Polyneuropathy, unspecified; M19.90 Unspecified osteoarthritis, unspecified site; M79.7 Fibromyalgia; G47.33 Obstructive sleep apnea (adult) (pediatric); E66.9 Obesity, unspecified; Z68.39 Body mass index [BMI] 39.0-39.9, adult; F31.9 Bipolar disorder, unspecified; F41.9 Anxiety disorder, unspecified; Z79.82 Long term (current) use of aspirin
CPT/HCPCS: 36415; 80053; 81001; 83690; 85025; 96360; 99283; A9270; J7030

== ENCOUNTER 2021-07-20 08:11 | Emergency (ER) | payer OTHER, SELFPAY ==
[2021-07-20 08:19] VITALS: BP 143/94; PULSE 86; RESP 20; TEMP 36.7; O2SAT 100
--- NOTE | 2021-07-20 08:38 | ED.URI ---
HPI - URI/Sore Throat General Chief Complaint: Upper Respiratory Infection Stated Complaint: sore throat Time Seen by Provider: 07/20/21 08:17 Source: patient and RN notes reviewed Mode of arrival: ambulatory Limitations: no limitations History of Present Illness HPI Narrative: This is a 50 year old female who presents for evaluation of sore throat. Patient reports having frequent issues with sinus drainage causing her to have sore throat in the morning. She reports this morning she woke up with sore throat that was worse. She had pain with swallowing her pills. She was able to take all her morning medications. She did not try any treatment for her throat now. She denies fever, chills, nausea, vomiting, cough, loss of taste or smell. Related Data Home Medications Medication Instructions Recorded Confirmed fluoxetine 60 mg PO DAILY 08/10/19 07/05/21 aspirin 81 mg tablet,delayed 81 mg PO DAILY 09/06/19 07/05/21 release lorazepam 0.5 mg tablet 0.5 mg PO BID PRN tablet 09/06/19 07/05/21 quetiapine 200 mg PO HS 05/21/20 07/05/21 cetirizine 10 mg tablet 10 mg PO DAILY 07/10/20 07/05/21 albuterol sulfate 2.5 mg INHALATION Q6H PRN 12/10/20 07/05/21 Glucosamine Chondroitin 1 cap PO DAILY 04/10/21 07/05/21 MegaRed [place]-3 Krill Oil 1 cap PO DAILY 04/10/21 07/05/21 ascorbic acid (vitamin C) 500 mg PO BID 04/10/21 07/05/21 calcium carbonate-vitamin D3 1 tablet PO DAILY 04/10/21 07/05/21 multivitamin 1 tablet PO DAILY 04/10/21 07/05/21 vitamin B complex 1 cap PO DAILY 04/10/21 07/05/21 lysine 1,000 mg tablet 1,000 mg PO BID tablet 07/05/21 07/05/21 Allergies Allergy/AdvReac Type Severity Reaction Status Date / Time bee venom protein (honey bee) Allergy Severe Anaphylaxis Verified 07/05/21 10:44 cinnamon Allergy Severe Swelling Verified 07/05/21 10:44 of Lip/Tongue/Throat clove Allergy Severe ANAPHALACTIC Verified 07/05/21 10:44 SHOCK codeine Allergy Severe unknown Verified 07/05/21 10:44 Penicillins Allergy Severe Anaphylaxis Verified 07/05/21 10:44 poison natividad extract Allergy Severe hives , Verified 07/05/21 10:44 goes in lungs adhesive tape Allergy Intermediate eats pts Verified 07/05/21 10:44 skin papaya Allergy Mild SCRATCHY Verified 07/05/21 10:44 THROAT hay fever Allergy Severe cough , Uncoded 07/05/21 10:44 throat swells [place] Allergy Intermediate itchy Uncoded 07/05/21 10:44 throat Tuna Allergy Intermediate hives Uncoded 07/05/21 10:44 Review of Systems Review of Systems: All systems reviewed & are unremarkable except as noted in HPI and below PMFSH Past Medical History Medical History Anxiety Arthritis Asthma Mild persistent Cummings's palsy (~01/2021) Bipolar depression Chronic pain Colitis (~04/2020) Congestion of nasal sinus COPD (chronic obstructive pulmonary disease) Depression Fibromyalgia GERD (gastroesophageal reflux disease) Herpes zoster The patient reports that she has had up to 20 herpes zoster outbreaks on her left arm Hyperlipidemia With total cholesterol level ranging between 234 and 173 in 2019 Hypertriglyceridemia Levels ranging between 140 and 207 in 2019 Hypothyroidism Migraine Neuropathy Obesity (BMI 30-39.9) SG (obstructive sleep apnea) Osteomyelitis of left foot currently being treated at home with IV antibiotic 11/2020 Peripheral neuropathy Due to cervical disc disease Suicide SI at age 16 Thyroid condition Wears glasses Surgical History Surgical History H/O: hysterectomy History of cervical spinal surgery Cervical disc replacement 2005 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
[2021-07-20] MEDS: KETOROLAC (*BKC) 60 MG/2 ML VIAL IM (09:00)
== END 2021-07-20 10:08 | disposition home or self-care (01) ==
PROVIDERS: Emergency Provider General Practice; PCP Family Medicine
DX: R13.10 Dysphagia, unspecified (principal); J44.9 Chronic obstructive pulmonary disease, unspecified; E78.5 Hyperlipidemia, unspecified; M19.90 Unspecified osteoarthritis, unspecified site; M79.7 Fibromyalgia; K21.9 Gastro-esophageal reflux disease without esophagitis; E03.9 Hypothyroidism, unspecified; G47.33 Obstructive sleep apnea (adult) (pediatric); G62.9 Polyneuropathy, unspecified; M50.90 Cervical disc disorder, unspecified, unspecified cervical region; F32.A Depression, unspecified; Z79.82 Long term (current) use of aspirin; F41.9 Anxiety disorder, unspecified; Z87.891 Personal history of nicotine dependence
CPT/HCPCS: 87070; 87880; 96372; 99283; J1885

== ENCOUNTER 2021-07-22 10:20 | Emergency (ER) | payer OTHER, SELFPAY ==
--- NOTE | 2021-07-22 10:26 | ED.URI ---
HPI - URI/Sore Throat General Chief Complaint: Upper Respiratory Infection Stated Complaint: throat lott Time Seen by Provider: 07/22/21 10:26 Source: patient and RN notes reviewed History of Present Illness HPI Narrative: Patient is a 15-year-old female who presents the urgent care with a sore. Patient went to the ER on Thursday and her culture is still pending for strep. Patient was on a Z-Jose C on July 05 as well as a steroid. Patient states that they did not prescribe her anything from the emergency room and gave her a Toradol shot, telling her to follow-up with her PCP. Patient states that she called her PCP this morning and they would not see her because she has Covid symptoms . Patient denies of any fever, nausea, vomiting, sinus congestion or cough. Patient has been taking her normal Zyrtec and Flonase for her chronic allergies. No other acute complaints. No acute distress noted. Patient read the plan of care. Some parts of this dictation were generated by voice recognition software and may contain typographical and/or grammatical inaccuracies. Related Data Home Medications Medication Instructions Recorded Confirmed fluoxetine 60 mg PO DAILY 08/10/19 07/05/21 aspirin 81 mg tablet,delayed 81 mg PO DAILY 09/06/19 07/05/21 release lorazepam 0.5 mg tablet 0.5 mg PO BID PRN tablet 09/06/19 07/05/21 quetiapine 200 mg PO HS 05/21/20 07/05/21 cetirizine 10 mg tablet 10 mg PO DAILY 07/10/20 07/05/21 albuterol sulfate 2.5 mg INHALATION Q6H PRN 12/10/20 07/05/21 Glucosamine Chondroitin 1 cap PO DAILY 04/10/21 07/05/21 MegaRed [place]-3 Krill Oil 1 cap PO DAILY 04/10/21 07/05/21 ascorbic acid (vitamin C) 500 mg PO BID 04/10/21 07/05/21 calcium carbonate-vitamin D3 1 tablet PO DAILY 04/10/21 07/05/21 multivitamin 1 tablet PO DAILY 04/10/21 07/05/21 vitamin B complex 1 cap PO DAILY 04/10/21 07/05/21 lysine 1,000 mg tablet 1,000 mg PO BID tablet 07/05/21 07/05/21 Allergies Allergy/AdvReac Type Severity Reaction Status Date / Time bee venom protein (honey bee) Allergy Severe Anaphylaxis Verified 07/22/21 10:26 cinnamon Allergy Severe Swelling Verified 07/22/21 10:26 of Lip/Tongue/Throat clove Allergy Severe ANAPHALACTIC Verified 07/22/21 10:26 SHOCK codeine Allergy Severe unknown Verified 07/22/21 10:26 Penicillins Allergy Severe Anaphylaxis Verified 07/22/21 10:26 poison natividad extract Allergy Severe hives , Verified 07/22/21 10:26 goes in lungs adhesive tape Allergy Intermediate eats pts Verified 07/22/21 10:26 skin papaya Allergy Mild SCRATCHY Verified 07/22/21 10:26 THROAT hay fever Allergy Severe cough , Uncoded 07/22/21 10:26 throat swells [place] Allergy Intermediate itchy Uncoded 07/22/21 10:26 throat Tuna Allergy Intermediate hives Uncoded 07/05/21 10:44 Review of Systems Review of Systems: CONSTITUTIONAL: Denies fever, chills, or sweats. EYES: Denies visual changes, redness, or discharge. ENT: Denies rhinorrhea, congestion, otalgia. Reports of sore throat CARDIOVASCULAR: Denies chest pain, palpitations, or edema. RESPIRATORY: Denies cough or dyspnea. GASTROINTESTINAL: Denies abdominal pain, nausea, vomiting, or diarrhea. GENITOURINARY: Denies dysuria or hematuria. SKIN: Denies rash or itching. MUSCULOSKELETAL: Denies back pain, joint pain, or myalgia. NEUROLOGIC: Denies headache, numbness, or weakness. All other systems reviewed are negative, except as documented in HPI. [facility] Past Medical History Medical History Anxiety Arthritis Asthma Mild persistent Cummings's palsy (~01/2021) Bipolar depression Chronic pain Colitis (~04/2020) Congestion of nasal sinus COPD (chronic obstructive pulmonary disease) Depression Fibromyalgia GERD (gastroesophageal reflux disease) Herpes zoster The patient reports that she has had up to 20 herpes zoster outbreaks on her left arm Hyperlipidemia With total cholesterol level ranging b
[2021-07-22 10:29] VITALS: BP 123/69; PULSE 104; RESP 16; TEMP 35.8; O2SAT 100
[2021-07-22 10:33] VITALS: BP 123/69; PULSE 104; RESP 16; TEMP 35.8; O2SAT 100
== END 2021-07-22 10:38 | disposition home or self-care (01) ==
PROVIDERS: Emergency Provider Nurse Practitioner Family; PCP Family Medicine
DX: J02.9 Acute pharyngitis, unspecified (principal); Z79.82 Long term (current) use of aspirin; F41.9 Anxiety disorder, unspecified; F31.9 Bipolar disorder, unspecified; J44.9 Chronic obstructive pulmonary disease, unspecified; M79.7 Fibromyalgia; K21.9 Gastro-esophageal reflux disease without esophagitis; E78.5 Hyperlipidemia, unspecified; E03.9 Hypothyroidism, unspecified; G62.9 Polyneuropathy, unspecified; E66.9 Obesity, unspecified; Z68.38 Body mass index [BMI] 38.0-38.9, adult; G47.33 Obstructive sleep apnea (adult) (pediatric)
CPT/HCPCS: 99211; G0463

== ENCOUNTER 2021-08-17 07:16 | Emergency (ER) | payer OTHER, SELFPAY ==
[2021-08-17] VITALS (25 sets, daily range): BP systolic 90–127; BP diastolic 55–98; PULSE 87–116; RESP 12–17; TEMP 37.9; O2SAT 94–100
--- NOTE | ~2021-08-17 | XR_ITS ---
EXAMINATION: XR chest 1V portable EXAM DATE: 08/17/2021 08:21 INDICATION: Chest Pain Hx COPD/Asthma, COVID Neg. TECHNIQUE: Portable AP frontal chest x-ray was obtained. Comparison is made to prior examination from 12/20/2020. FINDINGS: The lungs are clear. There are no pleural effusions. The cardiomediastinal silhouette is within normal limits. There is no pneumothorax suspected. The bones and soft tissues are unremarkab le. Previously seen PICC line has been removed. IMPRESSION: No acute cardiopulmonary findings. Reviewed, dictated and finalized at location [facility] [facility]
--- NOTE | 2021-08-17 07:16 | ECG_ITS ---
Measurements Intervals [place] Rate: 113 P: 32 ND: 175 QRS: 55 QRSD: 87 T: 26 QT: 321 QTc: 441 Interpretive Statements SINUS TACHYCARDIA DELAYED PRECORDIAL R/S TRANSITION BASELINE ARTIFACT- I, III, AVR, AVL, AVF, V1-V2, V5-V6 ABNORMAL ECG Electronically Signed On 08-19-2021 8:55:21 [employer] by Mauro Sotelo D.O.
--- NOTE | 2021-08-17 07:35 | ED.FEVER ---
HPI - Fever General Chief Complaint: Fever Stated Complaint: SOB,body aches,diarrhea,low grade fever Time Seen by Provider: 08/17/21 07:25 Source: patient Mode of arrival: ambulatory Limitations: no limitations History of Present Illness HPI Narrative: Patient is a 50-year-old female complaining of fever, body aches, diarrhea and shortness of breath that started today. Patient denies any chest pain, abdominal pain, nausea, vomiting or rash. Patient states that she has vaccinated from Covid. Related Data Home Medications Medication Instructions Recorded Confirmed fluoxetine 60 mg PO DAILY 08/10/19 07/25/21 aspirin 81 mg tablet,delayed 81 mg PO DAILY 09/06/19 07/25/21 release lorazepam 0.5 mg tablet 0.5 mg PO BID PRN tablet 09/06/19 07/25/21 quetiapine 200 mg PO HS 05/21/20 07/25/21 cetirizine 10 mg tablet 10 mg PO DAILY 07/10/20 07/25/21 albuterol sulfate 2.5 mg INHALATION Q6H PRN 12/10/20 07/25/21 Glucosamine Chondroitin 1 cap PO DAILY 04/10/21 07/25/21 MegaRed [place]-3 Krill Oil 1 cap PO DAILY 04/10/21 07/25/21 ascorbic acid (vitamin C) 500 mg PO BID 04/10/21 07/25/21 calcium carbonate-vitamin D3 1 tablet PO DAILY 04/10/21 07/25/21 multivitamin 1 tablet PO DAILY 04/10/21 07/25/21 vitamin B complex 1 cap PO DAILY 04/10/21 07/25/21 lysine 1,000 mg tablet 1,000 mg PO BID tablet 07/05/21 07/25/21 Allergies Allergy/AdvReac Type Severity Reaction Status Date / Time bee venom protein (honey bee) Allergy Severe Anaphylaxis Verified 08/17/21 07:27 cinnamon Allergy Severe Swelling Verified 08/17/21 07:27 of Lip/Tongue/Throat clove Allergy Severe ANAPHALACTIC Verified 08/17/21 07:27 SHOCK codeine Allergy Severe unknown Verified 08/17/21 07:27 Penicillins Allergy Severe Anaphylaxis Verified 08/17/21 07:27 poison natividad extract Allergy Severe hives , Verified 08/17/21 07:27 goes in lungs adhesive tape Allergy Intermediate eats pts Verified 08/17/21 07:27 skin papaya Allergy Mild SCRATCHY Verified 08/17/21 07:27 THROAT Tpfrfhk-[id number]-VhG Reductase Allergy Unknown Verified 08/17/21 07:27 Inhibitor hay fever Allergy Severe cough , Uncoded 08/17/21 07:27 throat swells [place] Allergy Intermediate itchy Uncoded 08/17/21 07:27 throat Tuna Allergy Intermediate hives Uncoded 07/23/21 09:39 Review of Systems Review of Systems: All systems reviewed & are unremarkable except as noted in HPI and below Constitutional: Constitutional: Denies excessive sweating, Denies fatigue, Denies headache(s), Denies lethargy, Denies malaise, Denies weakness and Denies weight loss Eyes: Eyes: Denies blurry vision, Denies change in vision and Denies loss of vision ENT: Denies dizziness, Denies ear discharge, Denies headache(s), Denies lip swelling, Denies epistaxis, Denies nasal congestion, Denies neck pain, Denies throat swelling and Denies tongue swelling Cardiovascular: Cardiovascular: Denies chest pain, Denies chest pain at rest, Denies chest pain with activity, Denies diaphoresis, Denies rapid heart rate, Denies edema, Denies irregular heart rhythm, Denies lightheadedness, Denies palpitations and Denies dyspnea on exertion Respiratory: Respiratory: Denies chest congestion, Denies hemoptysis and Denies dyspnea on exertion Gastrointestinal: Gastrointestinal: Denies abdominal pain, Denies melena, Denies hematochezia, Denies nausea, Denies vomiting and Denies hematemesis Musculoskeletal: Musculoskeletal: Denies abnormal gait, Denies deformity, Denies joint swelling, Denies limited range of motion, Denies neck pain and Denies numbness Neurologic: Denies Abnormal speech present, Denies abnormal gait, Denies confusion, Denies dizziness, Denies headache(s), Denies focal weakness, Denies loss of vision, Denies numbness, Denies Other visual disturbances, Denies Sensory deficit (Neuro) and Denies weakness Psychiatric: Psychiatric: Denies confusion, Denies depression, Denies auditory hallucinations, Denies homicida
[2021-08-17] MEDS: SODIUM CHLORIDE 0.9% IV 1,000 ML 999 ML IV CONT (08:23)
[2021-08-17 08:52] LABS: Basophils Absolute Auto 0.1 K/mm3 (0.0-0.1); Basophils Percent Auto 0.4 % (0.2-1.2); Eosinophils Percent Auto 0.2 % (0-4.4); Hematocrit 43.5 % (37.0-47.0); Hemoglobin 14.5 g/dL (12.0-15.0); Immature Granulocyte Absolute 0.05 K/mm3 (0.00-0.031); Immature Granulocyte Percent A 0.4 % (0-0.5); Lymphocytes Absolute Auto 0.73 K/mm3 (0.9-3.2); Lymphocytes Percent Auto 5.5 % (18.3-44.2); Mean Corpuscular HGB Conc 33.3 g/dl (32-36); Mean Corpuscular Hemoglobin 29.8 pg (26-34); Mean Corpuscular Volume 89.3 fl (80-100); Mean Platelet Volume 11.1 fl (7.4-10.4); Monocytes Absolute Auto 0.7 K/mm3 (0.1-0.6); Monocytes Percent Auto 5.3 % (2.6-8.5); Neutrophils Absolute Auto 11.7 K/mm3 (1.3-6.7); Neutrophils Percent Auto 88.2 % (45.5-73.1); Platelet Count Result 189 k/mm3 (150-375); Red Blood Count 4.87 M/mm3 (4.2-5.4); Red Cell Distribution Width 13.3 % (11.5-14.5); White Blood Count 13.3 K/mm3 (4.5-10.0)
[2021-08-17 09:08] LABS: Alanine Aminotransferase 44 U/L (4-35); Albumin Level 4.6 g/dL (3.5-5.1); Alkaline Phosphatase 84 U/L (38-126); Anion Gap 12 mmol/L (8-16); Aspartate Amino Transferase 43 U/L (14-36); Bilirubin,Total 0.6 mg/dL (0.2-1.3); Blood Urea Nitrogen 25 mg/dL (7-17); Calcium 9.5 mg/dL (8.4-10.2); Carbon Dioxide 20 mmol/L (22-30); Chloride 103 mmol/L (98-107); Estimated CRCL calculation 110 ml/min; Estimated Glomerular Filt Rate > 60; Glucose 114 mg/dL (65-110); Potassium 4.1 mmol/L (3.4-5.0); Sodium 135 mmol/L (137-145)
[2021-08-17 09:09] LABS: Lactic Acid Reflex 1.5 mmol/L (0.7-2.1)
[2021-08-17 09:22] LABS: Add Urine Microscopic? YES; Appearance Urine Clear (Clear); Bilirubin Urine Negative (Negative); Blood Urine Negative (Negative); Color Urine Yellow (Yellow); Glucose Urine UA Negative (Negative); Ketones Urine Negative (Negative); Leukocyte Esterase Ur Trace LEU/UL (Negative); Mucus Urine Rare /lpf; Nitrate Urine Negative (Negative); Protein Urine Negative (Negative); Specific Grav Ur 1.021 (1.001-1.035); Squamous Epithelial Cell Urine Occasional /hpf (Few); WBC Urine 0-3 /hpf
== END 2021-08-17 10:44 | disposition home or self-care (01) ==
PROVIDERS: Emergency Provider Emergency Medicine; PCP Family Medicine
DX: B34.9 Viral infection, unspecified (principal); J45.30 Mild persistent asthma, uncomplicated; J44.9 Chronic obstructive pulmonary disease, unspecified; K21.9 Gastro-esophageal reflux disease without esophagitis; E78.5 Hyperlipidemia, unspecified; E03.9 Hypothyroidism, unspecified; G47.33 Obstructive sleep apnea (adult) (pediatric); M19.90 Unspecified osteoarthritis, unspecified site; M79.7 Fibromyalgia; G62.9 Polyneuropathy, unspecified; F31.9 Bipolar disorder, unspecified; F41.9 Anxiety disorder, unspecified; Z79.82 Long term (current) use of aspirin; Z87.891 Personal history of nicotine dependence; R00.0 Tachycardia, unspecified
CPT/HCPCS: 36415; 71045; 80053; 81001; 83605; 85025; 87040; 87804; 93005; 96365; 99284; J0696; J7030

== ENCOUNTER 2021-12-02 08:00 | Outpatient (CLI) | payer OTHER, SELFPAY ==
[2021-12-02 08:57] LABS: Hemoglobin A1C 5.3 % (<5.7)
[2021-12-02 09:06] LABS: Alanine Aminotransferase 43 U/L (4-35); Albumin Level 4.3 g/dL (3.5-5.1); Alkaline Phosphatase 99 U/L (38-126); Anion Gap 9 mmol/L (8-16); Aspartate Amino Transferase 40 U/L (14-36); Bilirubin,Total 0.6 mg/dL (0.2-1.3); Blood Urea Nitrogen 23 mg/dL (7-17); Calcium 8.8 mg/dL (8.4-10.2); Carbon Dioxide 21 mmol/L (22-30); Chloride 108 mmol/L (98-107); Cholesterol 207 mg/dL (0-200); Estimated Glomerular Filt Rate > 60; Glucose 113 mg/dL (65-110); HDL Direct 39 mg/dL; Potassium 4.2 mmol/L (3.4-5.0); Sodium 138 mmol/L (137-145); Triglycerides 148 mg/dL (<150)
[2021-12-02 09:16] LABS: LDL Cholesterol Direct 137 mg/dL
== END 2021-12-02 08:01 | disposition home or self-care (01) ==
LOC: ANHLAB 08:05
PROVIDERS: PCP Family Medicine; Visit Provider Nurse Practitioner Family
DX: R73.01 Impaired fasting glucose (principal); E78.5 Hyperlipidemia, unspecified; E03.9 Hypothyroidism, unspecified
CPT/HCPCS: 36415; 80053; 80061; 83036; 84443

== ENCOUNTER 2022-01-23 01:09 | Day surgery (SDC) | payer OTHER, SELFPAY ==
[2022-01-10 12:46] VITALS: BMI 37.4
[2022-01-23 11:07] VITALS: BP 116/65; PULSE 81; RESP 16; TEMP 36.5; O2SAT 99; BMI 37.1
--- NOTE | 2022-01-23 11:20 | WPDGICN ---
Assessment and Plan Assessment and plan (1) Encounter for screening colonoscopy: Code(s): Z12.11 - Encounter for screening for malignant neoplasm of colon Status: Acute Assessment and Plan: Patient presents for screening colonoscopy. She appears to be at average risk for colon polyps. Further recommendations will be given after endoscopy. GI Consult Note Consult date/time: 01/23/22 11:20 HPI: Jaci Rivera is a 51 year old female Presents for screening colonoscopy. Patient's current weight appetite and bowel movements are normal. She denies abdominal pain. She has had no bleeding. Family history is noncontributory. She presents today for neoplasia screening colonoscopy. Patient reports last year she had osteomyelitis requiring surgery on a bone in her foot. She she also experienced some renal insufficiency associated with use of vancomycin. She states this is now recovered and wishes to proceed with screening colonoscopy. Review of Systems Review of Systems: All systems reviewed & are unremarkable except as noted in HPI and below PMFSH Past Medical History Medical History (Updated 01/23/22 @ 11:22 by Jalil Cisneros MD) Anxiety Arthritis Asthma Mild persistent Cummings's palsy (~01/2021) Bipolar depression Chronic neck pain Chronic pain Colitis (~04/2020) COPD (chronic obstructive pulmonary disease) Depression Fibromyalgia GERD (gastroesophageal reflux disease) Herpes zoster The patient reports that she has had up to 20 herpes zoster outbreaks on her left arm Hyperlipidemia Hypertriglyceridemia Levels ranging between 140 and 207 in 2019 Hypothyroidism Migraine Neuropathy SG (obstructive sleep apnea) Osteomyelitis of left foot currently being treated at home with IV antibiotic 11/2020 Peripheral neuropathy Due to cervical disc disease Stress incontinence Suicide SI at age 16 Thyroid condition Wears glasses Surgical History Surgical History (Updated 12/30/21 @ 14:37 by Faye Kemp NP) H/O: hysterectomy (~2003) History of cervical spinal surgery Cervical disc replacement 2005 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is Asthma Family history of cardiovascular disease Family history of malignant neoplasm of cervix Family history of malignant neoplasm of ovary Follicular thyroid cancer Heart disease Lymphoma Neuropathy Social History Social History (Updated 12/30/21 @ 18:56 by Faye Kemp NP) Social History: Ms. Rivera lives in an apartment with her son. Her son, who is 30, lives downstairs. She is on disability due to chronic neck pain and psychiatric illness. She designates her son, Carroll as her surrogate decision maker. She would like to be a full code. Smoking packs per day: 0.5 Smoking cigarettes per day: 10.0 Years smoked: 15 Smoking pack-years: 7.50 Smoking status: Former smoker Tobacco type: cigarettes Smoking end date: 09/28/05 Additional smoking assessment comments: smokes marijuana 2-3 times a month Alcohol intake: former Alcohol use details: 17 per year Substance use: current Substance use type: marijuana Other substance usage details: marijuana from dispensary and her psych MD is aware Last use: 12/03/2020 Living arrangements: with family Gender identity (if verbalized by the patient): Female Sexual Orientation (if Verbalized by the Patient): Straight or Heterosexual Spiritual care concern
[2022-01-23] MEDS: LACTATED RINGERS 1,000 ML 150 ML IV CONT (11:24)
--- NOTE | 2022-01-23 12:07 | WPDANESEPPF ---
Anes - Initial Pre Proc Eval Procedure: Operation Date: 01/23/22 12:30 Proposed Procedures p Screening Colonoscopy - Jalil Cisneros MD Date/Time: 01/23/22 12:07 Surgeon: Jalil Cisneros MD Pre Op Diagnosis: neoplasm screening Patient Data Age: 51 Gender: F Height: 1.75 m Weight: 114.2 kg Last Vital Signs Temp 36.5 C 01/23/22 11:07 Pulse 81 01/23/22 11:07 Resp 16 01/23/22 11:07 BP 116/65 01/23/22 11:07 Pulse Ox 99 01/23/22 11:07 Allergies Allergy/AdvReac Type Severity Reaction Status Date / Time bee venom protein (honey bee) Allergy Severe Anaphylaxis Verified 01/23/22 11:04 cinnamon Allergy Severe Swelling Verified 01/23/22 11:04 of Lip/Tongue/Throat clove Allergy Severe ANAPHALACTIC Verified 01/23/22 11:04 SHOCK codeine Allergy Severe unknown Verified 01/23/22 11:04 Penicillins Allergy Severe Anaphylaxis Verified 01/23/22 11:04 poison natividad extract Allergy Severe hives , Verified 01/23/22 11:04 goes in lungs adhesive tape Allergy Intermediate eats pts Verified 01/23/22 11:04 skin papaya Allergy Mild SCRATCHY Verified 01/23/22 11:04 THROAT Coaldwh-XKN-PfS Reductase Allergy Unknown Verified 01/23/22 11:04 Inhibitor hay fever Allergy Severe cough , Uncoded 01/10/22 12:36 throat swells [place] Allergy Intermediate itchy Uncoded 01/10/22 12:36 throat [place] Allergy Intermediate hives Uncoded 01/10/22 12:36 Home Medications Medication Instructions Recorded Confirmed Type fluoxetine 60 mg PO DAILY 08/10/19 01/23/22 History aspirin 81 mg tablet,delayed 81 mg PO DAILY 09/06/19 01/23/22 History release lorazepam 0.5 mg tablet 0.5 mg PO BID PRN tablet 09/06/19 01/23/22 History quetiapine 200 mg PO HS 05/21/20 01/23/22 History cetirizine 10 mg tablet 10 mg PO DAILY 07/10/20 01/23/22 History albuterol sulfate 2.5 mg INHALATION Q6H PRN 12/10/20 01/23/22 History epinephrine 0.3 mg/0.3 mL 0.3 mg IM ONCE PRN #2 ea 04/02/21 01/23/22 Rx injection, auto-injector fluticasone propionate 50 2 spray NASAL DAILY PRN #54.6 ml 04/02/21 01/23/22 Rx mcg/actuation nasal spray,suspension ascorbic acid (vitamin C) 500 mg PO ONCE 04/10/21 01/23/22 History calcium carbonate-vitamin D3 1 tablet PO DAILY 04/10/21 01/23/22 History hkasd-ia-0-tom-cjl-pyjjpuq-ast 1 cap PO DAILY 04/10/21 01/23/22 History [MegaRed [place]-3 Krill Oil] multivitamin 1 tablet PO DAILY 04/10/21 01/23/22 History vitamin B complex 1 cap PO DAILY 04/10/21 01/23/22 History nystatin 100,000 unit/gram topical 1 applic TOPICAL DAILY #30 g 06/12/21 01/23/22 Rx cream lysine 1,000 mg tablet 1,000 mg PO BID tablet 07/05/21 01/23/22 History budesonide-formoterol HFA 80 2 puff INHALATION BID #10.2 g 11/11/21 01/23/22 Rx mcg-4.5 mcg/actuation aerosol inhaler gabapentin 100 mg capsule 200 mg PO TID #180 cap 12/16/21 01/23/22 Rx phentermine 37.5 mg capsule 37.5 mg PO DAILY #30 cap 12/30/21 01/23/22 Rx ezetimibe 10 mg tablet See Rx Instructions .ROUTE 01/01/22 01/23/22 Rx .COMPLEX #30 tablet triamcinolone acetonide 0.1 % 1 applic TOPICAL DAILY PRN #30 gm 01/01/22 01/23/22 Rx topical cream cyclobenzaprine 10 mg tablet 10 mg PO Q8H #90 tablet 01/02/22 01/23/22 Rx levothyroxine 25 mcg tablet 25 mcg PO DAILY #45 tablet 01/02/22 01/23/22 Rx oxybutynin chloride 5 mg 5 mg PO DAILY #90 tablet 01/02/22 01/23/22 Rx tablet,extended release 24 hr acyclovir 400 mg PO TID PRN 01/10/22 01/23/22 History albuterol sulfate 2 puff INHALATION QID PRN 01/10/22 01/23/22 History diclofenac sodium 75 mg PO BID 01/10/22 01/23/22 History montelukast See Rx Instructions .ROUTE 01/10/22 01/23/22 History .COMPLEX PRN tramadol 50 mg tablet See Rx Instructions PO .COMPLEX 01/20/22 01/23/22 Rx #150 tablet Patient hx anesthesia problems: none Family hx anesthesia problems: none Results Review: All pre-operative results and documents have been reviewed as part of the pre-operative evaluation.
[2022-01-23 13:08] VITALS: BP 111/74; PULSE 71; RESP 19; O2SAT 98
[2022-01-23 13:18] VITALS: BP 125/75; PULSE 72; RESP 18; O2SAT 97
[2022-01-23 13:28] VITALS: BP 112/73; PULSE 70; RESP 17; O2SAT 100
== END 2022-01-23 13:36 | disposition home or self-care (01) ==
PROVIDERS: PCP Family Medicine; Visit Provider Internal Medicine Gastroenterology
PROC: 0DJD8ZZ Inspection of Lower Intestinal Tract, Via Natural or Artificial Opening Endoscopic (ICD-10-PCS; CPT 45378; principal; 2022-01-23 12:30)
DX: Z12.11 Encounter for screening for malignant neoplasm of colon (principal); E78.1 Pure hyperglyceridemia; E78.5 Hyperlipidemia, unspecified; E03.9 Hypothyroidism, unspecified; G47.33 Obstructive sleep apnea (adult) (pediatric); M79.7 Fibromyalgia; J45.30 Mild persistent asthma, uncomplicated; F41.9 Anxiety disorder, unspecified; J44.9 Chronic obstructive pulmonary disease, unspecified; K21.9 Gastro-esophageal reflux disease without esophagitis; M86.8X7 Other osteomyelitis, ankle and foot; G89.29 Other chronic pain; M54.2 Cervicalgia; N39.3 Stress incontinence (female) (male); F12.90 Cannabis use, unspecified, uncomplicated; Z87.891 Personal history of nicotine dependence; E66.9 Obesity, unspecified; Z68.37 Body mass index [BMI] 37.0-37.9, adult; Z79.82 Long term (current) use of aspirin; Z79.51 Long term (current) use of inhaled steroids
CPT/HCPCS: 45378; J2704; J7120

== ENCOUNTER 2022-04-14 08:37 | Emergency (ER) | payer OTHER, SELFPAY ==
--- NOTE | ~2022-04-14 | CT_ITS ---
EXAMINATION: CT abdomen pelvis w con DATE: 04/14/2022 11:21 INDICATION: Abdominal pain, low back pain, urinary retention, abnormal urine culture. Decreased urine output. TECHNIQUE: Computed tomography (CT) of the abdomen and pelvis was performed with 100 CC Omnipaque 300 intravenous contrast. Automated exposure control and iterative reconstruction technique were employe d. Exam dose: 1529.45 mGy-cm total exam DLP. COMPARISON: 12/23/2020 bilateral renal ultrasound 05/13/2020 CT abdomen pelvis FINDINGS: There is mild atelectasis involving the right lower lobe and left lower lobe minimally. The lung bases are otherwise clear. Normal heart size. No pericardial or pleural effusion. Diffuse hepatic steatosis. 6 mm hepatic cyst. The liver, spleen, pancreas, bile ducts and pancreatic duct are otherwise unremark able. No splenomegaly. Normal morphology of the adrenal glands. No renal mass lesion or urinary tract calculus or hydroureteronephrosis. The urinary bladder is unrem arkable. Status post hysterectomy. Normal caliber of the abdominal aorta. No intraperitoneal or retroperitoneal or pelvic mass lesion or adenopathy or ascites. Normal appendix. No bowel obstruction, bowel wall thickening, pneumatosis or intraperitoneal free air . Included skeletal structures are unremarkable. No suspicious osteolytic or osteoblastic lesions are n oted. IMPRESSION: Hepatic steatosis and 6 mm hepatic cyst No urinary tract mass lesion, calculus, hydroureteronephrosis Reviewed, dictated and finalized at [facility]. Reviewed, dictated and finalized at [facility].
[2022-04-14 08:47] VITALS: BP 119/93; PULSE 102; RESP 18; TEMP 36.6; O2SAT 99
[2022-04-14 09:36] LABS: Appearance Urine Clear (Clear); Bilirubin Urine 1+ (Negative); Blood Urine Negative (Negative); Glucose Urine UA Negative (Negative); Ketones Urine Trace mg/dL (Negative); Leukocyte Esterase Ur 1+ LEU/UL (Negative); Nitrate Urine Negative (Negative); Protein Urine Trace mg/dL (Negative); Specific Grav Ur >= 1.030 (1.001-1.035); Urobilinogen Urine 0.2 mg/dL (<2.0); pH Urine 5.5 (5.0-9.0)
[2022-04-14 09:40] LABS: Add Urine Microscopic? YES; Color Urine Dark Yellow (Yellow)
[2022-04-14 09:53] LABS: Mucus Urine Few /lpf; Squamous Epithelial Cell Urine Few /hpf (Few)
--- NOTE | 2022-04-14 10:07 | ED.FEMALEGU ---
HPI - Female Genitourinary General Chief complaint: Urogenital-Female <Emeli Redmond PA-C - Last Filed: 04/14/22 18:52> Stated complaint: Decreased urine output <ALBA Reilly Last Filed: 04/14/22 18:52> Time Seen by Provider: 04/14/22 08:59 <ALBA Reilly Last Filed: 04/14/22 18:52> Source: patient <ALBA Reilly Last Filed: 04/14/22 18:52> Mode of arrival: ambulatory <ALBA Reilly Last Filed: 04/14/22 18:52> Limitations: no limitations <ALBA Reilly Last Filed: 04/14/22 18:52> History of Present Illness HPI Narrative: Patient is a 51 y/o female who presents to the ED with c/o decreased urine output. Patient reports she has been having issues with intermittent urinary incontinence for the past 1 month. She saw a urologist at [facility] last week and was told she was retaining her urine via bladder scan. She was given a urine hat and advised to monitor her intake and output. She states she has been drinking plenty of water daily, but over the last 2 days has only had about 450 mL of urine output then 150mL of urine yesterday. She called her doctor about this and was referred to the ED for further evaluation. She also reports having worsening pain in her lower back and lower abdomen. She takes several different pain management therapies at home for her chronic neck pain but has not taken anything additional for this new pain. She is scheduled to see the urologist again on . Patient denies any dysuria, hematuria, nausea, vomiting, fever, chills, diarrhea, constipation. <ALBA Reilly Last Filed: 04/14/22 18:52> Related Data Home medications: Home Medications Medication Instructions Recorded Confirmed fluoxetine 40 mg capsule 60 mg PO DAILY 08/10/19 03/27/22 aspirin 81 mg tablet,delayed 81 mg PO DAILY 09/06/19 03/27/22 release lorazepam 0.5 mg tablet 0.5 mg PO BID PRN Anxiety 09/06/19 03/27/22 quetiapine 200 mg tablet,extended 200 mg PO HS 05/21/20 03/27/22 release 24 hr cetirizine 10 mg tablet (Zyrtec) 10 mg PO DAILY 07/10/20 03/27/22 albuterol sulfate 2.5 mg/3 mL 2.5 mg inhalation Q6H PRN 12/10/20 03/27/22 (0.083 %) solution for nebulization Shortness Of Breath ascorbic acid (vitamin C) 500 mg 500 mg PO ONCE 04/10/21 03/27/22 tablet calcium carbonate 600 mg-vitamin 1 tablet PO DAILY 04/10/21 03/27/22 D3 5 mcg (200 unit) tablet krill 500 mg-omega 3 115 mg-dha 30 1 cap PO DAILY 04/10/21 03/27/22 mg-epa 64 [id number]-fanxd capsule (MegaRed [place]-3 Krill Oil) multivitamin 1 tablet PO DAILY 04/10/21 03/27/22 vitamin B complex 1 cap PO DAILY 04/10/21 03/27/22 lysine 1,000 mg tablet 1,000 mg PO BID 07/05/21 03/27/22 diclofenac sodium 75 mg 75 mg PO BID 01/10/22 03/27/22 tablet,delayed release <Emeli Redmond PA-C - Last Filed: 04/14/22 18:52> Allergies/Adverse reactions: Allergies Allergy/AdvReac Type Severity Reaction Status Date / Time bee venom protein (honey bee) Allergy Severe Anaphylaxis Verified 03/27/22 10:09 cinnamon Allergy Severe Swelling Verified 03/27/22 10:09 of Lip/Tongue/Throat clove Allergy Severe ANAPHALACTIC Verified 03/27/22 10:09 SHOCK codeine Allergy Severe unknown Verified 03/27/22 10:09 Penicillins Allergy Severe Anaphylaxis Verified 03/27/22 10:09 poison natividad extract Allergy Severe hives , Verified 03/27/22 10:09 goes in lungs adhesive tape Allergy Intermediate eats pts Verified 03/27/22 10:09 skin papaya Allergy Mild SCRATCHY Verified 03/27/22 10:09 THROAT Kcwwyra-HHX-SzU Reductase Allergy Unknown Verified 03/27/22 10:09 Inhibitor hay fever Allergy Severe cough , Uncoded 03/27/22 10:09 throat swells Harvinder Allergy Intermediate itchy Uncoded 03/27/22 10:09 throat Tuna Allergy Intermediate hives Uncoded 03/27/22 10:09 <Emeli Redmond PA-C - Last Filed: 04/14/22 18:52> Review of Syst
[2022-04-14 10:22] LABS: Basophils Percent Auto 0.8 % (0.2-1.2); Eosinophils Absolute Auto 0.1 K/mm3 (0-0.3); Eosinophils Percent Auto 2.2 % (0-4.4); Hematocrit 44.1 % (37.0-47.0); Immature Granulocyte Absolute 0.01 K/mm3 (0.00-0.031); Immature Granulocyte Percent A 0.2 % (0-0.5); Lymphocytes Absolute Auto 1.65 K/mm3 (0.9-3.2); Lymphocytes Percent Auto 33.6 % (18.3-44.2); Mean Corpuscular HGB Conc 31.7 g/dl (32-36); Mean Corpuscular Hemoglobin 29.3 pg (26-34); Mean Corpuscular Volume 92.3 fl (80-100); Mean Platelet Volume 12.6 fl (7.4-10.4); Monocytes Absolute Auto 0.3 K/mm3 (0.1-0.6); Monocytes Percent Auto 5.3 % (2.6-8.5); Neutrophils Absolute Auto 2.8 K/mm3 (1.3-6.7); Neutrophils Percent Auto 57.9 % (45.5-73.1); Platelet Count Result 182 k/mm3 (150-375); Red Blood Count 4.78 M/mm3 (4.2-5.4); White Blood Count 4.9 K/mm3 (4.5-10.0)
[2022-04-14 10:49] LABS: Alanine Aminotransferase 39 U/L (6-35); Albumin Level 4.2 g/dL (3.5-5.1); Alkaline Phosphatase 85 U/L (38-126); Anion Gap 5 mmol/L (8-16); Aspartate Amino Transferase 36 U/L (14-36); Bilirubin,Total 0.4 mg/dL (0.2-1.3); Blood Urea Nitrogen 25 mg/dL (7-17); Calcium 8.6 mg/dL (8.4-10.2); Carbon Dioxide 28 mmol/L (22-30); Chloride 109 mmol/L (98-107); Estimated Glomerular Filt Rate > 60; Glucose 95 mg/dL (65-110); Potassium 4.2 mmol/L (3.4-5.0); Sodium 142 mmol/L (137-145)
[2022-04-14] MEDS: SODIUM CHLORIDE 0.9% IV 1,000 ML 999 ML IV CONT (10:53)
== END 2022-04-14 14:21 | disposition home or self-care (01) ==
PROVIDERS: Physician Assistant; Emergency Provider Emergency Medicine; PCP Family Medicine
DX: N30.01 Acute cystitis with hematuria (principal); J44.9 Chronic obstructive pulmonary disease, unspecified; E78.5 Hyperlipidemia, unspecified; E03.9 Hypothyroidism, unspecified; E78.1 Pure hyperglyceridemia; G47.33 Obstructive sleep apnea (adult) (pediatric); G62.9 Polyneuropathy, unspecified; K21.9 Gastro-esophageal reflux disease without esophagitis; M79.7 Fibromyalgia; M19.90 Unspecified osteoarthritis, unspecified site; Z79.82 Long term (current) use of aspirin; Z87.891 Personal history of nicotine dependence; K76.0 Fatty (change of) liver, not elsewhere classified; K76.89 Other specified diseases of liver; R39.12 Poor urinary stream
CPT/HCPCS: 36415; 74177; 80053; 81001; 85025; 87077; 87086; 87186; 96365; 99284; J0131; J7030; Q9967

== ENCOUNTER 2022-06-09 14:51 | Emergency (ER) | payer OTHER, SELFPAY ==
--- NOTE | 2022-06-09 14:55 | ED.FEMALEGU ---
HPI - Female Genitourinary General Chief complaint: Urogenital-Female Stated complaint: PAINFUL URINATION/DARK URINE Time Seen by Provider: 06/09/22 15:10 Source: patient Mode of arrival: ambulatory Limitations: no limitations History of Present Illness HPI Narrative: Ms. Rivera is a 51-year-old female patient presenting to the clinic today with complaints of dysuria, flank pain, and malodorous urine. She reports that this started on Thursday. She contacted her PCP today and they were unable to get her into the office today. Recommend she be seen in the urgent care. She denies any fever or chills. She denies any abdominal pain, vaginal discharge, or new sexual partners. Related Data Home Medications Medication Instructions Recorded Confirmed fluoxetine 40 mg capsule 60 mg PO DAILY 08/10/19 06/09/22 aspirin 81 mg tablet,delayed 81 mg PO DAILY 09/06/19 06/09/22 release lorazepam 0.5 mg tablet 0.5 mg PO BID PRN Anxiety 09/06/19 06/09/22 quetiapine 200 mg tablet,extended 200 mg PO HS 05/21/20 06/09/22 release 24 hr cetirizine 10 mg tablet (Zyrtec) 10 mg PO DAILY 07/10/20 06/09/22 albuterol sulfate 2.5 mg/3 mL 2.5 mg inhalation Q6H PRN 12/10/20 06/09/22 (0.083 %) solution for nebulization Shortness Of Breath ascorbic acid (vitamin C) 500 mg 500 mg PO ONCE 04/10/21 06/09/22 tablet calcium carbonate 600 mg-vitamin 1 tablet PO DAILY 04/10/21 06/09/22 D3 5 mcg (200 unit) tablet krill 500 mg-omega 3 115 mg-dha 30 1 cap PO DAILY 04/10/21 06/09/22 mg-epa 64 ry-akgriau-heexo capsule (MegaRed [place]-3 Krill Oil) multivitamin 1 tablet PO DAILY 04/10/21 06/09/22 vitamin B complex 1 cap PO DAILY 04/10/21 06/09/22 lysine 1,000 mg tablet 1,000 mg PO BID 07/05/21 06/09/22 diclofenac sodium 75 mg 75 mg PO BID 01/10/22 06/09/22 tablet,delayed release Allergies Allergy/AdvReac Type Severity Reaction Status Date / Time bee venom protein (honey bee) Allergy Severe Anaphylaxis Verified 06/09/22 15:03 cinnamon Allergy Severe Swelling Verified 06/09/22 15:03 of Lip/Tongue/Throat clove Allergy Severe ANAPHALACTIC Verified 06/09/22 15:03 SHOCK codeine Allergy Severe unknown Verified 06/09/22 15:03 Penicillins Allergy Severe Anaphylaxis Verified 06/09/22 15:03 poison natividad extract Allergy Severe hives , Verified 06/09/22 15:03 goes in lungs adhesive tape Allergy Intermediate eats pts Verified 06/09/22 15:03 skin papaya Allergy Mild SCRATCHY Verified 06/09/22 15:03 THROAT Lrhueep-BPW-RbV Reductase Allergy Unknown Verified 06/09/22 15:03 Inhibitor hay fever Allergy Severe cough , Uncoded 06/09/22 15:03 throat swells Harvinder Allergy Intermediate itchy Uncoded 06/09/22 15:03 throat Tuna Allergy Intermediate hives Uncoded 06/09/22 15:03 Review of Systems Review of Systems: Pertinent positives per HPI. Patient denies any fever, chills, rash, headache, visual changes, dizziness, cough, runny nose, sore throat, shortness of breath, chest pain, palpitations, nausea, vomiting, diarrhea, constipation, abdominal pain. PMFSH Past Medical History Medical History Anxiety Arthritis Asthma Mild persistent Cummings's palsy (~01/2021) Bipolar depression Chronic neck pain Chronic pain Colitis (~04/2020) COPD (chronic obstructive pulmonary disease) Depression Fibromyalgia GERD (gastroesophageal reflux disease) Herpes zoster The patient reports that she has had up to 20 herpes zoster outbreaks on her left arm Hyperlipidemia Hypertriglyceridemia Levels ranging between 140 and 207 in 2019 Hypothyroidism Migraine Neuropathy SG (obstructive sleep apnea) Osteomyelitis of left foot Peripheral neuropathy Due to cervical disc disease Stress incontinence Suicide SI at age 16 Thyroid condition Wears glasses Surgical History Surgical History H/O: hysterectomy (~2
[2022-06-09 15:01] VITALS: BP 107/67; PULSE 82; RESP 16; TEMP 36.7; O2SAT 100
[2022-06-09 15:05] VITALS: BP 107/67; PULSE 82; RESP 16; TEMP 36.7; O2SAT 100
== END 2022-06-09 16:14 | disposition home or self-care (01) ==
PROVIDERS: Emergency Provider Nurse Practitioner Family; PCP Nurse Practitioner Family
DX: N12 Tubulo-interstitial nephritis, not specified as acute or chronic (principal); Z87.891 Personal history of nicotine dependence; F12.90 Cannabis use, unspecified, uncomplicated; M19.90 Unspecified osteoarthritis, unspecified site; J44.9 Chronic obstructive pulmonary disease, unspecified; M79.7 Fibromyalgia; K21.9 Gastro-esophageal reflux disease without esophagitis; E03.9 Hypothyroidism, unspecified; G47.33 Obstructive sleep apnea (adult) (pediatric); G62.9 Polyneuropathy, unspecified; E78.1 Pure hyperglyceridemia; M50.90 Cervical disc disorder, unspecified, unspecified cervical region; F41.9 Anxiety disorder, unspecified; F31.9 Bipolar disorder, unspecified
CPT/HCPCS: 81003; 87086; 87088; 99213; G0463

== ENCOUNTER 2022-06-16 15:30 | Emergency (ER) | payer OTHER, SELFPAY ==
--- NOTE | ~2022-06-16 | CT_ITS ---
EXAMINATION: CT abdomen pelvis w con DATE: 06/16/2022 17:19 INDICATION: abd pain TECHNIQUE: Computed tomography (CT) of the abdomen and pelvis was performed with 100 mL Omnipaque-350 intravenous contrast. Automated exposure control and iterative reconstruction technique were employe d. The dose-length product was 1425.99 mGy-cm. COMPARISON: 04/14/2022. FINDINGS: Lower thorax: Unremarkable Liver: Left lobe hypodensity, too small to characterize Biliary/Gallbladder: Gallbladder is normal. No bile duct dilation. Pancreas: No mass or duct dilation. Spleen: Normal. Adrenals:No mass. Kidneys: No mass, stone, or hydronephrosis. GI tract: No small or large bowel dilation. Normal appendix. Mesentery/Peritoneum: No ascites, mass, or free air. Retroperitoneum: No mass. Atherosclerotic abdominal aortic and/or arterial calcifications. Pelvis: The uterus is absent. The urinary bladder is decompressed. Soft Tissues: Soft tissues and body wall unremarkable. Bones: No acute osseous finding. IMPRESSION: No acute abdominopelvic process detected. Reviewed, dictated and finalized at [facility].
[2022-06-16 15:35] VITALS: BP 121/93; PULSE 103; RESP 16; TEMP 36.3; O2SAT 99
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
[2022-06-16 16:00] LABS: Basophils Absolute Auto 0.1 K/mm3 (0.0-0.1); Eosinophils Percent Auto 0.7 % (0-4.4); Hematocrit 46.8 % (37.0-47.0); Hemoglobin 15.2 g/dL (12.0-15.0); Immature Granulocyte Absolute 0.02 K/mm3 (0.00-0.031); Immature Granulocyte Percent A 0.3 % (0-0.5); Lymphocytes Absolute Auto 2.11 K/mm3 (0.9-3.2); Lymphocytes Percent Auto 35.6 % (18.3-44.2); Mean Corpuscular HGB Conc 32.5 g/dl (32-36); Mean Corpuscular Hemoglobin 29.7 pg (26-34); Mean Corpuscular Volume 91.4 fl (80-100); Mean Platelet Volume 11.7 fl (7.4-10.4); Monocytes Absolute Auto 0.4 K/mm3 (0.1-0.6); Monocytes Percent Auto 6.9 % (2.6-8.5); Neutrophils Absolute Auto 3.3 K/mm3 (1.3-6.7); Neutrophils Percent Auto 55.5 % (45.5-73.1); Platelet Count Result 205 k/mm3 (150-375); Red Blood Count 5.12 M/mm3 (4.2-5.4); Red Cell Distribution Width 12.7 % (11.5-14.5); White Blood Count 5.9 K/mm3 (4.5-10.0)
[2022-06-16 16:01] LABS: Appearance Urine Clear (Clear); Bilirubin Urine Negative (Negative); Blood Urine Trace-lysed (Negative); Color Urine Yellow (Yellow); Glucose Urine UA Negative (Negative); Ketones Urine Negative (Negative); Leukocyte Esterase Ur 3+ LEU/UL (Negative); Nitrate Urine Negative (Negative); Protein Urine Negative (Negative); Specific Grav Ur >= 1.030 (1.001-1.035); Urobilinogen Urine 0.2 mg/dL (<2.0)
[2022-06-16 16:15] LABS: Alanine Aminotransferase 36 U/L (6-35); Alkaline Phosphatase 93 U/L (38-126); Anion Gap 16 mmol/L (8-16); Aspartate Amino Transferase 42 U/L (14-36); Bilirubin,Total 0.5 mg/dL (0.2-1.3); Blood Urea Nitrogen 11 mg/dL (7-17); Calcium 9.5 mg/dL (8.4-10.2); Carbon Dioxide 20 mmol/L (22-30); Chloride 104 mmol/L (98-107); Estimated CRCL calculation 69 ml/min; Estimated Glomerular Filt Rate 52; Glucose 107 mg/dL (65-110); Lipase 65 U/L (23-300); Potassium 3.7 mmol/L (3.4-5.0); Sodium 140 mmol/L (137-145)
[2022-06-16 16:34] LABS: Bacteria Urine Trace /hpf; Mucus Urine Rare /lpf; Squamous Epithelial Cell Urine Occasional /hpf (Few); WBC Urine 16-20 /hpf
[2022-06-16 16:40] LABS: Add Urine Microscopic? YES
[2022-06-16] MEDS: ONDANSETRON INJ 4 MG/2 ML VIAL IV PUSH (16:56)
[2022-06-16] MEDS: SODIUM CHLORIDE 0.9% IV 1,000 ML 999 ML IV CONT (16:57)
[2022-06-16 18:52] VITALS: BP 112/64; PULSE 80; RESP 16; O2SAT 100
--- NOTE | 2022-06-16 18:56 | ED.GENADULT ---
HPI - General Adult General Chief complaint: Urogenital-Female Stated complaint: kidney infection Time Seen by Provider: 06/16/22 16:09 Source: RN notes reviewed History of Present Illness HPI narrative: Patient presents emergency room from home for abdominal flank pain. Patient states that symptoms been ongoing for the past week and worsened over the past several days states she has pain located the bilateral lower abdomen goes around the bilateral flank is associated with dysuria states she was diagnosed with a UTI approximately a week ago and was put on Bactrim which she took with minimal relief. She denies any fevers or chills chest pain shortness of breath or any other symptoms Related Data Home Medications Medication Instructions Recorded Confirmed fluoxetine 40 mg capsule 60 mg PO DAILY 08/10/19 06/09/22 aspirin 81 mg tablet,delayed 81 mg PO DAILY 09/06/19 06/09/22 release lorazepam 0.5 mg tablet 0.5 mg PO BID PRN Anxiety 09/06/19 06/09/22 quetiapine 200 mg tablet,extended 200 mg PO HS 05/21/20 06/09/22 release 24 hr cetirizine 10 mg tablet (Zyrtec) 10 mg PO DAILY 07/10/20 06/09/22 albuterol sulfate 2.5 mg/3 mL 2.5 mg inhalation Q6H PRN 12/10/20 06/09/22 (0.083 %) solution for nebulization Shortness Of Breath ascorbic acid (vitamin C) 500 mg 500 mg PO ONCE 04/10/21 06/09/22 tablet calcium carbonate 600 mg-vitamin 1 tablet PO DAILY 04/10/21 06/09/22 D3 5 mcg (200 unit) tablet krill 500 mg-omega 3 115 mg-dha 30 1 cap PO DAILY 04/10/21 06/09/22 mg-epa 64 mu-uvowxhg-lzdvj capsule (MegaRed [place]-3 Krill Oil) multivitamin 1 tablet PO DAILY 04/10/21 06/09/22 vitamin B complex 1 cap PO DAILY 04/10/21 06/09/22 lysine 1,000 mg tablet 1,000 mg PO BID 07/05/21 06/09/22 diclofenac sodium 75 mg 75 mg PO BID 01/10/22 06/09/22 tablet,delayed release Allergies Allergy/AdvReac Type Severity Reaction Status Date / Time bee venom protein (honey bee) Allergy Severe Anaphylaxis Verified 06/09/22 15:03 cinnamon Allergy Severe Swelling Verified 06/09/22 15:03 of Lip/Tongue/Throat clove Allergy Severe ANAPHALACTIC Verified 06/09/22 15:03 SHOCK codeine Allergy Severe unknown Verified 06/09/22 15:03 Penicillins Allergy Severe Anaphylaxis Verified 06/09/22 15:03 poison natividad extract Allergy Severe hives , Verified 06/09/22 15:03 goes in lungs adhesive tape Allergy Intermediate eats pts Verified 06/09/22 15:03 skin papaya Allergy Mild SCRATCHY Verified 06/09/22 15:03 THROAT Szkjidh-XIQ-YcE Reductase Allergy Unknown Verified 06/09/22 15:03 Inhibitor hay fever Allergy Severe cough , Uncoded 06/09/22 15:03 throat swells Harvinder Allergy Intermediate itchy Uncoded 06/09/22 15:03 throat Tuna Allergy Intermediate hives Uncoded 06/09/22 15:03 Review of Systems Review of Systems: Gen.: Denies fevers or chills ENT: Denies congestion Respiratory: Denies shortness of breath or cough CV: Denies chest pain or palpitations GI: See HPI reports dysuria Musculoskeletal: Denies back pain or muscle pain Neuro: Denies numbness, tingling, weakness or focal weakness Skin: Denies rash Except as documented, all other systems reviewed and negative PMFSH Past Medical History Medical History Anxiety Arthritis Asthma Mild persistent Cummings's palsy (~01/2021) Bipolar depression Chronic neck pain Chronic pain Colitis (~04/2020) COPD (chronic obstructive pulmonary disease) Depression Fibromyalgia GERD (gastroesophageal reflux disease) Herpes zoster The patient reports that she has had up to 20 herpes zoster outbreaks on her left arm Hyperlipidemia Hypertriglyceridemia Levels ranging between 140 and 207 in 2019 Hypothyroidism Migraine Neuropathy SG (obstructive sleep apnea) Osteomyelitis of left foot Peripheral neuropathy Due to cervical disc disease Stress incontinence Suicide SI at age 16 Thyroid condition Wears g
== END 2022-06-16 19:29 | disposition home or self-care (01) ==
PROVIDERS: Emergency Provider Emergency Medicine; PCP Nurse Practitioner Family
DX: N39.0 Urinary tract infection, site not specified (principal); E78.5 Hyperlipidemia, unspecified; E03.9 Hypothyroidism, unspecified; E78.1 Pure hyperglyceridemia; J45.20 Mild intermittent asthma, uncomplicated; J44.9 Chronic obstructive pulmonary disease, unspecified; N39.3 Stress incontinence (female) (male); G47.33 Obstructive sleep apnea (adult) (pediatric); G62.9 Polyneuropathy, unspecified; M79.7 Fibromyalgia; M19.90 Unspecified osteoarthritis, unspecified site; F41.9 Anxiety disorder, unspecified; F31.9 Bipolar disorder, unspecified; Z90.710 Acquired absence of both cervix and uterus; Z87.891 Personal history of nicotine dependence; Z79.82 Long term (current) use of aspirin
CPT/HCPCS: 36415; 74177; 80053; 81001; 81025; 83605; 83690; 85025; 87086; 96361; 96365; 96367; 96375; 99284; J0131; J1956; J2405; J7030; Q9967

== ENCOUNTER 2022-06-24 09:45 | Outpatient (CLI) | payer OTHER, SELFPAY ==
--- NOTE | ~2022-06-24 | MM_ITS ---
EXAMINATION: MM screening amari BI w anny HISTORY: Screening mammogram TECHNIQUE: Craniocaudal and mediolateral oblique 3-D tomosynthesis images were obtained and synthetic 2-D images were generated. CAD analysis was submitted and interpreted. COMPARISON: 12/25/2016 bilateral screening mammogram BREAST PARENCHYMAL COMPOSITION: 07/09/2015 bilateral screening mammogram FINDINGS: Stable benign circumscribed lymph node in the posterior outer mid to upper right breast. Th ere is no evidence of suspicious mass, calcification, or architectural distortion to suggest malignan cy in either breast. There has been no suspicious interval change. IMPRESSION: 1. No mammographic evidence of malignancy. 2. Recommend routine screening mammography in one year. BI-RADS Category 1: Negative Reviewed, dictated and finalized at location [facility].
== END 2022-06-24 09:46 | disposition home or self-care (01) ==
PROVIDERS: PCP Nurse Practitioner Family; Visit Provider Family Medicine
DX: Z12.31 Encounter for screening mammogram for malignant neoplasm of breast (principal)
CPT/HCPCS: 77063; 77067

== ENCOUNTER 2022-06-29 20:57 | Emergency (ER) | payer OTHER, SELFPAY ==
[2022-06-29 21:09] VITALS: BP 112/75; PULSE 85; RESP 16; TEMP 36.6; O2SAT 99
[2022-06-29 21:45] LABS: Appearance Urine Slightly Cloudy (Clear); Bilirubin Urine Negative (Negative); Blood Urine Trace-intact (Negative); Color Urine Yellow (Yellow); Glucose Urine UA Negative (Negative); Ketones Urine Negative (Negative); Leukocyte Esterase Ur 3+ LEU/UL (Negative); Nitrate Urine Negative (Negative); Protein Urine Negative (Negative); Urobilinogen Urine 0.2 mg/dL (<2.0)
[2022-06-29 21:46] LABS: Basophils Absolute Auto 0.1 K/mm3 (0.0-0.1); Basophils Percent Auto 0.8 % (0.2-1.2); Eosinophils Absolute Auto 0.1 K/mm3 (0-0.3); Eosinophils Percent Auto 1.4 % (0-4.4); Hematocrit 42.4 % (37.0-47.0); Hemoglobin 13.9 g/dL (12.0-15.0); Immature Granulocyte Absolute 0.02 K/mm3 (0.00-0.031); Immature Granulocyte Percent A 0.3 % (0-0.5); Lymphocytes Absolute Auto 2.35 K/mm3 (0.9-3.2); Lymphocytes Percent Auto 36.3 % (18.3-44.2); Mean Corpuscular HGB Conc 32.8 g/dl (32-36); Mean Corpuscular Hemoglobin 29.6 pg (26-34); Mean Corpuscular Volume 90.2 fl (80-100); Mean Platelet Volume 11.3 fl (7.4-10.4); Monocytes Absolute Auto 0.6 K/mm3 (0.1-0.6); Neutrophils Absolute Auto 3.4 K/mm3 (1.3-6.7); Neutrophils Percent Auto 52.2 % (45.5-73.1); Platelet Count Result 188 k/mm3 (150-375); Red Cell Distribution Width 12.9 % (11.5-14.5); White Blood Count 6.5 K/mm3 (4.5-10.0)
[2022-06-29 21:51] LABS: Add Urine Microscopic? YES; Amorphous Sediment Urine Moderate; Bacteria Urine Trace /hpf; Squamous Epithelial Cell Urine Rare /hpf (Few); WBC Urine 31-50 /hpf
[2022-06-29 21:59] LABS: Alanine Aminotransferase 41 U/L (6-35); Albumin Level 4.3 g/dL (3.5-5.1); Alkaline Phosphatase 80 U/L (38-126); Anion Gap 7 mmol/L (8-16); Aspartate Amino Transferase 47 U/L (14-36); Bilirubin,Total 0.3 mg/dL (0.2-1.3); Blood Urea Nitrogen 22 mg/dL (7-17); Calcium 9.4 mg/dL (8.4-10.2); Carbon Dioxide 28 mmol/L (22-30); Chloride 108 mmol/L (98-107); Estimated CRCL calculation 84 ml/min; Estimated Glomerular Filt Rate > 60; Glucose 120 mg/dL (65-110); Lipase 107 U/L (23-300); Potassium 4.2 mmol/L (3.4-5.0); Sodium 143 mmol/L (137-145)
--- NOTE | 2022-06-29 22:44 | ED.GENADULT ---
HPI - General Adult General Chief complaint: Abdominal Pain Stated complaint: flank pain, vomiting Time Seen by Provider: 06/29/22 21:51 History of Present Illness HPI narrative: This is a 51-year-old female with recurrent UTIs presenting to ED with flank pain and suprapubic pain. Patient has been treated multiple times for UTIs since June 07. Patient said that today she stayed at noon she started experiencing left-sided flank pain that feels like being kicked in the side. Pain is nonradiating. It is 8/10 in intensity. It is constant. Patient says she has experienced this before when she has had urinary and kidney infections. Patient has taken Excedrin with some relief. Patient has had multiple episodes of nausea and vomiting. She has also experienced chills. She denies fever, chest pain, shortness of breath or diarrhea. patient admits to increased urinary urgency and frequency. Patient says that she has seen a urologist and has incomplete voiding. Related Data Home Medications Medication Instructions Recorded Confirmed fluoxetine 40 mg capsule 60 mg PO DAILY 08/10/19 06/09/22 aspirin 81 mg tablet,delayed 81 mg PO DAILY 09/06/19 06/09/22 release lorazepam 0.5 mg tablet 0.5 mg PO BID PRN Anxiety 09/06/19 06/09/22 quetiapine 200 mg tablet,extended 200 mg PO HS 05/21/20 06/09/22 release 24 hr cetirizine 10 mg tablet (Zyrtec) 10 mg PO DAILY 07/10/20 06/09/22 albuterol sulfate 2.5 mg/3 mL 2.5 mg inhalation Q6H PRN 12/10/20 06/09/22 (0.083 %) solution for nebulization Shortness Of Breath ascorbic acid (vitamin C) 500 mg 500 mg PO ONCE 04/10/21 06/09/22 tablet calcium carbonate 600 mg-vitamin 1 tablet PO DAILY 04/10/21 06/09/22 D3 5 mcg (200 unit) tablet krill 500 mg-omega 3 115 mg-dha 30 1 cap PO DAILY 04/10/21 06/09/22 mg-epa 64 qb-witljrf-dykis capsule (MegaRed [place]-3 Krill Oil) multivitamin 1 tablet PO DAILY 04/10/21 06/09/22 vitamin B complex 1 cap PO DAILY 04/10/21 06/09/22 lysine 1,000 mg tablet 1,000 mg PO BID 07/05/21 06/09/22 diclofenac sodium 75 mg 75 mg PO BID 01/10/22 06/09/22 tablet,delayed release Allergies Allergy/AdvReac Type Severity Reaction Status Date / Time bee venom protein (honey bee) Allergy Severe Anaphylaxis Verified 06/29/22 21:25 cinnamon Allergy Severe Swelling Verified 06/29/22 21:25 of Lip/Tongue/Throat clove Allergy Severe ANAPHALACTIC Verified 06/29/22 21:25 SHOCK codeine Allergy Severe unknown Verified 06/29/22 21:25 Penicillins Allergy Severe Anaphylaxis Verified 06/29/22 21:25 poison natividad extract Allergy Severe hives , Verified 06/29/22 21:25 goes in lungs adhesive tape Allergy Intermediate eats pts Verified 06/29/22 21:25 skin papaya Allergy Mild SCRATCHY Verified 06/29/22 21:25 THROAT Ussjvsb-VBO-SrH Reductase Allergy Unknown Verified 06/29/22 21:25 Inhibitor hay fever Allergy Severe cough , Uncoded 06/19/22 10:06 throat swells Harvinder Allergy Intermediate itchy Uncoded 06/19/22 10:06 throat Tuna Allergy Intermediate hives Uncoded 06/19/22 10:06 Review of Systems Review of Systems: CONSTITUTIONAL: Denies night sweats. EYES: No eye pain ENT: Denies rhinorrhea CARDIOVASCULAR: Denies palpitations RESPIRATORY: Denies hemoptysis GASTROINTESTINAL: Denies hematemesis GENITOURINARY: Denies hematuria. SKIN: Denies rash MUSCULOSKELETAL: Denies myalgia. NEUROLOGIC: Denies weakness. PSYCHIATRIC: Denies delusions PMFSH Past Medical History Medical History Anxiety Arthritis Asthma Mild persistent Cummings's palsy (~01/2021) Bipolar depression Chronic neck pain Chronic pain Colitis (~04/2020) COPD (chronic obstructive pulmonary disease) Depression Fibromyalgia GERD (gastroesophageal reflux disease) Herpes zoster The patient reports that she has had up to 20 herpes zoster outbreaks on her left arm Hyperlipidemia Hypertriglyceridemia Level
[2022-06-29 23:05] VITALS: BP 111/81; PULSE 77; RESP 17; O2SAT 99
[2022-06-29] MEDS: CIPROFLOXACIN 500 MG TAB PO (23:05)
== END 2022-06-29 23:17 | disposition home or self-care (01) ==
PROVIDERS: Emergency Medicine; Emergency Provider Emergency Medicine; PCP Nurse Practitioner Family
DX: N39.0 Urinary tract infection, site not specified (principal); J44.9 Chronic obstructive pulmonary disease, unspecified; J45.30 Mild persistent asthma, uncomplicated; E78.5 Hyperlipidemia, unspecified; E03.9 Hypothyroidism, unspecified; K21.9 Gastro-esophageal reflux disease without esophagitis; M19.90 Unspecified osteoarthritis, unspecified site; M79.7 Fibromyalgia; G47.33 Obstructive sleep apnea (adult) (pediatric); G62.9 Polyneuropathy, unspecified; F41.9 Anxiety disorder, unspecified; F31.9 Bipolar disorder, unspecified; Z90.710 Acquired absence of both cervix and uterus; Z87.891 Personal history of nicotine dependence
CPT/HCPCS: 36415; 80053; 81001; 81025; 83690; 85025; 87086; 87088; 99283; A9270

== ENCOUNTER 2022-10-03 11:18 | Outpatient (CLI) | payer OTHER, SELFPAY ==
[2022-10-03 20:40] LABS: Hepatitis B Surface Antigen Negative (Negative)
[2022-10-03 20:58] LABS: Hepatitis C Virus Antibody Negative (Negative)
[2022-10-06 09:21] LABS: Rapid Plasma Reagin Non-Reactive (NonReactive)
[2022-10-07 09:28] LABS: HIV 1 2 Ag Ab 4th Gen w Rflxs Non-reactive (Non-reactive)
== END 2022-10-03 11:19 | disposition home or self-care (01) ==
LOC: ANHGOSHLAB 11:21
PROVIDERS: PCP Family Medicine; Visit Provider Nurse Practitioner Family
DX: Z20.2 Contact with and (suspected) exposure to infections with a predominantly sexual mode of transmission (principal)
CPT/HCPCS: 36415; 86592; 86803; 87340; 87389; 87491; 87591

== ENCOUNTER 2022-10-17 12:33 | Outpatient (CLI) | payer OTHER, SELFPAY | END 2022-10-17 12:34 | disposition home or self-care (01) | LOC: ANHGOSHLAB 12:35 | PROVIDERS: PCP Family Medicine; Visit Provider Nurse Practitioner Family | DX: Z20.2 Contact with and (suspected) exposure to infections with a predominantly sexual mode of transmission (principal) | CPT/HCPCS: 87491; 87591 ==

== ENCOUNTER 2022-10-27 20:17 | Outpatient (NON) | payer OTHER, SELFPAY | END 2022-10-27 20:18 | disposition home or self-care (01) | LOC: ANHLAB 20:18 | PROVIDERS: PCP Family Medicine; Visit Provider Nurse Practitioner Family | DX: R39.9 Unspecified symptoms and signs involving the genitourinary system (principal) | CPT/HCPCS: 87077; 87086; 87088; 87186 ==

== ENCOUNTER 2022-12-18 09:32 | Outpatient (RCR) | payer OTHER, SELFPAY ==
[2022-12-18 09:33] VITALS: BMI 35.4
[2022-12-18 10:40] VITALS: BMI 35.4
== END 2023-03-09 09:04 | disposition home or self-care (01) ==
LOC: ANHDMC 09:32
PROVIDERS: PCP Family Medicine; Visit Provider Nurse Practitioner Family
DX: E66.9 Obesity, unspecified (principal); Z68.35 Body mass index [BMI] 35.0-35.9, adult; Z71.3 Dietary counseling and surveillance
CPT/HCPCS: 97802

== ENCOUNTER 2023-01-11 12:41 | Emergency (ER) | payer OTHER, SELFPAY ==
[2023-01-11 12:57] VITALS: BP 118/81; PULSE 89; RESP 16; TEMP 36.6; O2SAT 98
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
== END 2023-01-11 13:42 | disposition home or self-care (01) ==
PROVIDERS: Emergency Provider Nurse Practitioner Family; PCP Family Medicine
DX: L25.5 Unspecified contact dermatitis due to plants, except food (principal); Z87.891 Personal history of nicotine dependence; F12.90 Cannabis use, unspecified, uncomplicated; M19.90 Unspecified osteoarthritis, unspecified site; J45.909 Unspecified asthma, uncomplicated; J44.9 Chronic obstructive pulmonary disease, unspecified; M79.7 Fibromyalgia; K21.9 Gastro-esophageal reflux disease without esophagitis; E78.5 Hyperlipidemia, unspecified; E03.9 Hypothyroidism, unspecified; G62.9 Polyneuropathy, unspecified; Z79.82 Long term (current) use of aspirin; F41.9 Anxiety disorder, unspecified; F31.9 Bipolar disorder, unspecified
CPT/HCPCS: 99213; G0463

== ENCOUNTER 2023-01-15 08:57 | Outpatient (CLI) | payer OTHER, SELFPAY ==
[2023-01-15 13:14] LABS: Alanine Aminotransferase 58 U/L (6-35); Albumin Level 4.6 g/dL (3.5-5.1); Alkaline Phosphatase 81 U/L (38-126); Anion Gap 7 mmol/L (8-16); Aspartate Amino Transferase 54 U/L (14-36); Bilirubin,Total 0.8 mg/dL (0.2-1.3); Blood Urea Nitrogen 26 mg/dL (7-17); Calcium 9.2 mg/dL (8.4-10.2); Carbon Dioxide 28 mmol/L (22-30); Chloride 106 mmol/L (98-107); Cholesterol 179 mg/dL (0-200); Estimated Glomerular Filt Rate > 60; Glucose 91 mg/dL (65-110); HDL Direct 46 mg/dL; Potassium 4.6 mmol/L (3.4-5.0); Sodium 141 mmol/L (137-145); Triglycerides 121 mg/dL (<150)
[2023-01-15 13:25] LABS: LDL Cholesterol Direct 111 mg/dL
== END 2023-01-15 08:58 | disposition home or self-care (01) ==
LOC: ANHGOSHLAB 08:59
PROVIDERS: PCP Family Medicine; Visit Provider Internal Medicine Cardiovascular Disease
DX: E78.5 Hyperlipidemia, unspecified (principal)
CPT/HCPCS: 36415; 80053; 80061

== ENCOUNTER 2023-03-06 12:50 | Outpatient (CLI) | payer OTHER, SELFPAY ==
--- NOTE | ~2023-03-06 | CT_ITS ---
EXAMINATION: CT cervical spine w con DATE: 03/06/2023 13:13 INDICATION: Neck pain. TECHNIQUE: Computed tomography (CT) of the cervical spine was performed with 100 mL Omnipaque 350 int ravenous contrast. Automated exposure control and iterative reconstruction technique were employed. T he dose-length product was 433.68 mGy-cm. COMPARISON: CT cervical spine 11/02/2017 FINDINGS: There is kyphosis of cervical spine. Vertebral body heights are normal. Intervertebral disc heights are normal. There are changes of disc replacement at C6-C7. The following disc levels are sp ecifically discussed: C2-C3: There is mild left uncovertebral joint osteoarthritis. There is moderate right and severe left facet joint osteoarthritis. There is mild left neural foraminal stenosis. There is no central canal stenosis. C3-C4: There is mild bilateral uncovertebral joint osteoarthritis. There is mild right and severe lef t facet joint osteoarthritis. There is mild left neural foraminal stenosis. There is no central canal stenosis. C4-C5: There is mild bilateral uncovertebral joint osteoarthritis. There is mild right and severe lef t facet joint osteoarthritis. There is no neural foraminal stenosis. There is no central canal stenos is. C5-C6: There is mild bilateral uncovertebral joint osteoarthritis. There is moderate right and severe left facet joint osteoarthritis. There is mild left neural foraminal stenosis. There is mild central canal stenosis. C6-C7: There is mild lateral uncovertebral joint hypertrophy. There is moderate bilateral facet joint osteoarthritis. There is mild bilateral neural foraminal stenosis. There is mild central canal steno sis. C7-T1: There is no uncovertebral joint osteoarthritis. There is severe bilateral facet joint osteoart hritis. There is mild left neural foraminal stenosis. There is no central canal stenosis. IMPRESSION: 1. Mild cervical spondylosis. 2. Disc replacement at C6-C7. Reviewed, dictated and finalized at location A.
== END 2023-03-06 12:51 | disposition home or self-care (01) ==
LOC: ANHIMG 12:51
PROVIDERS: PCP Family Medicine; Visit Provider Nurse Practitioner Family
DX: M47.892 Other spondylosis, cervical region (principal)
CPT/HCPCS: 72126; Q9967

== ENCOUNTER 2023-04-27 08:28 | Emergency (ER) | payer OTHER, SELFPAY ==
--- NOTE | 2023-04-27 08:49 | ED.FEMALEGU ---
HPI - Female Genitourinary General Chief complaint: Urogenital-Female Stated complaint: Can't urinate; pain in abdomen Time Seen by Provider: 04/27/23 08:54 Source: patient, RN notes reviewed and old records reviewed Mode of arrival: ambulatory Limitations: no limitations History of Present Illness HPI Narrative: 52 year old female who resents to express care with complaints of not being able to urinate well and pressure and cramping in her lower suprapubic abdominal area since Thursday evening around 2030. Patient reports that she has had urinary tract infections in the past that she has been told that she holds about 40% of her urine in her bladder. Patient reports that she has seen urology in past and they want to do a test on her bladder but every time they get ready to she has something else going on in her body and they want to reschedule the test. Patient reports that she urinated Thursday evening at 2030 but then didn't urinate till this morning early at 0500 and didn't feel she emptied her bladder well, admits she didn't drink fluids much yesterday. Patient questioned why she didn't go to ED she reported she didn't have anyone to take her. Patient denies any fevers, chills or sweats, denies any nausea or vomiting, no constipation reports she had a normal bowel movement this morning.Patient denies any vaginal discharge or any itching, denies any concern for STD exposure. MD elicited complaint: UTI Pertinent past history: other (previous UTI's) Onset (ago): day(s) (2 days) Location of symptoms: suprapubic and urethra Severity scale (1-10): 5 Vaginal discharge: none Vaginal bleeding: none Related Data Home Medications Medication Instructions Recorded Confirmed fluoxetine 40 mg capsule 60 mg PO DAILY 08/10/19 04/27/23 aspirin 81 mg tablet,delayed 81 mg PO DAILY 09/06/19 04/27/23 release lorazepam 0.5 mg tablet 0.5 mg PO BID PRN Anxiety 09/06/19 04/27/23 cetirizine 10 mg tablet (Zyrtec) 10 mg PO DAILY 07/10/20 04/27/23 quetiapine 200 mg tablet,extended 300 mg PO HS 08/29/22 04/27/23 release 24 hr nystatin 100,000 unit/gram topical 1 applic topical TID 09/26/22 04/27/23 powder diclofenac sodium 75 mg 75 mg PO BID 01/08/23 04/27/23 tablet,delayed release montelukast 10 mg tablet 10 mg PO DAILY 01/08/23 04/27/23 ezetimibe 10 mg tablet 10 mg PO DAILY 01/27/23 04/27/23 Allergies Allergy/AdvReac Type Severity Reaction Status Date / Time bee venom protein (honey bee) Allergy Severe Anaphylaxis Verified 04/27/23 08:43 cinnamon Allergy Severe Swelling Verified 04/27/23 08:43 of Lip/Tongue/Throat clove Allergy Severe ANAPHALACTIC Verified 04/27/23 08:43 SHOCK codeine Allergy Severe unknown Verified 04/27/23 08:43 Penicillins Allergy Severe Anaphylaxis Verified 04/27/23 08:43 poison natividad extract Allergy Severe hives , Verified 04/27/23 08:43 goes in lungs adhesive tape Allergy Intermediate eats pts Verified 04/27/23 08:43 skin papaya Allergy Mild SCRATCHY Verified 04/27/23 08:43 THROAT mold Allergy Anaphylaxis Verified 04/27/23 08:44 Ugcoohx-ETP-NeV Reductase Allergy Unknown Verified 04/27/23 08:43 Inhibitor hay fever Allergy Severe cough , Uncoded 04/27/23 08:43 throat swells [place] Allergy Intermediate itchy Uncoded 04/27/23 08:43 throat Tuna Allergy Intermediate hives Uncoded 04/27/23 08:43 Review of Systems Review of Systems: CONSTITUTIONAL: Denies fever, chills, or sweats. CARDIOVASCULAR: Denies chest pain, palpitations, or edema. RESPIRATORY: Denies cough or dyspnea. GASTROINTESTINAL: Reports suprapubic abdominal pressure and cramping,no nausea, vomiting, or diarrhea. GENITOURINARY: Reports no burning with urination states is painful though, denies any frequency, urgency. Denies flank pain or visible hematuria, difficulty urinating reported SKIN: Denies rash or itching. MUSCULOSKELETAL: Denies back pain, has chronic neck pain or myalgia. Denies CVA tenderness
[2023-04-27 08:55] VITALS: BP 104/62; PULSE 89; RESP 16; TEMP 36.6; O2SAT 100
== END 2023-04-27 09:23 | disposition home or self-care (01) ==
PROVIDERS: Emergency Provider Registered Nurse; PCP Family Medicine
DX: R39.198 Other difficulties with micturition (principal); R30.9 Painful micturition, unspecified; Z87.891 Personal history of nicotine dependence; F12.90 Cannabis use, unspecified, uncomplicated; M19.90 Unspecified osteoarthritis, unspecified site; J44.9 Chronic obstructive pulmonary disease, unspecified; M79.7 Fibromyalgia; K21.9 Gastro-esophageal reflux disease without esophagitis; E78.5 Hyperlipidemia, unspecified; E03.9 Hypothyroidism, unspecified; G62.9 Polyneuropathy, unspecified; M50.30 Other cervical disc degeneration, unspecified cervical region; Z79.82 Long term (current) use of aspirin; F41.9 Anxiety disorder, unspecified; F31.9 Bipolar disorder, unspecified
CPT/HCPCS: 81003; 87086; 87088; 99213; G0463

== ENCOUNTER 2023-07-01 10:13 | Emergency (ER) | payer OTHER, SELFPAY ==
--- NOTE | ~2023-07-01 | XR_ITS ---
XR chest 2V DATE: 07/01/2023 10:47 INDICATION: Productive cough, shortness of breath. Crackles. History of COPD. TECHNIQUE: 2 views COMPARISON: 08/17/2021 portable AP chest FINDINGS: Normal heart size. No hilar or mediastinal enlargement. Chronic mild elevation right diaphragm, stable since 08/17/2021. No pulmonary infiltrate or consolidation, pleural effusion or pulmonary vascular congestion or pneumo thorax. Status post interbody spinal fusion at C6-7. No suspicious osteolytic or osteoblastic lesions. IMPRESSION: No active cardiopulmonary disease Reviewed, dictated and finalized at location B.
[2023-07-01 10:24] VITALS: BP 145/90; PULSE 75; RESP 16; TEMP 35.8; O2SAT 100
--- NOTE | 2023-07-01 10:28 | ED.URI ---
HPI - URI/Sore Throat General Chief Complaint: Upper Respiratory Infection Stated Complaint: Allergies;Copd Time Seen by Provider: 07/01/23 10:15 Source: patient and RN notes reviewed History of Present Illness HPI Narrative: Patient is a 52-year-old female presents to urgent care with complaints of allergy flare up and cough. Patient states she does have a history of COPD and has been taking her Singulair, using her albuterol inhaler and nebulizer. Patient states after her shower this morning and 2 nebulizer treatments, she felt better. Patient states she called her primary who suggested she go to the emergency room. Patient is not complaining of any chest pain or shortness of breath at this time. States that she cannot lay flat oral she has coughing fits. Patient states symptoms started with itchy eyes on Thursday and a mild sore throat yesterday. Patient denies any fever, nausea or vomiting. States that she has also been taking allergy/mucus relief [id number]. No other acute complaints. No acute distress noted. Patient aware of the plan care. Some parts of this dictation were generated by voice recognition software and may contain typographical and/or grammatical inaccuracies. Related Data Home Medications Medication Instructions Recorded Confirmed fluoxetine 40 mg capsule 60 mg PO DAILY 08/10/19 06/24/23 aspirin 81 mg tablet,delayed 81 mg PO DAILY 09/06/19 06/24/23 release lorazepam 0.5 mg tablet 0.5 mg PO BID PRN Anxiety 09/06/19 06/24/23 cetirizine 10 mg tablet (Zyrtec) 10 mg PO DAILY 07/10/20 06/24/23 quetiapine 200 mg tablet,extended 300 mg PO HS 08/29/22 06/24/23 release 24 hr ezetimibe 10 mg tablet 10 mg PO DAILY 01/27/23 06/24/23 Allergies Allergy/AdvReac Type Severity Reaction Status Date / Time bee venom protein (honey bee) Allergy Severe Anaphylaxis Verified 07/01/23 10:45 cinnamon Allergy Severe Swelling Verified 07/01/23 10:45 of Lip/Tongue/Throat clove Allergy Severe ANAPHALACTIC Verified 07/01/23 10:45 SHOCK codeine Allergy Severe unknown Verified 07/01/23 10:45 Penicillins Allergy Severe Anaphylaxis Verified 07/01/23 10:45 poison natividad extract Allergy Severe hives , Verified 07/01/23 10:45 goes in lungs adhesive tape Allergy Intermediate eats pts Verified 07/01/23 10:45 skin papaya Allergy Mild SCRATCHY Verified 07/01/23 10:45 THROAT mold Allergy Anaphylaxis Verified 07/01/23 10:45 [place]-NKL-RdO Reductase Allergy Unknown Verified 07/01/23 10:45 Inhibitor hay fever Allergy Severe cough , Uncoded 07/01/23 10:45 throat swells [place] Allergy Intermediate itchy Uncoded 07/01/23 10:45 throat Tuna Allergy Intermediate hives Uncoded 07/01/23 10:45 Review of Systems Review of Systems: CONSTITUTIONAL: Denies fever, chills, or sweats. EYES: Reports itchy/watery eyes ENT: Reports postnasal drainage, mild sore throat and congestion CARDIOVASCULAR: Denies chest pain, palpitations, or edema. RESPIRATORY: Reports of productive cough with intermittent dyspnea GASTROINTESTINAL: Denies abdominal pain, nausea, vomiting, or diarrhea. GENITOURINARY: Denies dysuria or hematuria. SKIN: Denies rash or itching. MUSCULOSKELETAL: Denies back pain, joint pain, or myalgia. NEUROLOGIC: Denies headache, numbness, or weakness. All other systems reviewed are negative, except as documented in HPI. [facility] Past Medical History Medical History Anxiety Arthritis Asthma Mild persistent Cummings's palsy (~01/2021) Bipolar depression Chronic neck pain Chronic pain Colitis (~04/2020) COPD (chronic obstructive pulmonary disease) Depression Fibromyalgia GERD (gastroesophageal reflux disease) Herpes zoster The patient reports that she has had up to 20 herpes zoster outbreaks on her left arm Hyperlipidemia Hypertriglyceridemia Levels ranging between 140 and 207 in 2019 Hypothyroidism Migraine Neuropathy
== END 2023-07-01 11:25 | disposition home or self-care (01) ==
PROVIDERS: Emergency Provider Nurse Practitioner Family; PCP Family Medicine
DX: J06.9 Acute upper respiratory infection, unspecified (principal); R05.3 Chronic cough; E78.5 Hyperlipidemia, unspecified; E03.9 Hypothyroidism, unspecified; Z87.891 Personal history of nicotine dependence
CPT/HCPCS: 71046; 99213; G0463

== ENCOUNTER 2023-07-11 18:46 | Emergency (ER) | payer OTHER, SELFPAY ==
--- NOTE | 2023-07-11 18:50 | ED.WOUNDLAC ---
HPI - Wound/Laceration General Chief Complaint: Wound/Laceration Stated Complaint: Cut finger Time Seen by Provider: 07/11/23 18:50 Source: patient, RN notes reviewed and old records reviewed Mode of arrival: ambulatory Limitations: no limitations History of Present Illness HPI narrative: 52-year-old female presents to the [facility] with an amputation to the tip of 4th finger left hand with nail removed. Bleeding is not controlled. Last Tdap was November of 2020. states that she was using a circular saw when it jumped and took the tip of her finger off Occurred approximately 18:15 this evening Onset (ago): minute(s) Patient tetanus UTD: Yes Related Data Home Medications Medication Instructions Recorded Confirmed fluoxetine 40 mg capsule 60 mg PO DAILY 08/10/19 06/24/23 aspirin 81 mg tablet,delayed 81 mg PO DAILY 09/06/19 06/24/23 release lorazepam 0.5 mg tablet 0.5 mg PO BID PRN Anxiety 09/06/19 06/24/23 cetirizine 10 mg tablet (Zyrtec) 10 mg PO DAILY 07/10/20 06/24/23 quetiapine 200 mg tablet,extended 300 mg PO HS 08/29/22 06/24/23 release 24 hr ezetimibe 10 mg tablet 10 mg PO DAILY 01/27/23 06/24/23 Allergies Allergy/AdvReac Type Severity Reaction Status Date / Time bee venom protein (honey bee) Allergy Severe Anaphylaxis Verified 07/01/23 10:45 cinnamon Allergy Severe Swelling Verified 07/01/23 10:45 of Lip/Tongue/Throat clove Allergy Severe ANAPHALACTIC Verified 07/01/23 10:45 SHOCK codeine Allergy Severe unknown Verified 07/01/23 10:45 Penicillins Allergy Severe Anaphylaxis Verified 07/01/23 10:45 poison natividad extract Allergy Severe hives , Verified 07/01/23 10:45 goes in lungs adhesive tape Allergy Intermediate eats pts Verified 07/01/23 10:45 skin papaya Allergy Mild SCRATCHY Verified 07/01/23 10:45 THROAT mold Allergy Anaphylaxis Verified 07/01/23 10:45 Svjoukz-LLU-FdX Reductase Allergy Unknown Verified 07/01/23 10:45 Inhibitor hay fever Allergy Severe cough , Uncoded 07/01/23 10:45 throat swells [place] Allergy Intermediate itchy Uncoded 07/01/23 10:45 throat Tuna Allergy Intermediate hives Uncoded 07/01/23 10:45 Review of Systems Review of Systems: All systems reviewed & are unremarkable except as noted in HPI and below Constitutional: Constitutional: Reports no additional constitutional complaints Eyes: Eyes: Reports no additional eye complaints ENT: Reports system reviewed and no additional complaints, except as documented Cardiovascular: Cardiovascular: Reports no additional cardiovascular complaints, Denies chest pain and Denies dyspnea Respiratory: Respiratory: Reports no additional respiratory complaints, Denies chest congestion, Denies cough and Denies dyspnea Gastrointestinal: Gastrointestinal: Reports no additional gastrointestinal complaints, Denies abdominal pain, Denies nausea and Denies vomiting Musculoskeletal: Musculoskeletal: Reports as per HPI Integumentary/Breasts: Skin/Breast: Reports as per HPI and Reports wounds Neurologic: Reports system reviewed and no additional complaints, except as documented Psychiatric: Psychiatric: Reports no additional psychiatric complaints Allergic/Immunologic: Allergic/Immunologic: Reports no additional allergic/immunologic complaints PMFSH Past Medical History Medical History Anxiety Arthritis Asthma Mild persistent Cummings's palsy (~01/2021) Bipolar depression Chronic neck pain Chronic pain Colitis (~04/2020) COPD (chronic obstructive pulmonary disease) Depression Fibromyalgia GERD (gastroesophageal reflux disease) Herpes zoster The patient reports that she has had up to 20 herpes zoster outbreaks on her left arm Hyperlipidemia Hypertriglyceridemia Levels ranging between 140 and 207 in 2019 Hypothyroidism Migraine Neuropathy SG (obstructive sleep apnea) Osteomyelitis of left foot Peripheral neuropathy Due to cervi
[2023-07-11 18:52] VITALS: BP 165/97; PULSE 80; RESP 16; TEMP 36.1; O2SAT 100
== END 2023-07-11 19:20 | disposition left against medical advice (07) ==
PROVIDERS: Emergency Provider Nurse Practitioner; PCP Family Medicine
DX: S68.125A Partial traumatic metacarpophalangeal amputation of left ring finger, initial encounter (principal); W27.0XXA Contact with workbench tool, initial encounter; J44.9 Chronic obstructive pulmonary disease, unspecified; M79.7 Fibromyalgia; K21.9 Gastro-esophageal reflux disease without esophagitis; E78.5 Hyperlipidemia, unspecified; E78.1 Pure hyperglyceridemia; E03.9 Hypothyroidism, unspecified; G62.9 Polyneuropathy, unspecified; M50.30 Other cervical disc degeneration, unspecified cervical region; F41.9 Anxiety disorder, unspecified; F31.9 Bipolar disorder, unspecified; Z79.82 Long term (current) use of aspirin
CPT/HCPCS: 99212; G0463

== ENCOUNTER 2023-08-11 15:21 | Emergency (ER) | payer OTHER, SELFPAY ==
--- NOTE | 2023-08-11 15:24 | ED.URI ---
HPI - URI/Sore Throat General Chief Complaint: Upper Respiratory Infection Stated Complaint: FEVER/HEADACHE/BODY ACHES/COUGH Time Seen by Provider: 08/11/23 15:40 Source: patient and RN notes reviewed Mode of arrival: ambulatory Limitations: no limitations History of Present Illness HPI Narrative: 52-year-old female presents concern for fever, body aches, headache, cough. Reports symptoms started yesterday. Reports she has been taking [id number]-[id number] medication without relief. She denies known sick contacts MD elicited complaint: cough and sore throat Related Data Home Medications Medication Instructions Recorded Confirmed fluoxetine 40 mg capsule 60 mg PO DAILY 08/10/19 07/20/23 aspirin 81 mg tablet,delayed 81 mg PO DAILY 09/06/19 07/20/23 release lorazepam 0.5 mg tablet 0.5 mg PO BID PRN Anxiety 09/06/19 07/20/23 cetirizine 10 mg tablet (Zyrtec) 10 mg PO DAILY 07/10/20 07/20/23 quetiapine 200 mg tablet,extended 300 mg PO HS 08/29/22 07/20/23 release 24 hr ezetimibe 10 mg tablet 10 mg PO DAILY 01/27/23 07/20/23 sulfamethoxazole 400 1 tablet PO DAILY 07/16/23 07/20/23 mg-trimethoprim 80 mg tablet (Bactrim) Allergies Allergy/AdvReac Type Severity Reaction Status Date / Time bee venom protein (honey bee) Allergy Severe Anaphylaxis Verified 07/20/23 11:02 cinnamon Allergy Severe Swelling Verified 07/20/23 11:02 of Lip/Tongue/Throat clove Allergy Severe ANAPHALACTIC Verified 07/20/23 11:02 SHOCK codeine Allergy Severe unknown Verified 07/20/23 11:02 Penicillins Allergy Severe Anaphylaxis Verified 07/20/23 11:02 poison natividad extract Allergy Severe hives , Verified 07/20/23 11:02 goes in lungs adhesive tape Allergy Intermediate eats pts Verified 07/20/23 11:02 skin papaya Allergy Mild SCRATCHY Verified 07/20/23 11:02 THROAT mold Allergy Anaphylaxis Verified 07/20/23 11:02 Zcapitn-JTD-JoP Reductase Allergy Unknown Verified 07/20/23 11:02 Inhibitor hay fever Allergy Severe cough , Uncoded 07/20/23 11:02 throat swells [place] Allergy Intermediate itchy Uncoded 07/20/23 11:02 throat Tuna Allergy Intermediate hives Uncoded 07/20/23 11:02 Review of Systems Review of Systems: CONSTITUTIONAL: Reports malaise, fever. EYES: Denies visual changes, redness, or discharge. ENT: Reports rhinorrhea, congestion. Denies sinus pain, otalgia and sore throat. CARDIOVASCULAR: Denies chest pain, palpitations, or edema. RESPIRATORY: Reports cough. Denies dyspnea. GASTROINTESTINAL: Denies abdominal pain, nausea, vomiting, diarrhea SKIN: Denies rash or itching. MUSCULOSKELETAL: Denies myalgia. NEUROLOGIC: Reports headache. All systems reviewed & are unremarkable except as noted in HPI and below PMFSH Past Medical History Medical History (Updated 08/11/23 @ 15:51 by Nasrin Ramesh NP) Anxiety Arthritis Asthma Mild persistent Cummings's palsy (~01/2021) Bipolar depression Chronic neck pain Chronic pain Colitis (~04/2020) COPD (chronic obstructive pulmonary disease) Depression Fibromyalgia Finger injury GERD (gastroesophageal reflux disease) Herpes zoster The patient reports that she has had up to 20 herpes zoster outbreaks on her left arm Hyperlipidemia Hypertriglyceridemia Levels ranging between 140 and 207 in 2019 Hypothyroidism Migraine Neuropathy SG (obstructive sleep apnea) Osteomyelitis of left foot Peripheral neuropathy Due to cervical disc disease Poison natividad dermatitis Skin infection Stress incontinence Suicide SI at age 16 Thyroid condition Wears glasses Surgical History Surgical History H/O: hysterectomy (~2003) History of cervical spinal surgery Cervical disc replacement 2005 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
[2023-08-11 15:39] VITALS: BP 125/97; PULSE 82; RESP 16; TEMP 36.6; O2SAT 100
== END 2023-08-11 15:55 | disposition home or self-care (01) ==
PROVIDERS: Emergency Provider Nurse Practitioner; PCP Family Medicine
DX: J10.1 Influenza due to other identified influenza virus with other respiratory manifestations (principal); Z20.822 Contact with and (suspected) exposure to COVID-19; Z87.891 Personal history of nicotine dependence; F12.90 Cannabis use, unspecified, uncomplicated; J44.9 Chronic obstructive pulmonary disease, unspecified; M79.7 Fibromyalgia; K21.9 Gastro-esophageal reflux disease without esophagitis; E78.5 Hyperlipidemia, unspecified; E78.1 Pure hyperglyceridemia; E03.9 Hypothyroidism, unspecified; G62.9 Polyneuropathy, unspecified; F41.9 Anxiety disorder, unspecified; F31.9 Bipolar disorder, unspecified; Z79.82 Long term (current) use of aspirin
CPT/HCPCS: 87426; 87804; 99213; C9803; G0463

== ENCOUNTER 2024-04-04 08:08 | Outpatient (CLI) | payer OTHER, SELFPAY ==
[2024-04-04 18:47] LABS: Hematocrit 45.6 % (37.0-47.0); Mean Corpuscular HGB Conc 30.7 g/dl (32-36); Mean Corpuscular Hemoglobin 28.9 pg (26-34); Mean Corpuscular Volume 94.2 fl (80-100); Mean Platelet Volume 12.4 fl (7.4-10.4); Platelet Count Result 197 k/mm3 (150-375); Red Blood Count 4.84 M/mm3 (4.2-5.4); Red Cell Distribution Width 13.7 % (11.5-14.5); White Blood Count 4.9 K/mm3 (4.5-10.0)
[2024-04-04 19:33] LABS: Alanine Aminotransferase 28 U/L (6-35); Albumin Level 4.3 g/dL (3.5-5.1); Alkaline Phosphatase 86 U/L (38-126); Anion Gap 12 mmol/L (4-12); Aspartate Amino Transferase 49 U/L (14-36); Bilirubin,Total 0.4 mg/dL (0.2-1.3); Blood Urea Nitrogen 30 mg/dL (7-17); Calcium 9.1 mg/dL (8.4-10.2); Carbon Dioxide 26 mmol/L (22-30); Chloride 105 mmol/L (98-107); Cholesterol 157 mg/dL (0-200); Estimated Glomerular Filt Rate > 60; Glucose 76 mg/dL (65-110); HDL Direct 44 mg/dL; Potassium 4.4 mmol/L (3.4-5.0); Sodium 143 mmol/L (137-145); Triglycerides 105 mg/dL (<150)
[2024-04-04 19:35] LABS: Vitamin D 25 Hydroxy 40.1 ng/mL
[2024-04-04 19:43] LABS: LDL Cholesterol Direct 97 mg/dL
== END 2024-04-04 08:09 | disposition home or self-care (01) ==
LOC: ANHGOSHLAB 08:09
PROVIDERS: PCP Family Medicine; Visit Provider Nurse Practitioner
DX: Z00.00 Encounter for general adult medical examination without abnormal findings (principal); E55.9 Vitamin D deficiency, unspecified
CPT/HCPCS: 36415; 80053; 80061; 82306; 84443; 85027

== ENCOUNTER 2024-05-06 08:11 | Emergency (ER) | payer OTHER, SELFPAY ==
--- NOTE | ~2024-05-06 | XR_ITS ---
EXAMINATION: XR chest 1V portable DATE: 05/06/2024 09:18 INDICATION: Left upper extremity pain. TECHNIQUE: A single frontal view of the chest was obtained. COMPARISON: Chest 2 views 07/01/2023. FINDINGS: There is chronic mild elevation of right hemidiaphragm. There is mild atelectasis in left l ower lung zone. No pleural effusion or pneumothorax. The heart size is normal. There are changes of d isc replacement in cervical spine. IMPRESSION: 1. Mild atelectasis in left lower lung zone. Reviewed, dictated and finalized at location A.
[2024-05-06 08:15] VITALS: BP 137/93; PULSE 106; RESP 18; TEMP 36.6; O2SAT 98
--- NOTE | 2024-05-06 08:30 | ED.UPPEXIN ---
HPI - Extremity Injury (Upper) General Chief Complaint: Extremity Injury, Upper Stated Complaint: left shoulder pain, numbness and tingling Time Seen by Provider: 05/06/24 08:29 Source: patient Mode of arrival: ambulatory Limitations: no limitations History of Present Illness HPI narrative: 53 years old white female drove herself to the emergency room complaining of left upper extremity and shoulder aches and pain worse with certain movement and position, better at rest, wake her up from sleep at 2:00 a.m. after working at her backyard the day before. Patient also had a new puppy 45 lb been lifting the puppy most of the time using her left upper extremity. She denies any chest pain or shortness of breath or recent trauma Related Data Home Medications Medication Instructions Recorded Confirmed aspirin 81 mg tablet,delayed 81 mg PO DAILY 09/06/19 01/15/24 release cetirizine 10 mg tablet (Zyrtec) 10 mg PO DAILY 07/10/20 01/15/24 quetiapine 200 mg tablet,extended 300 mg PO HS 08/29/22 01/15/24 release 24 hr sulfamethoxazole 400 1 tablet PO DAILY 07/16/23 01/15/24 mg-trimethoprim 80 mg tablet (Bactrim) fluoxetine 20 mg capsule 20 mg PO DAILY 01/15/24 01/15/24 fluoxetine 40 mg capsule 40 mg PO DAILY 01/15/24 01/15/24 Allergies Allergy/AdvReac Type Severity Reaction Status Date / Time bee venom protein (honey bee) Allergy Severe Anaphylaxis Verified 05/06/24 08:20 cinnamon Allergy Severe Swelling Verified 05/06/24 08:20 of Lip/Tongue/Throat clove Allergy Severe ANAPHALACTIC Verified 05/06/24 08:20 SHOCK codeine Allergy Severe unknown Verified 05/06/24 08:20 Penicillins Allergy Severe Anaphylaxis Verified 05/06/24 08:20 poison natividad extract Allergy Severe hives , Verified 05/06/24 08:20 goes in lungs adhesive tape Allergy Intermediate eats pts Verified 05/06/24 08:20 skin papaya Allergy Mild SCRATCHY Verified 05/06/24 08:20 THROAT mold Allergy Anaphylaxis Verified 05/06/24 08:20 Lxvsqjk-HNZ-XrT Reductase Allergy Unknown Verified 05/06/24 08:20 Inhibitor hay fever Allergy Severe cough , Uncoded 05/06/24 08:20 throat swells [place] Allergy Intermediate itchy Uncoded 05/06/24 08:20 throat Tuna Allergy Intermediate hives Uncoded 05/06/24 08:20 Review of Systems Review of Systems: All systems reviewed & are unremarkable except as noted in HPI and below PMFSH Past Medical History Medical History Anxiety Arthritis Asthma Mild persistent Cummings's palsy (~01/2021) Bipolar depression Chronic neck pain Chronic pain Colitis (~04/2020) COPD (chronic obstructive pulmonary disease) Depression Fibromyalgia Finger injury GERD (gastroesophageal reflux disease) Herpes zoster The patient reports that she has had up to 20 herpes zoster outbreaks on her left arm Hyperlipidemia Hypertriglyceridemia Levels ranging between 140 and 207 in 2019 Hypothyroidism Migraine Neuropathy SG (obstructive sleep apnea) Osteomyelitis of left foot Peripheral neuropathy Due to cervical disc disease Poison natividad dermatitis Skin infection Stress incontinence Suicide SI at age 16 Thyroid condition Wears glasses Surgical History Surgical History H/O: hysterectomy (~2003) History of cervical spinal surgery Cervical disc replacement 2005 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
--- NOTE | 2024-05-06 08:44 | ECG_ITS ---
Test Date: 2024-05-06 09:02:24 Measurements Intervals [place] Rate: 86 P: 36 MN: 161 QRS: 38 QRSD: 94 T: 40 QT: 377 QTc: 453 Interpretive Statements SINUS RHYTHM WITHIN NORMAL LIMITS No previous ECG available for comparison Electronically Signed On 05-06-2024 15:00:19 CDT by Ike Angulo M.D.
== END 2024-05-06 10:15 | disposition home or self-care (01) ==
PROVIDERS: Emergency Provider Emergency Medicine; PCP Family Medicine
DX: M25.512 Pain in left shoulder (principal); J45.30 Mild persistent asthma, uncomplicated; J44.9 Chronic obstructive pulmonary disease, unspecified; E78.5 Hyperlipidemia, unspecified; E78.1 Pure hyperglyceridemia; E03.9 Hypothyroidism, unspecified; M19.90 Unspecified osteoarthritis, unspecified site; M79.7 Fibromyalgia; K21.9 Gastro-esophageal reflux disease without esophagitis; G62.9 Polyneuropathy, unspecified; G47.33 Obstructive sleep apnea (adult) (pediatric); F31.9 Bipolar disorder, unspecified; F41.9 Anxiety disorder, unspecified; Z90.710 Acquired absence of both cervix and uterus; Z79.82 Long term (current) use of aspirin; Z79.899 Other long term (current) drug therapy
CPT/HCPCS: 71045; 93005; 99283

== ENCOUNTER 2024-06-21 08:56 | Outpatient (CLI) | payer OTHER, SELFPAY ==
--- NOTE | 2024-06-21 09:20 | NEURO_ITS ---
Impression: # Complains of left upper extremity tingling. Non-Diabetic. History of previous neck surgery # No Carpal Tunnel Syndrome # No Ulnar Neuropathy # Needle/EMG exam mildly neurogenic in biceps. Could be related to old surgery. Nerve Conduction Studies Anti Sensory Summary Table Stim Site NR Peak (ms) P-T Amp (?V) Site1 Site2 Delta-P (ms) Dist (cm) Adi (m/s) Left Median Anti Sensory (2-3nd Digit) Wrist 3.0 37.6 Wrist 2-3nd Digit 3.0 14.0 47 Wrist 3.2 38.9 Wrist 2-3nd Digit 3.0 14.0 47 Left Radial Anti Sensory (Base 1st Digit) Wrist 1.8 29.8 Wrist Base 1st Digit 1.8 0.0 Left Ulnar Anti Sensory (5th Digit) Wrist 2.6 27.9 Wrist 5th Digit 2.6 14.0 54 Motor Summary Table Stim Site NR Onset (ms) O-P Amp (mV) Site1 Site2 Delta-0 (ms) Dist (cm) Adi (m/s) Left Median Motor (Abd Poll Brev) Wrist 3.3 2.5 Elbow Wrist 5.0 29.0 58 Elbow 8.3 2.3 Left Ulnar Motor (Abd Dig Minimi) Wrist 2.7 5.4 A Elbow Wrist 4.8 28.0 58 A Elbow 7.5 4.2 F Wave Studies NR F-Lat (ms) L-R F-Lat (ms) Left Median (Mrkrs) (Abd Poll Brev) 26.71 Left Ulnar (Mrkrs) (Abd Dig Min) 27.31 EMG Side Muscle Nerve Root Ins Act Fibs Amp Dur Recrt Comment Left 1stDorInt Ulnar C8-T1 Nml Nml Nml Nml Nml Left Ext Indicis Radial (Post Int) C7-8 Nml Nml Nml Nml Nml Left Ext Digitorum Radial (Post Int) C7-8 Nml Nml Nml Nml Nml Left BrachioRad Radial C5-6 Nml Nml Nml Nml Nml Left PronatorTeres Median C6-7 Nml Nml Nml Nml Nml Left Abd Poll Brev Median C8-T1 Nml Nml Nml Nml Nml Left ABD Dig Min Ulnar C8-T1 Nml Nml Nml Nml Nml Left Biceps Musculocut C5-6 Nml Nml Nml >12ms +1 Left Triceps Radial C6-7-8 Nml Nml Nml Nml Nml Left Deltoid Axillary C5-6 Nml Nml Nml Nml Nml MTDD
== END 2024-06-21 08:57 | disposition home or self-care (01) ==
LOC: ANHNEURO 08:56
PROVIDERS: PCP Family Medicine; Visit Provider Nurse Practitioner Family
DX: R20.0 Anesthesia of skin (principal); R20.2 Paresthesia of skin; Z98.1 Arthrodesis status
CPT/HCPCS: 95885; 95886; 95909

== ENCOUNTER 2024-07-26 18:14 | Emergency (ER) | payer OTHER, SELFPAY ==
[2024-07-26 18:33] VITALS: BP 133/80; PULSE 90; RESP 18; TEMP 36.4; O2SAT 97
--- NOTE | 2024-07-26 22:42 | PC.NURSE ---
Pt called x1 @2240; no response.
== END 2024-07-26 22:40 | disposition left against medical advice (07) ==
PROVIDERS: PCP Family Medicine
DX: R51.9 Headache, unspecified (principal)
CPT/HCPCS: 99199

== ENCOUNTER 2024-08-19 13:17 | Outpatient (RCR) | payer OTHER, SELFPAY ==
--- NOTE | 2024-08-19 14:26 | OPREHPOC ---
Outpatient Therapy Plan of Care This is a Multidisciplinary Plan of Care that may contain components documented by all disciplines (PT, OT, and ST.) PT Problem 1 PT Problem #1 Knowledge Deficit PT Goal 1 Goal / Goal Update *indep with HEP Target Visit 8 PT Problem 2 PT Problem #2 Pain PT Goal 1 Goal / Goal Update 1* pt report pain rating of 6/10 at worst 2* self assessment Oswestry rating of 50% limitation in activity level 3* pt report no awakening from sleep due to pain Target Visit 8 PT Problem 3 PT Problem #3 Impaired Strength PT Goal 1 Goal / Goal Update increase scapular/thoracic strength to improve position of spine and posture 1* in standing, pt able to maintain shoulders with minimal forward rotation. 2* pt perform 20 reps of prone, thoracic strengthening exercises Target Visit 10
--- NOTE | 2024-08-19 14:27 | PTOPEVAL1 ---
Assessment and note entered by Clover Rosenthal, PT Evaluation Information Assessment Status Evaluation ICD-10 Condition Codes (PT) M54.6 Other ICD-10 Condition Codes ( M96.1 post laminectomy syndrome PT) Subjective Information most pain is in her neck, thoracic, but also have back pain; pain management dr wants her to have MRI of her neck and then determine pain treatment plan, but have to have PT before insurance will approve MRI. Have had PT in the past at another facility, continues to do the exercises: stretching neck and shoulders. do [employer] aquatic exercises 1x/week with the classes Activity: not working; have home helper for home tasks; some days have to have help with dressing; indep bathing; drives short distances, cannot do longer distances due to neck pain; Reported Pain Level Pain Score Self Report Additional Pain Score Comments pain range in the past week 2-10;cork screw in the middle of my back and it is twisting; increase pain: bending forward, picking things up off floor, walking, sleeping wrong decrease pain: meds, lie down with sleeping, awaken 1x/night due to pain Assessment PT Clinical Summary Jaci has the diagnosis of post-laminectomy syndrome. She reports metal cervical disc was implanted in 2005. 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 Self assessment with Oswestry is 62% limitation in activity level. She requires home assistance for home tasks and sometimes need assist with dressing. With the evaluation: cervical active ROM is decreased slightly with rotation; active, bilateral shoulder motions of flexion and abduction cause increase thoracic pain, but when performed single motion, has only slight pain; with palpation, she has thoracic spinal flexion with muscle spasms on R and L with slight motion of spine; posture with rounded shoulders and L elevated and more forward. Skilled PT services are indicated for modalities to decrease pain and spasms, therapeutic exercises to increase flexibility of thoracic spine and education for HEP and posture correction. Plan of Care Interventions Electrical Stimulation,Hot Pack/Cold Pack,Manual Therapy,Neuro Re-education,Patient Education,Therapeutic Activities,Therapeutic Exercise,Ultrasound,Other Other Interventions taping PT Services Indicated Yes Treatment Frequency and 1-2x/wk for 8 visits Duration These treatments will address the objective and functional deficits as defined above. The patient will be advanced safely and appropriately in order for the patient to progress towards his/her prior level of function. Additional exercises will be introduced and as well as a comprehensive home exercise program upon discharge, if needed, ?to ensure carryover of functional gains achieved in the clinic. This treatment plan has been reviewed and agreement upon by the patient.
--- NOTE | 2024-09-02 12:38 | PCPTNOTE ---
Called and canceled, she has Shingles. AKS
--- NOTE | 2024-09-12 13:03 | PCPTNOTE ---
No call No show, reason unknown. AKFior
--- NOTE | 2024-09-20 08:29 | PTOPDC ---
Assessment and note entered by Clover Rosenthal, PT Assessment Status Discharge - Pt Not Present ICD-10 Condition Codes (PT) Pain in Thoracic Spine M54.6 Other ICD-10 Condition Codes ( M96.1 post laminectomy syndrome PT) Subjective Information pt called on 09-16-24 and canceled her remaining appointments due to having shingles. Assessment PT Clinical Summary Jaci received the PT evaluation on 08-19-24. She then called and canceled 3 appointments and did not show for 1 appointment. Then on 09-16-24, called and canceled all remaining appointments due to having shingles. Discharge PT per pt request. The goals were not addressed. Plan of Care PT Services Indicated No
== END 2024-09-20 12:38 | disposition home or self-care (01) ==
LOC: ANHPT 13:17
PROVIDERS: PCP Nurse Practitioner Family; Visit Provider Anesthesiology Pain Medicine
DX: M96.1 Postlaminectomy syndrome, not elsewhere classified (principal); M54.6 Pain in thoracic spine
CPT/HCPCS: 97110; 97161; 97530

== ENCOUNTER 2025-05-22 10:54 | Outpatient (CLI) | payer OTHER, SELFPAY ==
--- OUTSIDE RECORDS SUMMARY | 2025-05-22 11:43 | XMS_ITS | Encounter Summary ---
Author Organization [facility] Address [address] [place] [address] Phone Care Team Providers Care Signal Timer Name Role Phone Unavailable Primary Care Provider Unavailabl e Reason for Visit * Reason Comments Medication Refill Encounter Details Date Type Department Care Team (Late st Contact Info) Description 12/31/2023 Refill [facility] - Primary Care - James [address] [place] [address] Elisa Pandey, FIRE CLAIMS ADJUSTER, MEDICAL OR SURGICAL INSTRUMENT MAKER [address] [place] [address] Medication Refill Social History Tobacco Use Types Packs/Day Years Used Date Smoking Tobacco: Never Assessed Comments Unknown Sex and Gender Information Value Date Recorded Sex Assigned at Not on file Legal Sex Female 10:40 PM CDT Gender Identity Not on file Sexual Orientation Not on file documented as of this encounter Miscellaneous Notes * Telephone Encounter - Teddy Oropeza RN - 12/31/2023 8:57 AM CDT Patient no longer under provider care documented in this encounter Plan of Treatment Not on file documented as of this encounter Visit Diagnoses Not on filedocumented in this encounter
--- OUTSIDE RECORDS SUMMARY | 2025-05-22 11:43 | XMS_ITS | Clinical Summary ---
Author Organization [facility] Address [address] [address] Care Team Providers Care Brush Worker Name Role Phone Monika Kitchen MD Primary Care Provider Source Comments [facility],non-owned Affiliates and Associated Physician Practices is amultiple site organization consisting of ambulatory clinics and hospital sitesin [place], [place], [place] and [place]. This disclosure is being madepursuant to the Care Everywhere program and may not contain all information available regarding this patient. Last updated 18.[facility] Allergies Active Allergy Reactions Criticality Noted Date Comments Irvingia Gabonensis Anaphylaxis High 11/29/2015 Codeine Rash Medium 09/13/2015 Sue Caryophyllata Anaphylaxis High 12/30/2015 Fish Oil Anaphylaxis High 12/30/2015 Penicillins Rash Medium 09/13/2015 Medications * This document contains information received from the source organization and may not represent a complete record from that organization. * Be aware that medications may not be up to date on this document. Alwaysverify current medications with the patient. acyclovir (Zovirax) 400 MG tablet TAKE 2 TABLETS BY MOUTH 3 TIMES A DAY NEEDED FOR RASH 10/06/19 23 Active acyclovir (Zovirax) 800 MG tablet TAKE 1 TABLET BY MOUTH 4 TIMES A DAY FOR 7 DAYS 07/07/20 22 Active albuterol HFA (Proventil; Ventolin; Proair) 108 (90 Base) MCG/ACT inhaler INHALE 2 PUFFS 4 TIMES A DAY NEEDED FOR SHORTNESS OF BREATH OR FOR WHEEZE 12/09/19 23 Active albuterol (Proventil;Vent yuri) (2.5 MG/3ML) 0.083% nebulizer solution INHALE THE CONTENTS OF 1 VIAL EVERY 6 HOURS NEEDED FOR SHORTNESS OF BREATH 12/07/19 23 Active aspirin EC (Ecotrin) 81 MG tablet Take 1 (one) tablet by mouth once daily Activ e budesonide-form oterol (Symbicort) 160-4.5 MCG/ACT inhaler Inhale 2 (two) puffs by mouth 2 times daily Active cetirizine (ZyrTEC) 10 MG tablet Take 1 (one) tablet by mouth once daily Activ e cyclobenzaprine (Flexeril) 10 MG tablet Take 1 (one) tablet by mouth every 8 hours 12/09/19 23 Active diclofenac sodium EC (Voltaren) 75 MG tablet Take 1 (one) tablet by mouth 3 times daily 11/11/19 23 Active EPINEPHrine (Epipen) 0.3 MG/0.3ML auto-injector pen INJECT 0.3 MG (0.3 ML) INTRAMUSCULARLY ONCE NEEDED FOR ANAPHYLAXIS 12/05/19 23 Active ezetimibe (Zetia) 10 MG tablet Take 1 (one) tablet by mouth once daily 12/10/19 23 Active fluconazole (Diflucan) 150 MG tablet TAKE 1 TABLET BY MOUTH EVERY 72 HOURS 06/07/20 22 Active FLUoxetine (PROzac) 60 MG tablet Take 1 (one) tablet by mouth once daily Activ e gabapentin (Neurontin) 300 MG capsule Take 1 (one) capsule by mouth 10/05/19 23 Active levothyroxine (Synthroid) 25 MCG tablet TAKE 1 AND 1/2 TABLET BY MOUTH EVERY DAY 12/10/19 23 Active LORazepam (Ativan) 0.5 MG tablet Take 1 (one) tablet by mouth 2 times daily as needed for anxiety 06/06/20 22 Active montelukast (Singulair) 10 MG tablet TAKE 1 TABLET BY MOUTH EVERY DAY NEEDED FOR ALLERGY 11/10/19 23 Active nystatin (Mycostatin) 674695 UNIT/GM cream 1 APPLIC TOPICALLY DAILY APPLY TO LOWER ABDOMEN 12/07/19 23 Active nystatin (Mycostatin) 666990 UNIT/ML suspension SWISH AND SWALLOW 4ML BY MOUTH 4 TIMES A DAY 11/11/19 23 Active phentermine (Adipex-P) 37.5 MG capsule TAKE 1 CAPSULE ORALLY DAILY MUST ADMINISTER 30 MINUTES BEFORE OR 1-2 HOURS AFTER BREAKFAST 12/11/19 23 Active predniSONE (Deltasone) 20 MG tablet Take 1 (one) tablet by mouth 09/26/20 22 Active QUEtiapine (SEROquel) 300 MG tablet TAKE 1 TABLET BY MOUTH EVERYDAY AT BEDTIME ORALLY ONCE A DAY 30 DAYS 12/11/19 23 Active traMADol (Ultram) 50 MG tablet TAKE 2 TABS IN AM, 1 TAB IN AFTERNOON, 2 TABS AT BEDTIME 12/12/19 23 Active ibuprofen (Motrin) 600 MG tablet Take 1 (one) tablet by mouth every 6 hours as needed for Pain 30 tablet 07/12/20 23 Active oxyCODONE-aceta minophen (Percocet) 5-325 MG tabletIndicatio ns:Finger injury, unspecified laterality, initial encounter Take 1 (one) tablet by mouth every 6 hours as needed for Pain 2 tablet 07/12/20 23 Active fluticasone propionate (Flonase) 50 MCG/ACT nasal spray 2 SPRAY INTRANASALLY DAILY NEEDED FOR ALLERGY SYMPTOMS ADMINISTER INTO EACH NOSTRIL 12/31/19 24 Active hydrocortisone (Hytone) 2.5 % creamIndication s:Intertrigo Apply to rash on abdomen twice daily. Mix 1:1 with ketoconazole cream. 30 days supply. 30 g 11 01/13/20 24 Active ketoconazole (Nizoral) 2 % creamIndication s:Intertrigo Apply to rash on abdomen twice daily. Mix 1:1 with hydrocortisone cream. 30 days supply. 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 Intertrigo 12/31/2022 Multiple benign melanocytic nevi of upper and lower extremities and trunk 12/31/2022 Lentigines 12/31/2022 Cellulitis of left foot 01/21/2021 Overview (12/31/2022): Added automatically from request for surgery [id number] Bipolar disorder 12/30/2015 Herniation of intervertebral disc of cervical re gion 12/13/2012 Social History Tobacco Use Types Packs/Day Years Used Date Smoking Tobacco: Never Smokeless Tobacco: Never Tobacco Cessation:Counseling Given: Not Answered Alcohol Use Standard Drinks/Week Comments No 0 (1 standard drink = 0.6 oz pur e alcohol) AUDIT-C Answer Date Recorded Q1: How often do you have a drink containing alcohol? Never 07/11/2023 Q2: How many drinks containi ng alcohol do you have on a typical day when you are drinking? Patient does not drink Q3: How often do you have si x or more drinks on one occasion? Never 07/11/2023 Comments No Sex and Gender Information Value Date Recorded Sex Assigned at Not on file Legal Sex Female 5:58 PM PRIMARY SCHOOL TEACHER Gender Identity Not on file Sexual Orientation Not on file Last Filed Vital Signs Vital Sign Reading Time Taken Comments Blood Pressure 125/73 07/12/2023 8:52 AM CDT Pulse 78 07/12/2023 8:52 AM CDT Temperature 36.6 C (97.8 F) 07/12/2023 8:52 AM CDT Respiratory Rate 20 07/12/2023 8:52 AM CDT Oxygen Saturation 100% 07/12/2023 8:52 AM CDT Inhaled Oxygen Concentration - - Weight 98.4 kg (217 lb) 07/12/2023 8:52 AM CDT Height 175.3 cm (5' 9) 07/12/2023 8:52 AM CDT Body Mass Index 32.05 07/12/2023 8:52 AM CDT Plan of Treatment Health Maintenance Due Date Last Done Comments COLOGUARD (AGES 45-75) - COL ON CA SCREENING 1970 COLON MONITORING 1970 COLONOSCOPY - COLON CA SCREENING 1970 CT COLONOGRAPHY - COLON CA SCREENING 1970 Colorectal Cancer Screening 1970 FIT - COLON CA SCREENING 1970 FLEX SIG - COLON CA SCREENING 1970 LIPID TESTING 1970 MAMMOGRAM 1970 HIV SCREENING 1985 HEPATITIS C SCREENING 11/15/1988 DTAP/TDAP/TD VACCINES (1 - Tdap) 1989 HEPATITIS B VACCINE (1 of 3 - 19+ 3-dose series) 1989 PAP SMEAR 1991 PNEUMOCOCCAL VACCINE 50+ (1 of 1 - PCV) 2020 ZOSTER VACCINE (1 of 2) 2020 SCREENING FOR DIABETES 01/13/2024 12/30/2015 COVID-19 VACCINE (4 - 4-2 5 season) 2024 01/01/2022, 07/19/2021, 06/28/2021 INFLUENZA VACCINE (#1) 2025 , 11/12/2015, 06/27/2014 HIB VACCINE Aged Out No longer eligi ble based on patient's age to complete this topic HPV VACCINE Aged Out No longer eligi ble based on patient's age to complete this topic MENINGOCOCCAL (Group B) VACCINE SHARED DECISION-MAKING Aged Out No longer eligible based on patient's age to complete this topic MENINGOCOCCAL GROUPS A/C/Y/W VACCINE Aged Out No longer eligible b ased on patient's age to complete this topic Procedures Procedure Name Priority Date/Time Associated Diagnosis Comments COMPREHENSIVE METABOLIC PANEL Routine 12/30/2015 11:11 PM CDT from Last 3 Months or Most Recently Relevant to Health Maintenance Results * (ABNORMAL) COMPREHENSIVE METABOLIC PANEL (12/30/2015 11:11 PM CDT) BUN 9 7 - 26 mg/dL [facility] Creatinine 0.6 0.6 - 1.2 mg/dL [facility] Sodium 141 136 - 145 mmol/L [facility] Potassium 4.1 3.5 - 4.5 mmol/L [facility] Chloride 109(H) 98 - 107 mmol/L [facility] CO2 19(L) 22 - 29 mmol/L [facility] Glucose 136(H) 70 - 115 mg/dL [facility] Calcium 9.3 8.4 - 10.2 mg/dL [facility] Protein Total 7.5 6.0 - 8.3 g/dL [facility] Albumin 3.9 3.4 - 5.0 g/dL [facility] Bilirubin Total 0.3 0.2 - 1.2 mg/dL [facility] Alkaline Phosphatase 88 40 - 150 Units/L [facility] ALT 27 0 - 55 Units/L [facility] AST 24 5 - 34 Units/L [facility] Anion Gap 17 8 - 18 [facility] BUN/Creatinine Ratio 15 7 - 23 [facility] Osmolality Calculated 278 270 - 300 mOsm/kg [facility] Albumin/Globulin Ratio 1.1 1.1 - 2.3 [facility] eGFR >60 >60 mL/min/1.7 3 m2 [facility] Blood specimen (specimen) BLOOD SPECIMEN / Unknown 12/30/2015 11:11 PM CDT 12/30/2015 11:21 PM CDT Katherin Enamorado MD LAB - CHEMISTRY ORDERABLES Fi nal Result [facility] [address] [phone] from Last 3 Months or Most Recently Relevant to Health Maintenance Insurance [facility] Care Teams Brush Worker Relationship Specialty Start Date End Date Monika Kitchen MD [address] [facility] [address] [address] PCP - General Family Medicine 07/12/23
--- OUTSIDE RECORDS SUMMARY | 2025-05-22 11:43 | XMS_ITS | Encounter Summary ---
Author Organization [facility] Address [address] [place] [address] Phone Care Team Providers Care Hardwood Flooring Specialist Name Role Phone Unavailable Primary Care Provider Unavailabl e Reason for Visit * Reason Comments Medication Refill Encounter Details Date Type Department Care Team (Late st Contact Info) Description 02/05/2024 Refill [facility] - Primary Care - James [address] [place] [address] Elisa Pandey, COLLISION REPAIRER, SCIENCE JOB TITLES [address] [place] [address] Medication Refill Social History Tobacco Use Types Packs/Day Years Used Date Smoking Tobacco: Never Assessed Comments Unknown Sex and Gender Information Value Date Recorded Sex Assigned at Not on file Legal Sex Female 10:40 PM CDT Gender Identity Not on file Sexual Orientation Not on file documented as of this encounter Miscellaneous Notes * Telephone Encounter - Teddy Oropeza RN - 02/05/2024 8:13 AM CDT Patient no longer under provider care documented in this encounter Plan of Treatment Not on file documented as of this encounter Visit Diagnoses Not on filedocumented in this encounter
--- OUTSIDE RECORDS SUMMARY | 2025-05-22 11:43 | XMS_ITS | Encounter Summary ---
Author Organization [facility] Address [address] [place] [address] Phone Care Team Providers Care Aviation Consultant Name Role Phone Unavailable Primary Care Provider Unavailabl e Reason for Visit * Reason Comments Medication Refill Encounter Details Date Type Department Care Team (Late st Contact Info) Description 11/25/2023 Refill [facility] - Primary Care - James [address] [place] [address] Elisa Pandey, RECEIVING TANK OPERATOR, CURTAIN WORKER [address] [place] [address] Medication Refill Social History Tobacco Use Types Packs/Day Years Used Date Smoking Tobacco: Never Assessed Comments Unknown Sex and Gender Information Value Date Recorded Sex Assigned at Not on file Legal Sex Female 10:40 PM CDT Gender Identity Not on file Sexual Orientation Not on file documented as of this encounter Miscellaneous Notes * Telephone Encounter - Teddy Oropeza RN - 11/25/2023 8:54 AM CST Patient no longer under provider care N CONER documented in this encounter Plan of Treatment Not on file documented as of this encounter Visit Diagnoses Not on filedocumented in this encounter
--- OUTSIDE RECORDS SUMMARY | 2025-05-22 11:43 | XMS_ITS | Encounter Summary ---
Author Organization [facility] Address [address] [place] [address] Phone Care Team Providers Care Hammerer Tab Name Role Phone Unavailable Primary Care Provider Unavailabl e Reason for Visit * Reason Comments Medication Refill Encounter Details Date Type Department Care Team (Late st Contact Info) Description 12/29/2023 Refill [facility] - Primary Care - James [address] [place] [address] Elisa Pandey, PROCESSING LEAD, PARTS EXPEDITER [address] [place] [address] Medication Refill Social History Tobacco Use Types Packs/Day Years Used Date Smoking Tobacco: Never Assessed Comments Unknown Sex and Gender Information Value Date Recorded Sex Assigned at Not on file Legal Sex Female 10:40 PM CDT Gender Identity Not on file Sexual Orientation Not on file documented as of this encounter Miscellaneous Notes * Telephone Encounter - Teddy Oropeza RN - 12/29/2023 7:59 AM CDT Patient no longer under provider care documented in this encounter Plan of Treatment Not on file documented as of this encounter Visit Diagnoses Not on filedocumented in this encounter
--- OUTSIDE RECORDS SUMMARY | 2025-05-22 11:43 | XMS_ITS | Encounter Summary ---
Author Organization [facility] Address [address] [place] [address] Phone Care Team Providers Care Tile Ditcher Name Role Phone Unavailable Primary Care Provider Unavailabl e Reason for Visit * Reason Comments Medication Refill Encounter Details Date Type Department Care Team (Late st Contact Info) Description 10/13/2023 Refill [facility] - Primary Care - James [address] [place] [address] Elisa Pandey, WELDING MACHINE OPERATOR GAS, RESTORATIVE AIDE [address] [place] [address] Medication Refill Social History Tobacco Use Types Packs/Day Years Used Date Smoking Tobacco: Never Assessed Comments Unknown Sex and Gender Information Value Date Recorded Sex Assigned at Not on file Legal Sex Female 10:40 PM CDT Gender Identity Not on file Sexual Orientation Not on file documented as of this encounter Miscellaneous Notes * Telephone Encounter - Teddy Oropeza RN - 10/13/2023 2:51 PM CST Patient no longer under provider care OR RISK MANAGER documented in this encounter Plan of Treatment Not on file documented as of this encounter Visit Diagnoses Not on filedocumented in this encounter
--- OUTSIDE RECORDS SUMMARY | 2025-05-22 11:43 | XMS_ITS | Patient Health Record ---
Author Organization [facility] Address [address] [place] [address] Care Team Providers Care Digital Traffic Coordinator Name Role Phone Naveen Silva Primary Care Provider Allergies Allergen (clinical drug ingredient) Drug/Non Drug Allergy documented on EMR Reaction Allergy Type Onset Date Status Clove Oil Unknown Drug Allergy Active penicillamine penicillAMINE Unknown Drug Allergy Active lurasidone Latuda Unknown Drug Allergy Active codeine Codeine Unknown Drug Allergy Active Substance with 1-ujeydzs-6-methylgluta ryl-coenzyme A reductase inhibitor mechanism of action (substance) Statins Unknown Drug Allergy Active Reason For Referral No Information Medications Medication SIG (Take, Route, Frequency, Duration) Notes Start Date End Date Status QUEtiapine Fumarate 400 MG TAKE 1 TABLET BY MOUTH EVERYDAY AT BEDTIME; Duration: 90 days Active Aspirin 81 MG 1 tablet Orally Once a day; Duration: 30 day(s) Active Albuterol Sulfate (2.5 MG/3ML) 0.083% 3 mL as needed Inhalation every 6 hrs Active traZODone HCl 50 MG 1 tablet at bedtime as needed Orally Once a day; Duration: 30 days 11/25/2024 Not-Taking buPROPion HCl ER (XL) 150 MG 1 tablet in the morning Orally Once a day; Duration: 90 days 03/01/2025 Active Levothyroxine Sodium 25 MCG 1 tablet in the morning on an empty stomach Orally Once a day Active FLUoxetine HCl 40 MG 1 capsule Orally Once a day; Duration: 90 days Active Cyclobenzaprine HCl 10 MG 1 tablet at bedtime as needed Orally Once a day; Duration: 30 day(s) Active FLUoxetine HCl 20 MG 1 capsule Orally Once a day; Duration: 90 days Active Nystatin 661269 UNIT/GM 1 application Externally Twice a day Active Diclofenac 35 MG 1 capsule as needed Orally Three times a day Active traMADol HCl 50 MG as directed Orally takes 2 in morning, 1 in afternoon, and 2 before bed Active Flonase Active Phentermine HCl 37.5 MG 1 capsule Orally Once a day Not-Taking Albuterol Sulfate 108 (90 Base) MCG/ACT 1 puff as needed Inhalation every 4 hrs Active Valdemar 60 MG 1 capsule with each meal Orally Three times a day; Duration: 30 day(s) Not-Taking Ketoconazole 2 % 1 application Externally Once a day Active Gabapentin 100 MG 2 tablet Orally three a day takes 200mg TID Active Hydrocortisone 2.5 % 1 application Externally Once a day Active Social History Tobacco Use: Social History Observation Description Date Details (start date - stop date) Never Smoker NA - NA Sex Assigned At : Social History Observation Description Sex Assigned At Female Tobacco Control (Standard) Question Answer Notes Tobacco use: Nonsmoker Section Notes: Support dog Damián, paplion /chi mix Support dog Damián, paplion /chi mix Support dog Damián, paplion /chi mix Support dog Damián, paplion /chi mix Support dog Damián, paplion /chi mix Support dog Damián, paplion /chi mix Support dog Damián, paplion /chi mix Support dog Damián, paplion /chi mix Support dog Damián, paplion /chi mix Support dog Damián, paplion /chi mix Problems Problem Type SNOMED Code ICD Code Onset Dates Problem Status W/U Status Risk Notes Problem Bipolar II disorder (42080967) Bipolar II disorder (F31.81) Active confirmed Problem Posttraumatic stress disorder (81747050) Post traumatic stress disorder (PTSD) (F43.10) Active confirmed Vital Signs Heart Rate 96 /min 03/01/2025 Respiratory Rate 16 /min 03/01/2025 Blood pressure diastolic 78 mm Hg 03/01/2025 Oximetry 99 % 03/01/2025 Height 69 in 03/01/2025 Blood pressure systolic 117 mm Hg 03/01/2025 Weight 252 lbs 03/01/2025 BMI 37.21 kg/m2 03/01/2025 Encounters Encounter Location Date Provider Diagnosis [address] [place] [address] 08/31/2024 Naveen Silva Bipolar II disorder F31.81 and Post traumatic stress disorder (PTSD) F43.[address] [place] [address] 03/01/2025 Naveen Silva Bipolar II disorder F31.81 ; Post traumatic stress disorder (PTSD) F43.10 and Fatigue R53.83 [facility] [address], [place] [address] 11/24/2024 Naveen Silva [address] [place] [address] 12/12/2024 Naveen Silva Bipolar II disorder F31.[address] [place] [address] 02/23/2025 Naveen Silva Assessments Encounter Date Diagnosis (ICD Code) Assessment Notes Treatment Notes Treatment Clinical Notes Section Notes 08/31/2024 Bipolar II disorder (ICD-10 - F31.81) 12/12/2024 Bipolar II disorder (ICD-10 - F31.81) 03/01/2025 Bipolar II disorder (ICD-10 - F31.81) Client is open to trial of low dose bupropion as addition to tx plan to see if helpful for motivation and fatigue. Will leave other medications at present levels. Have offered client other options in place of Seroquel to see if this would aide weight loss endeavors but so far client has declined. 03/01/2025 Post traumatic stress disorder (PTSD) (ICD-10 - F43.10) Client is open to trial of low dose bupropion as addition to tx plan to see if helpful for motivation and fatigue. Will leave other medications at present levels. Have offered client other options in place of Seroquel to see if this would aide weight loss endeavors but so far client has declined. 03/01/2025 Fatigue (ICD-10 - R53.83) Client is open to trial of low dose bupropion as addition to tx plan to see if helpful for motivation and fatigue. Will leave other medications at present levels. Have offered client other options in place of Seroquel to see if this would aide weight loss endeavors but so far client has declined. 08/31/2024 Post traumatic stress disorder (PTSD) (ICD-10 - F43.10) 08/31/2024 Other Discussed sleep hygiene and caffeine intake with encouragement to limit electronic devices an hour before bed and to limit caffeine after 3:00pm. Exercise benefits for mood and health discussed. Psychoeducation regarding psychiatric illness provided. Client was educated about risks and benefits of medication, alternatives to medication, off label uses of medication, suicidal ideation with SSRIs, self-administrati on and compliance with medication along with how to safely store medication. Verbal informed consent obtained. Client agrees to return sooner if symptoms worsen or if suicidal or homicidal ideations occur. Client has the phone number to the 24-hour crisis line at [facility]. Questions addressed. Client verbalized understanding of all information and is agreeable to treatment plan. 03/01/2025 Other Discussed sleep hygiene and caffeine intake with encouragement to limit electronic devices an hour before bed and to limit caffeine after 3:00pm. Exercise benefits for mood and health discussed. Psychoeducation regarding psychiatric illness provided. Client was educated about risks and benefits of medication, alternatives to medication, off label uses of medication, suicidal ideation with SSRIs, self-administrati on and compliance with medication along with how to safely store medication. Verbal informed consent obtained. Client agrees to return sooner if symptoms worsen or if suicidal or homicidal ideations occur. Client has the phone number to the 24-hour crisis line at [facility]. Questions addressed. Client verbalized understanding of all information and is agreeable to treatment plan. Client is open to trial of low dose bupropion as addition to tx plan to see if helpful for motivation and fatigue. Will leave other medications at present levels. Have offered client other options in place of Seroquel to see if this would aide weight loss endeavors but so far client has declined. Plan Of Treatment No Information Insurance Providers Payer Name Payer Address Payer Phone Subscriber Number Group Number Insured Name Patient Relationship to Insured Coverage Start Date Coverage End Date [employer] 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
--- OUTSIDE RECORDS SUMMARY | 2025-05-22 11:43 | XMS_ITS | Encounter Summary ---
Author Organization [facility] Address [address] [place] [address] Phone Care Team Providers Care Water Pollution Specialist Name Role Phone Unavailable Primary Care Provider Unavailabl e Reason for Visit * Reason Comments Medication Refill Encounter Details Date Type Department Care Team (Late st Contact Info) Description 04/17/[address] [facility] - Primary Care - [address] [place] [address] Elisa Pandey, OUTREACH EDUCATOR, STOCK FITTER [address] [place] [address] Medication Refill Social History Tobacco Use Types Packs/Day Years Used Date Smoking Tobacco: Never Assessed Comments Unknown Sex and Gender Information Value Date Recorded Sex Assigned at Not on file Legal Sex Female 10:40 PM CDT Gender Identity Not on file Sexual Orientation Not on file documented as of this encounter Plan of Treatment Not on file documented as of this encounter Visit Diagnoses Not on filedocumented in this encounter
--- OUTSIDE RECORDS SUMMARY | 2025-05-22 11:43 | XMS_ITS | Clinical Summary ---
Author Organization [facility] Address [address] [address] Phone Care Team Providers Care Php Magento Developer Name Role Phone Unavailable Primary Care Provider Unavailabl e Social History Tobacco Use Types Packs/Day Years Used Date Smoking Tobacco: Never Assessed Comments Unknown Sex and Gender Information Value Date Recorded Sex Assigned at Not on file Legal Sex Female 10:40 PM CDT Gender Identity Not on file Sexual Orientation Not on file Plan of Treatment Not on file
[2025-05-22 14:52] LABS: Add Urine Microscopic? YES; Appearance Urine Cloudy (Clear); Glucose Urine UA Negative (Negative); Leukocyte Esterase Ur 3+ LEU/UL (Negative); Need Manual Microscopic Reviewed; Nitrate Urine Negative (Negative); Specific Grav Ur 1.030 (1.001-1.035)
[2025-05-22 15:15] LABS: Alanine Aminotransferase 35 U/L (6-35); Albumin Level 4.8 g/dL (3.5-5.1); Alkaline Phosphatase 104 U/L (38-126); Anion Gap 10 mmol/L (4-12); Aspartate Amino Transferase 64 U/L (14-36); Bilirubin,Total 0.5 mg/dL (0.2-1.3); Blood Urea Nitrogen 21 mg/dL (7-17); Calcium 9.7 mg/dL (8.4-10.2); Carbon Dioxide 27 mmol/L (22-30); Chloride 104 mmol/L (98-107); Cholesterol 186 mg/dL (0-200); Estimated Glomerular Filt Rate 58; Glucose 104 mg/dL (65-110); HDL Direct 47 mg/dL; Potassium 4.2 mmol/L (3.4-5.0); Sodium 141 mmol/L (137-145); Total Protein 8.1 g/dL (6.3-8.2); Triglycerides 92 mg/dL (<150)
[2025-05-22 15:47] LABS: Thyroid Stimulating Hormone 2.200 uIU/mL (0.465-4.680)
[2025-05-22 16:06] LABS: Free T4 Free Thyroxine 0.92 ng/dL (0.78-2.19)
== END 2025-05-22 10:55 | disposition home or self-care (01) ==
LOC: ANHGOSHLAB 10:56
PROVIDERS: Internal Medicine Cardiovascular Disease; PCP Nurse Practitioner Family; Visit Provider Family Medicine
DX: E03.9 Hypothyroidism, unspecified (principal); E78.5 Hyperlipidemia, unspecified; R30.0 Dysuria
CPT/HCPCS: 36415; 80053; 80061; 81001; 84439; 84443; 87086

== ENCOUNTER 2025-07-18 10:07 | Emergency (ER) | payer OTHER, SELFPAY ==
[2025-07-18 10:17] VITALS: BP 110/90; PULSE 114; RESP 20; TEMP 36.9; O2SAT 98
[2025-07-18] MEDS: LIDOCAINE 5% PATCH 1 PATCH TRANSDERM (11:18)
[2025-07-18] MEDS: LACTATED RINGERS 1,000 ML 999 ML IV CONT (11:55)
--- NOTE | 2025-07-18 11:56 | ED.GENADULT ---
HPI - General Adult General Chief complaint: Back Pain/Injury Stated complaint: lower back pain Time Seen by Provider: 07/18/25 10:18 History of Present Illness HPI narrative: This is a 54-year-old female with multiple medical comorbidities including fibromyalgia presenting for lower back pain. Patient says that she has been on a 2 week camping expedition where she was sleeping on a foam mattress in her car. Since then she has developed an achy pain across her lower back. It is nonradiating, worse with movement. Worse on the left than the right. She does not have any other symptoms such as saddle anesthesia weakness to her lower extremities urinary retention incontinence. She has already taken tramadol diclofenac gabapentin cyclobenzaprine and Tylenol today. Patient states that she has varicella that affects multiple portions of her body including her kidneys. She would like a urinalysis. Related Data Home Medications ?Medication ?Instructions ?Recorded ?Confirmed ?Last Taken ?Type aspirin 81 mg tablet,delayed 81 mg PO DAILY 09/06/19 05/22/25 04/13/21 History release cetirizine 10 mg tablet (Zyrtec) 10 mg PO DAILY 07/10/20 05/22/25 04/15/21 History fluoxetine 20 mg capsule 20 mg PO DAILY 01/15/24 05/22/25 Unknown History fluoxetine 40 mg capsule 40 mg PO DAILY 01/15/24 05/22/25 Unknown History hydrocortisone 2.5 % topical cream applic topical 11/29/24 05/22/25 Unknown History ketoconazole 2 % topical cream applic topical 11/29/24 05/22/25 Unknown History quetiapine 300 mg tablet 200 mg PO BID 02/22/25 05/22/25 Unknown History bupropion HCl 150 mg 24 hr tablet, 150 mg PO QAM 03/20/25 05/22/25 Unknown History extended release (Wellbutrin XL) Allergies Allergy/AdvReac Type Severity Reaction Status Date / Time bee venom protein (honey bee) Allergy Severe Anaphylaxis Verified 07/18/25 10:20 cinnamon Allergy Severe Swelling Verified 07/18/25 10:20 of Lip/Tongue/Throat clove Allergy Severe ANAPHALACTIC Verified 07/18/25 10:20 SHOCK codeine Allergy Severe unknown Verified 07/18/25 10:20 Penicillins Allergy Severe Anaphylaxis Verified 07/18/25 10:20 poison natividad extract Allergy Severe hives , Verified 07/18/25 10:20 goes in lungs adhesive tape Allergy Intermediate eats pts Verified 07/18/25 10:20 skin papaya Allergy Mild SCRATCHY Verified 07/18/25 10:20 THROAT mold Allergy Anaphylaxis Verified 07/18/25 10:20 Azpfrae-XCQ-BbM Reductase Allergy Unknown Verified 07/18/25 10:20 Inhibitor hay fever Allergy Severe cough , Uncoded 03/20/25 12:56 throat swells [place] Allergy Intermediate itchy Uncoded 03/20/25 12:56 throat Tuna Allergy Intermediate hives Uncoded 03/20/25 12:56 PMFSH Past Medical History Medical History Finger injury Poison natividad dermatitis Skin infection Stress incontinence Chronic neck pain Thyroid condition Cummings's palsy (~01/2021) Hypertriglyceridemia Levels ranging between 140 and 207 in 2019 Herpes zoster The patient reports that she has had up to 20 herpes zoster outbreaks on her left arm Peripheral neuropathy Due to cervical disc disease Arthritis Depression SG (obstructive sleep apnea) Wears glasses Neuropathy Osteomyelitis of left foot Colitis (~04/2020) Fibromyalgia Hyperlipidemia Suicide SI at age 16 Anxiety Bipolar depression Hypothyroidism Chronic pain GERD (gastroesophageal reflux disease) COPD (chronic obstructive pulmonary disease) Asthma Mild persistent Migraine Surgical History Surgical History Hx of local excision of skin lesion Right shoulder epidermal cyst Hx of foot surgery (~01/2021) Left 5th MTP History of cervical spinal surgery Cervical disc replacement 2005 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 Rivera lives in an apartment with her son. Her son, who is 30, lives downstairs. She is on disability due to chronic neck pain and psychiatric illness. She designates her son, Carroll as her surrogate decision maker. She would like to be a full code. Caffeine-rarely Smoking packs per day: 0.5 Smoking cigarettes per day: 10.0 Years smoked: 15 Smoking pack-years: 7.50 Smoking status: Former smoker Tobacco type: cigarettes Smoking end date: 09/28/04 Additional smoking assessment comments: smokes marijuana 2-3 times a month Alcohol intake: current Alcohol use details: Wine/ vodka Rarely Substance use: current Substance use type: marijuana Other substance usage details: her psych MD is aware Last use: used for occasional sleep aid Living arrangements: with family Additional living arrangements comments: Son Occupation/Education: unemployed Additional occupation/education comments: Disabled Gender identity (if verbalized by the patient): Female Sexual Orientation (if Verbalized by the Patient): Straight or Heterosexual Spiritual care concerns: No Agree to blood products: Yes Exam Narrative: APPEARANCE: No apparent distress. Patient is sitting calmly in bed. She is accompanied by a small service dog. Head: atraumatic. EYES: EOMI, NOSE: Atraumatic NECK: Trachea midline RESPIRATORY: No increased rate of breathing CARDIOVASCULAR: RRR, ABDOMINAL: Non-distended MUSCULOSKELETAl: No midline lumbar tenderness. Patient is very sensitive to pain and while assessing CVA tenderness she cries out before I touched her. NEURO: Alert. Moving 4/4 extremities SKIN:: Warm, dry. Normal color PSYCHIATRIC: Normal affect Course Vital Signs Vital signs: Vital Signs Temperature 98.5 F 07/18/25 10:17 Pulse Rate 114 H 07/18/25 10:17 Respiratory Rate 20 07/18/25 10:17 Blood Pressure 110/90 07/18/25 10:17 Pulse Oximetry 98 07/18/25 10:17 Oxygen Delivery Room Air 07/18/25 10:17 Temperature 98.5 F 07/18/25 10:17 Pulse Rate 114 H 07/18/25 10:17 Respiratory Rate 20 07/18/25 10:17 Blood Pressure 110/90 07/18/25 10:17 Pulse Oximetry 98 07/18/25 10:17 Oxygen Delivery Room Air 07/18/25 10:17 Medical Decision Making MDM Narrative Medical decision making narrative: -Course: 54-year-old female presenting with lower back pain. UA was obtained which showed 11-20 white blood cells, 6-10 red blood cells +2 leuk esterase and occasional squamous cells. Patient says she is having urinary symptoms. On exam she is diffusely tender and I do not think that her back pain is related to pyelonephritis given her overall well appearance. She will be treated with a course of Keflex. In regard to the patient's back pain at it appears to be musculoskeletal given that she has been sleeping on a foam mattress in a car for 2 weeks and has a history of fibromyalgia. No red flags on history or physical. Patient will follow-up with her primary care physician for further management. -DDX includes but is not limited to: Muscle strain, muscle spasm, fibromyalgia, UTI/pyelo -Co-morbidities complicating care: Fibromyalgia Vital Signs Vital Signs: Vital Signs Temperature 98.5 F 07/18/25 10:17 Pulse Rate 114 H 07/18/25 10:17 Respiratory Rate 20 07/18/25 10:17 Blood Pressure 110/90 07/18/25 10:17 Pulse Oximetry 98 07/18/25 10:17 Oxygen Delivery Room Air 07/18/25 10:17 Temperature 98.5 F 07/18/25 10:17 Pulse Rate 114 H 07/18/25 10:17 Respiratory Rate 20 07/18/25 10:17 Blood Pressure 110/90 07/18/25 10:17 Pulse Oximetry 98 07/18/25 10:17 Oxygen Delivery Room Air 07/18/25 10:17 Lab Data Labs: Lab Results 07/18/25 Range/Units 12:41 Urine Color Dark yellow (Yellow) Urine Appearance Cloudy H (Clear) Urine pH 6.0 (5.0-9.0) Ur Specific [place] 1.028 (1.001-1.035) Urine Protein Trace (Negative) mg/dL Urine Glucose (UA) Negative (Negative) mg/dL Urine Ketones Trace H (Negative) mg/dL Ur Blood (Man) Negative (Negative) Urine Nitrate Negative (Negative) Urine Bilirubin Negative (Negative) Urine Urobilinogen 1.0 (<2.0) mg/dL Add Ur Microanalysis Reviewed Leukocyte Esterase Rfl 2+ H (Negative) BRITNEY/UL Urine RBC 6-10 H (0-2) /hpf Urine WBC 11-20 H (0-3) /hpf Ur Squamous Epith Cells Occasional (Few) /hpf Urine Bacteria None seen /hpf Urine Casts 6-10 Discharge Plan Discharge Clinical Impression: UTI (urinary tract infection), Lower back pain Patient Disposition: Home Condition: Stable Instructions: Antibiotic Form, Low Back Strain (ED), Dysuria (ED) Additional Instructions: You were seen in the emergency department for lower back pain. Please continue your home pain regimen. You can complete a course of Keflex for possible UTI. Follow-up with your primary care physician in next 3-5 days for further management. If you feel your condition is getting worse, you develop fevers abdominal pain or weakness you return to the ED for re-evaluation. Patient Language: Solomon Islander Prescriptions: New cephalexin 500 mg capsule 500 mg PO Q12H Qty: 14 0RF Rx Instructions: Given 1 dose in ED without reaction No Action fluoxetine 20 mg capsule 20 mg PO DAILY fluoxetine 40 mg capsule 40 mg PO DAILY quetiapine 300 mg tablet 200 mg PO BID ketoconazole 2 % cream topical hydrocortisone 2.5 % cream topical epinephrine 0.3 mg/0.3 mL auto-injector 0.3 mg IM ONCE PRN (Reason: Anaphylaxis) Qty: 2 0RF phentermine 37.5 mg capsule 37.5 mg PO DAILY Qty: 30 1RF Rx Instructions: must administer 30 minutes before or 1-2 hours after breakfast aspirin 81 mg tablet,delayed release (DR/EC) 81 mg PO DAILY cetirizine [Zyrtec] 10 mg tablet 10 mg PO DAILY gabapentin 300 mg capsule See Rx Instructions PO TID 90 Days Qty: 450 2RF Rx Instructions: take 600mg morning and night, 300 mg at midday orally three times a day; bupropion HCl [Wellbutrin XL] 150 mg tablet extended release 24 hr 150 mg PO QAM acyclovir 400 mg tablet 800 mg PO TID PRN (Reason: Rash) Qty: 30 1RF budesonide-formoterol [Symbicort] 80-4.5 mcg/actuation HFA aerosol inhaler 2 puff inhalation BID Qty: 10.2 2RF Rx Instructions: INHALE 2 PUFFS BY MOUTH EVERY 12 HOURS fluticasone propionate 50 mcg/actuation spray,suspension 2 spray NASAL DAILY PRN (Reason: allergy symptoms) Qty: 54.6 3RF Rx Instructions: administer into each nostril albuterol sulfate 2.5 mg /3 mL (0.083 %) solution for nebulization 2.5 mg INHALATION Q6H PRN (Reason: Shortness Of Breath) Qty: 75 1RF levothyroxine 25 mcg tablet 37.5 mcg PO DAILY Qty: 45 5RF albuterol sulfate 90 mcg/actuation HFA aerosol inhaler See Rx Instructions .ROUTE .COMPLEX Qty: 18 5RF Dose Instruction: INHALE 2 PUFFS 4 TIMES A DAY NEEDED FOR SHORTNESS OF BREATH OR FOR WHEEZE Rx Instructions: INHALE 2 PUFFS 4 TIMES A DAY NEEDED FOR SHORTNESS OF BREATH OR FOR WHEEZE ezetimibe 10 mg tablet 10 mg PO DAILY Qty: 90 1RF cyclobenzaprine 10 mg tablet 10 mg PO Q8H Qty: 90 1RF triamcinolone acetonide 0.1 % cream 1 applic topical BID Qty: 30 3RF nystatin 100,000 unit/gram cream See Rx Instructions .ROUTE .COMPLEX Qty: 30 3RF Dose Instruction: 1 APPLIC TOPICALLY DAILY APPLY TO LOWER ABDOMEN Rx Instructions: 1 APPLIC TOPICALLY DAILY APPLY TO LOWER ABDOMEN montelukast 10 mg tablet 10 mg PO DAILY Qty: 90 1RF diclofenac sodium 75 mg tablet,delayed release (DR/EC) 75 mg PO BID 90 Days Qty: 180 1RF tramadol 50 mg tablet See Rx Instructions PO .COMPLEX PRN (Reason: pain) Qty: 150 2RF Rx Instructions: orally Take 2 tabs in am, 1 tab in afternoon, 2 tabs at bedtime PRN; Follow-up/Referrals: Nicole Kitchen MD [Primary Care Provider, Family Practice]
--- OUTSIDE RECORDS SUMMARY | 2025-07-18 12:09 | XMS_ITS | Patient Health Record ---
Author Organization [facility] Address [address] [place] [address] Care Team Providers Care Named Account Executive Name Role Phone Naveen Silva Primary Care Provider [phone] Allergies Allergen (clinical drug ingredient) Drug/Non Drug Allergy documented on EMR Reaction Allergy Type Onset Date Status Clove Oil Unknown Drug Allergy Active penicillamine penicillAMINE Unknown Drug Allergy Active lurasidone Latuda Unknown Drug Allergy Active codeine Codeine Unknown Drug Allergy Active Substance with 4-dkzqiqv-4-methylgluta ryl-coenzyme A reductase inhibitor mechanism of action (substance) Statins Unknown Drug Allergy Active Reason For Referral No Information Medications Medication SIG (Take, Route, Frequency, Duration) Notes Start Date End Date Status Phentermine HCl 37.5 MG 1 capsule Orally Once a day Not-Taking Ketoconazole 2 % 1 application Externally Once a day Active Valdemar 60 MG 1 capsule with each meal Orally Three times a day; Duration: 30 day(s) Not-Taking Hydrocortisone 2.5 % 1 application Externally Once a day Active traZODone HCl 50 MG 1 tablet at bedtime as needed Orally Once a day; Duration: 30 days 11/25/2024 Not-Taking buPROPion HCl ER (XL) 150 MG 1 tablet in the morning Orally Once a day; Duration: 90 days 03/01/2025 Active Cyclobenzaprine HCl 10 MG 1 tablet at bedtime as needed Orally Once a day; Duration: 30 day(s) Active Diclofenac 35 MG 1 capsule as needed Orally Three times a day Active traMADol HCl 50 MG as directed Orally takes 2 in morning, 1 in afternoon, and 2 before bed Active Nystatin 375918 UNIT/GM 1 application Externally Twice a day Active Gabapentin 100 MG 2 tablet Orally three a day takes 200mg TID Active Flonase Active QUEtiapine Fumarate 400 MG TAKE 1 TABLET BY MOUTH EVERYDAY AT BEDTIME; Duration: 90 F31.81 Active Albuterol Sulfate 108 (90 Base) MCG/ACT 1 puff as needed Inhalation every 4 hrs Active FLUoxetine HCl 40 MG 1 capsule Orally Once a day; Duration: 90 days Active Albuterol Sulfate (2.5 MG/3ML) 0.083% 3 mL as needed Inhalation every 6 hrs Active FLUoxetine HCl 20 MG 1 capsule Orally Once a day; Duration: 90 days Active Aspirin 81 MG 1 tablet Orally Once a day; Duration: 30 day(s) Active Levothyroxine Sodium 25 MCG 1 tablet in the morning on an empty stomach Orally Once a day Active Social History Tobacco Use: Social History Observation Description Date Details (start date - stop date) Never Smoker NA - NA Sex Assigned At : Social History Observation Description Sex Assigned At Female Dont use, Tobacco Use/Smoking Question Answer Notes Are you a nonsmoker Tobacco Control (Standard) Question Answer Notes Tobacco use: Nonsmoker Section Notes: Support dog Dmaián, paplion /chi mix Support dog Damián, paplion [...] Status Risk Notes Problem Bipolar II disorder (03653991) Bipolar II disorder (F31.81) Active confirmed Problem Posttraumatic stress disorder (98047779) Post traumatic stress disorder (PTSD) (F43.10) Active confirmed Vital Signs Heart Rate 96 /min 03/01/2025 Respiratory Rate 16 /min 03/01/2025 Blood pressure diastolic 78 mm Hg 03/01/2025 Oximetry 99 % 03/01/2025 Height 69 in 03/01/2025 Blood pressure systolic 117 mm Hg 03/01/2025 Weight 252 lbs 03/01/2025 BMI 37.21 kg/m2 03/01/2025 Encounters Encounter Location Date Provider Diagnosis [address] [address] 08/31/2024 Naveen Silva Bipolar II disorder F31.81 and Post traumatic stress disorder (PTSD) F43.[address] [address] 03/01/2025 Naveen Silva Bipolar II disorder F31.81 ; Post traumatic stress disorder (PTSD) F43.10 and Fatigue R53.[address] [address] 06/05/2025 Naveen Silva Bipolar II disorder F31.81 and Post traumatic stress disorder (PTSD) F43.10 Formerly [facility] [address] [place] [address] 11/24/2024 Naveen Silva [address] [address] 12/12/2024 Naveen Silva Bipolar II disorder F31.[address] [address] 02/23/2025 Naveen Silva [facility] [address] [place] [address] 07/11/2025 Naveen Silva [address] [address] 07/12/2025 Naveen Silva Assessments Encounter Date Diagnosis (ICD Code) Assessment Notes Treatment Notes Treatment Clinical Notes Section Notes 06/05/2025 Bipolar II disorder (ICD-10 - F31.81) Client doing well, no treatment plan changes needed at this time. 03/01/2025 Bipolar II disorder (ICD-10 - F31.81) [...] endeavors but so far client has declined. 12/12/2024 Bipolar II disorder (ICD-10 - F31.81) 08/31/2024 Bipolar II disorder (ICD-10 - F31.81) 08/31/2024 Post traumatic stress disorder (PTSD) (ICD-10 - F43.10) 03/01/2025 Fatigue (ICD-10 - R53.83) Client is open to trial of low dose bupropion as addition to tx plan to see if helpful for motivation and fatigue. Will leave other medications at present levels. Have offered client other options in place of Seroquel to see if this would aide weight loss endeavors but so far client has declined. 06/05/2025 Post traumatic stress disorder (PTSD) (ICD-10 - F43.10) Client doing well, no treatment plan changes needed at this time. 08/31/2024 Other Discussed sleep hygiene and caffeine [...] number to the 24-hour crisis line at [facility]. Questions addressed. Client verbalized understanding of [...] number to the 24-hour crisis line at [facility]. Questions addressed. Client verbalized understanding of [...] endeavors but so far client has declined. 06/05/2025 Other Discussed sleep hygiene and caffeine intake [...] number to the 24-hour crisis line at [facility]. Questions addressed. Client verbalized understanding of all information and is agreeable to treatment plan. Client doing well, no treatment plan changes needed at this time. 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
--- OUTSIDE RECORDS SUMMARY | 2025-07-18 12:09 | XMS_ITS | Encounter Summary ---
Author Organization [facility] Address [address] [place] [address] Phone Care Team Providers Care Sergeant Missile Crewman Name Role Phone Unavailable Primary Care Provider Unavailabl e Reason for Visit * Reason Comments Medication Refill Encounter Details Date Type Department Care Team (Late st Contact Info) Description 10/13/[address] [facility] - Primary Care - James [address] [place] [address] Elisa Pandey, PLANT PROTECTION SUPERVISOR, BACK SEAM STITCHER [address] [place] [address] Medication Refill Social History Tobacco [...] CST Patient no longer under provider care VIOLIN MAKER documented in this encounter Plan of Treatment Not on file documented as of this encounter Visit Diagnoses Not on filedocumented in this encounter
--- OUTSIDE RECORDS SUMMARY | 2025-07-18 12:09 | XMS_ITS | Encounter Summary ---
Author Organization [facility] Address [address] [place] [address] Phone Care Team Providers Care Railroad Car Cleaner Name Role Phone Unavailable Primary Care Provider Unavailabl e Reason for Visit * Reason Comments Medication Refill Encounter Details Date Type Department Care Team (Late st Contact Info) Description 04/17/2023 Refill [facility] - Primary Care - James [address] [place] [address] Elisa Pandey, ANALYSIS MANAGER, ANESTHESIOLOGY FELLOW [address] [place] [address] Medication Refill Social History Tobacco [...]
--- OUTSIDE RECORDS SUMMARY | 2025-07-18 12:09 | XMS_ITS | Clinical Summary ---
Author Organization [facility] Address [address] [place] [address] Care Team Providers Care Business Process Specialist Name Role Phone Monika Kitchen MD Primary Care Provider Source Comments [facility],non-owned Affiliates and Associated Physician Practices is amultiple site organization consisting of ambulatory clinics and hospital sitesin [place], [place], [place] and [place]. This disclosure is being madepursuant to the Care Everywhere program and may not contain all information available regarding this patient. Last updated 18.[facility] Allergies Active Allergy Reactions Criticality Noted Date [...] FOR ALLERGY 11/10/19 23 Active nystatin (Mycostatin) 644818 UNIT/GM cream 1 APPLIC TOPICALLY DAILY APPLY TO LOWER ABDOMEN 12/07/19 23 Active nystatin (Mycostatin) 949246 UNIT/ML suspension SWISH AND SWALLOW 4ML BY [...] (12/31/2022): Added automatically from request for surgery [id number] Bipolar disorder 12/30/2015 Herniation of intervertebral disc [...] on file Legal Sex Female 5:58 PM VALIDATION SOFTWARE FACILITATOR Gender Identity Not on file Sexual Orientation [...] 07/12/2023 8:52 AM CDT Plan of Treatment Upcoming Encounters Date Type Department Care Team (Late st Contact Info) Description 08/15/2025 11:40 AM VALIDATION SOFTWARE FACILITATOR Office Visit [facility] - Urology [address] [place] [address] Agus Hdez PA [address] [place] [id number] Health Maintenance Due Date Last Done Comments [...] of 3 - 19+ 3-dose series) 1989 PNEUMOCOCCAL VACCINE 50+ (1 of 1 - PCV) 2020 ZOSTER VACCINE (1 of 2) 2020 COVID-19 VACCINE (4 - 2024-2 6 season) 2025 01/01/2022, 07/19/2021, 06/28/2021 INFLUENZA VACCINE (#1) 2025 [...] on patient's age to complete this topic Insurance Care Teams Business Process Specialist Relationship Specialty Start Date End Date Monika Kitchen MD [address] [facility] [address] [address] PCP - General Family Medicine 07/12/23
--- OUTSIDE RECORDS SUMMARY | 2025-07-18 12:09 | XMS_ITS | Clinical Summary ---
Author Organization [facility] Address [address] [address] Phone Care Team Providers Care Door To Door Lead Generation Name Role Phone Unavailable Primary Care Provider [...]
--- OUTSIDE RECORDS SUMMARY | 2025-07-18 12:09 | XMS_ITS | Encounter Summary ---
Author Organization [facility] Address [address] [place] [address] Phone Care Team Providers Care Vehicle Insurance Agent Name Role Phone Unavailable Primary Care Provider Unavailabl e Reason for Visit * Reason Comments Medication Refill Encounter Details Date Type Department Care Team (Late st Contact Info) Description 12/29/20[address] [facility] - Primary Care - James [address] [place] [address] Elisa Pandey, HEALTH SERVICE WORKER, SUPERVISOR WORD PROCESSING [address] [place] [address] Medication Refill Social History Tobacco [...]
--- OUTSIDE RECORDS SUMMARY | 2025-07-18 12:09 | XMS_ITS | Encounter Summary ---
Author Organization [facility] Address [address] [place] [address] Phone Care Team Providers Care Boat Joiner Helper Name Role Phone Unavailable Primary Care Provider Unavailabl e Reason for Visit * Reason Comments Medication Refill Encounter Details Date Type Department Care Team (Late st Contact Info) Description 02/05/2024 Refill [facility] - Primary Care - James [address] [place] [address] Elisa Pandey, ORACLE HRMS CONSULTANT, MOTOR ROOM CONTROLLER [address] [place] [address] Medication Refill Social History Tobacco [...]
--- OUTSIDE RECORDS SUMMARY | 2025-07-18 12:09 | XMS_ITS | Encounter Summary ---
Author Organization [facility] Address [address] [place] [address] Phone Care Team Providers Care Formula Technician Name Role Phone Unavailable Primary Care Provider Unavailabl e Reason for Visit * Reason Comments Medication Refill Encounter Details Date Type Department Care Team (Late st Contact Info) Description 12/31/2023 Refill [facility] - Primary Care - James [address] [place] [address] Elisa Pandey, DEHYDRATOR, CHIEF DESIGN DRAFTER [address] [place] [address] Medication Refill Social History Tobacco [...]
--- OUTSIDE RECORDS SUMMARY | 2025-07-18 12:09 | XMS_ITS | Encounter Summary ---
Author Organization [facility] Address [address] [place] [address] Phone Care Team Providers Care Pole Framer Machine Name Role Phone Unavailable Primary Care Provider Unavailabl e Reason for Visit * Reason Comments Medication Refill Encounter Details Date Type Department Care Team (Late st Contact Info) Description 11/25/2023 Refill [facility] - Primary Care - James [address] [place] [address] Elisa Pandey, NURSE EMERGENCY ROOM, SANDER HAND [address] [place] [address] Medication Refill Social History Tobacco [...] CST Patient no longer under provider care X SYSTEMS ANALYST documented in this encounter Plan of Treatment Not on file documented as of this encounter Visit Diagnoses Not on filedocumented in this encounter
--- NOTE | 2025-07-18 12:43 | PC.NURSE ---
Urine sent at this time.
--- OUTSIDE RECORDS SUMMARY | 2025-07-18 12:49 | XMS_ITS | Clinical Summary ---
Author Organization [facility] Address [address] [address] Phone Care Team Providers Care Workers Compensation Legal Secretary Name Role Phone Unavailable Primary Care Provider [...]
--- OUTSIDE RECORDS SUMMARY | 2025-07-18 12:49 | XMS_ITS | Encounter Summary ---
Author Organization [facility] Address [address] [place] [address] Phone Care Team Providers Care Top Polisher Name Role Phone Unavailable Primary Care Provider Unavailabl e Reason for Visit * Reason Comments Medication Refill Encounter Details Date Type Department Care Team (Late st Contact Info) Description 11/25/2023 Refill [facility] - Primary Care - James [address] [place] [address] Elisa Pandey, CHAIR INSPECTOR, FORENSIC PHOTOGRAPHER [address] [place] [address] Medication Refill Social History Tobacco [...] CST Patient no longer under provider care COORDINATOR documented in this encounter Plan of Treatment Not on file documented as of this encounter Visit Diagnoses Not on filedocumented in this encounter
--- OUTSIDE RECORDS SUMMARY | 2025-07-18 12:49 | XMS_ITS | Encounter Summary ---
Author Organization [facility] Address [address] [place] [address] Phone Care Team Providers Care Temporary Office Assistant Name Role Phone Unavailable Primary Care Provider Unavailabl e Reason for Visit * Reason Comments Medication Refill Encounter Details Date Type Department Care Team (Late st Contact Info) Description 10/13/2023 Refill [facility] - Primary Care - James [address] [place] [address] Elisa Pandey, FACILITIES ASSISTANT, CANDY DIPPER [address] [place] [address] Medication Refill Social History Tobacco [...] CST Patient no longer under provider care CTOR OF RESERVATIONS documented in this encounter Plan of Treatment Not on file documented as of this encounter Visit Diagnoses Not on filedocumented in this encounter
--- OUTSIDE RECORDS SUMMARY | 2025-07-18 12:49 | XMS_ITS | Encounter Summary ---
Author Organization [facility] Address [address] [place] [address] Phone Care Team Providers Care Flame Cutting Machine Operator Helper Name Role Phone Unavailable Primary Care Provider Unavailabl e Reason for Visit * Reason Comments Medication Refill Encounter Details Date Type Department Care Team (Late st Contact Info) Description 04/17/[address] [facility] - Primary Care - James [address] [place] [address] Elisa Pandey, LABORER PETROLEUM REFINERY, HYDROMETEOROLOGY TEACHER [address] [place] [address] Medication Refill Social History Tobacco [...]
--- OUTSIDE RECORDS SUMMARY | 2025-07-18 12:49 | XMS_ITS | Encounter Summary ---
Author Organization [facility] Address [address] [place] [address] Phone Care Team Providers Care Lunch Truck Operator Name Role Phone Unavailable Primary Care Provider Unavailabl e Reason for Visit * Reason Comments Medication Refill Encounter Details Date Type Department Care Team (Late st Contact Info) Description 12/29/2023 Refill [facility] - Primary Care - James [address] [place] [address] Elisa Pandey, MEDICAL TECHNOLOGIST MICROBIOLOGY, FULL STACK NET DEVELOPER [address] [place] [address] Medication Refill Social History Tobacco [...]
--- OUTSIDE RECORDS SUMMARY | 2025-07-18 12:49 | XMS_ITS | Encounter Summary ---
Author Organization [facility] Address [address] [place] [address] Phone Care Team Providers Care Correction Warden Name Role Phone Unavailable Primary Care Provider Unavailabl e Reason for Visit * Reason Comments Medication Refill Encounter Details Date Type Department Care Team (Late st Contact Info) Description 12/31/2023 Refill [facility] - Primary Care - James [address] [place] [address] Elisa Pandey, MEDICAL REIMBURSEMENT SPECIALIST, GERMAN TEACHER [address] [place] [address] Medication Refill Social History Tobacco [...]
--- OUTSIDE RECORDS SUMMARY | 2025-07-18 12:49 | XMS_ITS | Clinical Summary ---
Author Organization [facility] Address [address] [facility] [place] [address] Care Team Providers Care Paralegals Name Role Phone Monika Kitchen MD Primary Care Provider Source Comments [facility],non-owned Affiliates and Associated Physician Practices is amultiple site organization consisting of ambulatory clinics and hospital sitesin [place], [place], [place] and [place]. This disclosure is being madepursuant to the Care Everywhere program and may not contain all information available regarding this patient. Last updated 18.[facility] Allergies Active Allergy Reactions Criticality Noted Date [...] FOR ALLERGY 11/10/19 23 Active nystatin (Mycostatin) 257551 UNIT/GM cream 1 APPLIC TOPICALLY DAILY APPLY TO LOWER ABDOMEN 12/07/19 23 Active nystatin (Mycostatin) 571562 UNIT/ML suspension SWISH AND SWALLOW 4ML BY [...] (12/31/2022): Added automatically from request for surgery [id number] Bipolar disorder 12/30/2015 Herniation of intervertebral disc [...] on file Legal Sex Female 5:58 PM BUSSER Gender Identity Not on file Sexual Orientation [...] st Contact Info) Description 08/15/2025 11:40 AM BUSSER Office Visit [facility] - Urology [address] [place] [address] Agus Hdez PA [address] [place] [id number] Health Maintenance Due Date Last Done Comments [...] to complete this topic Insurance Care Teams Paralegals Relationship Specialty Start Date End Date Monika Kitchen MD [address] [facility] [place] [address] [address] PCP - General Family Medicine 07/12/23
--- OUTSIDE RECORDS SUMMARY | 2025-07-18 12:49 | XMS_ITS | Encounter Summary ---
Author Organization [facility] Address [address] [place] [address] Phone Care Team Providers Care Asphalt Distributor Operator Name Role Phone Unavailable Primary Care Provider Unavailabl e Reason for Visit * Reason Comments Medication Refill Encounter Details Date Type Department Care Team (Late st Contact Info) Description 02/05/2024 Refill [facility] - Primary Care - James [address] [place] [address] Elisa Pandey, ADMINISTRATION DEAN, CUPOLA MELTER [address] [place] [address] Medication Refill Social History Tobacco [...]
[2025-07-18 13:10] LABS: Add Urine Microscopic? YES; Appearance Urine Cloudy (Clear); Glucose Urine UA Negative (Negative); Leukocyte Esterase Ur 2+ LEU/UL (Negative); Need Manual Microscopic Reviewed; Nitrate Urine Negative (Negative); Specific Grav Ur 1.028 (1.001-1.035)
[2025-07-18] MEDS: CEPHALEXIN 500 MG CAPSULE PO (13:28)
[2025-07-18 14:04] VITALS: BP 131/80; PULSE 80; RESP 16; TEMP 37.2; O2SAT 100
== END 2025-07-18 14:17 | disposition home or self-care (01) ==
PROVIDERS: Emergency Provider Emergency Medicine; PCP Family Medicine
DX: N39.0 Urinary tract infection, site not specified (principal); M54.50 Low back pain, unspecified; J44.9 Chronic obstructive pulmonary disease, unspecified; J45.30 Mild persistent asthma, uncomplicated; E03.9 Hypothyroidism, unspecified; M79.7 Fibromyalgia; G62.9 Polyneuropathy, unspecified; M19.90 Unspecified osteoarthritis, unspecified site; E78.5 Hyperlipidemia, unspecified; F31.9 Bipolar disorder, unspecified; F41.9 Anxiety disorder, unspecified; Z87.891 Personal history of nicotine dependence; Z90.710 Acquired absence of both cervix and uterus; Z79.899 Other long term (current) drug therapy; Z79.82 Long term (current) use of aspirin
CPT/HCPCS: 81001; 87086; 96360; 99283; A9270; J7120

== ENCOUNTER 2025-08-12 16:49 | Emergency (ER) | payer OTHER, SELFPAY ==
[2025-08-12 16:58] VITALS: BP 116/78; PULSE 99; RESP 16; TEMP 36.4; O2SAT 99
--- NOTE | 2025-08-12 17:19 | ED_ITS ---
HPI - Animal Bite General Chief Complaint: Animal Bite Stated Complaint: CAT BITE L WRIST Time Seen by Provider: 08/12/25 17:12 Source: patient and RN notes reviewed Mode of arrival: ambulatory Limitations: no limitations History of Present Illness HPI narrative: 54-year-old female patient presents today complaining of a cat bite to her left distal forearm that was sustained yesterday while in [place]. Patient is up-to-date on her tetanus vaccine. The cat is up-to-date on its vaccines. States she wash the area with Betadine soon following the bite. Area surrounding the bite is red today, so patient came in for evaluation. Related Data Home Medications ?Medication ?Instructions ?Recorded ?Confirmed ?Last Taken ?Type aspirin 81 mg tablet,delayed 81 mg PO DAILY 09/06/19 0 05/22/25 04/13/21 History release cetirizine 10 mg tablet (Zyrtec) 10 mg PO DAILY 05/22/25 04/15/21 History fluoxetine 20 mg capsule 20 mg PO DAILY 01/15/2404/29 Unknown History fluoxetine 40 mg capsule 40 mg PO DAILY 01/15/2404/29 Unknown History hydrocortisone 2.5 % topical cream applic topical 01/2005/22/25 Unknown H istory ketoconazole 2 % topical cream applic topical 11/29/24 05/22/25 Unknown History quetiapine 300 mg tablet 200 mg PO BID 02/22/2505/22 Unknown History bupropion HCl 150 mg 24 hr tablet, 150 mg PO QAM 03/2005/22/25 Unknown History extended release (Wellbutrin XL) Allergies Allergy/AdvReac Type Severity Reaction Status Date / Time bee venom protein (honey bee) Allergy Severe Anaphylaxis Verified 07/18/25 10:20 cinnamon Allergy Severe Swelling Verified 07/18/25 10:20 of Lip/Tongue/Throat clove Allergy Severe ANAPHALACTIC Verified 07/18/25 10:20 SHOCK codeine Allergy Severe unknown Verified 07/18/25 10:20 Penicillins Allergy Severe Anaphylaxis Verified 07/18/25 10:20 poison natividad extract Allergy Severe hives , Verified 07/18/25 10:20 goes in lungs adhesive tape Allergy Intermediate eats pts Verified 07/18/25 10:20 skin papaya Allergy Mild SCRATCHY Verified 07/18/25 10:20 THROAT mold Allergy Anaphylaxis Verified 07/18/25 10:20 [id number] Reductase Allergy Unknown Verified 07/18/25 10:20 Inhibitor hay fever Allergy Severe cough , Uncoded 03/20/25 12:56 throat swells Streetman Allergy Intermediate itchy Uncoded 03/20/25 12:56 throat Tuna Allergy Intermediate hives Uncoded 03/20/25 12:56 PMFSH Past Medical History Medical History Finger injury Poison natividad dermatitis Skin infection Stress incontinence Chronic neck pain Thyroid condition Cummings's palsy (~01/2021) Hypertriglyceridemia Levels ranging between 140 and 207 in 2019 Herpes zoster The patient reports that she has had up to 20 herpes zoster outbreaks on her left arm Peripheral neuropathy Due to cervical disc disease Arthritis Depression SG (obstructive sleep apnea) Wears glasses Neuropathy Osteomyelitis of left foot Colitis (~04/2020) Fibromyalgia Hyperlipidemia Suicide SI at age 16 Anxiety Bipolar depression Hypothyroidism Chronic pain GERD (gastroesophageal reflux disease) COPD (chronic obstructive pulmonary disease) Asthma Mild persistent Migraine Surgical History Surgical History Hx of local excision of skin lesion Right shoulder epidermal cyst Hx of foot surgery (~01/2021) Left 5th MTP History of cervical spinal surgery Cervical disc replacement 2005 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 Rivera lives in an apartment with her son. Her son, who is 30, lives downstairs. She is on disability due to chronic neck pain and psychiatric illness. She designates her son, Carroll as her surrogate decision maker. She would like to be a full code. Caffeine-rarely Smoking packs per day: 0.5 Smoking cigarettes per day: 10.0 Years smoked: 15 Smoking pack-years: 7.50 Smoking status: Former smoker Tobacco type: cigarettes Smoking end date: 09/28/04 Additional smoking assessment comments: smokes marijuana 2-3 times a month Alcohol intake: current Alcohol use details: Wine/ vodka Rarely Substance use: current Substance use type: marijuana Other substance usage details: her psych MD is aware Last use: used for occasional sleep aid Living arrangements: with family Additional living arrangements comments: Son Occupation/Education: unemployed Additional occupation/education comments: Disabled Gender identity (if verbalized by the patient): Female Sexual Orientation (if Verbalized by the Patient): Straight or Heterosexual Spiritual care concerns: No Agree to blood products: Yes Comments At time of signature, I have reviewed and agree with nursing past medical, surgical, social and family history unless otherwise noted. Please see nursing chart for further information. There is no relevant family history pertinent to the presenting complaint Exam Narrative: GENERAL: Well-appearing, well-nourished, and in no acute distress. HEAD: Normocephalic, atraumatic. EYES: EOMI. No redness or drainage. Conjunctivae normal. ENT: Mucous membranes pink and moist. NECK: Normal AROM. CHEST: No respiratory distress. EXTREMITIES: Normal range of motion. No edema. SKIN: Warm, dry. Capillary refill normal. Normal skin turgor. Left arm: 1 scabbed puncture wound to the distal forearm on the dorsum, 1 to the volar aspect. Each surrounded in erythema measuring approximately 3 x 3 cm round. No surrounding edema, induration, or drainage noted. Full range of motion of the wrist and elbow. No red streaking noted. Distal sensation intact. Capillary refill. Radial pulse normal NEURO: No focal deficits. Alert and oriented x3. Gait steady. PSYCH: Normal affect. No signs of depression or anxiety. Course Course Level of Care: Express Care Visit Vital Signs Vital signs: Vital Signs Temperature 97.5 F L 08/12/25 16:58 Pulse Rate 99 08/12/25 16:58 Respiratory Rate 16 08/12/25 16:58 Blood Pressure 116/78 08/12/25 16:58 Pulse Oximetry 99 08/12/25 16:58 Temperature 97.5 F L 08/12/25 16:58 Pulse Rate 99 08/12/25 16:58 Respiratory Rate 16 08/12/25 16:58 Blood Pressure 116/78 08/12/25 16:58 Pulse Oximetry 99 08/12/25 16:58 Reviewed MDM - Animal Bite MDM Narrative Medical decision making narrative: 54-year-old female patient presents today complaining of a cat bite to her left distal forearm that was sustained yesterday while in [place]. Patient is up-to-date on her tetanus vaccine. The cat is up-to-date on its vaccines. States she wash the area with Betadine soon following the bite. Area surrounding the bite is red today, so patient came in for evaluation. Upon exam, 1 scabbed puncture wound to the distal forearm on the dorsum, 1 to the volar aspect. Each surrounded in erythema measuring approximately 3 x 3 cm round. No surrounding edema, induration, or drainage noted. Full range of motion of the wrist and elbow. No red streaking noted. Distal sensation intact. Capillary refill. Radial pulse normal. Patient has a penicillin allergy so she cannot take first-line medication for cat bite infection, Augmentin. She will be placed on a course of doxycycline which is the alternative. Patient agrees with plan. Vital signs stable. Anticipatory guidance and ED precautions given. Differential Diagnosis Differential diagnosis: Likely bite by animal and other (Cellulitis, abscess) Critical Care Time Critical Care Time Critical Care Time: No Discharge Plan Discharge Clinical Impression: Cat bite of left forearm Qualifiers: Encounter type: initial encounter Qualified Code(s): S51.852A - Open bite of left forearm, initial encounter Patient Disposition: Home Condition: Stable Instructions: Antibiotic Form, Animal Bite (ED) Additional Instructions: Please take the doxycycline as prescribed until gone. Wash wounds daily with soap and water. Go to the ER with signs of worsening infection such as development of fever greater than 100.3, increased swelling or redness, red streaking up your arm. Patient Language: Maltese Prescriptions: New doxycycline hyclate 100 mg tablet 100 mg PO BID 7 Days Qty: 14 0RF No Action fluoxetine 20 mg capsule 20 mg PO DAILY fluoxetine 40 mg capsule 40 mg PO DAILY quetiapine 300 mg tablet 200 mg PO BID ketoconazole 2 % cream topical hydrocortisone 2.5 % cream topical epinephrine 0.3 mg/0.3 mL auto-injector 0.3 mg IM ONCE PRN (Reason: Anaphylaxis) Qty: 2 0RF phentermine 37.5 mg capsule 37.5 mg PO DAILY Qty: 30 1RF Rx Instructions: must administer 30 minutes before or 1-2 hours after breakfast aspirin 81 mg tablet,delayed release (DR/EC) 81 mg PO DAILY cetirizine [Zyrtec] 10 mg tablet 10 mg PO DAILY gabapentin 300 mg capsule See Rx Instructions PO TID 90 Days Qty: 450 2RF Rx Instructions: take 600mg morning and night, 300 mg at midday orally three times a day; bupropion HCl [Wellbutrin XL] 150 mg tablet extended release 24 hr 150 mg PO QAM cephalexin 500 mg capsule 500 mg PO Q12H Qty: 14 0RF Rx Instructions: Given 1 dose in ED without reaction acyclovir 400 mg tablet 800 mg PO TID PRN (Reason: Rash) Qty: 30 1RF budesonide-formoterol [Symbicort] 80-4.5 mcg/actuation HFA aerosol inhaler 2 puff inhalation BID Qty: 10.2 2RF Rx Instructions: INHALE 2 PUFFS BY MOUTH EVERY 12 HOURS fluticasone propionate 50 mcg/actuation spray,suspension 2 spray NASAL DAILY PRN (Reason: allergy symptoms) Qty: 54.6 3RF Rx Instructions: administer into each nostril albuterol sulfate 2.5 mg /3 mL (0.083 %) solution for nebulization 2.5 mg INHALATION Q6H PRN (Reason: Shortness Of Breath) Qty: 75 1RF levothyroxine 25 mcg tablet 37.5 mcg PO DAILY Qty: 45 5RF albuterol sulfate 90 mcg/actuation HFA aerosol inhaler See Rx Instructions .ROUTE .COMPLEX Qty: 18 5RF Dose Instruction: INHALE 2 PUFFS 4 TIMES A DAY NEEDED FOR SHORTNESS OF BREATH OR FOR WHEEZE Rx Instructions: INHALE 2 PUFFS 4 TIMES A DAY NEEDED FOR SHORTNESS OF BREATH OR FOR WHEEZE ezetimibe 10 mg tablet 10 mg PO DAILY Qty: 90 1RF triamcinolone acetonide 0.1 % cream 1 applic topical BID Qty: 30 3RF nystatin 100,000 unit/gram cream See Rx Instructions .ROUTE .COMPLEX Qty: 30 3RF Dose Instruction: 1 APPLIC TOPICALLY DAILY APPLY TO LOWER ABDOMEN Rx Instructions: 1 APPLIC TOPICALLY DAILY APPLY TO LOWER ABDOMEN montelukast 10 mg tablet 10 mg PO DAILY Qty: 90 1RF diclofenac sodium 75 mg tablet,delayed release (DR/EC) 75 mg PO BID 90 Days Qty: 180 1RF tramadol 50 mg tablet See Rx Instructions PO .COMPLEX PRN (Reason: pain) Qty: 150 2RF Rx Instructions: orally Take 2 tabs in am, 1 tab in afternoon, 2 tabs at bedtime PRN; cyclobenzaprine 10 mg tablet 10 mg PO Q8H Qty: 90 1RF Follow-up/Referrals: Nicole Kitchen MD [Primary Care Provider, Family Practice] Time of Disposition: 17:18
== END 2025-08-12 17:20 | disposition home or self-care (01) ==
PROVIDERS: Emergency Provider Nurse Practitioner; PCP Family Medicine
DX: S51.852A Open bite of left forearm, initial encounter (principal); E78.5 Hyperlipidemia, unspecified; E03.9 Hypothyroidism, unspecified; J44.9 Chronic obstructive pulmonary disease, unspecified; F17.210 Nicotine dependence, cigarettes, uncomplicated; W55.01XA Bitten by cat, initial encounter
CPT/HCPCS: 99213; G0463